=== PATIENT | male | born 1960 | race Caucasian/White ===

== ENCOUNTER 2023-06-20 09:41 | Outpatient (OUT) | payer MEDICARE, SELFPAY ==
--- NOTE | 2023-06-20 10:46 | PM.CN ---
Consult Note: HPI Data of Consult Patient: known to practice within the last 3 years Consult date: 06/20/23 Requesting Physician: ZO MCKINNEY NP Primary Care Provider: MITCHELL SANTANA Consult Narrative Narrative: Patient is here for f/u of neck pain. He had cervical RFA done 02/14 with continued relief of pain. Today he has muscle tightness in upper right cervical area. We did discuss trigger point injections to the area and he is agreeable Pain is in the right cervical area with obvious trigger point, worse at night. No new sensorimotor sx or bowel or bladder issues. No adverse medication SE. Medications assist patient with better ability to perform ADLs. cc:: CC: ZO MCKINNEY NP Review of Systems ROS Status of ROS 10 or more systems reviewed and unremarkable except as noted in history and below Musculoskeletal Reports: neck pain Exam Constitutional Documenting provider has reviewed patient's vital signs: yes Common normals: no apparent distress, average body habitus, oriented x3, no limitations, healthy appearing, alert and well nourished General appearance: cooperative, comfortable and well developed Orientation/consciousness: Yes awake, Yes oriented to person, Yes oriented to place and Yes oriented to time HENMT Common normals: normocephalic and moist oral mucous membranes Neck & C-Spine Common normals: supple General: normal visual inspection and trachea midline Cervical spine: pain with cervical ROM, paracervical muscle tenderness and paracervical muscle spasm Other: muscle strength5/5 bilat UE with intact sensation no radicular sx Neck images: 1. trigger point Respiratory Common normals: normal respiratory effort, no retractions and no use of accessory muscles Effort & inspection: able to speak in complete sentences and symmetric chest movement Assessment and Plan Assessment and Plan (1) Cervical spondylosis: (2) Muscle spasm: Plan trigger point injection right splenius capitus refill [id number]
== END 2023-06-20 09:42 | disposition home or self-care (01) ==
LOC: PM 09:42
PROVIDERS: PCP Family Medicine; Visit Provider Nurse Practitioner
DX: M47.812 Spondylosis without myelopathy or radiculopathy, cervical region (principal); M62.838 Other muscle spasm
CPT/HCPCS: G0463

== ENCOUNTER 2023-07-04 15:17 | Outpatient (OUT) | payer MEDICARE, SELFPAY ==
--- NOTE | 2023-07-04 | CONS_ITS ---
PROCEDURE DATE: ??07/04/2023 PROCEDURE:? Bilateral splenius capitis trigger point injection. PREOPERATIVE DIAGNOSIS:? Pain secondary to myofascial spasm bilateral splenius capitis. POSTOPERATIVE DIAGNOSIS:? Pain secondary to myofascial spasm bilateral splenius capitis. SOLUTION USED FOR INJECTION:? 2 mL of 2% lidocaine, 2 mL of 0.25% Marcaine, 10 mg of Kenalog total of 5 mL and 1.5 mL was used for injection at each site. IMMEDIATE COMPLICATIONS:? None. PROCEDURE:? After informed consent was obtained from the patient, placed in the sitting position. Skin overlying the area was prepped with alcohol.? A 25 gauge, 1 ?? needle was easily entered over the area and directed towards the splenius capitis at approximately C3 level.? After having a positive twitch response, no indication of intravascular or intraneural or intrathecal needle tip placement was noted.? 1.5 mL of solution was injection.? This was repeated in a similar fashion on the contralateral side.? Post procedure, needle was removed.? Transferred to recovery in stable condition.? Patient reports reduction of pain to 0/10.? MTDD
== END 2023-07-04 15:18 | disposition home or self-care (01) ==
LOC: PM 15:18
PROVIDERS: PCP Family Medicine; Visit Provider Anesthesiology Pain Medicine
DX: M62.838 Other muscle spasm (principal)
CPT/HCPCS: 20552

== ENCOUNTER 2023-08-15 12:32 | Outpatient (OUT) | payer MEDICARE, SELFPAY ==
[2023-08-15 14:14] LABS: Amylase 117 U/L (25-115)
== END 2023-08-15 12:33 | disposition home or self-care (01) ==
PROVIDERS: PCP Family Medicine
DX: E11.65 Type 2 diabetes mellitus with hyperglycemia (principal)
CPT/HCPCS: 36415; 82150; 83690

== ENCOUNTER 2023-11-14 07:48 | Outpatient (OUT) | payer MEDICARE, SELFPAY ==
[2023-11-14 08:44] LABS: Alanine Aminotransferase 39 U/L (16-63); Albumin Globulin Ratio 0.9; Albumin Level 3.5 g/dL (3.4-5.0); Alkaline Phosphatase 107 U/L (46-116); Amylase 91 U/L (25-115); Anion Gap 10.7; Aspartate Amino Transferase 26 U/L (15-37); BUN Creatinine Ratio 22.7; Bilirubin Total 0.7 mg/dL (0.2-1.0); Calcium 8.8 mg/dL (8.5-10.1); Carbon Dioxide 31.7 mmol/L (21.0-32.0); Chloride 104 mmol/L (98-107); Estimated GFR (African America >60 (>=60); Estimated GFR (Non-African Ame >60 (>=60); Globulin 3.7 g/dL; Glucose 101 mg/dL (74-106); Potassium 4.4 mmol/L (3.5-5.1); Sodium 142 mmol/L (136-145); Total Protein 7.2 g/dL (6.4-8.2)
== END 2023-11-14 07:49 | disposition home or self-care (01) ==
LOC: LAB 07:50
PROVIDERS: PCP Family Medicine
DX: R10.9 Unspecified abdominal pain (principal)
CPT/HCPCS: 36415; 80053; 82150; 83690

== ENCOUNTER 2023-11-20 08:02 | Outpatient (OUT) | payer MEDICARE, SELFPAY ==
--- NOTE | 2023-11-20 08:27 | P.CN_ITS ---
Consult Note: HPI Data of Consult Patient: known to practice within the last 3 years Requesting Physician: Shannan Lyle NP Primary Care Provider: MITCHELL SANTANA Consult Narrative Reason for consult: f/u Narrative: Garo wilkins pleasant 62 year old male presents for evaluation and management of chronic neck pain. Patient rating pain 8/10 today in cervical spine and paraspinal myofascial pain. Pain described as throbbing, worse with all activity and in the evenings. No numbness, tingling, weakness. Pain responds well to mobic and baclofen. Continues Topamax 100mg HS. Patient found benefit from previous cervical TPI and would like to repeat. cc:: CC: Shannan Lyle NP Review of Systems ROS Status of ROS 10 or more systems reviewed and unremark able except as noted in history and below Musculoskeletal Reports: neck pain Meds Home Medications and Allergies Home Medications Medication Instructions Recorded Confirmed Type amlodipine 5 mg tablet (Norvasc) 5 mg PO DAILY 06/20/23 06/20/23 History aspirin 81 mg capsule 81 mg PO DAILY 06/20/23 06/20/23 History atorvastatin 40 mg tablet 40 mg PO DAILY 06/20/23 06/20/23 History baclofen 10 mg tablet 10 mg PO TID 06/20/23 06/20/23 History insulin aspart U-100 100 unit/mL 24 unit subcut TID 06/20/23 06/20/23 History (3 mL) subcutaneous pen (Novolog FlexPen U-100 Insulin aspart) insulin degludec 100 unit/mL (3 50 unit subcut DAILY 06/20/23 06/20/23 History mL) subcutaneous pen (Tresiba FlexTouch U-100 insulin) meloxicam 15 mg tablet 15 mg PO DAILY 06/20/23 06/20/23 History metformin 500 mg tablet 500 mg PO BID 06/20/23 06/20/23 History semaglutide 1 mg/dose (4 mg/3 mL) 4 mg subcut QWEEK 06/20/23 06/20/23 History subcutaneous pen injector (Ozempic) topiramate 100 mg tablet (Topamax) 100 mg PO DAILY 06/20/23 06/20/23 History Allergies Allergy/AdvReac Type Severity Reaction Status Date / Time No Known Drug Allergies Allergy Verified 06/20/23 12:51 Exam Constitutional Documenting provider has reviewed patient's vital signs: yes Common normals: no apparent distress, average body habitus, oriented x3, no limitations, healthy appearing, alert and well nourished General appearance: cooperative, comfortable and well developed Orientation/consciousness: Yes awake, Yes oriented to person, Yes oriented to place and Yes oriented to time HENMT Common normals: normocephalic and moist oral mucous membranes Neck & C-Spine Common normals: supple General: normal visual inspection and trachea midline Cervical spine: pain with cervical ROM, paracervical muscle tenderness and paracervical muscle spasm Other: muscle strength5/5 bilat UE with intact sensation no radicular sx Respiratory Common normals: normal respiratory effort, no retractions and no use of accessory muscles Effort & inspection: able to speak in complete sentences and symmetric chest movement Assessment and Plan Assessment and Plan (1) Cervical spondylosis: (2) Muscle spasm: (3) Myofascial pain: Plan patient is not interested in trialing alternative medications at this time, he says he does not like taking pills continue mobic 15mg daily, takes this in the evening without side effect continue baclofen 10mg hs has found no benefit in the past to a tens unit mild benefit to icy hot creams previous cervical RFAs provided 50% relief greater than 6 months will return to office for cervical myofascial TPI with Dr Falcon transdermal therapeutics cream 8a BID to neck for chronic neck pain and myofascial pain
== END 2023-11-20 08:03 | disposition home or self-care (01) ==
LOC: PM 08:02
PROVIDERS: PCP Family Medicine; Visit Provider Nurse Practitioner
DX: M47.812 Spondylosis without myelopathy or radiculopathy, cervical region (principal); M62.838 Other muscle spasm; M79.18 Myalgia, other site
CPT/HCPCS: G0463

== ENCOUNTER 2024-03-16 07:49 | Outpatient (OUT) | payer MEDICARE, SELFPAY ==
--- OUTSIDE RECORDS SUMMARY | 2024-03-16 08:06 | XMS_ITS | CCD ---
Author Organization [facility] Care Team Providers Care 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 Name Role Phone Melissa Joyce Unavailable LAKSHMIPATHY ., NARENDRANATH Consulting Su vailable LAKSHMIPATHY ., DONG Attending Su vailable FURMARIA TERESANG, DR RINKU Peralta Primary Care Unavailable LAKSHMIPATHY ., DONG Admitting Su vailable COBURN ., DR HAYDE Staley Admitting Unavailable COBURN ., DR HAYDE Staley Consulting Unavailable FURLONG, DR RINKU Peralta Primary Care Unavailable COBURN ., DR HAYDE Staley Attending Unavailable FURLONG, DR RINKU Peralta Primary Care Unavailable EDUARDO, DR DAY Attending Unavailable EDUARDO, DR DAY Admitting Unavailable EDUARDO, DR DAY Consulting Unavailable MISC, DR MACIAS Attending Unavailable MISC, DR MACIAS Admitting Unavailable REQUEST, DR SANABRIA LISTED Primary Care Unavaila ble MISC, DR MACIAS Consulting Unavailable MARIELEDY POWERS Consulting Unavailable FURLONG, DR RINKU Peralta Primary Care Unavailable EDUARDO, DR DAY Consulting Unavailable EDUARDO, DR DAY Attending Unavailable EDUARDO, DR DAY Admitting Unavailable LENY, DIANE Attending Unavailable LENY, DIANE Admitting Unavailable FURLONG, DR RINKU Peralta Primary Care Unavailable LENY, DIANE Consulting Unavailable COBURN ., DR HAYDE Staley Consulting Unavailable FURLONG, DR RINKU Peralta Primary Care Unavailable COBURN ., DR HAYDE Staley Attending Unavailable COBURN ., DR HAYDE Staley Admitting Unavailable CABRALES .SADIA Consulting Unavailable FURLONG, DR RINKU Peralta Primary Care Unavailable COBURN ., DR HAYDE Staley Attending Unavailable COBURN ., DR HAYDE Staley Admitting Unavailable COBURN ., DR HAYDE Staley Consulting Unavailable FURLONG, DR RINKU Peralta Primary Care Unavailable COBURN ., DR HAYDE Staley Attending Unavailable COBURN ., DR HAYDE Staley Admitting Unavailable FURLONG, DR RINKU Peralta Primary Care Unavailable COBURN ., DR HAYDE Staley Admitting Unavailable COBURN ., DR HAYDE Staley Attending Unavailable CABRALES ., SADIA Consulting Unavailable LAKSHMIPATHY ., DONG Attending Su vailable LAKSHMIPATHY ., DONG Admitting Su vailable FURLONG, DR RINKU Peralta Primary Care Unavailable HALKER ., ZO Admitting Unavailable FURLONG, DR RINKU Peralta Primary Care Unavailable HALKER ., ZO Attending Unavailable LAKSHMIPATHY ., NARENDMAULIKATH Attending Su vailable LAKSHMIPATHY ., TIMURATH Admitting Su vailable FURLONG, DR RINKU Peralta Primary Care Unavailable ELSA MAR Consulting Unavailable LAKSHMIPATHY ., DONG Consulting Su vailable PAY ., DR TALAVERA Consulting Unavailable FURLONG, DR RINKU Peralta Primary Care Unavailable PAY ., DR TALAVERA Admitting Unavailable PAY ., DR TALAVERA Attending Unavailable DESIRAE SOSA Consulting Unavailable FURLONG, DR RINKU Peralta Primary Care Unavailable EDUARDO, DR DAY Consulting Unavailable EDUARDO, DR DAY Attending Unavailable EDUARDO, DR DAY Admitting Unavailable Uday Wright Consulting Unavailable COBURN ., DR HAYDE Staley Admitting Unavailable CABRALES ., SADIA Consulting Unavailable COBURN ., DR HAYDE Staley Attending Unavailable FURLONG, DR RINKU Peralta Primary Care Unavailable CUBA ., MIHAELA Attending Unavailable CUBA ., MIHAELA Admitting Unavailable FURLONG, DR RINKU Peralta Primary Care Unavailable CUBA ., MIHAELA Consulting Unavailable LAKSHMIPATHY ., DONG Attending Su vailable LAKSHMIPATHY ., DONG Admitting Su vailable FURLONG, DR RINKU Peralta Primary Care Unavailable QUYEN LI Consulting Unavailable LAKSHMIPATHY ., DONG Consulting Su vailable KAVITA BANG Consulting Unavailable Furlong Rinku FORD Primary Care Provider DO Rinku Trejo Primary Care Provider Maya, DO Dobbs Attending Provider Rinku Trejo Attending Unavailable Maya, Rinku Primary Care Unavailable Furmaria teresang, Rinku Admitting Unavailable Medications Current Medications Medication Drug Class(es) Dates Sig (Normalized) Sig (Original) 3 ML semaglutide 1.34 MG/ML Pen Injector [Ozempic] (12 sources) Start: 09-20-2022 inject 1 mg by subcutaneous injection every week Ozempic (1 MG/DOSE) 4 MG/3ML 1mg SQ once weekly for 90 day(s) Aug, Active inject 2 mg by subcu taneous injection every week Ozempic (1 MG/DOSE) 4 MG/3ML 2mg SQ once weekly for 90 days Not-Taking inject 1 mg by subcu taneous injection every week Ozempic (1 MG/DOSE) 4 MG/3ML 1mg SQ once weekly for 90 days Active inject 1 mg by subcu taneous injection every week Ozempic (1 MG/DOSE) 4 MG/3ML 1mg SQ once weekly for 90 day(s) Active 3 ML semaglutide 2.68 MG/ML Pen Injector [Ozempic] (7 sources) Start: 03-26-2023 inject 1 mg by subcutaneous injection every week Ozempic (2 MG/DOSE) 8 MG/3ML as directed Subcutaneous weekly for 90 days March, Active inject 1 mg by subcu taneous injection every week Ozempic (2 MG/DOSE) 8 MG/3ML as directed Subcutaneous weekly for 90 days Send refill after labs Active inject 1 mg by subcu taneous injection every week Ozempic (2 MG/DOSE) 8 MG/3ML as directed Subcutaneous weekly for 90 days Active amitriptyline hydrochloride 25 mg oral tablet (2 sources) Tricyclic Antidepressant take 1 tablet by mouth in the morning amitriptyline (ELAVIL) 25 mg tablet Take 1 tablet (25 mg total) by mouth in the morning. 0 Active amLODIPine 5 mg oral tablet (20 sources) Dihydropyridine Calcium Channel Shadi Start: take 5 mg by mouth once daily Amlodipine Active 5 MG PO Daily February 18, 2024 12:00am Start: 06-24-2023 End: 12-04-2023 take 1 tablet by mouth once daily amLODIPine (NORVASC) 5 mg tablet take 1 tablet by mouth once daily 90 tablet 1 12/04/2023 Active aspirin 81 mg delayed release oral tablet (20 sources) Platelet Aggregation Inhibitor, Nonsteroidal Anti-inflammatory Drug Start: 02-19-2024 take 81 mg by mouth once daily Aspirin Active 81 MG PO Daily February 19, 2024 12:00am Start: 04-29-2023 take 1 tablet by cirilo once daily aspirin 81 mg take 1 tablet by mouth once daily 90 tablet 3 04/29/2023 Active atorvastatin 40 mg oral tablet (20 sources) HMG-CoA Reductase Inhibitor Start: 01-14-2024 take 1 tablet by mouth once daily Atorvastatin Active 1 TAB PO Daily January 14, 2024 1:00am FreeTextSi tablet Orally Once a day; Note: Source Status: Taking; Provider: Isiah Torres ( ) Start: 09-20-2023 End: 12-11-2023 take 1 tablet by mouth once daily atorvastatin (LIPITOR) 40 mg tablet take 1 tablet by mouth once daily 90 tablet 0 12/11/2023 Active baclofen 10 mg oral tablet (11 sources) gamma-Aminobutyric Acid-ergic Agonist Start: 02-18-2024 take 10 mg by mouth once daily Baclofen Active 10 MG PO Daily February 18, 2024 12:00am Start: 03-21-2023 take 0.5-1 tablets b y mouth three times daily baclofen (LIORESAL) 10 mg tablet TAKE 1/2 TO 1 TABLET BY MOUTH THREE TIMES A DAY 0 03/21/2023 Active Bydureon Bcise 2 MG (9 sources) inject 2 mg by subcu taneous injection every week Bydureon Bcise 2 MG 2 mg SQ Once Weekly for 90 days dispense quantity sufficient for 90 days Active inject 2 mg by subcu taneous injection every week Bydureon Bcise 2 MG 2 mg SQ Once Weekly for 30 days dispense quantity sufficient for 30 days Active inject 2 mg by subcu taneous injection every week Bydureon Bcise 2 MG 2 mg SQ Once Weekly Active inject 2 mg by subcu taneous injection every week Bydureon Bcise 2 MG injector SQ Once Weekly Active cholecalciferol 0.1 mg oral tablet (15 sources) Vitamin D Start: 01-14-2024 take 100 ug by mouth once daily Cholecalciferol (Vitamin D3) Active 100 MCG PO Daily January 14, 2024 1:00am Start: 03-26-2023 take 2 tablets by mo [facility] in the morning cholecalciferol, vitamin D3, 2,000 units tablet Take 2 tablets (4,000 Units total) by mouth in the morning. 0 03/26/2023 Active Start: 03-26-2023 Cholecalcifero l 100 MCG (4000 UT) as directed Orally Once a day for 90 days March, Active Cholecalciferol 100 MCG (4000 UT) as directed Orally Once a day for 90 days Active take 1 capsule by [facility] every week Cholecalciferol 1.25 MG (36153 UT) 1 capsule Orally weekly for 56 days Active dapagliflozin 10 mg oral tablet (20 sources) Sodium-Glucose Cotransporter 2 Inhibitor Start: 01-14-2024 take 1 tablet by mouth once daily Dapagliflozin Propanediol (Farxiga) 10 mg tablet Active 1 TAB PO Daily January 14, 2024 1:00am FreeTextSi tablet Orally Once a day; Note: Source Status: Continue; Refills: 1; Qty: 90 Tablet; Provider: Isiah Bryan take 1 tablet by mouth in the [facility] dapagliflozin (FARXIGA) 10 mg tablet Take 1 tablet (10 mg total) by mouth in the morning. 0 Active Flash Glucose Sensor (Freest yle Mya 2 Sensor) kit (2 sources) Start: 01-14-2024 Flash Glucose Sensor (Freestyle Mya 2 Sensor) kit Active 0 .Route January 14, 2024 1:00am Change every 14 days Start: 01-14-2024 Flash Glucose Sensor (Freestyle Mya 2 Sensor) kit Active 0 .Route January 14, 2024 12:00am Change every 14 days fluticasone propionate 0.05 mg/actuat metered dose nasal spray (2 sources) Corticosteroid Start: 09-26-2021 take 1 spray(s) nasal route once daily Fluticasone Propionate 50 MCG/ACT 1 spray in each nostril Nasally Once a day for 30 day(s) Sep, Active FreeStyle Mya 2 Sensor - (20 sources) Start: 01-11-2022 FreeStyle Libr e 2 Sensor - as directed Change every 14 days in vitro DX: E11.65 Dec, Active Start: 01-11-2022 FreeStyle Libr e 2 Sensor - as directed Change every 14 days in vitro for 84 days DX: E11.65 Dec, Active FreeStyle Mya 2 Sensor - as directed Change every 14 days in vitro for 84 days DX: E11.65 Active FreeStyle Mya 2 Sensor - as directed Change every 14 days in vitro DX: E11.65 Active gabapentin 300 mg oral capsule (2 sources) Anti-epileptic Agent Start: 10-25-2023 take 1 capsule by mouth once daily gabapentin (NEURONTIN) 300 mg capsule Indications: Chronic right-sided low back pain with right-sided sciatica Take 1 capsule (300 mg total) by mouth nightly. 30 capsule 1 10/25/2023 Active Insulin Aspart U-100 (Novolog Flexpen U-100 Insulin) 100 unit/mL (3 mL) insulin pen (2 sources) Start: 01-14-2024 Insulin Aspart U-100 (Novolog Flexpen U-100 Insulin) 100 unit/mL (3 mL) insulin pen Active SUBCUT January 14, 2024 1:00am FreeTextSig: ISS 1:25, Stop ICR with Ozempic Subcutaneous 4 x daily; Note: Source Status: TITRATEExpect up to 50 u per day; Refills: 1; Provider: Isiah Bryan Start: 01-14-2024 Insulin Aspart U-100 (Novolog Flexpen U-100 Insulin) 100 unit/mL (3 mL) insulin pen Active SUBCUT January 14, 2024 12:00am FreeTextSig: ISS 1:25, Stop ICR with Ozempic Subcutaneous 4 x daily; Note: Source Status: TITRATEExpect up to 50 u per day; Refills: 1; Provider: Isiah Bryan 3 ml insulin aspart, human 100 unt/ml pen injector (20 sources) Insulin Analog inject 1 [IU] by subcutaneous injection three times daily after mealtime as needed insulin aspart U-100 (NovoLOG Flexpen U-100 Insulin) 100 unit/mL (3 mL) insulin pen Inject 1 Units under the skin Three (3) times daily after meals as needed. 0 Active NovoLOG FlexPen 100 UNIT/ML ISS 1:20, no ICR Subcutaneous 4 x daily for 90 days Expect up to 60 u per day Active NovoLOG FlexPen 100 UNIT/ML ISS 1:20, ICR 1:5 Subcutaneous 4 x daily for 90 days Expect up to 80 u per day Active inject 5 g by subcut aneous injection once daily before mealtime NovoLOG FlexPen 100 UNIT/ML per ISS 1 un it insulin to 30 mg/dl and 1 unit of insulin to 5 grams of carb ICR (max daily dose 80 units/day) Subcutaneous before meals for 90 days Expect up to 80 u per day Active inject 5 g by subcut aneous injection once daily before mealtime NovoLOG FlexPen 100 UNIT/ML per ISS 1 un it insulin to 30 mg/dl and 1 unit of insulin to 5 grams of carb ICR (max daily dose 80 units/day) Subcutaneous before meals for 30 days *ORDER CLARIFICATION Active NovoLOG FlexPen 100 UNIT/ML per SS 1:30 Subcutaneous before meals for 30 days expect up to 60 u per day Active NovoLOG FlexPen 100 UNIT/ML 24 units Subcutaneous before meals Active 3 ml insulin degludec 200 unt/ml pen injector (20 sources) Insulin Analog Start: 08-26-2023 inject 40 [IU] by subcutaneous injection once daily TRESIBA FLEXTOUCH U-200 200 unit/mL (3 mL) insulin pen INJECT 40 UNITS SUBCUTANEOUSLY DAILY 0 08/26/2023 Active inject 40 [IU] by yuan bcutaneous injection once daily Tresiba FlexTouch 200 UNIT/ML 40 U Subcutaneous daily for 90 days expect up to 60 u per day Active inject 42 [IU] by yuan bcutaneous injection once daily Tresiba FlexTouch 200 UNIT/ML 42 U Subcutaneous daily for 90 days expect up to 60 u per day Active inject 54 [IU] by yuan bcutaneous injection once daily, then inject 60 [IU] by subcutaneous injection once daily Tresiba FlexTouch 200 UNIT/ML 54 units (may titrate up to 60 u daily Subcutaneous daily for 90 days expect up to 60 u per day Active inject 50 [IU] by yuan bcutaneous injection once daily, then inject 80 [IU] by subcutaneous injection once daily Tresiba FlexTouch 200 UNIT/ML 50 units (may titrate up to 80 units daily) Subcutaneous daily for 90 days expect up to 80 u per day Active inject 50 [IU] by yuan bcutaneous injection once daily, then inject 60 [IU] by subcutaneous injection once daily Tresiba FlexTouch 200 UNIT/ML 50 units (may titrate up to 60 units daily) Subcutaneous daily for 90 days expect up to 60 u per day Active Tresiba FlexTouc h 200 UNIT/ML 50 units (may titrate up to 60 units daily) Subcutaneous daily for 30 days *ORDER CLARIFICATION Active inject 50 [IU] by yuan bcutaneous injection once daily Tresiba FlexTouch 200 UNIT/ML 50 units Subcutaneous daily Active Insulin Degludec (Tresiba Flextouch U-200) 200 unit/mL (3 mL) insulin pen (4 sources) Start: 02-19-2024 Insulin Deglud ec (Tresiba Flextouch U-200) 200 unit/mL (3 mL) insulin pen Active 34 UNIT SUBCUT Daily February 19, 2024 8:10am Start: 02-18-2024 End: 02-19-2024 Insulin Degludec (Tresiba Fl extouch U-200) 200 unit/mL (3 mL) insulin pen Discontinued 40 UNIT SUBCUT Daily February 18, 2024 5:25pm February 19, 2024 8:13am Start: 01-14-2024 End: 02-18-2024 Insulin Degludec (Tresiba Fl extouch U-200) 200 unit/mL (3 mL) insulin pen Discontinued UNIT SUBCUT January 14, 2024 1:00am February 18, 2024 5:42pm FreeTextSi U Subcutaneous daily; Note: Source Status: Continue yo expect up to 60 u per day; Refills: 1; Qty: 30 ml; Provider: Isiah Bryan Start: 01-14-2024 Insulin Deglud ec (Tresiba Flextouch U-200) 200 unit/mL (3 mL) insulin pen Active UNIT SUBCUT January 14, 2024 12:00am FreeTextSi U Subcutaneous daily; Note: Source Status: Continue yo expect up to 60 u per day; Refills: 1; Qty: 30 ml; Provider: Isiah Bryan insulin lispro 100 unt/ml injectable solution (2 sources) Insulin Analog insulin lispro (HumaLOG) 100 unit/mL injection Inject under the skin 3 (three) times a day before meals. 0 Active lisinopril 40 mg oral tablet (2 sources) Angiotensin Converting Enzyme Inhibitor take 1 tablet by mouth in the morning lisinopriL (PRINIVIL,ZESTRIL) 40 mg tablet Take 1 tablet (40 mg total) by mouth in the morning. 0 Active lovastatin 10 mg oral tablet (2 sources) HMG-CoA Reductase Inhibitor take 1 tablet by mouth once daily Lovastatin 10 MG 1 tablet with the evening meal Orally Once a day Active meloxicam 15 mg oral tablet (2 sources) Nonsteroidal Anti-inflammatory Drug Start: 3 take 1 tablet by mouth in the morning meloxicam (MOBIC) 15 mg tablet Take 1 tablet (15 mg total) by mouth in the morning. 0 02/28/2023 Active 24 hr metFORMIN hydrochloride 500 mg extended release oral tablet (20 sources) Biguanide Start: 4 take 500 mg by mouth twice daily Metformin Active 500 MG PO Twice daily February 18, 2024 5:26pm Start: 01-14-2024 End: 02-18-2024 take 1 mg by mouth twice daily Metformin Discontinued MG PO January 14, 2024 1:00am February 18, 2024 5:42pm FreeTextSig: cont Orally Twice daily; Note: Source Status: Continue; Refills: 1; Provider: Isiah Bryan take 4 tablets by mo [facility] every twenty-four hours in the evening metFORMIN XR (GLUCOPHAGE XR) 500 mg 24 hr tablet Take 4 tablets (2,000 mg total) by mouth in the evening. 0 Active metFORMIN HCl ER 500 MG cont Orally Twice daily for 90 days Active metFORMIN HCl ER 500 MG 2 tabs BID with meals Orally Twice daily for 90 day(s) [facility] met[facility]MIN HCl 850 MG 1 tablet with a meal Orally BID for 90 days Active naproxen 500 mg oral tablet (9 sources) Nonsteroidal Anti-inflammatory Drug take 1 tablet by mouth every twelve hours at mealtime as needed Naproxen 500 MG 1 tablet with food or milk as needed Orally every 12 hrs Active omeprazole 20 mg delayed release oral capsule (2 sources) Proton Pump Inhibitor Start: 023 take 1 capsule by mouth once daily as needed for pain omeprazole (PriLOSEC) 20 mg capsule Take 1 capsule (20 mg total) by mouth daily as needed (abdominal pain, heartburn). 30 capsule 1 10/25/2023 Active ozempic (2 mg/dose) 8 mg/3ml solution pen-injector (2 sources) inject 1 mg by subcutaneous injection every week Ozempic (2 MG/DOSE) 8 MG/3ML as directed Subcutaneous weekly for 90 days Send refill after labs Active OZEMPIC 2 mg/dose (8 mg/3 mL) pen injector (2 sources) Start: 023 inject 2 mg by subcutaneous injection every week OZEMPIC 2 mg/dose (8 mg/3 mL) pen injector Inject 2 mg under the skin once a week. 0 03/29/2023 Active psyllium 520 mg oral capsule (2 sources) Start: 020 take 1 capsule by mouth once daily psyllium (METAMUCIL) 0.52 gram capsule Take 1 capsule (0.52 g total) by mouth daily. 30 capsule 0 01/27/2020 Active 0.25 mg, 0.5 mg dose 1.5 ml semaglutide 1.34 mg/ml pen injector (1 source) Start: 022 Ozempic (0.25 or 0.5 MG/DOSE) 2 MG/1.5ML 0.5 mg Subcutaneous weekly for 90 days May, Active Semaglutide (Ozempic) 2 mg/dose (8 mg/3 mL) pen injector (2 sources) Start: 024 inject 2 mg by subcutaneous injection every week Semaglutide (Ozempic) 2 mg/dose (8 mg/3 mL) pen injector Active 2 MG SUBCUT every week January 14, 2024 1:00am FreeTextSi mg Subcutaneous weekly; Note: Source Status: Re-Start; Refills: 1; Qty: 9 ml; Provider: Isiah Bryan Start: 01-14-2024 inject 2 mg by subcu taneous injection every week Semaglutide (Ozempic) 2 mg/dose (8 mg/3 mL) pen injector Active 2 MG SUBCUT every week January 14, 2024 12:00am FreeTextSi mg Subcutaneous weekly; Note: Source Status: Re-Start; Refills: 1; Qty: 9 ml; Provider: Isiah Bryan tiZANidine 4 mg oral tablet (20 sources) Central alpha-2 Adrenergic Agonist Start: 02-19-2024 Tizanidine Active 4 MG PO . NEEDED February 19, 2024 12:00am tiZANidine HCl 4 MG 1 tablet Orally PRN Active topiramate 100 mg oral tablet (2 sources) take 1 tablet by mouth once daily topiramate (TOPAMAX) 100 mg tablet Take 1 tablet (100 mg total) by mouth nightly. 0 Active vitamin b12 1 mg sublingual tablet (20 sources) Vitamin B12 Start: 01-14-2024 take 1 tablet under the tongue every other day Cyanocobalamin (Vitamin B-12) Active MCG SUBLINGUAL January 14, 2024 1:00am FreeTextSi tablet under the tongue and allow to dissolve Sublingual EVERY OTHER DAY; Note: Source Status: Taking; Refills: 1; Provider: Isiah Bryan Start: 03-26-2023 take 1 tablet by cirilo th in the morning cyanocobalamin 1000 MCG tablet Take 1 tablet (1,000 mcg total) by mouth in the morning. 0 03/26/2023 Active Start: 03-06-2022 take 1 tablet under the tongue once daily Cyanocobalamin 1000 MCG 1 tablet under the tongue and allow to dissolve Sublingual Once a day for 30 day(s) Feb, Active take 1 tablet under the tongue every other day Cyanocobalamin 1000 MCG 1 tablet under the tongue and allow to dissolve Sublingual EVERY OTHER DAY for 90 days Active take 1 tablet under the tongue once daily Cyanocobalamin 1000 MCG 1 tablet under the tongue and allow to dissolve Sublingual Once a day for 90 day(s) Active take 1 tablet under the tongue once daily Cyanocobalamin 1000 MCG 1 tablet under the tongue and allow to dissolve Sublingual Once a day for 30 day(s) Active Completed/Discontinued Medications Medication Drug Class(es) Dates Sig (Normalized) Sig (Original) exenatide (2 sources) GLP-1 Receptor Agonist inject 2 mg by subcutaneous injection every week Bydureon 2 MG 2mg Subcutaneous weekly for 28 Not-Taking ozempic (1 mg/dose) 4 mg/3ml solution pen-injector (2 sources) inject 2 mg by subcutaneous injection every week as needed Ozempic (1 MG/DOSE) 4 MG/3ML 2mg SQ once weekly for 90 days Not-Taking/PRN Triamcinolone (20 sources) Corticosteroid Start: 04-06-2020 Start: 04-06-2020 KENALOG - 10 m g March, 40 mg Start: 2017 Start: 2017 Kenalog -40 mg Dec, 40 mg Problems Active Problems Problem Classification Problem Date Documented Date Episodic/Chronic Abdominal pain (3 sources) Left upper quadrant pain; 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: [Unspecified abdominal pain] Episodic Administrative/social admission (10 sources) Dietary counseling and surveillance; 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: [Patient encounter status] Onset: 12-25-2021 Resolved: 06-12-2022 Episodic Cancer of colon (2 sources) Carcinoma in situ of colon; 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: [Carcinoma in situ of colon] Onset: 10-29-2012 08-23-2022 Chronic Conditions associated with dizziness or vertigo (1 source) Dizziness and giddiness; 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: [DIZZINESS AND GIDDINESS] Onset: 04-02-2023 Episodic Diabetes mellitus with complications (20 sources) Hyperglycemia due to type 2 diabetes mellitus; 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: [Type 2 diabetes mellitus with hyperglycemia] Onset: 04-24-2017 Resolved: 06-12-2022 Chronic Diabetes mellitus without complication (3 sources) Type 2 diabetes mellitus without complications; 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: [Type 2 diabetes mellitus] Onset: 05-10-2016 08-23-2022 Chronic Disorders of lipid metabolism (20 sources) Hyperlipidemia; 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: [Hyperlipidemia, unspecified] Onset: 04-24-2017 Resolved: 06-12-2022 Chronic Essential hypertension (20 sources) Hypertensive disorder; 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: [Essential (primary) hypertension] Onset: 11-08-2017 Resolved: 06-12-2022 Chronic Fluid and electrolyte disorders (1 source) Dehydration; 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: [DEHYDRATION] Onset: 04-02-2023 Episodic Headache; including migraine (4 sources) Migraine without aura, intractable, without status migrainosus; 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: [MIGRAINE W/O AURA INTRACT W/O SE] Onset: 06-11-2022 Chronic Headache; including migraine (4 sources) Headache; including migraine; 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: [HEADACHE UNSPECIFIED] Onset: 04-06-2022 Hepatitis (2 sources) Nonalcoholic steatohepatitis; 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: [Nonalcoholic steatohepatitis (ANTUNEZ)] Onset: 08-25-2018 08-23-2022 Chronic Nausea and vomiting (4 sources) Nausea with vomiting, unspecified; 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: [NAUSEA WITH VOMITING UNSPECIFIED] Onset: 03-29-2023 Episodic Nonspecific chest pain (1 source) Chest pain, unspecified; 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: [CHEST PAIN UNSPECIFIED] Onset: 04-02-2023 Episodic Nutritional deficiencies (20 sources) Vitamin D deficiency; 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: [Vitamin D deficiency, unspecified] Onset: 12-25-2021 Resolved: 06-12-2022 Chronic Osteoarthritis (20 sources) Arthritis of finger of right hand; 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: [Primary osteoarthritis, right hand] Chronic Other aftercare (20 sources) Long-term current use of insulin; 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] 02-18-2024 Episodic Other aftercare (10 sources) FPC (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; 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: [SENIOR LIVING CURRENT USE OF INSULIN] Onset: 12-25-2021 Resolved: 06-12-2022 Episodic Other aftercare (1 source) superintendent container terminal (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) use 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; 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: [SENIOR LIVING 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] Onset: 04-02-2023 Episodic Other aftercare (1 source) Other watcher [employer]at [employer] (current) drug therapy; 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: [OTH TILER CURRENT DRUG THERAPY] Onset: 04-02-2023 Episodic Other connective tissue disease (1 source) Other muscle spasm; 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: [OTHER MUSCLE SPASM] Onset: 03-25-2023 Episodic Other lower respiratory disease (1 source) Dyspnea, unspecified; 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: [DYSPNEA UNSPECIFIED] Onset: 04-02-2023 Episodic Other nervous system disorders (1 source) Other chronic pain; 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: [OTHER CHRONIC PAIN] Onset: 03-25-2023 Chronic Other nutritional; endocrine; and metabolic disorders (20 sources) Obese class I; 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: [Body mass index (BMI) 33.0-33.9, adult] Chronic Other nutritional; endocrine; and metabolic disorders (1 source) Body mass index (BMI) 33.0-33.9, adult Onset: 12-25-2021 Resolved: 12-25-2021 Chronic Other nutritional; endocrine; and metabolic disorders (4 sources) Body mass index (BMI) 34.0-34.9, adult Onset: 01-10-2022 Resolved: 03-06-2022 Chronic Other nutritional; endocrine; and metabolic disorders (15 sources) Obese class II; 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: [Body mass index (BMI) 35.0-35.9, adult] Chronic Other nutritional; endocrine; and metabolic disorders (4 sources) Body mass index (BMI) 35.0-35.9, adult Onset: 06-12-2022 Resolved: 06-12-2022 Chronic Other nutritional; endocrine; and metabolic disorders (2 sources) High density lipoprotein deficiency ; 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: [Lipoprotein deficiency] Onset: 04-24-2017 08-23-2022 Chronic Other nutritional; endocrine; and metabolic disorders (2 sources) Obesity caused by energy imbalance; 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: [Other obesity due to excess calories] 04-19-2023 Chronic Other nutritional; endocrine; and metabolic disorders (1 source) Body mass index 30+ - obesity; 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: [Body mass index (BMI) 34.0-34.9, adult] 02-18-2024 Chronic Pneumonia (except that caused by tuberculosis or sexually transmitted disease) (1 source) Pneumonia, unspecified organism; 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: [PNEUMONIA UNSPECIFIED ORGANISM] Onset: 04-02-2023 Episodic Residual codes; unclassified (4 sources) Obstructive sleep apnea (adult) (pediatric); 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: [OBSTRUCTIVE SLEEP APNEA] Onset: 07-02-2022 Chronic Residual codes; unclassified (3 sources) Obstructive sleep apnea syndrome; 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: [Obstructive sleep apnea (adult) (pediatric)] Onset: 04-17-2011 04-05-2023 Chronic Residual codes; unclassified (1 source) Procedure and treatment not carried out for other reasons; 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: [PROC AND TX NOT CARRIED OUT OTH REASONS] Onset: 02-06-2023 Episodic Retinal detachments; defects; vascular occlusion; and retinopathy (1 source) Retinal disorder; 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: [Unspecified background retinopathy] 02-18-2024 Chronic Spondylosis; intervertebral disc disorders; other back problems (13 sources) Spondylosis without myelopathy or radiculopathy, cervical region; 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: [Other spondylosis with radiculopathy, cervical region] Onset: 05-10-2016 Chronic Unclassified (1 source) CONTACT W/AND (SUSP) EXPOS COVID-19; 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: [CONTACT W/AND (SUSP) EXPOS COVID-19] Onset: 04-02-2023 Unclassified (1 source) 0805 BG 95 given 1 packet fruit gummies. JOVON STALLWORTH 0821 BG recheck 94, patient had not eaten entire pack of fruit gummies, instructed patient to finish packet of gummies. JOVON STALLWORTH 02-19-2024 Past or Other Problems Problem Classification Problem Date Documented Da te Episodic/Chronic Cancer of colon (2 sources) History of malignant neoplasm of colon; 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: [Personal history of other malignant neoplasm of large intestine] Onset: 01-27-2020 01-27-2020 Episodic Cancer of testis (2 sources) Malignant tumor of testis; 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: [Malignant neoplasm of unspecified testis, unspecified whether descended or undescended] Onset: 03-25-1997 Resolved: 04-19-2023 04-19-2023 Chronic Gastrointestinal hemorrhage (4 sources) Rectal hemorrhage; 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: [Hemorrhage of anus and rectum] Onset: 01-26-2020 01-26-2020 Episodic Headache; including migraine (2 sources) Headache disorder; 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: [Other complicated headache syndrome] Onset: 08-23-2022 08-23-2022 Episodic Hemorrhoids (4 sources) Internal hemorrhoids; 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: [Other hemorrhoids] Onset: 01-27-2020 01-27-2020 Episodic Mood disorders (2 sources) Mood disorders Onset: 10-25-2023 10-25-2023 Other aftercare (1 source) [facility]PC (current) use of oral hypoglycemic drugs; 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: [SENIOR LIVING USE ORAL HYPOGLYCEMIC DX] Onset: 04-10-2022 Episodic Other gastrointestinal disorders (4 sources) Ulceration of colon; 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: [Ulcer of intestine] Onset: 01-27-2020 01-27-2020 Episodic Screening and history of mental health and substance abuse codes (3 sources) Personal history of nicotine dependence; 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: [Ex-smoker] Onset: 08-23-2022 08-23-2022 Episodic Spondylosis; intervertebral disc disorders; other back problems (9 sources) Cervicalgia; 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: [Cervical disc disorder with radiculopathy, unspecified cervical region] Onset: 08-23-2022 Episodic Sprains and strains (2 sources) Whiplash injury to neck; 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: [Sprain of ligaments of cervical spine, initial encounter] Onset: 08-23-2022 08-23-2022 Episodic Results Test Name Value Interpretation Reference Range Facility A1C HEMOGLOBINon 08-13-2023 HbA1c (Bld) [Mass fraction] 6.3 % [facility] Other Glucose - FINGER STICKon Glucose [Mass/Vol] 122 mg/dL [facility] Other HbA1c (Bld) [Mass fraction]o n 08-13-2023 A1C HEMOGLOBIN [facility] Other Glucose - FINGER STICKon Glucose [Mass/Vol] 142 mg/dL [facility] Other ACETONE SERUMon 03-29-2023 ACETONE Negative Normal NEGATIVE [facility] Comment on above: Performed By: #### U MICRO, ERUR #### [facility] [address] [place] [address] Dr. Dequan Márquez BNPon 03-29-2023 Natriuretic peptide B (Bld) [Mass/Vol] 352.0 pg/mL Normal <=900.0 [facility] Comment on above: Performed By: #### U MICRO, ERUR #### [facility] [address] [place] [address] Dr. Dequan Márquez CBC AUTO DIFFon 03-29-2023 BASO # 0.1 103/ul Normal 0.0-0.1 [facility] Comment on above: Performed By: #### C BC #### [facility] [address] [place] [address] Dr. Dequan Márquez Basophils/100 WBC (Bld) 0.4 % Normal 0.2-2.0 [facility] Comment on above: Performed By: #### C BC #### [facility] [address] [place] [address] Dr. Dequan Márquez EO # 0.0 103/ul Normal 0.0-0.7 [facility] Comment on above: Performed By: #### C BC #### [facility] [address] [place] [address] Dr. Dequan Márquez Eosinophils/100 WBC (Bld) 0.0 % Critically low 0.9-7.0 [facility] Comment on above: Performed By: #### C BC #### [facility] [address] [place] [address] Dr. Dequan Márquez Erythrocyte distribution width (RBC) [Ratio] 14.1 % Normal 11.0-15.0 [facility] Comment on above: Performed By: #### C BC #### [facility] [address] [address] [address] Dequan Márquez Hematocrit (Bld) [Volume fraction] 47.0 % Normal 42.0-54.0 [facility] Comment on above: Performed By: #### C BC #### [facility] [address] [address] [address] Dequan Márquez Hemoglobin (Bld) [Mass/Vol] 15.6 g/dL Normal 14.0-18.0 [facility] Comment on above: Performed By: #### C BC #### [facility] [address] [address] [address] Dequan Márquez IG # 0.29 10e3/ul Critically high 0.00-0.03 [facility] Comment on above: Performed By: #### C BC #### [facility] [address] [place] [address] Dr. Dequan Márquez IG % 1.4 % Critically high 0.0-0.5 [facility] Comment on above: Performed By: #### C BC #### [facility] [address] [place] [address] Dr. Dequan Márquez LYMPH # 1.2 103/ul Normal 1.2-3.8 [facility] Comment on above: Performed By: #### C BC #### [facility] [address] [place] [address] Dr. Dequan Márquez Lymphocytes/100 WBC (Bld) 5.4 % Critically low 20.5-60.0 [facility] Comment on above: Performed By: #### C BC #### [facility] [address] [place] [address] Dr. Dequan Márquez MANUAL DIFF REQ NO Normal [facility] Comment on above: Performed By: #### C BC #### [facility] [address] [place] [address] Dr. Dequan Márquez MCH (RBC) [Entitic mass] 28.6 pg Normal 25.9-34.0 [facility] Comment on above: Performed By: #### C BC #### [facility] [address] [place] [address] Dr. Dequan Márquez MCHC (RBC) [Mass/Vol] 33.2 g/dL Normal 29.9-35.2 [facility] Comment on above: Performed By: #### C BC #### [facility] [address] [address] [address] Dequan Márquez MCV (RBC) [Entitic vol] 86.2 fL Normal 80.0-94.0 [facility] Comment on above: Performed By: #### C BC #### [facility] [address] [address] [address] Dequan Márquez MONO # 1.3 103/ul Critically high 0.3-0.8 [facility] Comment on above: Performed By: #### C BC #### [facility] [address] [place] [address] Dr. Dequan Márquez Monocytes/100 WBC (Bld) 6.1 % Normal 1.7-12.0 [facility] Comment on above: Performed By: #### C BC #### [facility] [address] [address] [address] Dequan Márquez NEUT # 18.6 103/ul Critically high 1.4-6.5 [facility] Comment on above: Performed By: #### C BC #### [facility] [address] [place] [address] Dr. Dequan Márquez Neutrophils/100 WBC (Bld) 86.7 % Critically high 43.0-75.0 [facility] Comment on above: Performed By: #### C BC #### [facility] [address] [address] [address] Dequan Márquez Platelet mean volume (Bld) [Entitic vol] 11.2 fL Normal 9.5-13.5 [facility] Comment on above: Performed By: #### C BC #### [facility] [address] [place] [address] Dr. Dequan Márquez PLT 275 103/ul Normal 150-450 [facility] Comment on above: Performed By: #### C BC #### [facility] [address] [address] [address] Dequan Márquez RBC 5.45 106/ul Normal 4.70-6.10 [facility] Comment on above: Performed By: #### C BC #### [facility] [address] [place] [address] Dr. Dequan Márquez WBC 21.4 103/ul Critically high 4.0-11.0 [facility] Comment on above: Performed By: #### C BC #### [facility] [address] [place] [address] Dr. Dequan Márquez CULTURE BLOODon 03-29-2023 Microscopic examination of blood, culture Culture Observations: NO GROWTH AT 5 DAYS. Normal [facility] Comment on above: Performed By: #### U MICRO, ERUR #### [facility] [address] [place] [address] Dr. Dequan Márquez Covid-19 PCR (CVDTB)on SARS-CoV-2 (COVID-19) RNA YONIS+probe Ql (Unsp spec) Not detected Normal NOT DETECTED [facility] Comment on above: Result Comment: This test is not yet approved or cleared by the [place] FDA. When there are no FDA-approved or cleared tests available, and other criteria are met, FDA can make tests available under an emergency access mechanism called an Emergency Use Authorization (EUA). The EUA for this test is supported by the Dial Polisher of Health and Human Service's (HHS's) declaration that circumstances exist to justify the emergency use of in vitro diagnostics for the detection and/or diagnosis of the virus that causes COVID-19. This EUA will remain in effect (meaning this test can be used) for the duration of the COVID-19 declaration justifying emergency of IVDs, unless it is terminated or revoked by FDA (after which the test may no longer be used). When diagnostic testing is negative, the possibility of a false negative should be considered in the context of a patient's recent exposures and the presence of clinical signs and symptoms consistent with SARS-CoV-2. Performed By: #### C BC #### [facility] [address] [place] [address] Dr. Dequan Márquez ER URINE PROFILEon 3 Bilirubin Ql (U) Negative Normal NEGATIVE [facility] Comment on above: Performed By: #### U MICRO, ERUR #### [facility] [address] [address] [address] Dequan Márquez Clarity (U) CLEAR Normal CLEAR [facility] Comment on above: Performed By: #### U MICRO, ERUR #### [facility] [address] [address] [address] Dequan Márquez Color (U) YELLOW Normal YELLOW [facility] Comment on above: Performed By: #### U MICRO, ERUR #### [facility] [address] [address] [address] Dequan Márquez ERUAHD A micrscopic examination will be performed if indicated. Normal [facility] Comment on above: Performed By: #### U MICRO, ERUR #### [facility] [address] [place] [address] Dr. Dequan Márquez Glucose Ql (U) >1000 Abnormal NEGATIVE [facility] Comment on above: Performed By: #### U MICRO, ERUR #### [facility] [address] [address] [address] Dequan Márquez Hemoglobin Ql (U) SMALL Abnormal NEGATIVE [facility] Comment on above: Performed By: #### U MICRO, ERUR #### [facility] [address] [address] [address] Dequan Márquez Ketones Ql (U) Negative Normal NEGATIVE [facility] Comment on above: Performed By: #### U MICRO, ERUR #### [facility] [address] [address] [address] Dequan Márquez LEUKOCYTES Negative Normal NEGATIVE [facility] Comment on above: Performed By: #### U MICRO, ERUR #### [facility] [address] [address] [address] Dequan Márquez Nitrite Ql (U) Negative Normal NEGATIVE [facility] Comment on above: Performed By: #### U MICRO, ERUR #### [facility] [address] [address] [address] Dequan Márquez pH (U) 5.5 [pH] Normal 5-9 [facility] Comment on above: Performed By: #### U MICRO, ERUR #### [facility] [address] [address] [address] Dequan Márquez Protein (U) [Mass/Vol] 100 mg/dL Abnormal NEGATIVE/ TRACE [facility] Comment on above: Performed By: #### U MICRO, ERUR #### [facility] [address] [place] [address] Dr. Dequan Márquez SPEC GRAVITY 1.020 Normal 1.005-<=1.025 [facility] Comment on above: Performed By: #### U MICRO, ERUR #### [facility] [address] [place] [address] Dr. Dequan Márquez UR MICRO IND INDICATED Normal [facility] Comment on above: Performed By: #### U MICRO, ERUR #### [facility] [address] [place] [address] Dr. Dequan Márquez Urobilinogen Qn (U) 0.2 {Stuart'U}/dL Normal 0.2 - 1.0 [facility] Comment on above: Performed By: #### U MICRO, ERUR #### [facility] [address] [place] [address] Dr. Dequan Márquez LACTATE/LACTIC ACIDon 2022 Lactate [Moles/Vol] 2.0 mmol/L Normal 0.4-2.0 [facility] Comment on above: Performed By: #### L ACT #### [facility] [address] [place] [address] Dr. Dequan Márquez LIPASEon 03-29-2023 Lipase [Catalytic activity/Vol] 120.0 U/L Normal 73.0-393.0 [facility] Comment on above: Performed By: #### B SOFTWARE QUALITY TESTER, HSTROPN, CMP, LIPA #### [facility] [address] [place] [address] Dr. Dequan Márquez PH VENOUS BLOODon 03-29-2023 PCO2 VENOUS 36.3 mmHg Critically low 40.0-52.0 [facility] Comment on above: Performed By: #### U MICRO, ERUR #### [facility] [address] [place] [address] Dr. Dequan Márquez pH VENOUS 7.470 Critically high 7.330-7.430 [facility] Comment on above: Performed By: #### U MICRO, ERUR #### [facility] [address] [place] [address] Dr. Dequan Márquez PROF 14(COMP METB)on 023 Albumin [Mass/Vol] 3.6 g/dL Normal 3.4-5.0 [facility] Comment on above: Performed By: #### B SOFTWARE QUALITY TESTER, HSTROPN, CMP, LIPA #### [facility] [address] [place] [address] Dr. Dequan Márquez Albumin/Globulin [Mass ratio] 0.8 {ratio} Normal [facility] Comment on above: Performed By: #### B SOFTWARE QUALITY TESTER, HSTROPN, CMP, LIPA #### [facility] [address] [place] [address] Dr. Dequan Márquez ALP [Catalytic activity/Vol] 126 U/L Critically high 46-116 [facility] Comment on above: Performed By: #### B SOFTWARE QUALITY TESTER, HSTROPN, CMP, LIPA #### [facility] [address] [place] [address] Dr. Dequan Márquez ALT [Catalytic activity/Vol] 43 U/L Normal 16-63 [facility] Comment on above: Performed By: #### B SOFTWARE QUALITY TESTER, HSTROPN, CMP, LIPA #### [facility] [address] [place] [address] Dr. Dequan Márquez Anion gap [Moles/Vol] 11.4 mmol/L Normal [facility] Comment on above: Performed By: #### B SOFTWARE QUALITY TESTER, HSTROPN, CMP, LIPA #### [facility] [address] [place] [address] Dr. Dequan Márquez AST [Catalytic activity/Vol] 21 U/L Normal 15-37 [facility] Comment on above: Performed By: #### B SOFTWARE QUALITY TESTER, HSTROPN, CMP, LIPA #### [facility] [address] [address] [address] Dequan Márquez Bilirubin [Mass/Vol] 1.5 mg/dL Critically high 0.2-1.0 [facility] Comment on above: Performed By: #### B SOFTWARE QUALITY TESTER, HSTROPN, CMP, LIPA #### [facility] [address] [place] [address] Dr. Dequan Márquez Calcium [Mass/Vol] 8.9 mg/dL Normal 8.5-10.1 [facility] Comment on above: Performed By: #### B SOFTWARE QUALITY TESTER, HSTROPN, CMP, LIPA #### [facility] [address] [place] [address] Dr. Dequan Márquez Chloride [Moles/Vol] 95 mmol/L Critically low 98-107 [facility] Comment on above: Performed By: #### B SOFTWARE QUALITY TESTER, HSTROPN, CMP, LIPA #### [facility] [address] [place] [address] Dr. Dequan Márquez CO2 [Moles/Vol] 28.2 mmol/L Normal 21.0-32.0 [facility] Comment on above: Performed By: #### B SOFTWARE QUALITY TESTER, HSTROPN, CMP, LIPA #### [facility] [address] [place] [address] Dr. Dequan Márquez Creatinine [Mass/Vol] 1.14 mg/dL Normal 0.70-1.30 [facility] Comment on above: Performed By: #### B SOFTWARE QUALITY TESTER, HSTROPN, CMP, LIPA #### [facility] [address] [place] [address] Dr. Dequan Márquez EGFR-AF TURKISH >60 Normal >=60 [facility] Comment on above: Performed By: #### B SOFTWARE QUALITY TESTER, HSTROPN, CMP, LIPA #### [facility] [address] [place] [address] Dr. Dequan Márquez EGFR-NON AF TURKISH >60 Normal >=60 [facility] Comment on above: Performed By: #### B SOFTWARE QUALITY TESTER, HSTROPN, CMP, LIPA #### [facility] [address] [place] [address] Dr. Dequan Márquez Globulin (S) [Mass/Vol] 4.8 g/dL Normal [facility] Comment on above: Performed By: #### B SOFTWARE QUALITY TESTER, HSTROPN, CMP, LIPA #### [facility] [address] [place] [address] Dr. Dequan Márquez Glucose [Mass/Vol] 209 mg/dL Critically high 74-106 [facility] Comment on above: Performed By: #### B SOFTWARE QUALITY TESTER, HSTROPN, CMP, LIPA #### [facility] [address] [place] [address] Dr. Dequan Márquez Potassium [Moles/Vol] 3.6 mmol/L Normal 3.5-5.1 [facility] Comment on above: Performed By: #### B SOFTWARE QUALITY TESTER, HSTROPN, CMP, LIPA #### [facility] [address] [place] [address] Dr. Dequan Márquez Protein [Mass/Vol] 8.4 g/dL Critically high 6.4-8.2 [facility] Comment on above: Performed By: #### B SOFTWARE QUALITY TESTER, HSTROPN, CMP, LIPA #### [facility] [address] [place] [address] Dr. Dequan Márquez Sodium [Moles/Vol] 131 mmol/L Critically low 136-145 [facility] Comment on above: Performed By: #### B SOFTWARE QUALITY TESTER, HSTROPN, CMP, LIPA #### [facility] [address] [place] [address] Dr. Dequan Márquez Urea nitrogen [Mass/Vol] 22.0 mg/dL Critically high 7.0-18.0 [facility] Comment on above: Performed By: #### B SOFTWARE QUALITY TESTER, HSTROPN, CMP, LIPA #### [facility] [address] [place] [address] Dr. Dequan Márquez Urea nitrogen/Creatinin e [Mass ratio] 19.3 mg/mg Normal [facility] Comment on above: Performed By: #### B SOFTWARE QUALITY TESTER, HSTROPN, CMP, LIPA #### [facility] [address] [place] [address] Dr. Dequan Márquez PROTIMEon 03-29-2023 INR Coag (PPP) [Relative time] 1.10 {INR} Normal [facility] Comment on above: Performed By: #### C BC #### [facility] [address] [place] [address] Dr. Dequan Márquez INR GUIDELINES SEE BELOW Normal [facility] Comment on above: Result Comment: JESSICA RED INR: 2.0 - 3.0 CONDITIONS NOT LISTED BELOW 2.5 - 3.5 FOR PROSTHETIC HEART VALVE REPLACEMENT 2.5 - 3.5 RECURRENT THROMBOSIS Performed By: #### C BC #### [facility] [address] [place] [address] Dr. Dequan Márquez PT Coag (PPP) [Time] 11.6 s Normal 9.0-11.6 [facility] Comment on above: Performed By: #### C BC #### [facility] [address] [place] [address] Dr. Dequan Márquez SYMPTOMATIC COVID-19 ANTIGEN on 03-29-2023 EUA Statement SEE BELOW Normal [facility] Comment on above: Result Comment: This test has not been FDA cleared or approved, but has been authorized by the FDA under an Emergency Use Authorization (EUA) for use by authorized laboratories certified under CLIA that meet the requirements to perform moderate or high complexity testing. This test has been authorized only for the detection of proteins from SARS-CoV-2, not for any other viruses or pathogens. The emergency use of this test is authorized for the duration of the declaration that circumstances exist justifying the authorization of emergency use of in vitro diagnostic tests for detection and/or diagnosis of Covid-19 under section 564(b)(1) of the Act, 21 U.S.C. 360bbb-3(b)(1), unless the declaration is terminated or authorization is revoked sooner. Performed By: #### C VDAGS #### [facility] [address] [place] [address] Dr. Dequan Márquez SARS-CoV-2 (COVID-19) RNA YONIS+probe Ql (Unsp spec) Negative Normal NEGATIVE [facility] Comment on above: Performed By: #### C VDAGS #### [facility] [address] [place] [address] Dr. Dequan Márquez TROPONIN, HIGH SENSITIVITYon 03-29-2023 HSTROP 5.2 pg/mL Normal 4.0-76.1 [facility] Comment on above: Result Comment: CUT- OFF POINTS HAVE BEEN ESTABLISHED BASED ON THE FOURTH UNIVERSAL DEFINITIONS OF MYOCARDIAL INFARCTION. THE UPPER REFERENCE LIMIT (URL) OF TROPONIN, DEFINED THE 99TH PERCENTILE OF cTnI DISTRIBUTION IN A REFERENCE POPULATION, HAS BEEN CONFIRMED THE DECISION THRESHOLD FOR NC DIAGNOSIS. Performed By: #### U MICRO, ERUR #### [facility] [address] [place] [address] Dr. Dequan Márquez URINE MICROSCOPIC ONLYon BACTERIA TRACE Abnormal NONE SEEN [facility] Comment on above: Performed By: #### U MICRO, ERUR #### [facility] [address] [place] [address] Dr. Dequan Márquez Bacteria identified Cx Nom (U) NOT INDICATED Normal [facility] Comment on above: Performed By: #### U MICRO, ERUR #### [facility] [address] [place] [address] Dr. Dequan Márquez CAST NONE SEEN Normal NONE SEEN [facility] Comment on above: Performed By: #### U MICRO, ERUR #### [facility] [address] [place] [address] Dr. Dequan Márquez Crystals LM Nom (Urine sed) NONE SEEN Normal NONE SEEN [facility] Comment on above: Performed By: #### U MICRO, ERUR #### [facility] [address] [place] [address] Dr. Dequan Márquez Epithelial cells LM Ql (Urine sed) FEW Abnormal NONE SEEN /RARE [facility] Comment on above: Performed By: #### U MICRO, ERUR #### [facility] [address] [place] [address] Dr. Dequan Márquez MUCOUS NONE SEEN Normal NONE SEEN [facility] Comment on above: Performed By: #### U MICRO, ERUR #### [facility] [address] [place] [address] Dr. Dequan Márquez RBC 2-5 Abnormal 0-2 [facility] Comment on above: Performed By: #### U MICRO, ERUR #### [facility] [address], [place] [address] Dr. Dequan Márquez WBC 0-2 Abnormal NONE SEEN [facility] Comment on above: Performed By: #### U MICRO, ERUR #### [facility] [address], [place] [address] Dr. Dequan Márquez XR CHEST 1 Von 03-29-2023 XR CHEST 1 V XR CHEST 1 V 3 1:21 PM EDT INDICATION: Dyspnea. COMPARISON: Radiograph the chest 12/16/2019 FINDINGS: Cardiomediastinal silhouette within normal limits. Right upper lobe opacity with air bronchograms. No pleural effusion.No pneumothorax. No acute fracture or dislocation. IMPRESSION: Findings likely represent right upper lobe pneumonia. Electronically authenticated by: DESIRAE SOSA Date: 2023-03-29 14:10 Normal [facility] A1C HEMOGLOBINon 03-26-2023 HbA1c (Bld) [Mass fraction] 6.5 % [employer] Other Glucose - FINGER STICKon Glucose [Mass/Vol] 156 mg/dL [facility] Other HbA1c (Bld) [Mass fraction]o n 03-26-2023 A1C HEMOGLOBIN [employer] Other A1C HEMOGLOBINon 12-25-2022 HbA1c (Bld) [Mass fraction] 7.0 % [facility] Other Glucose - FINGER STICKon Glucose [Mass/Vol] 107 mg/dL [facility] Other HbA1c (Bld) [Mass fraction]o n 12-25-2022 A1C HEMOGLOBIN [employer] Other MRI CSPINE WO CONon 10-22-20 MRI CSPINE WO CON EXAM: MRI CSPINE WO CON HISTORY: Neck pain. Chronic cervical spine pain which radiates into both shoulders. COMPARISON: Cervical spine x-rays from 01/29/2022. TECHNIQUE: Multiplanar and multisequence imaging of the cervical spine was performed without contrast. FINDINGS: There is mild to moderate motion artifact degrading evaluation on this study. No acute fracture or spondylolisthesis is evident. The cervical vertebral body heights are maintained. There is disc desiccation throughout the cervical spine. No acute abnormality is identified in the posterior fossa or at the craniocervical junction. No cord signal abnormality is identified given motion artifact degrading evaluation on this study. C2-C3: There is mild facet arthropathy on the left. No focal disc herniation is evident. There is no central or foraminal stenosis. C3-C4: There is a minimal disc bulge and mild facet arthropathy. The thecal sac measures 10 mm in AP dimension. No foraminal stenosis is evident. C4-C5: There is a diffuse disc bulge and mild uncovertebral spurring along with mild facet arthropathy. The thecal sac measures 10 mm in AP dimension. There is mild left foraminal narrowing. C5-C6: There is a small broad-based disc protrusion and uncovertebral spurring with mild to moderate left and mild right-sided facet arthropathy. There is mild central narrowing with the thecal sac measuring 9 mm in AP dimension. Mild bilateral foraminal narrowing is evident. C6-C7: A broad-based disc-osteophyte complex effaces the thecal sac and results in mild central narrowing and mild associated foraminal narrowing. IMPRESSION: 1. Multilevel discogenic change and facet arthropathy as described above resulting in mild central narrowing at C5-C6 and C6-C7. There is mild foraminal narrowing as described above. 2. No fracture or spondylolisthesis. Mild to moderate motion artifact degrades evaluation throughout the study. Electronically authenticated by: LEDY MARIE Date: 2022-10-22 21:47 Normal [facility] A1C HEMOGLOBINon 09-20-2022 HbA1c (Bld) [Mass fraction] 7.0 % [facility] Other Glucose - FINGER STICKon Glucose [Mass/Vol] 121 mg/dL [facility] Other HbA1c (Bld) [Mass fraction]o n 09-20-2022 A1C HEMOGLOBIN [employer] Other MICROALBUMIN/ CREATININE RAT IOon 08-14-2022 Albumin, Urine 4.3 ug/mL Normal Not Estab. The [facility] Comment on above: Performed By: #### C BC #### [facility] [address] [place] [address] [address] Dequan Márquez Albumin/ Creatinine Ratio 11 mg/g creat Normal 0-29 [facility] Comment on above: Result Comment: Norm al: 0 - 29 Moderately increased: 30 - 300 Severely increased: >300 Performed By: #### C BC #### [facility] [address] [place] [address] [address] Dequan Márquez Creatinine, Urine 38.5 mg/dL Normal Not Estab. The [facility] Comment on above: Performed By: #### C BC #### [facility] [address] [place] [address] [address] Dequan Márquez LIPID PROFILEon 08-13-2022 CHOL-HDL RATIO NORM SEE BELOW Normal [facility] Comment on above: Result Comment: 3.3 - 4.4 LOW RISK 4.4 - 7.1 AVERAGE RISK 7.1 - 11.0 MODERATE RISK >11.0 HIGH RISK Performed By: #### C BC #### [facility] [address] [place] [address] [address] Dequan Márquez Cholesterol [Mass/Vol] 111 mg/dL Normal <=200 [facility] Comment on above: Performed By: #### C BC #### [facility] [address] [place] [address] [address] Dequan Márquez Cholesterol in HDL [Mass/Vol] 28 mg/dL Critically low 40-60 [facility] Comment on above: Performed By: #### C BC #### [facility] [address] [place] [address] [address] Dequan Márquez Cholesterol in LDL [Mass/Vol] 51.0 mg/dL Normal [facility] Comment on above: Performed By: #### C BC #### [facility] [address] [place] [address] [address] Dequan Márquez Cholesterol.total/ Cholesterol in HDL [Mass ratio] 4.0 {ratio} Normal [facility] Comment on above: Performed By: #### C BC #### [facility] [address] [place] [address] [address] Dequan Máqruez HDL NORMAL > or = 60 mg/dl - LO W CARDIOVASCULAR RISK <40 mg/dl - HIGH CARDIOVASCULAR RISK Normal [facility] Comment on above: Performed By: #### C BC #### [facility] [address] [place] [address] [address] Dequan Márquez LDL CALC NORMAL SEE BELOW Normal [facility] Comment on above: Result Comment: <100 mg/dl OPTIMAL 100 - 129 mg/dl NEAR OR ABOVE OPTIMAL 130 - 159 mg/dl BORDERLINE HIGH 160 - 189 mg/dl HIGH >190 mg/dl VERY HIGH Performed By: #### C BC #### [facility] [address] [place] [address] Dr. Dequan Márquez Triglyceride [Mass/Vol] 160 mg/dL Critically high <=150 [facility] Comment on above: Performed By: #### C BC #### [facility] [address] [place] [address] Dr. Dequan Márquez VLDL CALC 32.0 mg/dL Normal [facility] Comment on above: Performed By: #### C BC #### [facility] [address] [place] [address] [address] Dequan Márquez PROF 14(COMP METB)on 022 Albumin [Mass/Vol] 4.1 g/dL Normal 3.4-5.0 [facility] Comment on above: Performed By: #### C BC #### [facility] [address] [place] [address] Dr. Dequan Márquez Albumin/Globulin [Mass ratio] 1.0 {ratio} Normal [facility] Comment on above: Performed By: #### C BC #### [facility] [address] [place] [address] [address] Dequan Márquez ALP [Catalytic activity/Vol] 114 U/L Normal 46-116 [facility] Comment on above: Performed By: #### C BC #### [facility] [address] [place] [address] [address] Dequan Márquez ALT [Catalytic activity/Vol] 43 U/L Normal 16-63 [facility] Comment on above: Performed By: #### C BC #### [facility] [address] [place] [address] [address] Deuqan Márquez Anion gap [Moles/Vol] 11.0 mmol/L Normal [facility] Comment on above: Performed By: #### C BC #### [facility] [address] [place] [address] [address] Dequan Márquez AST [Catalytic activity/Vol] 20 U/L Normal 15-37 [facility] Comment on above: Performed By: #### C BC #### [facility] [address] [place] [address] [address] Dequan Márquez Bilirubin [Mass/Vol] 0.5 mg/dL Normal 0.2-1.0 [facility] Comment on above: Performed By: #### C BC #### [facility] [address] [place] [address] [address] Dequan Márquez Calcium [Mass/Vol] 9.2 mg/dL Normal 8.5-10.1 [facility] Comment on above: Performed By: #### C BC #### [facility] [address] [place] [address] [address] Dequan Márquez Chloride [Moles/Vol] 102 mmol/L Normal 98-107 [facility] Comment on above: Performed By: #### C BC #### [facility] [address] [place] [address] [address] Dequan Márquez CO2 [Moles/Vol] 26.3 mmol/L Normal 21.0-32.0 [facility] Comment on above: Performed By: #### C BC #### [facility] [address] [place] [address] [address] Dequan Márquez Creatinine [Mass/Vol] 0.90 mg/dL Normal 0.70-1.30 [facility] Comment on above: Performed By: #### C BC #### [facility] [address] [place] [address] [address] Dequan Márquez EGFR-AF TURKISH >60 Normal >=60 [facility] Comment on above: Performed By: #### C BC #### [facility] [address] [place] [address] [address] Dequan Márquez EGFR-NON AF TURKISH >60 Normal >=60 [facility] Comment on above: Performed By: #### C BC #### [facility] [address] [place] [address] Dr. Dequan Márquez Globulin (S) [Mass/Vol] 4.3 g/dL Normal [facility] Comment on above: Performed By: #### C BC #### [facility] [address] [place] [address] [address] Dequan Márquez Glucose [Mass/Vol] 149 mg/dL Critically high 74-106 [facility] Comment on above: Performed By: #### C BC #### [facility] [address] [place] [address] Dr. Dequan Márquez Potassium [Moles/Vol] 4.3 mmol/L Normal 3.5-5.1 [facility] Comment on above: Performed By: #### C BC #### [facility] [address] [place] [address] Dr. Dequan Márquez Protein [Mass/Vol] 8.4 g/dL Critically high 6.4-8.2 [facility] Comment on above: Performed By: #### C BC #### [facility] [address] [place] [address] Dr. Dequan Márquez Sodium [Moles/Vol] 135 mmol/L Critically low 136-145 [facility] Comment on above: Performed By: #### C BC #### [facility] [address] [place] [address] Dr. Dequan Márquez Urea nitrogen [Mass/Vol] 30.0 mg/dL Critically high 7.0-18.0 [facility] Comment on above: Performed By: #### C BC #### [facility] [address] [place] [address] Dr. Dequan Márquez Urea nitrogen/Creatinin e [Mass ratio] 33.3 mg/mg Normal [facility] Comment on above: Performed By: #### C BC #### [facility] [address] [place] [address] Dr. Dequan Márquez MRI BRAIN WO CONon 2 MRI BRAIN WO CON EXAMINATION: MRI BRA IN WO CON, MRA HEAD WO CON, 06/11/2022 9:36 AM EDT HISTORY: Refractory migraine without aura ; intractable migraine; chronic posterior headache increasing in severity COMPARISON: CT head 04/04/2022 TECHNIQUE: MRI of the brain was performed without IV contrast. MR angiography was performed in the usual manner. Multiplanar reconstructed 2D and 3D images of the cerebral arteries were created and interpreted. FINDINGS: CEREBRUM: No edema, hemorrhage, mass, acute infarction, or inappropriate atrophy. Adjacent the lateral undersurface of the left occipital lobe is a rounded 8 x 6 x 8 mm well-circumscribed area which demonstrates increased signal on T2, decreased signal on flair and T1 suggesting a focal CSF fluid collection. CEREBELLUM: Cerebellar tonsils extend to, but not below, the foramen magnum. No edema, hemorrhage, mass, acute infarction, or inappropriate atrophy. BRAINSTEM: No edema, hemorrhage, mass, acute infarction, or inappropriate atrophy. CSF SPACES: Ventricles, cisterns, and sulci are appropriate for age. No hydrocephalus, subarachnoid hemorrhage, or mass. SKULL: No mass or other significant visible lesion. SINUSES: Limited views demonstrate no significant mucosal thickening or fluid. ORBITS: Limited views are unremarkable. INTERNAL CAROTIDS: No visible stenosis or aneurysm. ANTERIOR CEREBRALS: No visible stenosis or aneurysm. MIDDLE CEREBRALS: No visible stenosis or aneurysm. POSTERIOR CEREBRALS: No visible stenosis or aneurysm. BASILAR: No visible stenosis or aneurysm. VERTEBRALS: No visible stenosis or aneurysm. OTHER: Negative with no evidence of a vascular malformation. IMPRESSION: 1. Normal CT angiography of the brain. 2. Small 8 mm focal structure, likely incidental CSF fluid collection along the lateral undersurface of the left occipital lobe of doubtful clinical significance. As a precautionary measure consider follow-up MRI of the brain in 3-6 months to document stability. Electronically authenticated by: DUAY WRIGHT Date: 2022-06-13 06:18 Normal [facility] A1C HEMOGLOBINon 06-12-2022 HbA1c (Bld) [Mass fraction] 7.1 % [employer] Other Glucose - FINGER [facility]on Glucose [Mass/Vol] 181 mg/dL [employer] Other HbA1c (Bld) [Mass fraction]o n 06-12-2022 A1C HEMOGLOBIN [employer] [facility] [employer] Other CRPon 05-30-2022 CRP 1.0 mg/dL Normal <=1.0 [facility] Comment on above: Performed By: #### C BC #### [facility] [address] [place] [address] Dr. Dequan Márquez SED RATE WESTERGRENon 2021 SED RATE 32 mm/hr Critically high <=20 [facility] Comment on above: Performed By: #### S EDR #### [facility] [address] [place] [address] Dr. Dequan Márquez CBC AUTO DIFFon 04-06-2022 BASO # 0.1 103/ul Normal 0.0-0.1 [facility] Comment on above: Performed By: #### C BC #### [facility] [address] [place] [address] Dr. Dequan Márquez Basophils/100 WBC (Bld) 0.9 % Normal 0.2-2.0 [facility] Comment on above: Performed By: #### C BC #### [facility] [address] [place] [address] Dr. Dequan Márquez EO # 0.3 103/ul Normal 0.0-0.7 [facility] Comment on above: Performed By: #### C BC #### [facility] [address] [place] [address] Dr. Dequan Márquez Eosinophils/100 WBC (Bld) 3.1 % Normal 0.9-7.0 [facility] Comment on above: Performed By: #### C BC #### [facility] [address] [place] [address] Dr. Dequan Márquez Erythrocyte distribution width (RBC) [Ratio] 13.6 % Normal 11.0-15.0 [facility] Comment on above: Performed By: #### C BC #### [facility] [address] [place] [address] Dr. Dequan Márquez Hematocrit (Bld) [Volume fraction] 44.8 % Normal 42.0-54.0 [facility] Comment on above: Performed By: #### C BC #### [facility] [address] [place] [address] Dr. Dequan Márquez Hemoglobin (Bld) [Mass/Vol] 14.9 g/dL Normal 14.0-18.0 [facility] Comment on above: Performed By: #### C BC #### [facility] [address] [place] [address] Dr. Dequan Márquez IG # 0.02 10e3/ul Normal 0.00-0.03 [facility] Comment on above: Performed By: #### C BC #### [facility] [address] [place] [address] Dr. Dequan Márquez IG % 0.2 % Normal 0.0-0.5 [facility] Comment on above: Performed By: #### C BC #### [facility] [address] [place] [address] Dr. Dequan Márquez LYMPH # 2.3 103/ul Normal 1.2-3.8 [facility] Comment on above: Performed By: #### C BC #### [facility] [address] [place] [address] Dr. Dequan Márquez Lymphocytes/100 WBC (Bld) 28.7 % Normal 20.5-60.0 [facility] Comment on above: Performed By: #### C BC #### [facility] [address] [place] [address] Dr. Dequan Márquez MANUAL DIFF REQ NO Normal [facility] Comment on above: Performed By: #### C BC #### [facility] [address] [place] [address] Dr. Dequan Márquez MCH (RBC) [Entitic mass] 29.3 pg Normal 25.9-34.0 [facility] Comment on above: Performed By: #### C BC #### [facility] [address] [place] [address] Dr. Dequan Márquez MCHC (RBC) [Mass/Vol] 33.3 g/dL Normal 29.9-35.2 [facility] Comment on above: Performed By: #### C BC #### [facility] [address] [place] [address] [address] Dequan Márquez MCV (RBC) [Entitic vol] 88.2 fL Normal 80.0-94.0 [facility] Comment on above: Performed By: #### C BC #### [facility] [address] [place] [address] [address] Dequan Márquez MONO # 0.7 103/ul Normal 0.3-0.8 [facility] Comment on above: Performed By: #### C BC #### [facility] [address] [place] [address] Dr. Dequan Márquez Monocytes/100 WBC (Bld) 8.8 % Normal 1.7-12.0 [facility] Comment on above: Performed By: #### C BC #### [facility] [address] [place] [address] Dr. Dequan Márquez NEUT # 4.7 103/ul Normal 1.4-6.5 [facility] Comment on above: Performed By: #### C BC #### [facility] [address] [place] [address] Dr. Dequan Márquez Neutrophils/100 WBC (Bld) 58.3 % Normal 43.0-75.0 [facility] Comment on above: Performed By: #### C BC #### [facility] [address] [place] [address] Dr. Dequan Márquez Platelet mean volume (Bld) [Entitic vol] 11.1 fL Normal 9.5-13.5 [facility] Comment on above: Performed By: #### C BC #### [facility] [address] [place] [address] Dr. Dequan Márquez PLT 311 103/ul Normal 150-450 [facility] Comment on above: Performed By: #### C BC #### [facility] [address] [place] [address] Dr. Dequan Márquez RBC 5.08 106/ul Normal 4.70-6.10 [facility] Comment on above: Performed By: #### C BC #### [facility] [address] [place] [address] Dr. Dequan Márquez WBC 8.1 103/ul Normal 4.0-11.0 [facility] Comment on above: Performed By: #### C BC #### [facility] [address] [place] [address] Dr. Dequan Márquez PROF 14(COMP METB)on 022 Albumin [Mass/Vol] 3.9 g/dL Normal 3.4-5.0 [facility] Comment on above: Performed By: #### C MP #### [facility] [address] [place] [address] Dr. Dequan Márquez Albumin/Globulin [Mass ratio] 1.0 {ratio} Normal [facility] Comment on above: Performed By: #### C MP #### [facility] [address] [place] [address] Dr. Dequan Márquez ALP [Catalytic activity/Vol] 128 U/L Critically high 46-116 [facility] Comment on above: Performed By: #### C MP #### [facility] [address] [place] [address] Dr. Dequan Márquez ALT [Catalytic activity/Vol] 54 U/L Normal 16-63 [facility] Comment on above: Performed By: #### C MP #### [facility] [address] [place] [address] Dr. Dequan Márquez Anion gap [Moles/Vol] 12.1 mmol/L Normal [facility] Comment on above: Performed By: #### C MP #### [facility] [address] [place] [address] Dr. Dequan Márquez AST [Catalytic activity/Vol] 26 U/L Normal 15-37 [facility] Comment on above: Performed By: #### C MP #### [facility] [address] [place] [address] Dr. Dequan Márquez Bilirubin [Mass/Vol] 0.4 mg/dL Normal 0.2-1.0 [facility] Comment on above: Performed By: #### C MP #### [facility] [address] [place] [address] [address] Dequan Márquez Calcium [Mass/Vol] 8.9 mg/dL Normal 8.5-10.1 [facility] Comment on above: Performed By: #### C MP #### [facility] [address] [place] [address] [address] Dequan Márquez Chloride [Moles/Vol] 105 mmol/L Normal 98-107 [facility] Comment on above: Performed By: #### C MP #### [facility] [address] [place] [address] Dr. Dequan Márquez CO2 [Moles/Vol] 27.1 mmol/L Normal 21.0-32.0 [facility] Comment on above: Performed By: #### C MP #### [facility] [address] [place] [address] Dr. Dequan Márquez Creatinine [Mass/Vol] 0.90 mg/dL Normal 0.70-1.30 [facility] Comment on above: Performed By: #### C MP #### [facility] [address] [place] [address] Dr. Dequan Márquez EGFR-AF TURKISH >60 Normal >=60 [facility] Comment on above: Performed By: #### C MP #### [facility] [address] [place] [address] Dr. Dequan Márquez EGFR-NON AF TURKISH >60 Normal >=60 [facility] Comment on above: Performed By: #### C MP #### [facility] [address] [place] [address] [address] Dequan Márquez Globulin (S) [Mass/Vol] 3.9 g/dL Normal [facility] Comment on above: Performed By: #### C MP #### [facility] [address] [place] [address] Dr. Dequan Márquez Glucose [Mass/Vol] 115 mg/dL Critically high 74-106 [facility] Comment on above: Performed By: #### C MP #### [facility] [address] [place] [address] Dr. Dequan Márquez Potassium [Moles/Vol] 4.2 mmol/L Normal 3.5-5.1 [facility] Comment on above: Performed By: #### C MP #### [facility] [address] [place] [address] [address] Dequan Márquez Protein [Mass/Vol] 7.8 g/dL Normal 6.4-8.2 [facility] Comment on above: Performed By: #### C MP #### [facility] [address] [place] [address] [address] Dequan Márquez Sodium [Moles/Vol] 140 mmol/L Normal 136-145 [facility] Comment on above: Performed By: #### C MP #### [facility] [address] [place] [address] [address] Dequan Márquez Urea nitrogen [Mass/Vol] 21.0 mg/dL Critically high 7.0-18.0 [facility] Comment on above: Performed By: #### C MP #### [facility] [address] [place] [address] [address] Dequan Márquez Urea nitrogen/Creatinin e [Mass ratio] 23.3 mg/mg Normal [facility] Comment on above: Performed By: #### C MP #### [facility] [address] [address] [address] Dequan Márquez A1C HEMOGLOBINon 03-06-2022 HbA1c (Bld) [Mass fraction] 7.1 % [facility] Other Glucose - FINGER [facility]on Glucose [Mass/Vol] 140 mg/dL [facility] Other HbA1c (Bld) [Mass fraction]o n 03-06-2022 A1C HEMOGLOBIN [employer] Other Glucose - FINGER STICKon Glucose [Mass/Vol] 120 mg/dL [facility] Other Glucose - FINGER [facility]on Glucose [Mass/Vol] 131 mg/dL [employer] Other BASIC METABOLIC PANELon 12-0 BUN/CREATININE RATIO NOT APPLICABLE Normal 6-22 [facility] Comment on above: Performed By: #### 7 600, [id number] #### [facility] [place] [address] Postal Worker: Mann Jama MD Calcium [Mass/Vol] 8.7 mg/dL Normal 8.6-10.3 [facility] Comment on above: Performed By: #### 7 600, [id number] #### [facility] [place] [address] Postal Worker: Mann Jama MD Chloride [Moles/Vol] 105 mmol/L Normal 98-110 [facility] Comment on above: Performed By: #### 7 600, [id number] #### [facility] [place] [address] Postal Worker: Mann Jama MD CO2 [Moles/Vol] 25 mmol/L Normal 20-32 [facility] Comment on above: Performed By: #### 7 600, [id number] #### [facility] [place] [address] Postal Worker: Mann Jama MD Creatinine [Mass/Vol] 0.84 mg/dL Normal 0.70-1.33 [facility] Comment on above: Result Comment: For patients >49 years of age, the reference limit for Creatinine is approximately 13% higher for people identified as -Eritrean. Performed By: #### 7 600, [id number] #### [facility] [place] [address] Postal Worker: Mann Jama MD eGFR NON-AFR. TURKISH 96 mL/min/1.73m2 Normal > OR = 60 [facility] Comment on above: Performed By: #### 7 600, [id number] #### [facility] [place] [address] Postal Worker: Mann Jama MD GFR/1.73 sq M.predicted among blacks MDRD (S/P/Bld) [Vol rate/Area] 111 mL/min/{1.73_m2} Normal > OR = 60 [facility] Comment on above: Performed By: #### 7 600, [id number] #### [facility] [address], [address] [place] [address] Postal Worker: Mann Jama MD Glucose [Mass/Vol] 139 mg/dL High 65-99 [facility] Comment on above: Result Comment: Fasting reference interval For someone without known diabetes, a glucose value >125 mg/dL indicates that they may have diabetes and this should be confirmed with a follow-up test. Performed By: #### 7 600, [id number] #### [facility] [address], [address] [place] [address] Postal Worker: Mann Jama MD Potassium [Moles/Vol] 4.3 mmol/L Normal 3.5-5.3 [facility] Comment on above: Performed By: #### 7 600, [id number] #### [facility] [address], [address] [place] [address] Postal Worker: Mann Jama MD Sodium [Moles/Vol] 138 mmol/L Normal 135-146 [facility] Comment on above: Performed By: #### 7 600, [id number] #### [facility] [place] [address] Postal Worker: Mann Jama MD Urea nitrogen [Mass/Vol] 22 mg/dL Normal 7-25 [facility] Comment on above: Performed By: #### 7 600, [id number] #### [facility] [place] [address] Postal Worker: Mann Jama MD LIPID PANEL, [facility] 12-0 Cholesterol [Mass/Vol] 107 mg/dL Normal <200 [facility] Comment on above: Order Comment: FASTI NG:YES FASTING: YES Performed By: #### 7 600, [id number] #### [facility] [address], [address] [place] [address] Postal Worker: Mann Jama MD Cholesterol in HDL [Mass/Vol] 22 mg/dL Low > OR = 40 [facility] Comment on above: Order Comment: FASTI NG:YES FASTING: YES Performed By: #### 7 600, [id number] #### [facility] [address], [address] [place] [address] Postal Worker: Mann Jama MD Cholesterol in LDL [Mass/Vol] 67 mg/dL Normal [facility] Comment on above: Order Comment: FASTI NG:YES FASTING: YES Result Comment: Refe rence range: <100 Desirable range <100 mg/dL for primary prevention; <70 mg/dL for patients with CHD or diabetic patients with > or = 2 CHD risk factors. LDL-C is now calculated using the Gadiel calculation, which is a validated novel method providing better accuracy than the Friedewald equation in the estimation of LDL-C. Donnie CROWELL et al. MARCIE. 2013;310(19): 1235-2168 (http://education.Danal d/b/a BilltoMobile.DataSift/faq/EHT094) Performed By: #### 7 600, [id number] #### [facility] [address], [address] [place] [address] Postal Worker: Mann Jama MD Cholesterol.total/ Cholesterol in HDL [Mass ratio] 4.9 {ratio} Normal <5.0 [facility] Comment on above: Order Comment: FASTI NG:YES FASTING: YES Performed By: #### 7 600, [id number] #### [facility] [address], [address] [place] [address] Postal Worker: Mann Jama MD NON HDL CHOLESTEROL 85 mg/dL (calc) Normal <130 [facility] Comment on above: Order Comment: FASTI NG:YES FASTING: YES Result Comment: For patients with diabetes plus 1 major ASCVD risk factor, treating to a non-HDL-C goal of <100 mg/dL (LDL-C of <70 mg/dL) is considered a therapeutic option. Performed By: #### 7 600, [id number] #### [facility] [address], [address] [place] [address] Postal Worker: Mann Jama MD Triglyceride [Mass/Vol] 93 mg/dL Normal <150 [facility] Comment on above: Order Comment: FASTI NG:YES FASTING: YES Performed By: #### 7 600, [id number] #### [facility] [address] [facility], [address] [place] [address] Postal Worker: Mann Jama MD Vital Signs Date Time Vital Sign Value Performing Clinician Facility 02-19-2024 08:17-0400 Body height 154.94 cm [facility] 02-19-2024 08:17-0400 Body mass index (BMI) [Ratio] 43.9 kg/m2 [facility] 02-19-2024 08:17-0400 Body weight 105.46 kg [facility] 02-19-2024 08:17-0400 Diastolic blood pressure 73 mm[Hg] [facility] 02-19-2024 08:17-0400 Heart rate 75 /min [facility] 02-19-2024 08:17-0400 Respiratory rate 18 /min [facility] 02-19-2024 08:17-0400 SaO2% (BldA) [Mass fraction] 97 % [facility] 02-19-2024 08:17-0400 Systolic blood pressure 121 mm[Hg] [facility] 11-19-2023 08:15-0500 Body height 177.8 cm DO Rinku Furlong Work Phone: [facility] 11-19-2023 08:15-0500 Body weight 107.63 kg DO Rinku Furlong Work Phone: [facility] 11-19-2023 08:15-0500 Diastolic blood pressure 76 mm[Hg] DO Rinku Furlong Work Phone: [facility] 11-19-2023 08:15-0500 Systolic blood pressure 122 mm[Hg] DO Rinku Furlong Work Phone: [facility] 08-13-2023 08:15-0400 Body height 177.8 cm Melissa Joyce Other [facility] 08-13-2023 08:15-0400 Body mass index (BMI) [Ratio] 34.1 kg/m2 Melissa Scally Other [facility] 08-13-2023 08:15-0400 Body weight 107.82 kg Melissa Scally Other [facility] 08-13-2023 08:15-0400 Diastolic blood pressure 83 mm[Hg] Melissa Scally Other [facility] Other 08-13-2023 08:15-0400 Respiratory rate 18 /min Melissa Scally Other [facility] 08-13-2023 08:15-0400 SaO2% (BldA) [Mass fraction] 99 % Melissa Scally Other [facility] Other 08-13-2023 08:15-0400 Systolic blood pressure 122 mm[Hg] Melissa Scally Other [facility] Other 05-07-2023 08:15-0400 Body height 177.8 cm Melissa Scally Other [facility] Other 05-07-2023 08:15-0400 Body mass index (BMI) [Ratio] 34.36 kg/m2 Melissa Scally Other [facility] 05-07-2023 08:15-0400 Body weight 108.64 kg Melissa Scally Other [facility] Other 05-07-2023 08:15-0400 Diastolic blood pressure 78 mm[Hg] Melissa Scally Other [facility] Other 05-07-2023 08:15-0400 Respiratory rate 20 /min Melissa Scally Other [facility] Other 05-07-2023 08:15-0400 SaO2% (BldA) [Mass fraction] 98 % Melissa Scally Other [facility] Other 05-07-2023 08:15-0400 Systolic blood pressure 115 mm[Hg] Melissa Scally Other [facility] 03-26-2023 11:15-0400 Body height 177.8 cm Melissa Scally Other [facility] Other 03-26-2023 11:15-0400 Body mass index (BMI) [Ratio] 35.25 kg/m2 Melissa Scally Other [facility] Other 03-26-2023 11:15-0400 Body weight 111.45 kg Melissa Scally Other [facility] Other 03-26-2023 11:15-0400 Diastolic blood pressure 86 mm[Hg] Melissa Scally Other [facility] Other 03-26-2023 11:15-0400 Respiratory rate 18 /min Melissa Scally Other [facility] Other 03-26-2023 11:15-0400 SaO2% (BldA) [Mass fraction] 97 % Melissa Scally Other [facility] Other 03-26-2023 11:15-0400 Systolic blood pressure 125 mm[Hg] Melissa Scally Other [facility] Other 12-25-2022 11:00-0500 Body height 177.8 cm Melissa Scally Other [facility] Other 12-25-2022 11:00-0500 Body mass index (BMI) [Ratio] 35.15 kg/m2 Melissa Scally Other [facility] Other 12-25-2022 11:00-0500 Body weight 111.13 kg Melissa Scally Other [facility] Other 12-25-2022 11:00-0500 Diastolic blood pressure 86 mm[Hg] Melissa Scally Other [facility] Other 12-25-2022 11:00-0500 Respiratory rate 18 /min Melissa Scally Other [facility] Other 12-25-2022 11:00-0500 SaO2% (BldA) [Mass fraction] 97 % Melissa Scally Other [facility] Other 12-25-2022 11:00-0500 Systolic blood pressure 135 mm[Hg] Melissa Scally Other [facility] Other 09-20-2022 11:00-0400 Body height 177.8 cm Melissa Scally Other [facility] Other 09-20-2022 11:00-0400 Body mass index (BMI) [Ratio] 34.92 kg/m2 Melissa Scally Other [facility] Other 09-20-2022 11:00-0400 Body weight 110.41 kg Melissa Scally Other [facility] Other 09-20-2022 11:00-0400 Diastolic blood pressure 80 mm[Hg] Melissa Scally Other [facility] Other 09-20-2022 11:00-0400 Respiratory rate 18 /min Melissa Scally Other [facility] Other 09-20-2022 11:00-0400 SaO2% (BldA) [Mass fraction] 97 % Emlissa Scally Other [facility] Other 09-20-2022 11:00-0400 Systolic blood pressure 115 mm[Hg] Melissa Scally Other [facility] Other 06-12-2022 10:00-0400 Body height 177.8 cm Melissa Scally Other [facility] Other 06-12-2022 10:00-0400 Body mass index (BMI) [Ratio] 35.48 kg/m2 Melissa Scally Other [facility] Other 06-12-2022 10:00-0400 Body weight 112.18 kg Melissa Scally Other [facility] Other 06-12-2022 10:00-0400 Diastolic blood pressure 67 mm[Hg] Melissa Scally Other [facility] Other 06-12-2022 10:00-0400 Respiratory rate 18 /min Melissa Scally Other [facility] Other 06-12-2022 10:00-0400 SaO2% (BldA) [Mass fraction] 96 % Melissa Scally Other [facility] Other 06-12-2022 10:00-0400 Systolic blood pressure 99 mm[Hg] Melissa Scally Other [facility] Other 03-06-2022 11:15-0400 Body height 177.8 cm Melissa Scally Other [facility] Other 03-06-2022 11:15-0400 Body mass index (BMI) [Ratio] 34.95 kg/m2 Melissa Scally Other [facility] Other 03-06-2022 11:15-0400 Body weight 110.5 kg Melissa Scally Other [facility] Other 03-06-2022 11:15-0400 Diastolic blood pressure 77 mm[Hg] Melissa Scally Other [facility] Other 03-06-2022 11:15-0400 Respiratory rate 20 /min Melissa Scally Other [facility] Other 03-06-2022 11:15-0400 SaO2% (BldA) [Mass fraction] 99 % Melissa Scally Other [facility] Other 03-06-2022 11:15-0400 Systolic blood pressure 120 mm[Hg] Melissa Scally Other [facility] Other 01-10-2022 11:45-0500 Body height 177.8 cm Melissa Scally Other [facility] Other 01-10-2022 11:45-0500 Body mass index (BMI) [Ratio] 34.33 kg/m2 Melissa Scally Other [facility] Other 01-10-2022 11:45-0500 Body weight 108.55 kg Melissa Scally Other [facility] Other 01-10-2022 11:45-0500 Diastolic blood pressure 78 mm[Hg] Melissa Scally Other [facility] Other 01-10-2022 11:45-0500 Respiratory rate 18 /min Melissa Scally Other [facility] Other 01-10-2022 11:45-0500 SaO2% (BldA) [Mass fraction] 97 % Melissa Scally Other [facility] Other 01-10-2022 11:45-0500 Systolic blood pressure 128 mm[Hg] Melissa Scally Other [facility] Other 12-25-2021 11:30-0500 Body height 177.8 cm Melissa Scally Other [facility] Other 12-25-2021 11:30-0500 Body mass index (BMI) [Ratio] 33.73 kg/m2 Melissa Scally Other [facility] Other 12-25-2021 11:30-0500 Body weight 106.64 kg Melissa Scally Other [facility] Other 12-25-2021 11:30-0500 Diastolic blood pressure 70 mm[Hg] Melissa Joyce Other [facility] Other 12-25-2021 11:30-0500 Respiratory rate 18 /min Melissa Joyce Other [facility] Other 12-25-2021 11:30-0500 SaO2% (BldA) [Mass fraction] 98 % Melissa Joyce Other [facility] Other 12-25-2021 11:30-0500 Systolic blood pressure 108 mm[Hg] Melissa Joyce Other [facility] Other Encounters Encounter Date Encounter Type Care Provider Facility Start: 02-19-2024 End: 02-19-2024 ambulatory [facility] Work Phone: Start: 02-19-2024 End: 02-19-[address] [facility] Work Phone: Start: 01-14-2024 End: 01-14-2024 ambulatory DO Rinku Furlong Work Phone: [facility] Work Phone: Start: 01-14-2024 End: 01-14-2024 Patient encounter procedure DO Rinku Furlong Work Phone: [facility] Work Phone: Start: 12-11-2023 Refill Rinku G Furlo ng DO Work Phone: [facility] Start: 12-04-2023 Refill Rinku G Furlo ng DO Work Phone: [facility] Start: 11-19-2023 End: 11-20-2023 ambulatory Rinku Furlong Facility:[facility] Start: 11-19-2023 End: 11-19-2023 ambulatory DO Rinku Furlong Work Phone: [facility] Work Phone: Start: 11-19-2023 End: 11-19-2023 Discharged Recurring DO Rinku Furlong Work Phone: [facility] Work Phone: Start: 11-19-2023 End: 11-19-2023 Patient encounter procedure DO Rinku Furlong Work Phone: [facility] Work Phone: Start: 11-08-2023 End: 11-08-2023 ambulatory Melissa Scally Other [facility] Other Start: 11-08-2023 Telephone encounter Melissajackelin Joyce [facility] Start: 10-03-2023 End: 10-03-2023 ambulatory Melissa Scally Other [facility] Other Start: 10-03-2023 Telephone encounter Melissacrescencio Joyce F [employer] Start: 08-23-2023 End: 08-23-2023 ambulatory Melissa Scally Other [facility] Other Start: 08-23-2023 Telephone encounter Melissa Thomasly F [facility] Start: 08-13-2023 (DM) Diabetes Melissa [facility]ly [facility] Start: 08-13-2023 End: 08-13-2023 ambulatory Melissa Scally Other [facility] Other Start: 07-08-2023 End: 07-08-2023 ambulatory Melissa Scally Other [facility] Other Start: 07-08-2023 Telephone encounter Melissa Isiah Resendez [facility] Start: 07-05-2023 End: 07-05-2023 ambulatory Melissa Scally Other [facility] Other Start: 07-05-2023 Telephone encounter Melissa Isiah [facility] Start: 05-07-2023 (DM) Diabetes Melissacrescencio [facility] Start: 05-07-2023 End: 05-07-2023 ambulatory Melissa Scally Other [facility] Other Start: 05-07-2023 Telephone encounter Melissa [facility] Start: 03-29-2023 End: 03-29-[address] SADAF ARIZA . Facility: Start: 03-26-2023 (DM) Diabetes Melissa Re[facility] Start: 03-26-2023 End: 03-26-2023 ambulatory Melissa Scally Other [facility] Other Start: 03-21-2023 End: 03-22-2023 ambulatory NARENDRANATH LAKSHMIPATHY . Facility:[facility] Start: 03-14-2023 End: 03-14-2023 ambulatory Melissa Scally Other [facility] Other Start: 03-14-2023 Telephone encounter [facility]ackelin [facility] Start: 03-07-2023 ambulatory NARENDRANATH LAKSHMIPATHY . Facility:[facility] Start: 02-26-2023 End: 02-26-2023 ambulatory Melissa Scally Other [facility] Other Start: 02-26-2023 Telephone encounter Melissa Thomasly [facility] Start: 02-19-2023 End: 02-19-2023 ambulatory NARENDRANATH LAKSHMIPATHY . Facility:[facility] Start: 02-12-2023 End: 02-12-2023 ambulatory DONG LAUREN . Facility:[facility] Start: 02-05-2023 End: 02-05-[address] HAYDE COBURN . Facility:[facility] Start: 01-31-2023 End: 02-01-[address] HAYDE COBURN . Facility:[facility] Start: 01-15-2023 End: 01-15-[address] HAYDE COBURN . Facility:[facility] Start: 01-03-2023 End: 01-04-2023 ambulatory SADIA CABRALES . Facility:[facility] Start: 12-25-2022 (DM) Diabetes Melissa [facility] Start: 12-25-2022 End: 12-25-2022 ambulatory Melissa Jocye Other [facility] Other Start: 12-18-2022 End: 12-18-[address] HAYDE COBURN . Facility:[facility] Start: 12-05-2022 End: 12-06-[address] RINKU TREJO Facility:[facility] Start: 10-22-2022 End: 10-23-[address] DOCTOR HOLT Facility:[facility] Start: 10-05-2022 End: 10-05-2022 ambulatory Melissa Joyce Other [facility] Other Start: 10-05-2022 Telephone encounter Melissa [facility] Start: 09-20-2022 (DM) Diabetes Melissa [facility] Start: 09-20-2022 End: 09-20-2022 ambulatory Melissa Joyce Other [facility] Other Start: 08-13-2022 End: 08-14-2022 ambulatory DIANE MICHELE Facility:[facility] Start: 07-02-2022 End: 07-03-[address] RINKU TREJO Facility:[facility] Start: 06-12-2022 (DM) Diabetes Melissa [facility] Start: 06-12-2022 End: 06-12-2022 ambulatory Melissa Thomasly Other [facility] Other Start: 06-11-2022 End: 06-12-[address] RINKU TREJO Facility:[facility] Start: 05-30-2022 End: 05-31-[address] RINKU TREJO Facility:[facility] Start: 04-06-2022 End: 04-06-2022 ambulatory MIHAELA BRINK . Facility:[facility] Start: 03-09-2022 End: 03-09-2022 ambulatory Melissa Thomasly Other [facility] Other Start: 03-09-2022 Telephone encounter Melissa [facility] Start: 03-06-2022 (DM) Diabetes Melissa Scally [facility] Start: 03-06-2022 End: 03-06-2022 ambulatory Melissa Scally Other [facility] Other Start: 03-02-2022 End: 03-02-2022 ambulatory Melissa Scally Other [facility] Other Start: 03-02-2022 Telephone encounter Melissa Scally [facility] Start: 02-26-2022 End: 02-26-2022 ambulatory Melissa Scally Other [facility] Other Start: 02-26-2022 Telephone encounter Melissa Scally [facility] Start: 01-15-2022 End: 01-15-2022 ambulatory Melissa Scally Other [facility] Other Start: 01-15-2022 Telephone encounter Melissa Scally [facility] Start: 01-10-2022 (DM) Diabetes Melissa Scally [facility] Start: 01-10-2022 End: 01-10-2022 ambulatory Melissa Scally Other [facility] Other Start: 01-10-2022 Telephone encounter Melissa [facility] Start: 01-02-2022 End: 01-02-2022 ambulatory Melissa Joyce Other [facility] Other Start: 01-02-2022 Telephone encounter Melissa [facility] Start: 12-25-2021 End: 12-25-2021 ambulatory Melissa Joyce Other [facility] Other Start: 12-25-2021 FQHC visit new patient Melissa [facility] Procedures Date Procedure Procedure Detail Performing Clinician Start: 10-25-2023 Adult depression scr eening assessment [facility] Phone: Start: 04-15-2023 Microalbumin [Mass/v olume] in Urine by Test strip [facility] Phone: Start: 01-27-2020 Colonoscopy [employer] Phone: Plan of Treatment Date Care Activity Detail Author Start: 09-19-2030 DTaP,Tdap and Td Vaccines (3 - Td or Tdap) DTaP,Tdap and Td Vaccines (3 - Td or Tdap) [facility] Start: 01-26-2030 Screening for malignant neoplasm of colon Colonoscopy [facility] Start: 10-25-2024 [facility] Start: 10-25-2024 Depression Screening [facility] Start: 10-25-2024 Tobacco Screening [facility] Start: 05-15-2024 Diabetic foot examination [facility]abetic Foot [facility] Start: 04-15-2024 Urine screening for protein Urine Microalbumin [facility] Start: 06-20-2023 ambulatory Ambulatory Facility: Start: 2011 Administration of varicella zoster vaccine Zoster (Shingles) [facility]1 of 2[facility] Start: 1979 Adult BMI Follow Up Plan Adult BMI Follow Up Plan [facility] Start: 1961 Glaucoma screening Diabetic Ophthalmology Exam [facility] Comprehensive metabo lic 2000 panel - Serum or Plasma [facility] Immunizations Immunization Date Immunization Notes Care Provider Kevin marley 08-30-2023 influenza, injectabl e, quadrivalent, preservative free Rinku Furlong DO Work Phone: [facility] 08-30-2023 Pneumococcal Conjuga te 20-valent Rinku Furlong DO Work Phone: [facility] 08-27-2022 influenza virus vaccine, unspecified formulation Rinku Furlong DO Work Phone: [facility] 08-27-2022 influenza, injectabl e, quadrivalent, preservative free Rinku Furlong DO Work Phone: [facility] 08-22-2021 influenza, injectabl e, quadrivalent, preservative free Rinku Furlong DO Work Phone: [facility] 09-19-2020 influenza, injectabl e, quadrivalent, preservative free Rinku Furlong DO Work Phone: [facility] 09-19-2020 tetanus toxoid, redu ramandeep diphtheria toxoid, and acellular pertussis vaccine, adsorbed Rinku Furlong DO Work Phone: [facility] 09-25-2019 influenza, injectabl e, quadrivalent, preservative free Rinku Furlong DO Work Phone: [facility] 09-13-2018 influenza, injectabl e, quadrivalent, preservative free Rinku Furlong DO Work Phone: [facility] 11-08-2017 Influenza, injectabl e, Madin Chilton Canine Kidney, preservative free, quadrivalent Rinku Furlong DO Work Phone: [facility] 04-13-2017 tetanus toxoid, redu ramandeep diphtheria toxoid, and acellular pertussis vaccine, adsorbed Rinku Trejo DO Work Phone: [facility] 12-03-2012 influenza, seasonal, injectable Rinku Trejo DO Work Phone: [facility] Payers Date Payer Category Payer Self-pay [id number] 2019 Medicare AETNA MEDICARE A ETNA MEDICARE PLAN (PPO) [id number] 2019-Present [phone] [address] [place] [address] [id number] 1961 Unknown [id number] [id number] 1961 Unknown [id number] [id number]3 1961 Unknown [id number] 2.16.840.1.310398.3.579.2.593 1961 Unknown [id number] 2.16.840.1.164077.3.579.2.593 1961 Unknown [id number] 2.16.840.1.150199.3.579.2.593 1961 Unknown [id number] 2.16.840.1.960168.3.579.2.593 1961 Unknown [id number] 2.16.840.1.208157.3.579.2.593 1961 Unknown [id number] 2.16.840.1.965177.3.579.2.593 1961 Unknown [id number] 2.16.840.1.396053.3.579.2.593 1961 Unknown [id number] 2.16.840.1.974506.3.579.2.593 1961 Unknown [id number] 2.16.840.1.024711.3.579.2.593 1961 Unknown [id number] 2.16.840.1.151500.3.579.2.593 1961 Unknown [id number] 2.16.840.1.075424.3.579.2.593 1961 Unknown [id number] 2.16.840.1.790317.3.579.2.593 1961 Unknown [id number] 2.16.840.1.972240.3.579.2.593 1961 Unknown [id number] 2.16.840.1.617597.3.579.2.593 1961 Unknown [id number] 2.16.840.1.454447.3.579.2.593 1961 Unknown [id number] 2.16.840.1.942513.3.579.2.593 1958 Medicare [id number] [id number] Medicare Medicare [id number] Unknown HCAP/HFA/FAP Active [id number] Unknown [id number] [id number] Social History Date Type Detail Facility Unknown if ever smoked [facility] Other Start: 04-19-2023 End: 10-25-2023 Sex Assigned At [facility] Other Start: 04-05-2023 End: 02-19-2024 Tobacco smoking status CTIS Ex-smoker [facility] End: 07-03-2007 History of tobacco use Current smoker [facility] End: 07-03-2007 History of tobacco use Cigarette Smoker [facility] Start: 04-05-2023 End: 04-19-2023 Cigarettes smoked current (pack per day) - [facility] Start: 04-05-2023 Tobacco use and exposure Smokeless tobacco non-user [facility] Start: 10-25-2023 Alcohol intake Ex-drinker (finding) [facility] Do you belong to any clubs or organizations such as rastafarian groups, [employer], [employer] or athletic groups, or school groups? No [facility] Are you now , , , , never or living with a partner? [facility] How often to you hav e a drink containing alcohol? Never [facility] How many standard dr inks containing alcohol do you have on a typical day? Patient does not drink [facility] Do you feel stress - tense, restless, nervous, or anxious, or unable to sleep at night because your mind is troubled all the time - these days [OSQ] Not at all [facility] Start: 08-22-2022 Alcohol Comment [facility]ional [facility] Start: 1960 Sex Assigned At Not on file [facility] Start: 1960 Sex Assigned At Male [facility] Medical Equipment Procedure Code Equipment Code Equipment Origin al Text Equipment Identifier Dates [id number] Start: 02-24-2023 Pen Needle, Diab etic (Bd Ultra-Fine Tracie Pen Needle) 32 gauge x 5/32 needle Start: 01-14-2024 Blood Sugar Diagnostic (Onetouch Ultra Test) strip Start: 02-04-2024 Pen Needle, Diab etic (Bd Ultra-Fine Tracie Pen Needle) 32 gauge x 5/32 needle Start: 01-14-2024 Clinical Notes 12-25-2021 to 10-03-2023 Note Date & Type Note Facility 10-03-2023 Evaluation note Encounter Date Diagnosis Assessment Notes Sep, Abdominal pain (ICD-10 - R10.9) [facility] 09-19-2023 Evaluation note* Encounter Date Diagnosis Assessment Notes Treatment Notes Treatment Clinical Notes Jul, Type 2 diabetes mellitus with hyperglycemia (ICD-10 - E11.65) ASSESSMENT: 1. Uncontrolled, a Type 2 diabetes with A1c of 6.3% GMI now 6.3% consistent. Significant improvement from 9.3% in October 2021 2. Weight loss noted. We will FURTHER reduce Tresiba U200 40 units once daily, if fasting glucose below 100 for 3 of 7 days/week ( or routinely needing to feed to avoid BG drop) decrease by 4 units. He will continue NovoLog ISS 1: 20 with no ICR (INFREQUENT NEEDS). Ozempic increase to 2.0 mg weekly. ( only mild post prandial elevations, ozempic will mitigate.) Amylase and lipase out of abundance of caution, d/t left upper quad pain, not fully characteristic of pancreatitis, but will rule out. If even mildly positive will hold Ozempic, reviewed applications of glycemia Continue RX grade B12 change to QoD, and continue Vitamin D rx. Research shows that stamina with the current regime may fatigue, as would outcomes and CGM is equitable compaired to disease instability. Patient also maintains active lifestyle which increases cumbersome nature of current regime.Thankful for coverage 3. Patient is alert, oriented and receptive to making changes or counseling. Notes: Seen for an assessment of current glucose pattern, changes in treatment plan, counseling and coordination of care related to diabetes, risks, and benefits of treatment, medications, side effects. Given handouts to reinforce concepts reviewed during counseling, see scanned notes. TOPICS REVIEWED: 1. Time was spent reviewing: a. Basic concepts of diabetes, progressive beta cell , concepts of basal/bolus/correct bony insulin requirements. Basal: The goal is fasting blood glucose of 90-130mg. IF fasting blood glucose starts to run under 100mg 3x's/ week, decrease dose by 10%. Bolus: The goal is to hold the blood glucose level steady meal to meal. If pt. is going to have increased physical activity after a meal, decrease the schedule meal dose prior to the activity by 30-50%. If pt. skips a meal do not take this dose. Correction: The goal is to correct an elevated glucose back into the 100-150mg range b. Nutrition: Concepts of healthy diet, encouraged to decrease saturated fat in diet and increase non-starchy vegetables and fruits in diet. BMI: Pt. needs to select one small change to decrease caloric intake or increase physical activity to help decrease weight. c. Correct treatment of hypoglycemia, carry a glucose source at all times on your person, in vehicles, and at bedside. Can use glucose tablets/4, four ounces of pop or juice equal to 15 G of carbohydrate. Blood glucose should be 100 mg/dl or higher when driving. d. ADA glucose goals for age and medical complexity reviewed e. Patient questions addressed 2. Activity/exercise: Encouraged to start any form of physical activity. Start low level and increase slowly to a minimal goal of 150 minutes/week. Limit activity to what is allowed by other issues such as cardiac, pulmonary or orthopedic restrictions. 3. Standards of care: Reminded to have an annual dilated eye exam, A1C every 3 months, urine testing for microalbumin once/year, check feet daily and report any cuts or sores that do not appear to be healing. 4. Meter: Plan to check blood glucose: Please check blood glucose levels 4 times/day. Back to back meals reveal effectiveness of bolus dosing. The blood glucose data is used to determine insulin doses and confirm symptoms for hypoglycemia and hyperglcyemia. 5. [facility] Contact office if any issues or concerns with patterns of hypoglycemia, hyperglycemia, or diabetes medication issues. 6. Prescription; Request refills for Farxiga, Novolog, Tresiba, metformin and Ozempic uses [facility] 08-13-2023. Jul, Vitamin D deficiency (ICD-10 - E55.9) Learning About Vitamin D material was published to portal Vitamin D level severely deficient at 8.8. 4000 iU daily rx for reimbursement as cost concern Vitamin D deficiency suspected. Vitamin D has been noted to have positive impact on mood and energy. We can recheck periodically and make recommendations for long-term supplementation with nrec-[id number]-ldvnnks formulations or prescription grade repletion. Jul, Dietary counseling and surveillance (ICD-10 - Z71.3) Learning About Healthy Weight material was published to portal RD in [place] previously Jul, Hyperlipidemia (ICD-10 - E78.5) Learning About High Cholesterol material was published to portalLDL 67 on October 26, 2021. LDL 17-- atorvastatin [address] Trejo Jul, HTN (hypertension) (ICD-10 - I10) High Blood Pressure: Care Instructions material was published to portal [facility] today. 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 Uncontrolled, a Type 2 diabetes with A1c of 6.5% GMI now 6.5% consistent. Significant improvement from 9.3% in October 2021 2. We will FURTHER reduce Tresiba U200 42 units once daily, if fasting glucose below 100 for 3 of 7 days/week ( or routinely needing to feed to avoid BG drop) decrease by 4 units. He will continue NovoLog ISS 1: 20 with no ICR (INFREQUENT NEEDS) Ozempic increase to 2.0 mg weekly. ( only mild post prandial elevations, ozempic will mitigate.) He has had 2 doses, and is noting increased satiety, eating less easily. Continue RX grade B12 change to Q)D, and continue Vitamin D rx. Research shows that stamina with the current regime may fatigue, as would outcomes and CGM is equitable compaired to disease instability. Patient also maintains active lifestyle which increases cumbersome nature of current regime.Thankful for coverage 3. Patient is alert, oriented and receptive to making changes or counseling. Notes: Seen for an assessment of current glucose pattern, changes in treatment plan, counseling and coordination of care related to diabetes, risks, and benefits of treatment, medications, side effects. Given handouts to reinforce concepts reviewed during counseling, see scanned notes. TOPICS REVIEWED: 1. Time was spent reviewing: a. Basic concepts of diabetes, progressive beta cell , concepts of basal/bolus/correct bony insulin requirements. Basal: The goal is fasting blood glucose of 90-130mg. IF fasting blood glucose starts to run under 100mg 3x's/ week, decrease dose by 10%. Bolus: The goal is to hold the blood glucose level steady meal to meal. If pt. is going to have increased physical activity after a meal, decrease the schedule meal dose prior to the activity by 30-50%. If pt. skips a meal do not take this dose. Correction: The goal is to correct an elevated glucose back into the 100-150mg range b. Nutrition: Concepts of healthy diet, encouraged to decrease saturated fat in diet and increase non-starchy vegetables and fruits in diet. BMI: Pt. needs to select one small change to decrease caloric intake or increase physical activity to help decrease weight. c. Correct treatment of hypoglycemia, carry a glucose source at all times on your person, in vehicles, and at bedside. Can use glucose tablets/4, four ounces of pop or juice equal to 15 G of carbohydrate. Blood glucose should be 100 mg/dl or higher when driving. d. ADA glucose goals for age and medical complexity reviewed e. Patient questions addressed 2. Activity/exercise: Encouraged to start any form of physical activity. Start low level and increase slowly to a minimal goal of 150 minutes/week. Limit activity to what is allowed by other issues such as cardiac, pulmonary or orthopedic restrictions. 3. Standards of care: Reminded to have an annual dilated eye exam, A1C every 3 months, urine testing for microalbumin once/year, check feet daily and report any cuts or sores that do not appear to be healing. 4. Meter: Plan to check blood glucose: Please check blood glucose levels 4 times/day. Back to back meals reveal effectiveness of bolus dosing. The blood glucose data is used to determine insulin doses and confirm symptoms for hypoglycemia and hyperglcyemia. 5. [facility]. Contact office if any issues or concerns with patterns of hypoglycemia, hyperglycemia, or diabetes medication issues. 6. Prescription; Send to [facility] Apr, Vitamin D deficiency (ICD-10 - E55.9) Learning About Vitamin D material was published to portal Vitamin D level severely deficient at 8.8. 4000 iU daily rx for reimbursement as cost concern Vitamin D deficiency suspected. Vitamin D has been noted to have positive impact on mood and energy. We can recheck periodically and make recommendations for long-term supplementation with [id number]-[id number] formulations or prescription grade repletion. Apr, Dietary counseling and surveillance (ICD-10 - Z71.3) Learning About Healthy Weight material was published to portal RD in [place] previously Apr, Hyperlipidemia (ICD-10 - E78.5) Learning About High Cholesterol material was published to portalLDL 67 on October 26, 2021. LDL 17-- atorvastatin [address] rTejo Apr, HTN (hypertension) (ICD-10 - I10) High Blood Pressure: Care Instructions material was published to portal [facility] today. Apr, [facility] current use of insulin (ICD-10 - Z79.4) Apr, BMI 35.0-35.9,adult (ICD-10 - Z68.35) Weight down 6.2 lbs-- improves insulin sensitivity [facility] Other 05-02-2023 Evaluation note* Encounter Date Diagnosis Assessment Notes Treatment Notes Treatment Clinical Notes March, Type 2 diabetes mellitus with hyperglycemia (ICD-10 - E11.65) ASSESSMENT: 1. Uncontrolled, a Type 2 diabetes with A1c of 6.5% improved but GMI 7.5% over last 2 weeks. Significant improvement from 9.3% in October 2021 2. We will reduce Tresiba U200 45 units once daily, if fasting glucose below 1003 of 7 days/week ( or routinely needing to feed to avoid BG drop) decrease by 4 units. (anticipate continued overbasalization.) He will continue NovoLog ISS 1: 20 with no ICR, Ozempic increase to 2.0 mg weekly. ( only mild post prandial elevations, ozempic will mitigate.) He is able to provide appropriate examples. Send for RX B12 and Vitamin D d/t cost. Fasting labs before next appt with me. Research shows that stamina with the current regime may fatigue, as would outcomes and CGM is equitable compaired to disease instability. Patient also maintains active lifestyle which increases cumbersome nature of current regime.Thankful for coverage 3. Patient is alert, oriented and receptive to making changes or counseling. Notes: Seen for an assessment of current glucose pattern, changes in treatment plan, counseling and coordination of care related to diabetes, risks, and benefits of treatment, medications, side effects. Given handouts to reinforce concepts reviewed during counseling, see scanned notes. TOPICS REVIEWED: 1. Time was spent reviewing: a. Basic concepts of diabetes, progressive beta cell , concepts of basal/bolus/correct bony insulin requirements. Basal: The goal is fasting blood glucose of 90-130mg. IF fasting blood glucose starts to run under 100mg 3x's/ week, decrease dose by 10%. Bolus: The goal is to hold the blood glucose level steady meal to meal. If pt. is going to have increased physical activity after a meal, decrease the schedule meal dose prior to the activity by 30-50%. If pt. skips a meal do not take this dose. Correction: The goal is to correct an elevated glucose back into the 100-150mg range b. Nutrition: Concepts of healthy diet, encouraged to decrease saturated fat in diet and increase non-starchy vegetables and fruits in diet. BMI: Pt. needs to select one small change to decrease caloric intake or increase physical activity to help decrease weight. c. Correct treatment of hypoglycemia, carry a glucose source at all times on your person, in vehicles, and at bedside. Can use glucose tablets/4, four ounces of pop or juice equal to 15 G of carbohydrate. Blood glucose should be 100 mg/dl or higher when driving. d. ADA glucose goals for age and medical complexity reviewed e. Patient questions addressed 2. Activity/exercise: Encouraged to start any form of physical activity. Start low level and increase slowly to a minimal goal of 150 minutes/week. Limit activity to what is allowed by other issues such as cardiac, pulmonary or orthopedic restrictions. 3. Standards of care: Reminded to have an annual dilated eye exam, A1C every 3 months, urine testing for microalbumin once/year, check feet daily and report any cuts or sores that do not appear to be healing. 4. Meter: Plan to check blood glucose: Please check blood glucose levels 4 times/day. Back to back meals reveal effectiveness of bolus dosing. The blood glucose data is used to determine insulin doses and confirm symptoms for hypoglycemia and hyperglcyemia. 5. [facility]. Contact office if any issues or concerns with patterns of hypoglycemia, hyperglycemia, or diabetes medication issues. 6. Prescription; None needed 03-26-2023. March, Vitamin D deficiency (ICD-10 - E55.9) Learning About Vitamin D material was published to portal Vitamin D level severely deficient at 8.8. 4000 iU daily rx for reimbursement as cost concern Vitamin D deficiency suspected. Vitamin D has been noted to have positive impact on mood and energy. We can recheck periodically and make recommendations for long-term supplementation with huwn-vzp-myxbzih formulations or prescription grade repletion. March, Dietary counseling and surveillance (ICD-10 - Z71.3) Learning About Healthy Weight material was published to portal RD in [place] previously March, Hyperlipidemia (ICD-10 - E78.5) Learning About High Cholesterol material was published to portalLDL 67 on October 26, 2021. March, HTN (hypertension) (ICD-10 - I10) High Blood Pressure: Care Instructions material was published to portal [facility] today. 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 HISTORY: Patient returns today complaining of pain in his right neck, described as 0-5/10 pain, described as a stiff type of pain, increased with activities such as cervical flexion. Denies any change in bowel and bladder habits or new sensorimotor changes in the upper extremities. Patient feels most comfortable in the semi-recumbent position. EXAM: Notable for patient having no clinical radiculopathy or myelopathy involving his upper extremities. Patient had no pain with cervical facet loading maneuvers. He did have mild to moderate pain with palpation and spasm, with more on the right side, involving his cervical paravertebral muscles, namely the splenius capitis on the right side. IMPRESSION: Patient appears to have chronic pain secondary to residual myofascial spasm of the cervical paravertebral muscles on the right side, status post successful rhizotomy using radiofrequency ablation of the C4-5, 5-6 levels bilaterally, last performed on the right side. He reports his pain overall is improved by 75%. RECOMMENDATIONS: I have asked him to increase his baclofen, 10 mg pills, half a pill to one pill t.i.d. as tolerated for his pain from the residual myofascial spasm. I have asked him to trial discontinue his gabapentin, since the patient reports it is not helping his pain symptoms, and we will see the patient back in the office in three months' time or sooner if needed. As part of providing excellent, safe, comprehensive care, the following was completed at our patient's visit: 1. A medication reconciliation and review to ensure accurate knowledge of current/active medications, including asking our patients to inform us about any [id number]-[id number] medications or herbal remedies/nutritional supplements/alternative remedies. 2. A review to specifically ensure our patients have had annual screening for: elevated body mass index (BMI, see intake chart for exact total), tobacco use, screening for depression, and screening for unhealthy alcohol use. When screening is concerning, patients are provided with education and the specific recommendation to discuss the concerning health issue and treatment options with their primary care provider.[facility] [id number] Evaluation note * Encounter Date Diagnosis Assessment Notes Treatment Notes Treatment Clinical Notes Feb, Type 2 diabetes mellitus with hyperglycemia (ICD-10 - E11.65) [facility] Other 03-09-2023 NoteCONSULTATION CONSULTATION DATE: 01/31/2023 HISTORY OF PRESENT ILLNESS: This is a 62-year-old gentleman, who returns to the clinic, status post #2 bilateral MBB of C4, C5 and C6, C7 completed on 01/15/2023. The patient was afforded 100% relief for one day. Today, he states he feels still feels some improvement at the 50% level. At rest, his pain is 1/10. With activity, it can raise to 4-5/10; particularly extension of his neck, lifting and twisting. His medications include Mobic 15 mg daily, baclofen 10 mg q.h.s., gabapentin 300 mg daily and Topamax 100 mg q.h.s. He has had improvement to bilateral hand tingling. He does experience some hypoesthesia to the left shoulder and biceps area. Patient's REVIEW OF SYSTEMS / PAST MEDICAL HISTORY / ALLERGIES and IMAGES have been reviewed and noted on the chart. PHYSICAL EXAM: VITAL SIGNS: Blood pressure 150/89, heart rate is 82. Temperature is 97.5. He is 71 , weighs 111 kg. GENERAL IMPRESSION: Pleasant, appropriate, in no acute distress. FOCUSED EXAM - NECK: Range of motion is guarded in lateral rotation, especially extension. Reproduction of spinal axial pain noted to direct compression along the posterior cervical facets of C4, C5 and C6, C7. Fullness is palpated along the facets indicative of facet arthropathy, cervical spondylosis. Cervical splenius capitis and trapezius muscles are taut but non-spasmodic. MUSCULOSKELETAL: Bilateral upper extremities motor 5/5. No overt motor weakness noted. NEUROLOGICAL: Patchy hypoesthesia noted along the C5-6 dermatome to the level of the left elbow. +1 bilateral brachioradialis reflexes. DIAGNOSIS: Cervical neuritis, cervical spondylosis, cervical degenerative disc disease, cervicalgia. PLAN: We will progress forward with bilateral radiofrequency ablation of C4, C5 and C6, C7. There will be no medication changes today. We will maintain him on the Mobic, baclofen and gabapentin at the set dose and frequency. I did recommend putting a topical heat rub on and heat pad application to his neck once to twice daily. Patient agrees with this plan of care and will be followed up in the clinic post procedure.[facility] [id number] Note CONSULTATION CONSULTATION DATE: 01/03/2023 HISTORY OF PRESENT ILLNESS: This is a 62-year-old gentleman who returns to the clinic status post #1 bilateral MBB of C4, C5 and C6, C7 completed on 12/18/2022. The patient received 80% relief for four days. The patient does see [facility] for chronic headaches, and patient states following the injection, his right sided headache nearly mitigated. Since that time, the shot has wore off and he is complaining of 6/10 pain today. He has gained range of motion in lateral rotation. [facility] has him on Topamax 100 mg q.h.s. and Zanaflex 4 mg t.i.d. The patient states he is overly groggy and has stopped taking the Zanaflex. At his last appointment with us on 12/05/2022, he was started on Mobic 15 mg daily and gabapentin 300 mg q.h.s. The patient states he is getting relief from both of those medications with less radiating pain. Patient's REVIEW OF SYSTEMS / PAST MEDICAL HISTORY / ALLERGIES and IMAGES have been reviewed and noted on the chart. PHYSICAL EXAM: VITAL SIGNS: Blood pressure is 137/86. Heart rate is 77. Temperature is 96.9. He is 5'10 , weighs 111.6 kg. GENERAL IMPRESSION: Pleasant, appropriate, in no acute distress. FOCUSED EXAM - NECK: Range of motion is guarded in lateral rotation, left over right, and flexion/extension. Right cervical splenius capitis and trapezius muscles are spasmodic with trigger identified. Reproduction of spinal axial pain to direct compression along the cervical facets with fullness palpated, indicative of cervical spondylosis to C4, C5 and C6, C7. Pain does radiate to the shoulders bilaterally. MUSCULOSKELETAL: Motor is intact bilateral upper extremities, 4/5, with no overt weakness noted. NEUROLOGICALLY: Patient is cognitively intact with +1 bilateral brachioradialis reflexes. Radiating pain along the C6 and C5 distribution to the shoulder level. DIAGNOSIS: Cervicalgia, cervical degenerative disc disease, cervical spondylosis and cervical neuritis. PLAN: We will authorize for a #2 bilateral MBB of C4, C5 and C6, C7. We will start him on baclofen 10 mg q.h.s. only, and patient was directed to discontinue any further Zanaflex. Stretches were discussed and shown, and patient agrees to move forward with the procedure. He will be followed up in the office thereafter.[facility] [id number] Evaluation note* Encounter Date Diagnosis Assessment Notes Treatment Notes Treatment Clinical Notes Nov, Type 2 diabetes mellitus with hyperglycemia (ICD-10 - E11.65) ------- VitD Level: 8.8 on 02/27/2022, Tx: Completed cholecalciferol Rx as below followed by 4000 iu daily-- Stopped OTC d/t cost VitB12 Level 382 on 02/27/2022, Tx: contunue OTC Cyanocobalamin 1000 mcg sublingual daily, goal 550 pg,/mL ASSESSMENT: 1. Uncontrolled, a Type 2 diabetes with A1c of 7.0% stable from last visit , GMI 7.2% GOAL < 7%. Significant improvement from 9.3% in October 2021 2. We will continue Tresiba U200 50 units once daily, if fasting glucose below 103 of 7 days/week will decrease by 5 units. He will continue NovoLog 15 minutes before meal 1 unit for every 5 carbohydrates and 1 unit for every 20 mg/dL above goal. He is able to provide appropriate examples. He will continue metformin 500 mg 2 tabs once daily, continue Ozempic 2.0 mg subcu weekly, continue Farxiga 10 mg p.o. daily. He did complete vitamin D3 prescription grade in instructed to not take 4000 international units once daily. He should continue vitamin B12 1000 mcg p.o. once daily. Research shows that stamina with the current regime may fatigue, as would outcomes and CGM is equitable compaired to disease instability. Patient also maintains active lifestyle which increases cumbersome nature of current regime.Thankful for coverage 3. Patient is alert, oriented and receptive to making changes or counseling. Notes: Seen for an assessment of current glucose pattern, changes in treatment plan, counseling and coordination of care related to diabetes, risks, and benefits of treatment, medications, side effects. Given handouts to reinforce concepts reviewed during counseling, see scanned notes. TOPICS REVIEWED: 1. Time was spent reviewing: a. Basic concepts of diabetes, progressive beta cell , concepts of basal/bolus/correct bony insulin requirements. Basal: The goal is fasting blood glucose of 90-130mg. IF fasting blood glucose starts to run under 100mg 3x's/ week, decrease dose by 10%. Bolus: The goal is to hold the blood glucose level steady meal to meal. If pt. is going to have increased physical activity after a meal, decrease the schedule meal dose prior to the activity by 30-50%. If pt. skips a meal do not take this dose. Correction: The goal is to correct an elevated glucose back into the 100-150mg range b. Nutrition: Concepts of healthy diet, encouraged to decrease saturated fat in diet and increase non-starchy vegetables and fruits in diet. BMI: Pt. needs to select one small change to decrease caloric intake or increase physical activity to help decrease weight. c. Correct treatment of hypoglycemia, carry a glucose source at all times on your person, in vehicles, and at bedside. Can use glucose tablets/4, four ounces of pop or juice equal to 15 G of carbohydrate. Blood glucose should be 100 mg/dl or higher when driving. d. ADA glucose goals for age and medical complexity reviewed e. Patient questions addressed 2. Activity/exercise: Encouraged to start any form of physical activity. Start low level and increase slowly to a minimal goal of 150 minutes/week. Limit activity to what is allowed by other issues such as cardiac, pulmonary or orthopedic restrictions. 3. Standards of care: Reminded to have an annual dilated eye exam, A1C every 3 months, urine testing for microalbumin once/year, check feet daily and report any cuts or sores that do not appear to be healing. 4. Meter: Plan to check blood glucose: Please check blood glucose levels 4 times/day. Back to back meals reveal effectiveness of bolus dosing. The blood glucose data is used to determine insulin doses and confirm symptoms for hypoglycemia and hyperglcyemia. 5. [facility] Contact office if any issues or concerns with patterns of hypoglycemia, hyperglycemia, or diabetes medication issues. 6. Prescription; Requests refills on Tresiba, Ozempic, Metformin, Farxiga, Novolog and pen needles be sent to [facility] Nov, Vitamin D deficiency (ICD-10 - E55.9) Learning About Vitamin D material was published to portal Vitamin D level severely deficient at 8.8. patient to take rx x 8 weeks then OTC 4000iu daily thereafter Vitamin D deficiency suspected. Vitamin D has been noted to have positive impact on mood and energy. We can recheck periodically and make recommendations for long-term supplementation with fans-qek-bshsmzr formulations or prescription grade repletion. Nov, Dietary counseling and surveillance (ICD-10 - Z71.3) Learning About Healthy Weight material was published to portal [facility] in [place] previously Nov, Hyperlipidemia (ICD-10 - E78.5) Learning About High Cholesterol material was published to portalLDL 67 on October 26, 2021. Nov, HTN (hypertension) (ICD-10 - I10) High Blood Pressure: Care Instructions material was published to portal [facility] today. 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 This has been ongoing for approximately one year. He is under the care of a neurologist for his headaches and takes Topamax 100 mg at h.s. and Zanaflex 4 mg t.i.d. for that. The patient is a fragile diabetic and is on numerous medications. His blood sugar this morning is 138. The patient does have occipital lobe headaches, as well as mid neck and lower neck pain. He states he wakes up in the morning with bilateral thumb and first two finger numbness. 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 Range of motion in lateral rotation and flexion/extension is very painful to the patient. He describes his pain as being 10/10, sharp, throbbing and stiff. He has tried heat in the past, which he feels increases his pain. Ice afforded no improvement as well. Massages do increase his pain as does any physical activity. He does not list any mitigating factors. Occasionally, the patient will take an Aleve or an ibuprofen, but he feels those are non-beneficial. Patient's REVIEW OF SYSTEMS / PAST MEDICAL HISTORY / ALLERGIES and IMAGES have been reviewed and noted in the chart. PHYSICAL EXAM: VITAL SIGN: Blood pressure is 137/91. Heart rate is 83. Temperature is 97.5. He is 5'10 , weighs 108 kg. GENERAL IMPRESSION: Pleasant, appropriate, no acute distress. FOCUSED EXAM - NECK: Range of motion is guarded in lateral rotation and flexion/extension. Reproduction of spinal axial pain upon deep compression along the posterior aspect of the cervical facets of C4, C5 and C6, C7. Splenius capitis and cervical trapezius muscles are non-spasmodic. Compression does reproduce radiating pain to bilateral shoulders. MUSCULOSKELETAL: Bilateral upper extremities 5/5 to the left, 4/5 to the right. Gross and fine motor are intact. NEUROLOGICALLY: Patient is cognitively intact. Patient has radiating pain along the C6 and C7 distribution bilaterally. Triceps and brachioradialis reflexes are +1 bilaterally. DIAGNOSIS: Cervicalgia, cervical degenerative disc disease, cervical spondylosis, cervical neuritis. PLAN: The patient is to stop his escq-jdv-opaztau NSAIDs, and we will replace that with Mobic 15 mg daily. To address his nerve pain, he will start gabapentin 300 mg q.h.s. at approximately 6:00 p.m. to be alternated with his nightly Topamax which he takes at 9:00 p.m. I did encourage him to start an MVI. He was oriented to our procedures at the clinic, and patient agrees to move forward with a #1 bilateral MBB of C4, C5 and C6, C7. I did review the MRI with the patient that was done in September of 2022, which does reveal multilevel degenerative disc and facet arthropathy. The patient will be followed up in the clinic post procedure and agrees to move forward with the plan.[id number]* Encounter Date Diagnosis Assessment Notes Treatment Notes Treatment Clinical Notes Aug, Type 2 diabetes mellitus with hyperglycemia (ICD-10 - E11.65) GLP1RA: - Fridays SGLT2i: Farxiga INSULIN Basal: Tresiba INSULIN Bolus: NOVOLOG ISS Metformin: BID CGM: Libre2 as above-- from [facility] ------- VitD Level: 8.8 on 02/27/2022, Tx: Completed cholecalciferol Rx as below followed by 4000 iu daily-- Stopped OTC d/t cost VitB12 Level 382 on 02/27/2022, Tx: contunue OTC Cyanocobalamin 1000 mcg sublingual daily, goal 550 pg,/mL ASSESSMENT: 1. Uncontrolled, a Type 2 diabetes with A1c of 7.0% GOAL < 7%. Significant improvement from 9.3% in October 2021 2. Tolerating Ozempic, desires weight control, will increase to 1 mg weekly. Discussed need to maintain current dose if issues with backorder or coverage. This will also promote weight loss. He will continue with Tresiba 50u . Discussed need to decrease for fasting or consistent TOD BG under 100 decrease by 10% currently this would be 5 u. Continue with Novolog ISS 1:30-- consider ICR if not fully controlled with greatest meal. Will hold this for now. We will check with Dr. Trejo for recent labs, consider Vitamin D as only did rx and short course of OTC, he was severely deficient. He will continue Farxiga 10 mg p.o. daily. Continue to monitor 7-day blood glue Kos averages noting goal to be less than 154. If this is the case his A1c will be at target if sustained for 3 months. RTC 3 mos_ _ sooner for excursions. Research shows that stamina with the current regime may fatigue, as would outcomes and CGM is equitable compaired to disease instability. Patient also maintains active lifestyle which increases cumbersome nature of current regime.Thankful for coverage 3. Patient is alert, oriented and receptive to making changes or counseling. Notes: Seen for an assessment of current glucose pattern, changes in treatment plan, counseling and coordination of care related to diabetes, risks, and benefits of treatment, medications, side effects. Given handouts to reinforce concepts reviewed during counseling, see scanned notes. TOPICS REVIEWED: 1. Time was spent reviewing: a. Basic concepts of diabetes, progressive beta cell , concepts of basal/bolus/correct bony insulin requirements. Basal: The goal is fasting blood glucose of 90-130mg. IF fasting blood glucose starts to run under 100mg 3x's/ week, decrease dose by 10%. Bolus: The goal is to hold the blood glucose level steady meal to meal. If pt. is going to have increased physical activity after a meal, decrease the schedule meal dose prior to the activity by 30-50%. If pt. skips a meal do not take this dose. Correction: The goal is to correct an elevated glucose back into the 100-150mg range b. Nutrition: Concepts of healthy diet, encouraged to decrease saturated fat in diet and increase non-starchy vegetables and fruits in diet. BMI: Pt. needs to select one small change to decrease caloric intake or increase physical activity to help decrease weight. c. Correct treatment of hypoglycemia, carry a glucose source at all times on your person, in vehicles, and at bedside. Can use glucose tablets/4, four ounces of pop or juice equal to 15 G of carbohydrate. Blood glucose should be 100 mg/dl or higher when driving. d. ADA glucose goals for age and medical complexity reviewed e. Patient questions addressed 2. Activity/exercise: Encouraged to start any form of physical activity. Start low level and increase slowly to a minimal goal of 150 minutes/week. Limit activity to what is allowed by other issues such as cardiac, pulmonary or orthopedic restrictions. 3. Standards of care: Reminded to have an annual dilated eye exam, A1C every 3 months, urine testing for microalbumin once/year, check feet daily and report any cuts or sores that do not appear to be healing. 4. Meter: Plan to check blood glucose: Please check blood glucose levels 4 times/day. Back to back meals reveal effectiveness of bolus dosing. The blood glucose data is used to determine insulin doses and confirm symptoms for hypoglycemia and hyperglcyemia. 5. [facility]. Contact office if any issues or concerns with patterns of hypoglycemia, hyperglycemia, or diabetes medication issues. 6. Prescription; Requests refills on Tresiba, Ozempic, Metformin, Farxiga, Novolog and pen needles be sent to [facility]/ [place] Aug, Vitamin D deficiency (ICD-10 - E55.9) Learning About Vitamin D material was published to [place] Vitamin D level severely deficient at 8.8. patient to take rx x 8 weeks then OTC 4000iu daily thereafter Vitamin D deficiency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 Non alcoholic steatohepatitis Surgical History Appendectomy 2015 Surgical History Cataract Surgery 2019 Surgical History Colonoscopy with biopsy 2019 Surgical History Cardiac Cath 2008 Surgical History Removal of Colon 2012 Surgical History Cancer surgery Right Orchiectom y 1996 Surgical History EMG for diabetic neuropathy 200 3 Surgical History Laser surgery both e yes for retinopathy -06/2022-08/2022 Hospitalization History Colon CA 2008 Hospitalization History [facility] ER for stomach flu February or March 2023 [facility] Other History general Narrative - ReportedNoImcompany Other InstructionsNot on filedocumented in this encounter [facility] NarrativeDS GI Referral-deferrred PCP recom retrial [facility] Other Summary Purpose Family History Relationship Condition Age at Onset Recorded Date/T jeffrey brother Malignant neoplasm of lung Unknown father Heart disease Unknown Unknown Hypertension Unknown family member Unknown Advance Directives Advance Directive Response Recorded Date/ Time Advance Directives No December 8:52am Advance Directive Response Recorded Date/ Time Advance Directives No December 9:52am Chief Complaint and Reason for Visit Chief Complaint Dm DM Chief Complaint Dm DM Download Reason for Visit Type 2 diabetes rohan itus with hyperglycemia Chief Complaint Download DMN f/u-NO METER Reason for Visit Type 2 diabetes rohan itus with hyperglycemia Hyperlipidemia Type 2 diabetes mellitus with hyperglycemia Vitamin D deficiency Additional Source Comments (unrecognized sect ion and content) No Status Records FoundNo Status Records FoundNo Status Records Found INFORMATION SOURCE (unrecogn ized section and content) DATE CREATED AUTHOR 10/27/2021 [facility] DATE CREATED AUTHOR AUTHOR'S ORGANIZ ATION 04/04/2023 [facility] DATE CREATED AUTHOR AUTHOR'S ORGANIZ ATION 01/13/2024 [facility] REASON FOR VISIT (unrecogniz ed section and content) Reason Comments Med Refill Care Teams (unrecognized sec tion and content) 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 Relationship Specialty Start Date End Date Rinku Trejo DO [address] [place] [address] PCP - General Family Medicine 07/03/17 Team Status: Active Member Role Status Dates Rinku Trejo DO Primary Care Provider Active Team Status: Inactive Member Role Status Dates Melissa Joyce APRN Attending Provider Active Start: November 19, 2023 End: November 19, 2023 Team Status: Inactive Member Role Status Dates Rinku Trejo DO Primary Care Provide r, Attending Provider Active Start: November 19, 2023 End: November 19, 2023 Team Status: Inactive Member Role Status Dates Rinku Trejo DO Primary Care Provider Active Start: January 14, 2024 End: January 14, 2024 Delio Cheema RN Attending Provider Active St art: January 14, 2024 End: January 14, 2024 Melissa Joyce APRN Active Star t: January 14, 2024 End: January 14, 2024 Team Status: Inactive Member Role Status Dates Rinku Trejo DO Primary Care Provider Active Start: February 19, 2024 End: February 19, 2024 Melissa Joyce APRN Attending Provider Active Start: February 19, 2024 End: February 19, 2024 Goals (unrecognized section and content) Goals may be documented in a n alternate section FOR RECORDS PERTAINING TO PATIENTS WHO ARE OR HAVE BEEN ENROLLED IN A CHEMICAL DEPENDENCY/SUBSTANCEABUSE PROGRAM, SOME INFORMATION MAY BE OMITTED. This clinical summary was aggregated from multiple sources. Caution should be exercised in using it in the provision of clinical care. This summary normalizes information from multiple sources, and as a consequence, information in this document may materially change the coding, format and clinical context of patient data. In addition, data may be omitted in some cases. CLINICAL DECISIONS SHOULD BE BASED ON THE PRIMARY CLINICAL RECORDS. [facility], [facility]. provides no warranty or guarantee of the accuracy or completeness of information in this document.
[2024-03-16 08:17] LABS: Creatinine Urine Random 72.78 mg/dL (20.00-300.00); Microalbum Creatinine Ratio Ur 17.8 mg/g (0.0-29.9); Microalbumin Urine Random <1.3 mg/dL (<=30.0)
[2024-03-16 08:31] LABS: Alanine Aminotransferase 35 U/L (16-63); Albumin Globulin Ratio 0.9; Albumin Level 3.8 g/dL (3.4-5.0); Alkaline Phosphatase 134 U/L (46-116); Anion Gap 12.8; Aspartate Amino Transferase 26 U/L (15-37); BUN Creatinine Ratio 23.3; Bilirubin Total 0.6 mg/dL (0.2-1.0); Calcium 9.2 mg/dL (8.5-10.1); Carbon Dioxide 28.3 mmol/L (21.0-32.0); Chloride 105 mmol/L (98-107); Chol HDL Ratio 2.4; Cholesterol 85 mg/dL (<=200); Estimated GFR (African America >60 (>=60); Estimated GFR (Non-African Ame >60 (>=60); Globulin 4.2 g/dL; Glucose 117 mg/dL (74-106); HDL Cholesterol 36 mg/dL (40-60); Potassium 4.1 mmol/L (3.5-5.1); Sodium 142 mmol/L (136-145); Triglycerides 55 mg/dL (<=150)
== END 2024-03-16 07:50 | disposition home or self-care (01) ==
LOC: LAB 07:50
PROVIDERS: PCP Family Medicine; Visit Provider Nurse Practitioner Family
DX: E78.5 Hyperlipidemia, unspecified (principal); E11.65 Type 2 diabetes mellitus with hyperglycemia; E55.9 Vitamin D deficiency, unspecified; Z68.34 Body mass index [BMI] 34.0-34.9, adult; Z79.4 Long term (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
CPT/HCPCS: 36415; 80053; 80061; 82043; 82306; 82570; 82607

== ENCOUNTER 2024-06-15 07:48 | Outpatient (OUT) | payer MEDICARE, SELFPAY ==
[2024-06-15 08:50] LABS: Creatinine Urine Random 55.97 mg/dL (20.00-300.00); Microalbum Creatinine Ratio Ur 23.2 mg/g (0.0-29.9); Microalbumin Urine Random <1.3 mg/dL (<=30.0)
[2024-06-15 09:02] LABS: Alanine Aminotransferase 33 U/L (16-63); Albumin Globulin Ratio 0.9; Albumin Level 3.6 g/dL (3.4-5.0); Alkaline Phosphatase 122 U/L (46-116); Anion Gap 13.3; Aspartate Amino Transferase 22 U/L (15-37); BUN Creatinine Ratio 26.8; Bilirubin Total 0.5 mg/dL (0.2-1.0); Calcium 8.6 mg/dL (8.5-10.1); Carbon Dioxide 26.1 mmol/L (21.0-32.0); Chloride 104 mmol/L (98-107); Chol HDL Ratio 2.8; Cholesterol 84 mg/dL (<=200); Estimated GFR (African America >60 (>=60); Estimated GFR (Non-African Ame >60 (>=60); Globulin 3.8 g/dL; Glucose 135 mg/dL (74-106); HDL Cholesterol 30 mg/dL (40-60); Potassium 4.4 mmol/L (3.5-5.1); Sodium 139 mmol/L (136-145); Total Protein 7.4 g/dL (6.4-8.2); Triglycerides 112 mg/dL (<=150); VLDL CHOLESTEROL 22.4 mg/dL
== END 2024-06-15 07:49 | disposition home or self-care (01) ==
LOC: LAB 07:49
PROVIDERS: PCP Family Medicine; Visit Provider Nurse Practitioner Family
DX: E78.5 Hyperlipidemia, unspecified (principal); E11.65 Type 2 diabetes mellitus with hyperglycemia; E55.9 Vitamin D deficiency, unspecified; Z79.4 Long term (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; Z68.34 Body mass index [BMI] 34.0-34.9, adult
CPT/HCPCS: 36415; 80053; 80061; 82043; 82306; 82570; 82607

== ENCOUNTER 2024-09-04 09:10 | Outpatient (OUT) | payer MEDICARE, SELFPAY ==
--- OUTSIDE RECORDS SUMMARY | 2024-09-04 09:17 | XMS_ITS | CCD ---
Author Organization [facility] Care Team Providers Care Marketing Database Consultant Name Role Phone Melissa Joyce Unavailable LAKSHMIPATHY ., NARENDRANATH Consulting Su vailable LAKSHMIPATHY ., DONG Attending Su vailable FURHEMA, DR RINKU Peralta Primary Care Unavailable LAKSHMIPATHY [...] COBURN ., DR HAYDE Staley Admitting Unavailable SADIA MEJIA Consulting Unavailable FURLONG, DR RINKU Peralta Primary [...] ., NARENDMAULIKATH Attending Su vailable LAKSHMIPATHY ., DONG Admitting [...] Unavailable Furlong Rinku FORD Primary Care Provider Furhema, DO Dobbs Primary Care Provider Furlong, DO Rinku Attending Provider [phone] Furhema, Rinku Attending Unavailable Furlong, Rinku Primary Care Unavailable Furlong, Rinku Admitting Unavailable FURLONG, RINKU G Attending Unavailable RINKU TREJO Referring Unavailable RINKU TREJO Primary Care Unavailable Medications Current Medications Medication Drug Class(es) [...] (20 sources) Dihydropyridine Calcium Channel Shadi Start: 024 take 5 mg by mouth once daily [...] Start: 04-29-2023 take 1 tablet by cirilo th once daily aspirin 81 mg take 1 [...] 12/11/2023 Active baclofen 10 mg oral tablet (12 sources) gamma-Aminobutyric Acid-ergic Agonist Start: 02-18-2024 take [...] Weekly Active cholecalciferol 0.1 mg oral tablet (17 sources) Vitamin D Start: 01-14-2024 End: 02-19-2024 take 100 ug by mouth once daily Cholecalciferol (Vitamin D3) Active 100 MCG PO Daily February 19, 2024 9:10am Start: 03-26-2023 take 2 tablets by [facility] in the morning cholecalciferol, vitamin D3, 2,000 units tablet Take 2 tablets (4,000 Units total) by mouth in the morning. 0 03/26/2023 Active Start: 03-26-2023 Cholecalcifero l 100 MCG (4000 UT) as directed Orally Once a day for 90 days March, Active Cholecalciferol 100 MCG (4000 UT) as directed Orally Once a day for 90 days Active take 1 capsule by [facility] every week Cholecalciferol 1.25 MG (75327 UT) 1 capsule Orally weekly for 56 days Active dapagliflozin 10 mg oral tablet (20 sources) Sodium-Glucose Cotransporter 2 Inhibitor Start: 01-14-2024 End: 02-19-2024 take 1 tablet by mouth once daily Dapagliflozin Propanediol (Farxiga) 10 mg tablet Active 10 MG PO Daily February 19, 2024 9:11am take 1 tablet by mouth in the mo [facility] dapagliflozin (FARXIGA) 10 mg tablet Take 1 tablet (10 mg total) by mouth in the morning. 0 Active Flash Glucose Sensor (Freest yle Mya 2 Sensor) kit (3 sources) Start: 01-14-2024 Flash Glucose Sensor (Freestyle [...] Insulin) 100 unit/mL (3 mL) insulin pen (3 sources) Start: 01-14-2024 Insulin Aspart U-100 (Novolog [...] U-200) 200 unit/mL (3 mL) insulin pen (9 sources) Start: 05-25-2024 Insulin Deglud ec (Tresiba Flextouch U-200) 200 unit/mL (3 mL) insulin pen Active 32 UNIT SUBCUT Daily May 25, 2024 8:16am Start: 02-19-2024 End: 05-25-2024 Insulin Degludec (Tresiba Fl extouch U-200) 200 unit/mL (3 mL) insulin pen Discontinued 34 UNIT SUBCUT Daily 15.3 90 February 19, 2024 9:11am May 25, 2024 8:18am Start: 02-19-2024 End: 02-19-2024 Insulin Degludec (Tresiba Fl extouch U-200) 200 unit/mL (3 mL) insulin pen Discontinued 34 UNIT SUBCUT Daily February 19, 2024 8:10am February 19, 2024 9:13am Start: 02-19-2024 Insulin Deglud ec (Tresiba Flextouch [...] oral tablet (20 sources) Biguanide Start: 4 End: 4 take 500 mg by mouth twice daily Metformin Active 500 MG PO Twice daily 180 90 February 19, 2024 9:12am Start: 01-14-2024 End: 02-18-2024 take 1 mg by mouth twice daily Metformin Discontinued MG PO January 14, 2024 1:00am February 18, 2024 5:42pm FreeTextSig: cont Orally Twice daily; Note: Source Status: Continue; Refills: 1; Provider: Isiah Bryan take 4 tablets by mo uth every twenty-four hours in the evening metFORMIN XR (GLUCOPHAGE XR) 500 mg 24 hr tablet Take 4 tablets (2,000 mg total) by mouth in the evening. 0 Active metFORMIN HCl ER 500 MG cont Orally Twice daily for 90 days Active metFORMIN HCl ER 500 MG 2 tabs BID with meals Orally Twice daily for 90 day(s) Active take 1 tablet by cirilo th every twelve hours metFORMIN HCl 850 MG [...] 2 mg/dose (8 mg/3 mL) pen injector (4 sources) Start: 024 inject 2 mg by subcutaneous injection every week Semaglutide (Ozempic) 2 mg/dose (8 mg/3 mL) pen injector Active 2 MG SUBCUT every week .75 90 February 19, 2024 9:12am FreeTextSi mg Subcutaneous weekly; Note: Source Status: Re-Start; Refills: 1; Qty: 9 ml; Provider: Isiah Bryan Start: 01-14-2024 End: 02-19-2024 inject 2 mg by subcutaneous injection every week Semaglutide (Ozempic) 2 mg/dose (8 mg/3 mL) pen injector Discontinued 2 MG SUBCUT every week January 14, 2024 1:00am February 19, 2024 9:13am FreeTextSi mg Subcutaneous weekly; Note: Source Status: [...] sublingual tablet (20 sources) Vitamin B12 Start: 02-19-2024 take 1000 ug under the tongue once daily Cyanocobalamin (Vitamin B-12) Active 1000 MCG SUBLINGUAL Daily 90 90 February 19, 2024 9:11am Start: 01-14-2024 End: 02-19-2024 take 1 tablet under the tongue every other day Cyanocobalamin (Vitamin B-12) Discontinued MCG SUBLINGUAL January 14, 2024 1:00am February 19, 2024 9:13am FreeTextSi tablet under the tongue and allow [...] Problem Date Documented Date Episodic/Chronic Abdominal pain (4 sources) Left upper quadrant pain; 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: [Unspecified abdominal pain] Episodic Administrative/social admission (12 sources) Dietary counseling and surveillance; 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: [Patient [...] [Nonalcoholic steatohepatitis (ANTUNEZ)] Onset: 08-25-2018 08-23-2022 Chronic Immunizations and screening for infectious disease (1 source) Encounter for immunization; 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: [Encounter for immunization] Onset: 08-31-2024 Episodic Nausea and vomiting (4 sources) Nausea with [...] sources) Long-term current use of insulin; 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: [MCFP (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] 02-18-2024 Episodic Other aftercare (12 sources) 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 (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; 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: [Long-term (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] Onset: 12-25-2021 Resolved: 06-12-2022 Episodic Other aftercare (1 source) MCFP (current) use of aspirin; 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: [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] Onset: 04-02-2023 Episodic Other aftercare (1 source) Other senior care (current) drug therapy; 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: [OTH 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 CURRENT DRUG THERAPY] Onset: 04-02-2023 Episodic Other [...] nutritional; endocrine; and metabolic disorders (2 sources) Body mass index 30+ - obesity; 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: [Body mass index (BMI) 34.0-34.9, adult] 02-18-2024 Chronic Other nutritional; endocrine; and metabolic disorders (1 source) Morbid (severe) obesity due to excess calories; 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: [Morbid (severe) obesity due to excess calories] Onset: 08-31-2024 Chronic Other screening for suspected conditions (not mental disorders or infectious disease) (1 source) Encounter for screening for malignant neoplasm of prostate; 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: [Encounter for screening for malignant neoplasm of prostate] Onset: 08-31-2024 Episodic Pneumonia (except that caused by tuberculosis or sexually transmitted disease) (1 source) Pneumonia, unspecified organism; 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: [PNEUMONIA UNSPECIFIED ORGANISM] Onset: 04-02-2023 Episodic Residual codes; unclassified (5 sources) Obstructive sleep apnea (adult) (pediatric); 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: [Obstructive sleep apnea (adult)(pediatric)] Onset: 07-02-2022 Chronic Residual codes; unclassified (4 sources) Obstructive sleep apnea syndrome; 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: [Obstructive sleep apnea (adult) (pediatric)] Onset: 04-17-2011 04-05-2023 Chronic Residual codes; unclassified (1 source) Procedure and treatment not carried out for other reasons; 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: [PROC AND TX NOT CARRIED OUT OTH REASONS] Onset: 02-06-2023 Episodic Retinal detachments; defects; vascular occlusion; and retinopathy (3 sources) Retinal disorder; 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: [Unspecified background retinopathy] 02-18-2024 Chronic Spondylosis; intervertebral disc disorders; other back problems (13 sources) Spondylosis without myelopathy or radiculopathy, cervical region; 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: [Other spondylosis with radiculopathy, cervical region] Onset: 05-10-2016 Chronic Thyroid disorders (1 source) Hypothyroidism Onset: 08-31-2024 Chronic Unclassified (1 source) CONTACT W/AND (SUSP) [...] Onset: 10-25-2023 10-25-2023 Other aftercare (1 source) MCFP (current) use of oral hypoglycemic drugs; 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: [SHELTER USE ORAL HYPOGLYCEMIC DX] Onset: 04-10-2022 Episodic [...] 08-13-2023 HbA1c (Bld) [Mass fraction] 6.3 % [employer] Other Glucose - FINGER STICKon Glucose [Mass/Vol] 122 mg/dL [employer] Other HbA1c (Bld) [Mass fraction]o n 08-13-2023 A1C HEMOGLOBIN [facility] [employer] Other Glucose - FINGER STICKon Glucose [Mass/Vol] 142 mg/dL [place] [employer] Other ACETONE SERUMon 03-29-2023 ACETONE Negative Normal NEGATIVE [facility] Comment on above: Performed By: #### U MICRO, ERUR #### [facility] [address] [place] [address] Dr. Dequan Márquez BNPon 03-29-2023 Natriuretic peptide B (Bld) [Mass/Vol] 352.0 pg/mL Normal <=900.0 [facility] Comment on above: Performed By: #### U MICRO, ERUR #### [facility] [address] [place] [address] Dr. Dequan Márquez CBC AUTO DIFFon 03-29-2023 BASO # 0.1 103/ul Normal 0.0-0.1 [facility] Comment on above: Performed By: #### C BC #### [facility] [address] [address] [address] Dequan Márquez Basophils/100 WBC (Bld) 0.4 % Normal 0.2-2.0 [facility] Comment on above: Performed By: #### C BC #### [facility] [address] [place] [address] Dr. Dequan Márquez EO # 0.0 103/ul Normal 0.0-0.7 [facility] Comment on above: Performed By: #### C BC #### [facility] [address] [address] [address] Dequan Márquez Eosinophils/100 WBC (Bld) 0.0 % Critically low 0.9-7.0 [facility] Comment on above: Performed By: #### C BC #### [facility] [address] [address] [address] Dequan Márquez Erythrocyte distribution width (RBC) [Ratio] 14.1 % Normal 11.0-15.0 [facility] Comment on above: Performed By: #### C BC #### [facility] [address] [place] [address] Dr. Dequan Márquez Hematocrit (Bld) [Volume fraction] 47.0 % Normal 42.0-54.0 [facility] Comment on above: Performed By: #### C BC #### [facility] [address] [place] [address] Dr. Dequan Márquez Hemoglobin (Bld) [Mass/Vol] 15.6 g/dL Normal 14.0-18.0 [facility] Comment on above: Performed By: #### C BC #### [facility] [address] [place] [address] Dr. Dequan Márquze IG # 0.29 10e3/ul Critically high 0.00-0.03 [facility] Comment on above: Performed By: #### C BC #### [facility] [address] [place] [address] Dr. Dequan Márquez IG % 1.4 % Critically high 0.0-0.5 [facility] Comment on above: Performed By: #### C BC #### [facility] [address] [address] [address] Dequan Márquez LYMPH # 1.2 103/ul Normal 1.2-3.8 [facility] Comment on above: Performed By: #### C BC #### [facility] [address] [place] [address] Dr. Dequan Márquez Lymphocytes/100 WBC (Bld) 5.4 % Critically low 20.5-60.0 [facility] Comment on above: Performed By: #### C BC #### [facility] [address] [place] [address] Dr. Dequan Márquez MANUAL DIFF REQ NO Normal [facility] Comment on above: Performed By: #### C BC #### [facility] [address] [place] [address] Dr. Dequan Márquez MCH (RBC) [Entitic mass] 28.6 pg Normal 25.9-34.0 [facility] Comment on above: Performed By: #### C BC #### [facility] [address] [place] [address] Dr. Dequan Márquez MCHC (RBC) [Mass/Vol] 33.2 g/dL Normal 29.9-35.2 [facility] Comment on above: Performed By: #### C BC #### [facility] [address] [place] [address] Dr. Dequan Márquez MCV (RBC) [Entitic vol] 86.2 fL Normal 80.0-94.0 [facility] Comment on above: Performed By: #### C BC #### [facility] [address] [place] [address] Dr. Dequan Márquez MONO # 1.3 103/ul Critically high 0.3-0.8 [facility] Comment on above: Performed By: #### C BC #### [facility] [address] [place] [address] Dr. Dequan Márquez Monocytes/100 WBC (Bld) 6.1 % Normal 1.7-12.0 [facility] Comment on above: Performed By: #### C BC #### [facility] [address] [place] [address] Dr. Dequan Márquez NEUT # 18.6 103/ul Critically high 1.4-6.5 [facility] Comment on above: Performed By: #### C BC #### [facility] [address] [place] [address] Dr. Dequan Márquez Neutrophils/100 WBC (Bld) 86.7 % Critically high 43.0-75.0 [facility] Comment on above: Performed By: #### C BC #### [facility] [address] [address] [address] Dequan Márquez Platelet mean volume (Bld) [Entitic vol] 11.2 fL Normal 9.5-13.5 [facility] Comment on above: Performed By: #### C BC #### [facility] [address] [place] [address] Dr. Dequan Márquez PLT 275 103/ul Normal 150-450 [facility] Comment on above: Performed By: #### C BC #### [facility] [address] [address] [address] Dequan Márquez RBC 5.45 106/ul Normal 4.70-6.10 [facility] Comment on above: Performed By: #### C BC #### [facility] [address] [place] [address] Dr. Dequan Márquez WBC 21.4 103/ul Critically high 4.0-11.0 [facility] Comment on above: Performed By: #### C BC #### [facility] [address] [address] [address] Dequan Márquez CULTURE BLOODon 03-29-2023 Microscopic examination of blood, culture Culture Observations: NO GROWTH AT 5 DAYS. Normal [facility] Comment on above: Performed By: #### U MICRO, ERUR #### [facility] [address] [place] [address] Dr. Dequan Márquez [facility]on SARS-CoV-2 (COVID-19) RNA YONIS+probe Ql (Unsp spec) Not detected Normal NOT DETECTED [facility] Comment on above: Result Comment: This test is not yet approved or cleared by the [place] FDA. When there are no FDA-approved or cleared tests available, and other criteria are met, FDA can make tests available under an emergency access mechanism called an Emergency Use Authorization (EUA). The EUA for this test is supported by the Senior Control Systems Engineer of Health and Human Service's (HHS's) declaration [...] SARS-CoV-2. Performed By: #### C BC #### [facility] [address] [place] [address] Dr. Dequan Márquez ER URINE PROFILEon 3 Bilirubin Ql (U) Negative Normal NEGATIVE [facility] Comment on above: Performed By: #### U MICRO, ERUR #### [facility] [address] [place] [address] Dr. Dequan Márquez Clarity (U) CLEAR Normal CLEAR [facility] Comment on above: Performed By: #### U MICRO, ERUR #### [facility] [address] [place] [address] Dr. Dequan Márquez Color (U) YELLOW Normal YELLOW [facility] Comment on above: Performed By: #### U MICRO, ERUR #### [facility] [address] [place] [address] Dr. Dequan MAHAJAND A micrscopic examination will be performed if indicated. Normal [facility] Comment on above: Performed By: #### U MICRO, ERUR #### [facility] [address] [place] [address] Dr. Dequan Márquez Glucose Ql (U) >1000 Abnormal NEGATIVE [facility] Comment on above: Performed By: #### U MICRO, ERUR #### [facility] [address] [place] [address] Dr. Dequan Márquez Hemoglobin Ql (U) SMALL Abnormal NEGATIVE [facility] Comment on above: Performed By: #### U MICRO, ERUR #### [facility] [address] [place] [address] Dr. Dequan Márquez Ketones Ql (U) Negative Normal NEGATIVE [facility] Comment on above: Performed By: #### U MICRO, ERUR #### [facility] [address] [address] [address] Dequan Márquez LEUKOCYTES Negative Normal NEGATIVE [facility] Comment on above: Performed By: #### U MICRO, ERUR #### [facility] [address] [place] [address] Dr. Dequan Márquez Nitrite Ql (U) Negative Normal NEGATIVE [facility] Comment on above: Performed By: #### U MICRO, ERUR #### [facility] [address] [address] [address] Dequan Márquez pH (U) 5.5 [pH] Normal 5-9 [facility] Comment on above: Performed By: #### U MICRO, ERUR #### [facility] [address] [place] [address] Dr. Dequan Márquez Protein (U) [Mass/Vol] 100 mg/dL Abnormal NEGATIVE/ TRACE [facility] Comment on above: Performed By: #### U MICRO, ERUR #### [facility] [address] [place] [address] Dr. Dequan Márquez SPEC GRAVITY 1.020 Normal 1.005-<=1.025 [facility] Comment on above: Performed By: #### U MICRO, ERUR #### [facility] [address] [place] [address] Dr. Dequan Márquez UR MICRO IND INDICATED Normal [facility] Comment on above: Performed By: #### U MICRO, ERUR #### [facility] [address] [place] [address] Dr. Dequan Márquez Urobilinogen Qn (U) 0.2 {Stuart'U}/dL Normal 0.2 - 1.0 [facility] Comment on above: Performed By: #### U MICRO, ERUR #### [facility] [address] [place] [address] Dr. Dequan Márquez LACTATE/LACTIC ACIDon 2022 Lactate [Moles/Vol] 2.0 mmol/L Normal 0.4-2.0 [facility] Comment on above: Performed By: #### L ACT #### [facility] [address] [place] [address] Dr. Dequan Márquez LIPASEon 03-29-2023 Lipase [Catalytic activity/Vol] 120.0 U/L Normal 73.0-393.0 [facility] Comment on above: Performed By: #### B PHYSICIAN ANESTHESIOLOGIST, HSTROPN, CMP, LIPA #### [facility] [address] [place] [address] Dr. Dequan Márquez PH VENOUS BLOODon 03-29-2023 PCO2 VENOUS 36.3 mmHg Critically low 40.0-52.0 [facility] Comment on above: Performed By: #### U MICRO, ERUR #### [facility] [address] [place] [address] Dr. Dequan Márquez pH VENOUS 7.470 Critically high 7.330-7.430 [facility] Comment on above: Performed By: #### U MICRO, ERUR #### [facility] [address] [place] [address] Dr. Dequan Márquez PROF 14(COMP METB)on 023 Albumin [Mass/Vol] 3.6 g/dL Normal 3.4-5.0 [facility] Comment on above: Performed By: #### B PHYSICIAN ANESTHESIOLOGIST, HSTROPN, CMP, LIPA #### [facility] [address] [place] [address] Dr. Dequan Márquez Albumin/Globulin [Mass ratio] 0.8 {ratio} Normal [facility] Comment on above: Performed By: #### B PHYSICIAN ANESTHESIOLOGIST, HSTROPN, CMP, LIPA #### [facility] [address] [place] [address] Dr. Dequan Márquez ALP [Catalytic activity/Vol] 126 U/L Critically high 46-116 [facility] Comment on above: Performed By: #### B PHYSICIAN ANESTHESIOLOGIST, HSTROPN, CMP, LIPA #### [facility] [address] [place] [address] Dr. Dequan Márquez ALT [Catalytic activity/Vol] 43 U/L Normal 16-63 [facility] Comment on above: Performed By: #### B PHYSICIAN ANESTHESIOLOGIST, HSTROPN, CMP, LIPA #### [facility] [address] [address] [address] Dequan Márquez Anion gap [Moles/Vol] 11.4 mmol/L Normal [facility] Comment on above: Performed By: #### B PHYSICIAN ANESTHESIOLOGIST, HSTROPN, CMP, LIPA #### [facility] [address] [place] [address] Dr. Dequan Márquez AST [Catalytic activity/Vol] 21 U/L Normal 15-37 [facility] Comment on above: Performed By: #### B PHYSICIAN ANESTHESIOLOGIST, HSTROPN, CMP, LIPA #### [facility] [address] [place] [address] Dr. Dequan Márquez Bilirubin [Mass/Vol] 1.5 mg/dL Critically high 0.2-1.0 [facility] Comment on above: Performed By: #### B PHYSICIAN ANESTHESIOLOGIST, HSTROPN, CMP, LIPA #### [facility] [address] [place] [address] Dr. Dequan Márquez Calcium [Mass/Vol] 8.9 mg/dL Normal 8.5-10.1 [facility] Comment on above: Performed By: #### B PHYSICIAN ANESTHESIOLOGIST, HSTROPN, CMP, LIPA #### [facility] [address] [place] [address] Dr. Dequan Márquez Chloride [Moles/Vol] 95 mmol/L Critically low 98-107 [facility] Comment on above: Performed By: #### B PHYSICIAN ANESTHESIOLOGIST, HSTROPN, CMP, LIPA #### [facility] [address] [place] [address] Dr. Dequan Márquez CO2 [Moles/Vol] 28.2 mmol/L Normal 21.0-32.0 [facility] Comment on above: Performed By: #### B PHYSICIAN ANESTHESIOLOGIST, HSTROPN, CMP, LIPA #### [facility] [address] [place] [address] Dr. Dequan Márquez Creatinine [Mass/Vol] 1.14 mg/dL Normal 0.70-1.30 [facility] Comment on above: Performed By: #### B PHYSICIAN ANESTHESIOLOGIST, HSTROPN, CMP, LIPA #### [facility] [address] [address] [address] Dequan Márquez EGFR-AF SURINAMESE >60 Normal >=60 [facility] Comment on above: Performed By: #### B PHYSICIAN ANESTHESIOLOGIST, HSTROPN, CMP, LIPA #### [facility] [address] [address] [address] Dequan Márquez EGFR-NON AF SURINAMESE >60 Normal >=60 [facility] Comment on above: Performed By: #### B PHYSICIAN ANESTHESIOLOGIST, HSTROPN, CMP, LIPA #### [facility] [address] [address] [address] Dequan Márquez Globulin (S) [Mass/Vol] 4.8 g/dL Normal [facility] Comment on above: Performed By: #### B PHYSICIAN ANESTHESIOLOGIST, HSTROPN, CMP, LIPA #### [facility] [address] [address] [address] Dequan Márquez Glucose [Mass/Vol] 209 mg/dL Critically high 74-106 [facility] Comment on above: Performed By: #### B PHYSICIAN ANESTHESIOLOGIST, HSTROPN, CMP, LIPA #### [facility] [address] [address] [address] Dequan Márquez Potassium [Moles/Vol] 3.6 mmol/L Normal 3.5-5.1 [facility] Comment on above: Performed By: #### B PHYSICIAN ANESTHESIOLOGIST, HSTROPN, CMP, LIPA #### [facility] [address] [address] [address] Dequan Márquez Protein [Mass/Vol] 8.4 g/dL Critically high 6.4-8.2 [facility] Comment on above: Performed By: #### B PHYSICIAN ANESTHESIOLOGIST, HSTROPN, CMP, LIPA #### [facility] [address] [place] [address] Dr. Dequan Márquez Sodium [Moles/Vol] 131 mmol/L Critically low 136-145 [facility] Comment on above: Performed By: #### B PHYSICIAN ANESTHESIOLOGIST, HSTROPN, CMP, LIPA #### [facility] [address] [address] [address] Dequan Márquez Urea nitrogen [Mass/Vol] 22.0 mg/dL Critically high 7.0-18.0 [facility] Comment on above: Performed By: #### B PHYSICIAN ANESTHESIOLOGIST, HSTROPN, CMP, LIPA #### [facility] [address] [address] [address] Dequan Márquez Urea nitrogen/Creatinin e [Mass ratio] 19.3 mg/mg Normal [facility] [facility] Comment on above: Performed By: #### B PHYSICIAN ANESTHESIOLOGIST, HSTROPN, CMP, LIPA #### [facility] [address] [address] [address] Dequan Márquez PROTIMEon 03-29-2023 INR Coag (PPP) [Relative time] 1.10 {INR} Normal [facility] Comment on above: Performed By: #### C BC #### [facility] [address] [place] [address] Dr. Dequan áMrquez INR GUIDELINES SEE BELOW Normal [facility] Comment on above: Result Comment: JESSICA RED INR: 2.0 - 3.0 CONDITIONS NOT LISTED BELOW 2.5 - 3.5 FOR PROSTHETIC HEART VALVE REPLACEMENT 2.5 - 3.5 RECURRENT THROMBOSIS Performed By: #### C BC #### [facility] [address] [place] [address] Dr. Dequan Márquez PT Coag (PPP) [Time] 11.6 s Normal 9.0-11.6 [facility] Comment on above: Performed By: #### C BC #### [facility] [address] [place] [address] Dr. Dequan Márquez SYMPTOMATIC COVID-19 ANTIGEN on 03-29-2023 EUA Statement SEE BELOW Normal [facility] Comment on above: Result Comment: This test [...] sooner. Performed By: #### C VDAGS #### [facility] [address] [place] [address] Dr. Dequan Márquez SARS-CoV-2 (COVID-19) RNA YONIS+probe Ql (Unsp spec) Negative Normal NEGATIVE [facility] Comment on above: Performed By: #### C VDAGS #### [facility] [address] [place] [address] Dr. Dequan Márquez TROPONIN, HIGH SENSITIVITYon 03-29-2023 HSTROP 5.2 pg/mL Normal 4.0-76.1 [facility] Comment on above: Result Comment: CUT- OFF POINTS HAVE BEEN ESTABLISHED BASED ON THE FOURTH UNIVERSAL DEFINITIONS OF MYOCARDIAL INFARCTION. THE UPPER REFERENCE LIMIT (URL) OF TROPONIN, DEFINED THE 99TH PERCENTILE OF cTnI DISTRIBUTION IN A REFERENCE POPULATION, HAS BEEN CONFIRMED THE DECISION THRESHOLD FOR GA DIAGNOSIS. Performed By: #### U MICRO, ERUR #### [facility] [address] [place] [address] Dr. Dequan Márquez URINE MICROSCOPIC ONLYon BACTERIA TRACE Abnormal NONE SEEN [facility] Comment on above: Performed By: #### U MICRO, ERUR #### [facility] [address] [place] [address] Dr. Dequan Márquez Bacteria identified Cx Nom (U) NOT INDICATED Normal [facility] Comment on above: Performed By: #### U MICRO, ERUR #### [facility] [address] [place] [address] Dr. Dequan Márquez CAST NONE SEEN Normal NONE SEEN [facility] Comment on above: Performed By: #### U MICRO, ERUR #### [facility] [address] [place] [address] Dr. Dequan Márquez Crystals LM Nom (Urine sed) NONE SEEN Normal NONE SEEN [facility] Comment on above: Performed By: #### U MICRO, ERUR #### [facility] [address] [address] [address] Dequan Márquez Epithelial cells LM Ql (Urine sed) FEW Abnormal NONE SEEN /RARE [facility] Comment on above: Performed By: #### U MICRO, ERUR #### [facility] [address] [address] [address] Dequan Márquez MUCOUS NONE SEEN Normal NONE SEEN [facility] Comment on above: Performed By: #### U MICRO, ERUR #### [facility] [address] [address] [address] Dequan Márquez RBC 2-5 Abnormal 0-2 [facility] Comment on above: Performed By: #### U MICRO, ERUR #### [facility] [address] [address] [address] Dequan Márquez WBC 0-2 Abnormal NONE SEEN [facility] Comment on above: Performed By: #### U MICRO, ERUR #### [facility] [address] [address] [address] Dequan Márquez XR CHEST 1 Von [...] DESIRAE SOSA Date: 2023-03-29 14:10 Normal [facility] A1C HEMOGLOBINon 03-26-2023 HbA1c (Bld) [Mass fraction] 6.5 % [employer] Other Glucose - FINGER [employer] Glucose [Mass/Vol] 156 mg/dL [employer] Other HbA1c (Bld) [Mass fraction]o n 03-26-2023 A1C HEMOGLOBIN [employer] Other A1C HEMOGLOBINon 12-25-2022 HbA1c (Bld) [Mass fraction] 7.0 % [employer] Other Glucose - FINGER STICKon Glucose [Mass/Vol] 107 mg/dL [employer] Other HbA1c (Bld) [Mass fraction]o n 12-25-2022 A1C HEMOGLOBIN [employer] Other MRI MIHAELA WO CONon 10-22-20 MRI MIHAELA WO CON EXAM: MRI MIHAELA WO CON HISTORY: Neck pain. Chronic cervical [...] by: LEDY MARIE Date: 2022-10-22 21:47 Normal [facility] A1C HEMOGLOBINon 09-20-2022 HbA1c (Bld) [Mass fraction] 7.0 % [facility] [employer] Other Glucose - FINGER STICKon Glucose [Mass/Vol] 121 mg/dL [facility] [employer] Other HbA1c (Bld) [Mass fraction]o n 09-20-2022 A1C HEMOGLOBIN [facility] [employer] Other MICROALBUMIN/ CREATININE RAT IOon 08-14-2022 Albumin, Urine 4.3 ug/mL Normal Not Estab. [facility] Comment on above: Performed By: #### C BC #### [facility] [address] [place] [address] Dr. Dequan Márquez Albumin/ Creatinine Ratio 11 mg/g creat Normal 0-29 [facility] Comment on above: Result Comment: Norm al: 0 - 29 Moderately increased: 30 - 300 Severely increased: >300 Performed By: #### C BC #### [facility] [address] [address] [address] Dequan Márquez Creatinine, Urine 38.5 mg/dL Normal Not Estab. [facility] Comment on above: Performed By: #### C BC #### [facility] [address] [place] [address] Dr. Dequan Márquez LIPID PROFILEon 08-13-2022 CHOL-HDL RATIO NORM SEE BELOW Normal [facility] Comment on above: Result Comment: 3.3 - 4.4 LOW RISK 4.4 - 7.1 AVERAGE RISK 7.1 - 11.0 MODERATE RISK >11.0 HIGH RISK Performed By: #### C BC #### [facility] [address] [address] [address] Dequan Márquez Cholesterol [Mass/Vol] 111 mg/dL Normal <=200 [facility] Comment on above: Performed By: #### C BC #### [facility] [address] [address] [address] Dequan Márquez Cholesterol in HDL [Mass/Vol] 28 mg/dL Critically low 40-60 [facility] Comment on above: Performed By: #### C BC #### [facility] [address] [place] [address] Dr. Dequan Márquez Cholesterol in LDL [Mass/Vol] 51.0 mg/dL Normal [facility] Comment on above: Performed By: #### C BC #### [facility] [address] [place] [address] Dr. Dequan Márquez Cholesterol.total/ Cholesterol in HDL [Mass ratio] 4.0 {ratio} Normal [facility] Comment on above: Performed By: #### C BC #### [facility] [address] [place] [address] Dr. Dequan Márquez HDL NORMAL > or = 60 mg/dl - LO W CARDIOVASCULAR RISK <40 mg/dl - HIGH CARDIOVASCULAR RISK Normal [facility] Comment on above: Performed By: #### C BC #### [facility] [address] [place] [address] Dr. Dequan Márquez LDL CALC NORMAL SEE BELOW Normal [facility] Comment on above: Result Comment: <100 mg/dl OPTIMAL 100 - 129 mg/dl NEAR OR ABOVE OPTIMAL 130 - 159 mg/dl BORDERLINE HIGH 160 - 189 mg/dl HIGH >190 mg/dl VERY HIGH Performed By: #### C BC #### [facility] [address] [place] [address] Dr. Dequan Márquez Triglyceride [Mass/Vol] 160 mg/dL Critically high <=150 [facility] Comment on above: Performed By: #### C BC #### [facility] [address] [place] [address] Dr. Dequan Márquez VLDL CALC 32.0 mg/dL Normal [facility] Comment on above: Performed By: #### C BC #### [facility] [address] [place] [address] Dr. Dequan Márquez PROF 14(COMP METB)on 022 Albumin [Mass/Vol] 4.1 g/dL Normal 3.4-5.0 [facility] Comment on above: Performed By: #### C BC #### [facility] [address] [place] [address] Dr. Dequan Márquez Albumin/Globulin [Mass ratio] 1.0 {ratio} Normal [facility] Comment on above: Performed By: #### C BC #### [facility] [address] [place] [address] Dr. Dequan Márquez ALP [Catalytic activity/Vol] 114 U/L Normal 46-116 [facility] Comment on above: Performed By: #### C BC #### [facility] [address] [place] [address] Dr. Dequan Márquez ALT [Catalytic activity/Vol] 43 U/L Normal 16-63 [facility] Comment on above: Performed By: #### C BC #### [facility] [address] [place] [address] Dr. Dequan Márquez Anion gap [Moles/Vol] 11.0 mmol/L Normal [facility] Comment on above: Performed By: #### C BC #### [facility] [address] [place] [address] Dr. Dequan Márquez AST [Catalytic activity/Vol] 20 U/L Normal 15-37 [facility] Comment on above: Performed By: #### C BC #### [facility] [address] [place] [address] Dr. Dequan Márquez Bilirubin [Mass/Vol] 0.5 mg/dL Normal 0.2-1.0 [facility] Comment on above: Performed By: #### C BC #### [facility] [address] [place] [address] Dr. Dequan Márquez Calcium [Mass/Vol] 9.2 mg/dL Normal 8.5-10.1 [facility] Comment on above: Performed By: #### C BC #### [facility] [address] [place] [address] Dr. Dequan Márquez Chloride [Moles/Vol] 102 mmol/L Normal 98-107 [facility] Comment on above: Performed By: #### C BC #### [facility] [address] [place] [address] Dr. Dequan Márquez CO2 [Moles/Vol] 26.3 mmol/L Normal 21.0-32.0 [facility] Comment on above: Performed By: #### C BC #### [facility] [address] [place] [address] Dr. Dequan Márquez Creatinine [Mass/Vol] 0.90 mg/dL Normal 0.70-1.30 [facility] Comment on above: Performed By: #### C BC #### [facility] [address] [place] [address] Dr. Dequan Márquez EGFR-AF SURINAMESE >60 Normal >=60 [facility] Comment on above: Performed By: #### C BC #### [facility] [address] [place] [address] Dr. Dequan Márquez EGFR-NON AF SURINAMESE >60 Normal >=60 [facility] Comment on above: Performed By: #### C BC #### [facility] [address] [place] [address] Dr. Dequan Márquez Globulin (S) [Mass/Vol] 4.3 g/dL Normal [facility] Comment on above: Performed By: #### C BC #### [facility] [address] [place] [address] Dr. Dequan Márquez Glucose [Mass/Vol] 149 mg/dL Critically high 74-106 [facility] Comment on above: Performed By: #### C BC #### [facility] [address] [place] [address] Dr. Dequan Márquez Potassium [Moles/Vol] 4.3 mmol/L Normal 3.5-5.1 [facility] Comment on above: Performed By: #### C BC #### [facility] [address] [place] [address] Dr. Dequan Márquez Protein [Mass/Vol] 8.4 g/dL Critically high 6.4-8.2 [facility] Comment on above: Performed By: #### C BC #### [facility] [address] [place] [address] Dr. Dequan Márquez Sodium [Moles/Vol] 135 mmol/L Critically low 136-145 [facility] Comment on above: Performed By: #### C BC #### [facility] [address] [place], [place] [address] Dr. Dequan Márquez Urea nitrogen [Mass/Vol] 30.0 mg/dL Critically high 7.0-18.0 [facility] Comment on above: Performed By: #### C BC #### [facility] [address] [place], [place] [address] Dr. Dequan Márquez Urea nitrogen/Creatinin e [Mass ratio] 33.3 mg/mg Normal [facility] Comment on above: Performed By: #### C BC #### [facility] [address] [place], [place] [address] Dr. Dequan Márquez MRI BRAIN WO CONon MRI BRAIN WO CON EXAMINATION: MRI BRA [...] months to document stability. Electronically authenticated by: UDAY WRIGHT Date: 2022-06-13 06:18 Normal [facility] A1C HEMOGLOBINon 06-12-2022 HbA1c (Bld) [Mass fraction] 7.1 % [employer] Other Glucose - FINGER [employer] Glucose [Mass/Vol] 181 mg/dL [employer] Other HbA1c (Bld) [Mass fraction]o n 06-12-2022 A1C HEMOGLOBIN [employer] Other CRPon 05-30-2022 CRP 1.0 mg/dL Normal <=1.0 [facility] Comment on above: Performed By: #### C BC #### [facility] [address] [place] [address] Dr. Dequan Márquez SED RATE WESTERGRENon 2021 SED RATE 32 mm/hr Critically high <=20 [facility] Comment on above: Performed By: #### S EDR #### [facility] [address] [place] [address] Dr. Dequan Márquez CBC AUTO DIFFon 04-06-2022 BASO # 0.1 103/ul Normal 0.0-0.1 [facility] Comment on above: Performed By: #### C BC #### [facility] [address] [address] [address] Dequan Márquez Basophils/100 WBC (Bld) 0.9 % Normal 0.2-2.0 [facility] Comment on above: Performed By: #### C BC #### [facility] [address] [place] [address] Dr. Dequan Márquez EO # 0.3 103/ul Normal 0.0-0.7 [facility] Comment on above: Performed By: #### C BC #### [facility] [address] [place] [address] Dr. Dequan Márquez Eosinophils/100 WBC (Bld) 3.1 % Normal 0.9-7.0 [facility] Comment on above: Performed By: #### C BC #### [facility] [address] [place] [address] Dr. Dequan Márquez Erythrocyte distribution width (RBC) [Ratio] 13.6 % Normal 11.0-15.0 [facility] Comment on above: Performed By: #### C BC #### [facility] [address] [place] [address] Dr. Dequan Márquez Hematocrit (Bld) [Volume fraction] 44.8 % Normal 42.0-54.0 [facility] Comment on above: Performed By: #### C BC #### [facility] [address] [place] [address] Dr. Dequan Márquez Hemoglobin (Bld) [Mass/Vol] 14.9 g/dL Normal 14.0-18.0 [facility] Comment on above: Performed By: #### C BC #### [facility] [address] [place] [address] Dr. Dequan Márquez IG # 0.02 10e3/ul Normal 0.00-0.03 [facility] Comment on above: Performed By: #### C BC #### [facility] [address] [place] [address] Dr. Dequan Márquez IG % 0.2 % Normal 0.0-0.5 [facility] Comment on above: Performed By: #### C BC #### [facility] [address] [place] [address] Dr. Dequan Márquez LYMPH # 2.3 103/ul Normal 1.2-3.8 [facility] Comment on above: Performed By: #### C BC #### [facility] [address] [place] [address] Dr. Dequan Márquez Lymphocytes/100 WBC (Bld) 28.7 % Normal 20.5-60.0 [facility] Comment on above: Performed By: #### C BC #### [facility] [address] [place] [address] Dr. Dequan Márquez MANUAL DIFF REQ NO Normal [facility] Comment on above: Performed By: #### C BC #### [facility] [address] [place] [address] Dr. Dequan Márquez MCH (RBC) [Entitic mass] 29.3 pg Normal 25.9-34.0 [facility] Comment on above: Performed By: #### C BC #### [facility] [address] [place] [address] Dr. Dequan Márquez MCHC (RBC) [Mass/Vol] 33.3 g/dL Normal 29.9-35.2 [facility] Comment on above: Performed By: #### C BC #### [facility] [address] [place] [address] Dr. Dequan Márquez MCV (RBC) [Entitic vol] 88.2 fL Normal 80.0-94.0 [facility] Comment on above: Performed By: #### C BC #### [facility] [address] [place] [address] Dr. Dequan Márquez MONO # 0.7 103/ul Normal 0.3-0.8 [facility] Comment on above: Performed By: #### C BC #### [facility] [address] [place] [address] Dr. Dequan Márquez Monocytes/100 WBC (Bld) 8.8 % Normal 1.7-12.0 [facility] Comment on above: Performed By: #### C BC #### [facility] [address] [place] [address] Dr. Dequan Márquez NEUT # 4.7 103/ul Normal 1.4-6.5 [facility] Comment on above: Performed By: #### C BC #### [facility] [address] [place] [address] Dr. Dequan Márquez Neutrophils/100 WBC (Bld) 58.3 % Normal 43.0-75.0 [facility] Comment on above: Performed By: #### C BC #### [facility] [address] [place] [address] Dr. Dequan Márquez Platelet mean volume (Bld) [Entitic vol] 11.1 fL Normal 9.5-13.5 [facility] Comment on above: Performed By: #### C BC #### [facility] [address] [place] [address] Dr. Dequan Márquez PLT 311 103/ul Normal 150-450 [facility] Comment on above: Performed By: #### C BC #### [facility] [address] [place] [address] Dr. Dequan Márquez RBC 5.08 106/ul Normal 4.70-6.10 [facility] Comment on above: Performed By: #### C BC #### [facility] [address] [place] [address] Dr. Dequan Márquez WBC 8.1 103/ul Normal 4.0-11.0 [facility] Comment on above: Performed By: #### C BC #### [facility] [address] [place] [address] Dr. Dequan Márquez PROF 14(COMP METB)on 022 Albumin [Mass/Vol] 3.9 g/dL Normal 3.4-5.0 [facility] Comment on above: Performed By: #### C MP #### [facility] [address] [place] [address] Dr. Dequan Márquez Albumin/Globulin [Mass ratio] 1.0 {ratio} Normal [facility] Comment on above: Performed By: #### C MP #### [facility] [address] [place] [address] Dr. Dequan Márquez ALP [Catalytic activity/Vol] 128 U/L Critically high 46-116 [facility] Comment on above: Performed By: #### C MP #### [facility] [address] [place] [address] Dr. Dequan Márquez ALT [Catalytic activity/Vol] 54 U/L Normal 16-63 [facility] Comment on above: Performed By: #### C MP #### [facility] [address] [place] [address] Dr. Dequan Márquez Anion gap [Moles/Vol] 12.1 mmol/L Normal [facility] Comment on above: Performed By: #### C MP #### [facility] [address] [address] [address] Dequan Márquez AST [Catalytic activity/Vol] 26 U/L Normal 15-37 [facility] Comment on above: Performed By: #### C MP #### [facility] [address] [address] [address] Dequan Márquez Bilirubin [Mass/Vol] 0.4 mg/dL Normal 0.2-1.0 [facility] Comment on above: Performed By: #### C MP #### [facility] [address] [address] [address] Dequan Márquez Calcium [Mass/Vol] 8.9 mg/dL Normal 8.5-10.1 [facility] Comment on above: Performed By: #### C MP #### [facility] [address] [place] [address] Dr. Dequan Márquez Chloride [Moles/Vol] 105 mmol/L Normal 98-107 [facility] Comment on above: Performed By: #### C MP #### [facility] [address] [address] [address] Dequan Márquez CO2 [Moles/Vol] 27.1 mmol/L Normal 21.0-32.0 [facility] Comment on above: Performed By: #### C MP #### [facility] [address] [address] [address] Dequan Márquez Creatinine [Mass/Vol] 0.90 mg/dL Normal 0.70-1.30 [facility] Comment on above: Performed By: #### C MP #### [facility] [address] [address] [address] Dequan Márquez EGFR-AF SURINAMESE >60 Normal >=60 [facility] Comment on above: Performed By: #### C MP #### [facility] [address] [address] [address] Dequan Márquez EGFR-NON AF SURINAMESE >60 Normal >=60 [facility] Comment on above: Performed By: #### C MP #### [facility] [address] [address] [address] Dequan Márquez Globulin (S) [Mass/Vol] 3.9 g/dL Normal [facility] Comment on above: Performed By: #### C MP #### [facility] [address] [address] [address] Dequan Márquez Glucose [Mass/Vol] 115 mg/dL Critically high 74-106 [facility] Comment on above: Performed By: #### C MP #### [facility] [address] [address] [address] Dequan Márquez Potassium [Moles/Vol] 4.2 mmol/L Normal 3.5-5.1 [facility] Comment on above: Performed By: #### C MP #### [facility] [address] [address] [address] Dequan Márquez Protein [Mass/Vol] 7.8 g/dL Normal 6.4-8.2 [facility] Comment on above: Performed By: #### C MP #### [facility] [address] [address] [address] Dequan Márquez Sodium [Moles/Vol] 140 mmol/L Normal 136-145 [facility] Comment on above: Performed By: #### C MP #### [facility] [address] [address] [address] Dequan Márquez Urea nitrogen [Mass/Vol] 21.0 mg/dL Critically high 7.0-18.0 [facility] Comment on above: Performed By: #### C MP #### [facility] [address] [address] [address] Dequan Márquez Urea nitrogen/Creatinin e [Mass ratio] 23.3 mg/mg Normal [facility] Comment on above: Performed By: #### C MP #### [facility] [address] [address] [address] Dequan Márquez A1C HEMOGLOBINon 03-06-2022 HbA1c (Bld) [Mass fraction] 7.1 % [employer] Other Glucose - FINGER [employer]ICKon Glucose [Mass/Vol] 140 mg/dL [facility] [employer] Other HbA1c (Bld) [Mass fraction]o n 03-06-2022 A1C HEMOGLOBIN [facility] [employer] Other Glucose - FINGER STICKon Glucose [Mass/Vol] 120 mg/dL [facility] [employer] Other Glucose - [employer] Glucose [Mass/Vol] 131 mg/dL [facility] [employer] Other BASIC METABOLIC PANELon 12-0 BUN/CREATININE RATIO NOT APPLICABLE Normal 6-22 [facility] Comment on above: Performed By: #### 7 600, [id number] #### [facility] [address], [address] [place] [address] [employer] Setter: Mann Jama MD Calcium [Mass/Vol] 8.7 mg/dL Normal 8.6-10.3 [facility] Comment on above: Performed By: #### 7 600, [id number] #### [facility] [address], [address] [place] [address] [employer] Setter: Mann Jaam MD Chloride [Moles/Vol] 105 mmol/L Normal 98-110 [facility] Comment on above: Performed By: #### 7 600, [id number] #### [facility] [address], [address] [place] [address] [employer] Setter: Mann Jama MD CO2 [Moles/Vol] 25 mmol/L Normal 20-32 [facility] Comment on above: Performed By: #### 7 600, [id number] #### [facility] [address], [address] [place] [address] [employer] Setter: Mann Jama MD Creatinine [Mass/Vol] 0.84 mg/dL Normal 0.70-1.33 [facility] Comment on above: Result Comment: For patients >49 years of age, the reference limit for Creatinine is approximately 13% higher for people identified as -[place]. Performed By: #### 7 600, [id number] #### [facility] [place] [address] [employer] Setter: Mann Jama MD eGFR NON-AFR. SURINAMESE 96 mL/min/1.73m2 Normal > OR = 60 [facility] Comment on above: Performed By: #### 7 600, [id number] #### [facility] [place] [address] [employer] Setter: Mann Jama MD GFR/1.73 sq M.predicted among blacks MDRD (S/P/Bld) [Vol rate/Area] 111 mL/min/{1.73_m2} Normal > OR = 60 [facility] Comment on above: Performed By: #### 7 600, [id number] #### [facility] [place] [address] [employer] Setter: Mann Jama MD Glucose [Mass/Vol] 139 mg/dL High 65-99 [facility] Comment on above: Result Comment: Fasting reference interval For someone without known diabetes, a glucose value >125 mg/dL indicates that they may have diabetes and this should be confirmed with a follow-up test. Performed By: #### 7 600, [id number] #### [facility] [place] [address] [employer] Machine Setter: Mann Jama MD Potassium [Moles/Vol] 4.3 mmol/L Normal 3.5-5.3 [facility] Comment on above: Performed By: #### 7 600, [id number] #### [facility] [place] [address] [employer] Machine Setter: Mann Jama MD Sodium [Moles/Vol] 138 mmol/L Normal 135-146 [facility] Comment on above: Performed By: #### 7 600, [id number] #### [facility] [place] [address] [employer] Machine Setter: Mann Jama MD Urea nitrogen [Mass/Vol] 22 mg/dL Normal 7-25 [facility] Comment on above: Performed By: #### 7 600, [id number] #### [facility] [address], [address] [place] [address] [employer] Sl[employer] Machine Setter: Mann Jama MD LIPID PANEL, [facility] Cholesterol [Mass/Vol] 107 mg/dL Normal <200 [facility] Comment on above: Order Comment: FASTI NG:YES FASTING: YES Performed By: #### 7 600, [id number] #### [facility] [address], [address] [place] [address] [employer] Machine Setter: Mann Jama MD Cholesterol in HDL [Mass/Vol] 22 mg/dL Low > OR = 40 [facility] Comment on above: Order Comment: FASTI NG:YES FASTING: YES Performed By: #### 7 600, [id number] #### [facility] [address], [address] [place] [address] [employer] Machine Setter: Mann Jama MD Cholesterol in LDL [Mass/Vol] 67 mg/dL Normal [facility] Comment on above: Order Comment: FASTI NG:YES FASTING: YES Result Comment: Refe rence range: <100 Desirable range <100 mg/dL for primary prevention; <70 mg/dL for patients with CHD or diabetic patients with > or = 2 CHD risk factors. LDL-C is now calculated using the Donnie-Clover calculation, which is a validated novel method providing better accuracy than the Friedewald equation in the estimation of LDL-C. Donnie CROWELL et al. MARCIE. 2013;310(19): 4717-9798 (http://education.GeoPalz.Epos/faq/CTC929) Performed By: #### 7 600, 53462 #### [facility] [address], [address] [place] [address] [employer] Sl[employer] Machine Setter: Mann Jama MD Cholesterol.total/ Cholesterol in HDL [Mass ratio] 4.9 {ratio} Normal <5.0 [facility] Comment on above: Order Comment: FASTI NG:YES FASTING: YES Performed By: #### 7 600, [id number] #### [facility] [address], [address] [place] [address] [employer] Sl[employer] Machine Setter: Mann Jama MD NON HDL CHOLESTEROL 85 mg/dL (calc) Normal <130 [facility] Comment on above: Order Comment: FASTI NG:YES FASTING: YES Result Comment: For patients with diabetes plus 1 major ASCVD risk factor, treating to a non-HDL-C goal of <100 mg/dL (LDL-C of <70 mg/dL) is considered a therapeutic option. Performed By: #### 7 600, 11553 #### [facility] [address], [address] [place] [address] [employer] Sl[employer] Machine Setter: Mann Jama MD Triglyceride [Mass/Vol] 93 mg/dL Normal <150 [facility] Comment on above: Order Comment: FASTI NG:YES FASTING: YES Performed By: #### 7 600, [id number] #### [facility] [address], [address] [place] [address] [employer] Sl[employer] Machine Setter: Mann Jama MD Vital Signs Date Time Vital Sign Value Performing Clinician Facility 05-25-2024 08:19040 Body height 177.8 cm [facility] 05-25-2024 08:190400 Body mass index (BMI) [Ratio] 32.8 kg/m2 [facility] 05-25-2024 08:19040 Body weight 103.58 kg [facility] 05-25-2024 08:19-0400 Diastolic blood pressure 84 mm[Hg] [facility] 05-25-2024 08:19-0400 Heart rate 76 /min [facility] 05-25-2024 08:19-0400 Respiratory rate 18 /min [facility] 05-25-2024 08:19-0400 SaO2% (BldA) [Mass fraction] 97 % [facility] 05-25-2024 08:190400 Systolic blood pressure 133 mm[Hg] [facility] 02-19-2024 08:17040 Body height 154.94 cm [facility] 02-19-2024 08:17-0400 Body mass index (BMI) [Ratio] 43.9 kg/m2 [facility] 02-19-2024 08:17-0400 Body weight 105.46 kg [facility] 02-19-2024 08:17-0400 Diastolic blood pressure 73 mm[Hg] [facility] 02-19-2024 08:17-0400 Heart rate 75 /min [facility] 02-19-2024 08:17-0400 Respiratory rate 18 /min [facility] 02-19-2024 08:17-0400 SaO2% (BldA) [Mass fraction] 97 % [facility] 02-19-2024 08:17-0400 Systolic blood pressure 121 mm[Hg] [facility] 11-19-2023 08:15-0500 Body height 177.8 cm DO [employer] Work Phone: [facility] 11-19-2023 08:15-0500 Body weight 107.63 kg DO Rinku Furlong Work Phone: [facility] 11-19-2023 08:15-0500 Diastolic blood pressure 76 mm[Hg] DO Rinku Furlong Work Phone: [facility] 11-19-2023 08:15-0500 Systolic blood pressure 122 mm[Hg] DO Rinku Furlong Work Phone: [facility] 08-13-2023 08:15-0400 Body height 177.8 cm Melissa Scally Other [facility] [employer] Other 08-13-2023 08:15-0400 Body mass index (BMI) [Ratio] 34.1 kg/m2 Melissa Scally Other [facility] [employer] Other 08-13-2023 08:15-0400 Body weight 107.82 kg Melissa Scally Other [employer] Other 08-13-2023 08:15-0400 Diastolic blood pressure 83 mm[Hg] Melissa Scally Other [employer] Other 08-13-2023 08:15-0400 Respiratory rate 18 /min Melissa Scally Other [employer] Other 08-13-2023 08:15-0400 SaO2% (BldA) [Mass fraction] 99 % Melissa Scally Other [employer] Other 08-13-2023 08:15-0400 Systolic blood pressure 122 mm[Hg] Melissa Scally Other [employer] Other 05-07-2023 08:15-0400 Body height 177.8 cm Melissa Scally Other [employer] Other 05-07-2023 08:15-0400 Body mass index (BMI) [Ratio] 34.36 kg/m2 Melissa Scally Other [employer] Other 05-07-2023 08:15-0400 Body weight 108.64 kg Melissa Scally Other [employer] Other 05-07-2023 08:15-0400 Diastolic blood pressure 78 mm[Hg] Melissa Scally Other [employer] Other 05-07-2023 08:15-0400 Respiratory rate 20 /min Melissa Scally Other [employer] Other 05-07-2023 08:15-0400 SaO2% (BldA) [Mass fraction] 98 % Melissa Scally Other [employer] Other 05-07-2023 08:15-0400 Systolic blood pressure 115 mm[Hg] Melissa Scally Other [employer] Other 03-26-2023 11:15-0400 Body height 177.8 cm Melissa Scally Other [employer] Other 03-26-2023 11:15-0400 Body mass index (BMI) [Ratio] 35.25 kg/m2 Melissa Scally Other [employer] Other 03-26-2023 11:15-0400 Body weight 111.45 kg Melissa Scally Other [employer] Other 03-26-2023 11:15-0400 Diastolic blood pressure 86 mm[Hg] Melissa Scally Other [employer] Other 03-26-2023 11:15-0400 Respiratory rate 18 /min Melissa Scally Other [employer] Other 03-26-2023 11:15-0400 SaO2% (BldA) [Mass fraction] 97 % Melissa Scally Other [employer] Other 03-26-2023 11:15-0400 Systolic blood pressure 125 mm[Hg] Melissa Scally Other [employer] Other 12-25-2022 11:00-0500 Body height 177.8 cm Melissa Scally Other [employer] Other 12-25-2022 11:00-0500 Body mass index (BMI) [Ratio] 35.15 kg/m2 Melissa Scally Other [employer] Other 12-25-2022 11:00-0500 Body weight 111.13 kg Melissa Scally Other [employer] Other 12-25-2022 11:00-0500 Diastolic blood pressure 86 mm[Hg] Melissa Scally Other [employer] Other 12-25-2022 11:00-0500 Respiratory rate 18 /min Melissa Scally Other [employer] Other 12-25-2022 11:00-0500 SaO2% (BldA) [Mass fraction] 97 % Melissa Scally Other [employer] Other 12-25-2022 11:00-0500 Systolic blood pressure 135 mm[Hg] Melissa Scally Other [employer] Other 09-20-2022 11:00-0400 Body height 177.8 cm Melissa Scally Other [employer] Other 09-20-2022 11:00-0400 Body mass index (BMI) [Ratio] 34.92 kg/m2 Melissa Scally Other [employer] Other 09-20-2022 11:00-0400 Body weight 110.41 kg Melissa Scally Other [employer] Other 09-20-2022 11:00-0400 Diastolic blood pressure 80 mm[Hg] Melissa Scally Other [employer] Other 09-20-2022 11:00-0400 Respiratory rate 18 /min Melissa Scally Other [employer] Other 09-20-2022 11:00-0400 SaO2% (BldA) [Mass fraction] 97 % Melissa Scally Other [employer] Other 09-20-2022 11:00-0400 Systolic blood pressure 115 mm[Hg] Melissa Scally Other [employer] Other 06-12-2022 10:00-0400 Body height 177.8 cm Melissa Scally Other [employer] Other 06-12-2022 10:00-0400 Body mass index (BMI) [Ratio] 35.48 kg/m2 Melissa Scally Other [employer] Other 06-12-2022 10:00-0400 Body weight 112.18 kg Melissa Scally Other [employer] Other 06-12-2022 10:00-0400 Diastolic blood pressure 67 mm[Hg] Melissa Scally Other [employer] Other 06-12-2022 10:00-0400 Respiratory rate 18 /min Melissa Scally Other [employer] Other 06-12-2022 10:00-0400 SaO2% (BldA) [Mass fraction] 96 % Melissa Scally Other [employer] Other 06-12-2022 10:00-0400 Systolic blood pressure 99 mm[Hg] Melissa Scally Other [employer] Other 03-06-2022 11:15-0400 Body height 177.8 cm Melissa Scally Other [employer] Other 03-06-2022 11:15-0400 Body mass index (BMI) [Ratio] 34.95 kg/m2 Melissa Scally Other [employer] Other 03-06-2022 11:15-0400 Body weight 110.5 kg Melissa Scally Other [employer] Other 03-06-2022 11:15-0400 Diastolic blood pressure 77 mm[Hg] Melissa Scally Other [employer] Other 03-06-2022 11:15-0400 Respiratory rate 20 /min Melissa Scally Other [employer] Other 03-06-2022 11:15-0400 SaO2% (BldA) [Mass fraction] 99 % Melissa Scally Other [employer] Other 03-06-2022 11:15-0400 Systolic blood pressure 120 mm[Hg] Melissa Scally Other [employer] Other 01-10-2022 11:45-0500 Body height 177.8 cm Melissa Scally Other [employer] Other 01-10-2022 11:45-0500 Body mass index (BMI) [Ratio] 34.33 kg/m2 Melissa Scally Other [employer] Other 01-10-2022 11:45-0500 Body weight 108.55 kg Melissa Scally Other [employer] Other 01-10-2022 11:45-0500 Diastolic blood pressure 78 mm[Hg] Melissa Scally Other [employer] Other 01-10-2022 11:45-0500 Respiratory rate 18 /min Melissa Scally Other [employer] Other 01-10-2022 11:45-0500 SaO2% (BldA) [Mass fraction] 97 % Melissa Scally Other [employer] Other 01-10-2022 11:45-0500 Systolic blood pressure 128 mm[Hg] Melissa Scally Other [employer] Other 12-25-2021 11:30-0500 Body height 177.8 cm Melissa Scally Other [employer] Other 12-25-2021 11:30-0500 Body mass index (BMI) [Ratio] 33.73 kg/m2 Melissa Scally Other [employer] Other 12-25-2021 11:30-0500 Body weight 106.64 kg Melissa Scally Other [employer] Other 12-25-2021 11:30-0500 Diastolic blood pressure 70 mm[Hg] Melissa Scally Other [employer] Other 12-25-2021 11:30-0500 Respiratory rate 18 /min Melissa Scally Other [employer] Other 12-25-2021 11:30-0500 SaO2% (BldA) [Mass fraction] 98 % Melissa Scally Other [employer] Other 12-25-2021 11:30-0500 Systolic blood pressure 108 mm[Hg] Melissa Joyce Other [employer] Other Encounters Encounter Date Encounter Type Care Provider Facility Start: 08-31-2024 End: 08-31-2024 ambulatory RINKU G FURLONG [facility] Start: 05-25-2024 End: 05-25-2024 ambulatory [facility] Work Phone: Start: 05-25-2024 End: 05-25-2024 Patient encounter procedure [facility] Work Phone: Start: 02-19-2024 End: 02-19-2024 ambulatory [facility] Work Phone: Start: 02-19-2024 End: 02-19-2024 Patient encounter procedure [facility] Work Phone: Start: 01-14-2024 End: 01-14-2024 ambulatory DO Rinku Furlong Work Phone: [facility] Work Phone: Start: 01-14-2024 End: 01-14-2024 Patient encounter procedure DO Rniku Furlong Work Phone: [facility] Work Phone: Start: 12-11-2023 Refill Rinku G Furlo ng DO Work Phone: [facility] Start: 12-04-2023 Refill Rinku G Furlo ng DO Work Phone: [facility] Start: 11-19-2023 End: 11-20-2023 ambulatory Rinku Furlong Facility:[facility] Start: 11-19-2023 End: 11-19-2023 ambulatory DO Rinku Furlong Work Phone: [facility] Work Phone: Start: 11-19-2023 End: 11-19-2023 Discharged Recurring DO Rinku Furlong Work Phone: [facility] Work Phone: Start: 11-19-2023 End: 11-19-2023 Patient encounter procedure DO Rinku Furlong Work Phone: [facility] Work Phone: Start: 11-08-2023 End: 11-08-2023 ambulatory Melissa Scally Other [employer] Other Start: 11-08-2023 Telephone encounter Melissacrescencio Joyce [facility] Start: 10-03-2023 End: 10-03-2023 ambulatory Melissa Scally Other [employer] Other Start: 10-03-2023 Telephone encounter Melissa Isiah [facility] [employer] Start: 08-23-2023 End: 08-23-2023 ambulatory Melissa Scally Other [employer] Other Start: 08-23-2023 Telephone encounter Melissa Thomasly [facility] Start: 08-13-2023 (DM) Diabetes Melissa Thomasly [facility] Start: 08-13-2023 End: 08-13-2023 ambulatory Melissa Scally Other [employer] Other Start: 07-08-2023 End: 07-08-2023 ambulatory Melissa Scally Other [employer] Other Start: 07-08-2023 Telephone encounter Melissa Thomasly [facility] Start: 07-05-2023 End: 07-05-2023 ambulatory Melissa Scally Other [employer] Other Start: 07-05-2023 Telephone encounter Melissa Thomasly [facility] [facility] Start: 05-07-2023 (DM) Diabetes Melissacrescencio Joyce [facility] Start: 05-07-2023 End: 05-07-2023 ambulatory Melissa Scally Other [employer] Other Start: 05-07-2023 Telephone encounter Melissa Thomasly [facility] Start: 03-29-2023 End: 03-29-[address] SADAF ARIZA . Facility:[facility] Start: 03-26-2023 (DM) Diabetes Melissa Isiah [facility] Start: 03-26-2023 End: 03-26-2023 ambulatory Melissa Scally Other [employer] Other Start: 03-21-2023 End: 03-22-2023 ambulatory NARENDRANATH LAKSHMIPATHY . Facility:[facility] Start: 03-14-2023 End: 03-14-2023 ambulatory Melissa Scally Other [employer] Other Start: 03-14-2023 Telephone encounter Melissa Isiah [facility] Start: 03-07-2023 ambulatory NARENDRANATH LAKSHMIPATHY . Facility:[facility] Start: 02-26-2023 End: 02-26-2023 ambulatory Melissa Scally Other [employer] Other Start: 02-26-2023 Telephone encounter Melissa Thomasly [facility] Start: 02-19-2023 End: 02-19-2023 ambulatory NARENDRANATH LAKSHMIPATHY . Facility:[facility] Start: 02-12-2023 End: 02-12-2023 ambulatory NARENDRANATH LAKSHMIPATHY . Facility:[facility] Start: 02-05-2023 End: 02-05-[address] HAYDE COBURN . Facility:[facility] Start: 01-31-2023 End: 02-01-[address] HAYDE COBURN . Facility:[facility] Start: 01-15-2023 End: 01-15-[address] HAYDE COBURN . Facility:[facility] Start: 01-03-2023 End: 01-04-2023 ambulatory SADIA CABRALES . Facility:[facility] Start: 12-25-2022 (DM) Diabetes Melissa Joyce [facility] Start: 12-25-2022 End: 12-25-2022 ambulatory Melissa Joyce Other [employer] Other Start: 12-18-2022 End: 12-18-[address] HAYDE COBURN . Facility:[facility] Start: 12-05-2022 End: 12-06-[address] RINKU TREJO Facility:[facility] Start: 10-22-2022 End: 10-23-[address] DOCTOR HOLT Facility:[facility] Start: 10-05-2022 End: 10-05-2022 ambulatory Melissa Isiah Other [employer] Other Start: 10-05-2022 Telephone encounter Melissa chandra [facility] Start: 09-20-2022 (DM) Diabetes Melissa Thomasly [facility] Start: 09-20-2022 End: 09-20-2022 ambulatory Melissa Joyce Other [employer] Other Start: 08-13-2022 End: 08-14-2022 ambulatory DIANE MICHELE Facility:[facility] Start: 07-02-2022 End: 07-03-[address] RINKU TREJO Facility:[facility] Start: 06-12-2022 (DM) Diabetes Melissa Scally [facility] Start: 06-12-2022 End: 06-12-2022 ambulatory Melissa Joyce Other [employer] Other Start: 06-11-2022 End: 06-12-[address] RINKU TREJO Facility:[facility] Start: 05-30-2022 End: 05-31-[address] RINKU TREJO Facility:[facility] Start: 04-06-2022 End: 04-06-2022 ambulatory MIHAELA CUBA . Facility:[facility] Start: 03-09-2022 End: 03-09-2022 ambulatory Melissa Scally Other [employer] Other Start: 03-09-2022 Telephone encounter Melissa Thomasly [facility] Start: 03-06-2022 (DM) Diabetes Melissa Scally [facility] Start: 03-06-2022 End: 03-06-2022 ambulatory Melissa Scally Other [employer] Other Start: 03-02-2022 End: 03-02-2022 ambulatory Melissa Scally Other [employer] Other Start: 03-02-2022 Telephone encounter Melissa Scally [facility] Start: 02-26-2022 End: 02-26-2022 ambulatory Melissa Scally Other [employer] Other Start: 02-26-2022 Telephone encounter Melissa Scally [facility] Start: 01-15-2022 End: 01-15-2022 ambulatory Melissa Scally Other [employer] Other Start: 01-15-2022 Telephone encounter Melissa Scally [facility] Start: 01-10-2022 (DM) Diabetes Melissa Scally [facility] Start: 01-10-2022 End: 01-10-2022 ambulatory Melissa Scally Other [employer] Other Start: 01-10-2022 Telephone encounter Melissa Scally [facility] Start: 01-02-2022 End: 01-02-2022 ambulatory Melissa Joyce Other [employer] Other Start: 01-02-2022 Telephone encounter Melissa chandra [facility] Start: 12-25-2021 End: 12-25-2021 ambulatory Melissa Joyce Other [employer] Other Start: 12-25-2021 [facility] visit new patient Melissa Hernandez [facility] Procedures Date Procedure Procedure Detail Performing Clinician Start: 10-25-2023 Adult depression scr eening assessment [facility] Phone: Start: 04-15-2023 Microalbumin [Mass/v olume] in Urine by Test strip [facility] Phone: Start: 01-27-2020 Colonoscopy [facility]u [employer] Phone: Plan of Treatment Date Care Activity Detail Author Start: 09-19-2030 DTaP,Tdap and Td Vaccines (3 - Td or Tdap) DTaP,Tdap and Td Vaccines (3 - Td or Tdap) [facility] Start: 01-26-2030 Screening for malignant neoplasm of colon [facility] Start: 10-25-2024 Adult BMI Screening Adult [facility] Screening [email or web address] Start: 10-25-2024 Depression Screening Depression Screening [email or web address] Start: 10-25-2024 Tobacco Screening Tobacco Screening [email or web address] Start: 05-15-2024 Diabetic foot examination [facility] Start: 04-15-2024 Urine screening for protein Urine Microalbumin [email or web address] Start: 06-20-2023 ambulatory Ambulatory Facility: Start: 2011 Administration of varicella zoster vaccine Zoster (Shingles) Vaccine (1 of 2) [email or web address] Start: 1979 Adult BMI Follow Up Plan Adult BMI Follow Up Plan [email or web address] Start: 1961 Glaucoma screening Diabetic [facility]hthal[facility] Comprehensive metabo lic 2000 panel - Serum or Plasma [facility] Immunizations Immunization Date Immunization Notes Care Provider Fa natashaty 08-30-2023 influenza, injectabl e, quadrivalent, preservative free Rinku Furlong DO Work Phone: [facility] 08-30-2023 Pneumococcal Conjuga te 20-valent Rinku Furlong DO Work Phone: [facility] 08-27-2022 influenza virus vaccine, unspecified formulation Rinku Furlong DO Work Phone: [facility] 08-27-2022 influenza, injectabl e, quadrivalent, preservative free Rinku Furlong DO Work Phone: [facility] 08-22-2021 influenza, injectabl e, quadrivalent, preservative free Rinku Furlong DO Work Phone: [facility] 09-19-2020 influenza, injectabl e, quadrivalent, preservative free Rinku Furlong DO Work Phone: [facility] 09-19-2020 tetanus toxoid, redu ramandeep diphtheria toxoid, and acellular pertussis vaccine, adsorbed Rinku Furlong DO Work Phone: [facility] 09-25-2019 influenza, injectabl e, quadrivalent, preservative free Rinku Furlong DO Work Phone: [facility] 09-13-2018 influenza, injectabl e, quadrivalent, preservative free Rinku Furlong DO Work Phone: [facility] 11-08-2017 Influenza, injectabl e, Madin [place] Canine Kidney, preservative free, quadrivalent Rinku Furlong DO Work Phone: [facility] 04-13-2017 tetanus toxoid, redu ramandeep diphtheria toxoid, and acellular pertussis vaccine, adsorbed Rinku Furlong DO Work Phone: [facility] 12-03-2012 influenza, seasonal, injectable Rinku Trejo DO Work Phone: [employer] Payers Date Payer Category Payer Self-pay [id number] 2019 Medicare A[employer] MEDICARE A ETNA MEDICARE PLAN (PPO) [id number] 2019-Present [phone] [address] [place] [address] [id number] 1961 Unknown [id number] [id number]3 1961 Unknown [id number] 2.16.840.1.276516.3.579.2.593 1961 Unknown [id number] 2.16.840.1.210491.3.579.2.593 1961 Unknown [id number] 2.16.840.1.901456.3.579.2.593 1961 Unknown [id number] 2.16.840.1.685809.3.579.2.593 1961 Unknown [id number] 2.16.840.1.126667.3.579.2.593 1961 Unknown [id number] 2.16.840.1.115350.3.579.2.593 1961 Unknown [id number] 2.16.840.1.023596.3.579.2.593 1961 Unknown [id number] 2.16.840.1.109711.3.579.2.593 1961 Unknown [id number] 2.16.840.1.214794.3.579.2.593 1961 Unknown [id number] 2.16.840.1.765768.3.579.2.593 1961 Unknown [id number] 2.16.840.1.143546.3.579.2.593 1961 Unknown [id number] 2.16.840.1.831031.3.579.2.593 1961 Unknown [id number] 2.16.840.1.764820.3.579.2.593 1961 Unknown [id number] 2.16.840.1.849425.3.579.2.593 1961 Unknown [id number] 2.16.840.1.838233.3.579.2.593 1961 Unknown [id number] 2.16.840.1.563342.3.579.2.593 1961 Unknown [id number] 2.16.840.1.673795.3.579.2.593 1961 Unknown [id number] 2.16.840.1.423411.3.579.2.1286 1959 Medicare [id number] 2.16.840.1.051950.19 Medicare Medicare [id number] Unknown HCAP/HFA/FAP Active [id number] Unknown [id number] 2.16.840.1.997343.3.579.2.531 Social History Date Type Detail Facility Unknown if ever smoked [employer] Other Start: 04-19-2023 End: 10-25-2023 Sex Assigned At [employer] Other Start: 04-05-2023 End: 02-19-2024 Tobacco smoking status TXIS Ex-smoker [facility] End: 07-03-2007 History of tobacco use Current smoker [facility] End: 07-03-2007 History of tobacco use [facility]igarette [facility] Start: 04-05-2023 End: 04-19-2023 Cigarettes smoked current (pack per day[facility] Start: 04-05-2023 Tobacco use and exposure Smokeless tobacco non-user [facility] Start: 10-25-2023 Alcohol intake Ex-drinker (finding) [email or web address] Do you belong to any clubs or organizations such as congregational groups, [employer], [employer] or athletic groups, or school groups? No [email or web address] Are you now , , , , never or living with a partner? [facility] How often to you hav e a drink containing alcohol? Never [facility] How many standard dr inks containing alcohol do you have on a typical day? Patient does not drink [facility] [employer] [facility] Do you feel stress - tense, restless, nervous, or anxious, or unable to sleep at night because your mind is troubled all the time - these days [OSQ] Not at all [email or web address] Start: 08-22-2022 Alcohol Comment Occasional [email or web address] Start: 1960 [facility] Start: 1960 Sex Assigned At Male [facility] Medical Equipment Procedure Code Equipment Code Equipment Origin al Text Equipment Identifier Dates [id number] Start: 02-24-2023 Pen Needle, Diab etic (Bd [...] Notes Sep, Abdominal pain (ICD-10 - R10.9) [employer] Other 09-19-2023 Evaluation note* Encounter Date Diagnosis [...] Farxiga, Novolog, Tresiba, metformin and Ozempic uses Desiraee Aniya/[place] 08-13-2023. Jul, Vitamin D deficiency (ICD-10 - E55.9) [facility] About Vitamin D material was published to portal Vitamin D level severely deficient at 8.8. 4000 iU daily rx for reimbursement as cost concern Vitamin D deficiency suspected. Vitamin D has been noted to have positive impact on mood and energy. We can recheck periodically and make recommendations for long-term supplementation with fbog-nqt-qyvddxq formulations or prescription grade repletion. Jul, Dietary [...] was published to portal [employer] today. Jul, MCFP current use of insulin (ICD-10 - Z79.4) Jul, BMI 34.0-34.9,adult (ICD-10 - Z68.34) Jul, Abdominal pain, left upper quadrant (ICD-10 - R10.12) Jul, Other Weight down 6.2 lbs-- improves insulin sensitivity [employer] Other 06-13-2023 Evaluation note* Encounter Date Diagnosis [...] and make recommendations for long-term supplementation with hdhl-yas-jutadtt formulations or prescription grade repletion. Apr, Dietary counseling and surveillance (ICD-10 - Z71.3) [facility] About Healthy Weight material was published to portal RD in [place] previously Apr, Hyperlipidemia (ICD-10 - E78.5) Learning About High Cholesterol material was published to portalLDL 67 on October 26, 2021. LDL 17-- atorvastatin [address] Trejo Apr, HTN (hypertension) (ICD-10 - I10) High Blood Pressure: Care Instructions material was published to portal [employer] today. Apr, MCFP current use of insulin (ICD-10 - Z79.4) Apr, BMI 35.0-35.9,adult (ICD-10 - Z68.35) Weight down 6.2 lbs-- improves insulin sensitivity [employer] Other 05-02-2023 Evaluation note* Encounter Date Diagnosis [...] and make recommendations for long-term supplementation with vvni-nky-sciipnw formulations or prescription grade repletion. March, Dietary [...] was published to portal [employer] today. 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 2. [...] treatment options with their primary care provider.[id number] Evaluation note * Encounter Date Diagnosis Assessment Notes Treatment Notes Treatment Clinical Notes Feb, Type 2 diabetes mellitus with hyperglycemia (ICD-10 - E11.65) [employer] Other 03-09-2023 NoteCONSULTATION CONSULTATION DATE: 01/31/2023 HISTORY [...] followed up in the clinic post procedure.[facility] [id number] Note CONSULTATION CONSULTATION DATE: 01/03/2023 HISTORY OF [...] be followed up in the office thereafter.[facility] [id number] Evaluation note* Encounter Date Diagnosis Assessment Notes [...] needles be sent to Hailey Kwan/ [place] Nov, Vitamin D deficiency (ICD-10 - [...] and make recommendations for long-term supplementation with zysw-wqs-btninpm formulations or prescription grade repletion. Nov, Dietary [...] was published to portal [employer] today. 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 Range of [...] PLAN: The patient is to stop his zxka-lnh-whtjaur NSAIDs, and we will replace that with [...] agrees to move forward with the plan.[facility] [id number] Evaluation note* Encounter Date Diagnosis Assessment Notes [...] and make recommendations for long-term supplementation with mocp-rfh-rknnngo formulations or prescription grade repletion. Aug, Dietary counseling and surveillance (ICD-10 - Z71.3) Learning About Healthy Weight material was published to portal RD in [place] previously Aug, Hyperlipidemia (ICD-10 - E78.5) Learning About High Cholesterol material was published to portalJAN 67 on October 26, 2021. Aug, HTN (hypertension) (ICD-10 - I10) High Blood Pressure: Care Instructions material was published to portal [employer] today. Aug, 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 current use of insulin (ICD-10 - Z79.4) Aug, BMI 34.0-34.9,adult (ICD-10 - Z68.34) [employer] Other 07-19-2022 Evaluation note* Encounter Date Diagnosis [...] and make recommendations for long-term supplementation with ltfv-khi-sgzxckz formulations or prescription grade repletion. May, Dietary counseling and surveillance (ICD-10 - Z71.3) Learning About Healthy Weight material was published to portal DARIA in [place] previously May, Hyperlipidemia (ICD-10 - E78.5) Learning About High Cholesterol material was published to portalLDL 67 on October 26, 2021. May, HTN (hypertension) (ICD-10 - I10) High Blood Pressure: Care Instructions material was published to portal [employer] today. May, 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 current use of insulin (ICD-10 - Z79.4) May, BMI 35.0-35.9,adult (ICD-10 - Z68.35) May, Other weight stable [employer] Other 04-12-2022 Evaluation note* Encounter Date Diagnosis [...] this time 03-06-22 uses [facility]/ [place] Feb, Vitamin D deficiency (ICD-10 - E55.9) Learning About Vitamin D material was published to portal Vitamin D level severely deficient at 8.8. patient to take rx x 8 weeks then OTC 4000iu daily thereafter Vitamin D deficiency suspected. Vitamin D has been noted to have positive impact on mood and energy. We can recheck periodically and make recommendations for long-term supplementation with zmcb-vlg-okkwyfi formulations or prescription grade repletion. Feb, Dietary [...] was published to portal [employer] today. Feb, MCFP current use of insulin (ICD-10 - Z79.4) Feb, BMI 34.0-34.9,adult (ICD-10 - Z68.34) weight stable [employer] Other 04-08-2022 Evaluation note* Encounter Date Diagnosis Assessment Notes Treatment Notes Treatment Clinical Notes Feb, Type 2 diabetes mellitus with hyperglycemia (ICD-10 - E11.65) [employer] Other 04-04-2022 Evaluation note* Encounter Date Diagnosis Assessment Notes Treatment Notes Treatment Clinical Notes Feb, Type 2 diabetes mellitus with hyperglycemia (ICD-10 - E11.65) [employer] Other 02-16-2022 Evaluation note* Encounter Date Diagnosis [...] Prescriptions: None needed at this time.-2020 uses [facility]/ [place] Dec, Vitamin D deficiency (ICD-10 - [...] was published to portal [employer] today. Dec, 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 current use of insulin (ICD-10 - Z79.4) Dec, BMI 34.0-34.9,adult (ICD-10 - Z68.34) [employer] Other 01-31-2022 Evaluation note* Encounter Date Diagnosis [...] None needed at this time. 12-25-2020 uses [facility]/ [place] Nov, Vitamin D deficiency (ICD-10 - [...] Instructions material was published to portal Nov, MCFP current use of insulin (ICD-10 - Z79.4) Nov, BMI 33.0-33.9,adult (ICD-10 - Z68.33) [facility] [employer] Other Chief complaint+Reason for visit Narrative* Chief Complaint DMN f/u-METER Reason for Visit Dietary counseling a nd surveillance HTN (hypertension) Hyperlipidemia 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 current use of insulin STANISLAV (obstructive sleep apnea) Retinopathy Type 2 diabetes mellitus with hyperglycemia Vitamin D deficiency [facility] Work Phone: Evaluation noteNo InformationNortShriners Hospitals for [facility] - [facility] [employer] Other Evaluation noteNo assessment information available [facility] Work Phone: Evaluation note* Diagnosis Onset Date Resolution Status Type 2 diabetes mellitus with hyperglycemia acute [facility] Work Phone: Evaluation note* Diagnosis Onset Date Resolution Status Type 2 diabetes mellitus with hyperglycemia acute Hyperlipidemia acute Type 2 diabetes mellitus with hyperglycemia acute Vitamin D deficiency acute [facility] Work Phone: Evaluation note* Diagnosis Onset Date Resolution Status Dietary counseling and surveillance acute HTN (hypertension) acute Hyperlipidemia acute 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 current use of insulin acute STANISLAV (obstructive sleep apnea) acute Retinopathy acute Type 2 diabetes mellitus with hyperglycemia acute Vitamin D deficiency acute [facility] Work Phone: History general Narrative - Reported* Type Description [...] History Appendectomy 2016 Surgical History Cataract Surgery 2019 Surgical History Colonoscopy with biopsy 2019 Surgical History Cardiac Cath 2008 Surgical History Removal of Colon 2012 Surgical History Cancer surgery Right [place] y 1996 Surgical History EMG for diabetic neuropathy 200 3 Hospitalization History Colon CA 2009 Hospitalization History See Above [employer] Other History general Narrative - Reported* Type Description Date Medical History Diabetes Type 2 Dx 1999 Medical History Hyperlipidemia Medical History Microalbuminuric diabetic [...] Surgery 2020 Surgical History Colonoscopy with biopsy 2020 Surgical History Cardiac Cath 2009 Surgical History Removal of Colon 2013 Surgical History Cancer surgery Right [place]chiectom y 1996 Surgical History EMG for diabetic neuropathy 200 3 Surgical History Laser surgery both eyes for ret inopathy -06/2022-08/2022 Hospitalization History Colon CA 2009 Hospitalization History See Above [employer] Other Histfrj general Narrative - Reported* Type Description Date [...] Surgery 2020 Surgical History Colonoscopy with biopsy 2020 Surgical History Cardiac Cath 2009 Surgical History Removal of Colon 2013 Surgical History Cancer surgery Right [place]ctom y 1996 Surgical History EMG for diabetic neuropathy 200 3 Surgical History Laser surgery both e yes for retinopathy -06/2022-08/2022 Hospitalization History Colon CA 2008 Hospitalization History [facility] for stomach flu February or March 2023 [employer] Other History general Narrative - ReportedGetPromotd Other InstructionsNot on filedocumented in this encounter [facility] SystemReason for visit NarrativeDS GI Referral-deferrred PCP recom retrial OzempicGetPromotd Other Summary Purpose Family History No Family History Records Found Relationship Condition Age at Onset Recorded Date/T jeffrey brother Malignant neoplasm of lung Unknown father Heart disease Unknown Unknown Hypertension Unknown family member Unknown Advance Directives No Advanced Directives Records Found Advance Directive Response Recorded Date/ Time Advance [...] Records FoundNo Status Records FoundNo Status Records FoundNo Status Records Found INFORMATION SOURCE (unrecogn ized section and content) DATE CREATED AUTHOR 10/27/2021 [facility] DATE CREATED AUTHOR AUTHOR'S ORGANIZ ATION 04/04/2023 [facility] DATE CREATED AUTHOR AUTHOR'S ORGANIZ ATION 01/13/2024 [facility] DATE CREATED AUTHOR AUTHOR'S ORGANIZ ATION 09/01/2024 [facility] REASON FOR VISIT (unrecogniz ed section and content) Reason Comments Med Refill Care Teams (unrecognized sec tion and content) Marketing Database Consultant Relationship Specialty Start Date End Date Rinku Trejo DO [address], [place] [address] PCP - General Family Medicine 07/03/17 Team [...] Status: Inactive Member Role Status Dates Rinku NegroDO hema Primary Care Provider Active Start: February 19, 2024 End: February 19, 2024 Melissa Joyce APRN Attending Provider Active Start: February 19, 2024 End: February 19, 2024 Team Status: Inactive Member Role Status Dates Rinku NegroDO hema Primary Care Provider Active Start: May 25, 2024 End: May 25, 2024 Melissa Joyce APRN Attending Provider Active Start: May 25, 2024 End: May 25, 2024 Goals (unrecognized section and content) Goals [...] BE BASED ON THE PRIMARY CLINICAL RECORDS. [employer] provides no warranty or guarantee of the accuracy or completeness of information in this document.
[2024-09-04 09:46] LABS: Creatinine Urine Random 128.18 mg/dL (20.00-300.00); Microalbum Creatinine Ratio Ur 11.7 mg/g (0.0-29.9); Microalbumin Urine Random 1.5 mg/dL (<=30.0)
[2024-09-04 10:52] LABS: Alanine Aminotransferase 47 U/L (16-63); Albumin Level 3.9 g/dL (3.4-5.0); Alkaline Phosphatase 126 U/L (46-116); Anion Gap 12.8; Aspartate Amino Transferase 29 U/L (15-37); BUN Creatinine Ratio 31.4; Bilirubin Total 0.7 mg/dL (0.2-1.0); Calcium 9.3 mg/dL (8.5-10.1); Carbon Dioxide 25.3 mmol/L (21.0-32.0); Chloride 103 mmol/L (98-107); Chol HDL Ratio 2.2; Cholesterol 69 mg/dL (<=200); Estimated GFR (African America >60 (>=60 mL/min/1.73m^2); Estimated GFR (Non-African Ame >60 (>=60 mL/min/1.73m^2); Globulin 3.9 g/dL; Glucose 131 mg/dL (74-106); HDL Cholesterol 32 mg/dL (40-60); Potassium 4.1 mmol/L (3.5-5.1); Sodium 137 mmol/L (136-145); Total Protein 7.8 g/dL (6.4-8.2); Triglycerides 83 mg/dL (<=150); VLDL CHOLESTEROL 16.6 mg/dL
[2024-09-05 04:10] LABS: Vitamin B12 >2000 pg/mL (232-1245)
== END 2024-09-04 09:11 | disposition home or self-care (01) ==
LOC: LAB 09:14
PROVIDERS: PCP Family Medicine; Visit Provider Nurse Practitioner Family
DX: E78.2 Mixed hyperlipidemia (principal); I10 Essential (primary) hypertension; E55.9 Vitamin D deficiency, unspecified; Z12.5 Encounter for screening for malignant neoplasm of prostate; E11.65 Type 2 diabetes mellitus with hyperglycemia; Z79.4 Long term (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
CPT/HCPCS: 36415; 80053; 80061; 82043; 82306; 82570; 82607; G0103

== ENCOUNTER 2024-09-04 09:17 | Outpatient (OUT) | payer MEDICARE, SELFPAY ==
--- OUTSIDE RECORDS SUMMARY | 2024-09-04 09:22 | XMS_ITS | CCD ---
Author Organization [facility] Care Team Providers Care Delivery Associate Name Role Phone Melissa Joyce Unavailable LAKSHMIPATHY [...] Provider Furhema, DO Dobbs Primary Care Provider [phone] Furlong, DO Rinku Attending Provider Furhema, Rinku Attending Unavailable Furlong, Rinku Primary [...] Start: 03-26-2023 take 2 tablets by [facility] in the morning cholecalciferol, vitamin D3, 2,000 units tablet Take 2 tablets (4,000 Units total) by mouth in the morning. 0 03/26/2023 Active Start: 03-26-2023 Cholecalcifero l 100 MCG (4000 UT) as directed Orally Once a day for 90 days March, Active Cholecalciferol 100 MCG (4000 UT) as directed Orally Once a day for 90 days Active take 1 capsule by [facility] every week Cholecalciferol 1.25 MG (05261 UT) 1 capsule Orally weekly for 56 days Active dapagliflozin 10 mg oral tablet (20 sources) Sodium-Glucose Cotransporter 2 Inhibitor Start: 01-14-2024 End: 02-19-2024 take 1 tablet by mouth once daily Dapagliflozin Propanediol (Farxiga) 10 mg tablet Active 10 MG PO Daily February 19, 2024 9:11am take 1 tablet by mouth in the mo [facility] dapagliflozin (FARXIGA) 10 mg tablet Take 1 [...] Refills: 1; Qty: 9 ml; Provider: Isiah rByan Start: 01-14-2024 inject 2 mg by subcu [...] sources) Long-term current use of insulin; 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: [FPC (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] 02-18-2024 Episodic Other aftercare (12 sources) 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; 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: [Long-term (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] Onset: 12-25-2021 Resolved: 06-12-2022 Episodic Other aftercare (1 source) FPC (current) use of aspirin; 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: [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] Onset: 04-02-2023 Episodic Other aftercare (1 source) Other longterm (current) drug therapy; 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: [OTH TREE DEADENER CURRENT DRUG THERAPY] Onset: 04-02-2023 Episodic Other [...] (current) use of oral hypoglycemic drugs; 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: [LONGTERM USE ORAL HYPOGLYCEMIC DX] Onset: 04-10-2022 Episodic [...] 08-13-2023 HbA1c (Bld) [Mass fraction] 6.3 % [employer] Other Glucose - FINGER STICKon Glucose [Mass/Vol] 122 mg/dL [employer] Other HbA1c (Bld) [Mass fraction]o n 08-13-2023 A1C HEMOGLOBIN [facility] [employer] Other Glucose - FINGER STICKon Glucose [Mass/Vol] 142 mg/dL [place] [facility] Other ACETONE SERUMon 03-29-2023 ACETONE Negative Normal NEGATIVE [facility] Comment on above: Performed By: #### U MICRO, ERUR #### [facility] [address] [place] [address] Dr. Dequan Márquez BNPon 03-29-2023 Natriuretic peptide B (Bld) [Mass/Vol] 352.0 pg/mL Normal <=900.0 [facility] Comment on above: Performed By: #### U MICRO, ERUR #### [facility] [address] [place] [address] Dr. Dequan Márquez CBC AUTO DIFFon 03-29-2023 BASO # 0.1 103/ul Normal 0.0-0.1 [facility] Comment on above: Performed By: #### C BC #### [facility] [address] [address] [address] Dequan Márquez Basophils/100 WBC (Bld) 0.4 % Normal 0.2-2.0 [facility] Comment on above: Performed By: #### C BC #### [facility] [address] [place] [address] Dr. Dequan Márquez EO # 0.0 103/ul Normal 0.0-0.7 [facility] Comment on above: Performed By: #### C BC #### [facility] [address] [address] [address] Dequan Márquez Eosinophils/100 WBC (Bld) 0.0 % Critically low 0.9-7.0 [facility] Comment on above: Performed By: #### C BC #### [facility] [address] [address] [address] Dequan Márquez Erythrocyte distribution width (RBC) [Ratio] 14.1 % Normal 11.0-15.0 [facility] Comment on above: Performed By: #### C BC #### [facility] [address] [place] [address] Dr. Dequan Márquez Hematocrit (Bld) [Volume fraction] 47.0 % Normal 42.0-54.0 [facility] Comment on above: Performed By: #### C BC #### [facility] [address] [place] [address] Dr. Dequan Márquez Hemoglobin (Bld) [Mass/Vol] 15.6 g/dL Normal 14.0-18.0 [facility] Comment on above: Performed By: #### C BC #### [facility] [address] [place] [address] Dr. Dequan Márquez IG # 0.29 10e3/ul Critically high 0.00-0.03 [facility] Comment on above: Performed By: #### C BC #### [facility] [address] [place] [address] Dr. Dequan Márquez IG % 1.4 % Critically high 0.0-0.5 [facility] Comment on above: Performed By: #### C BC #### [facility] [address] [address] [address] Dequan Márquez LYMPH # 1.2 103/ul Normal 1.2-3.8 [facility] Comment on above: Performed By: #### C BC #### [facility] [address] [place] [address] Dr. Dequan Márquez Lymphocytes/100 WBC (Bld) 5.4 % Critically low 20.5-60.0 [facility] Comment on above: Performed By: #### C BC #### [facility] [address] [place] [address] Dr. Dequan Márquez MANUAL DIFF REQ NO Normal [facility] Comment on above: Performed By: #### C BC #### [facility] [address] [place] [address] Dr. Dequan Márquez MCH (RBC) [Entitic mass] 28.6 pg Normal 25.9-34.0 [facility] Comment on above: Performed By: #### C BC #### [facility] [address] [place] [address] Dr. Dequan Márquez MCHC (RBC) [Mass/Vol] 33.2 g/dL Normal 29.9-35.2 [facility] Comment on above: Performed By: #### C BC #### [facility] [address] [place] [address] Dr. Dequan Márquez MCV (RBC) [Entitic vol] 86.2 fL Normal 80.0-94.0 [facility] Comment on above: Performed By: #### C BC #### [facility] [address] [place] [address] Dr. Dequan Márquez MONO # 1.3 103/ul Critically high 0.3-0.8 [facility] Comment on above: Performed By: #### C BC #### [facility] [address] [place] [address] Dr. Dequan Márquez Monocytes/100 WBC (Bld) 6.1 % Normal 1.7-12.0 [facility] Comment on above: Performed By: #### C BC #### [facility] [address] [place] [address] Dr. Dequan Márquez NEUT # 18.6 103/ul Critically high 1.4-6.5 [facility] Comment on above: Performed By: #### C BC #### [facility] [address] [place] [address] Dr. Dequan Márquez Neutrophils/100 WBC (Bld) 86.7 % Critically high 43.0-75.0 [facility] Comment on above: Performed By: #### C BC #### [facility] [address] [address] [address] Dequan Márquez Platelet mean volume (Bld) [Entitic vol] 11.2 fL Normal 9.5-13.5 [facility] Comment on above: Performed By: #### C BC #### [facility] [address] [place] [address] Dr. Dequan Márquez PLT 275 103/ul Normal 150-450 [facility] Comment on above: Performed By: #### C BC #### [facility] [address] [address] [address] Dequan Márquez RBC 5.45 106/ul Normal 4.70-6.10 [facility] Comment on above: Performed By: #### C BC #### [facility] [address] [place] [address] Dr. Dequan Márquez WBC 21.4 103/ul Critically high 4.0-11.[address] [facility] Comment on above: Performed By: #### C BC #### [facility] [address] [address] [address] Dequan Márquez CULTURE BLOODon 03-29-2023 Microscopic examination of blood, culture Culture Observations: NO GROWTH AT 5 DAYS. Normal [facility] Comment on above: Performed By: #### U MICRO, ERUR #### [facility] [address] [place] [address] Dr. Dequan Márquez [facility] SARS-CoV-2 (COVID-19) RNA YONIS+probe Ql (Unsp spec) Not detected Normal NOT DETECTED [facility] Comment on above: Result Comment: This test is not yet approved or cleared by the [place] FDA. When there are no FDA-approved or cleared tests available, and other criteria are met, FDA can make tests available under an emergency access mechanism called an Emergency Use Authorization (EUA). The EUA for this test is supported by the Biological Inspector of Health and Human Service's (HHS's) declaration [...] SARS-CoV-2. Performed By: #### C BC #### [facility] [address] [place] [address] Dr. Dequan Márquez ER URINE PROFILEon 3 Bilirubin Ql (U) Negative Normal NEGATIVE [facility] Comment on above: Performed By: #### U MICRO, ERUR #### [facility] [address] [place] [address] Dr. Dequan Márquez Clarity (U) CLEAR Normal CLEAR [facility] Comment on above: Performed By: #### U MICRO, ERUR #### [facility] [address] [place] [address] Dr. Dequan Márquez Color (U) YELLOW Normal YELLOW [facility] Comment on above: Performed By: #### U MICRO, ERUR #### [facility] [address] [place] [address] Dr. Dequan MAHAJAND A micrscopic examination will be performed if indicated. Normal [facility] Comment on above: Performed By: #### U MICRO, ERUR #### [facility] [address] [place] [address] Dr. Dequan Márquez Glucose Ql (U) >[address] [facility] Comment on above: Performed By: #### U MICRO, ERUR #### [facility] [address] [place] [address] Dr. Dequan Márquez Hemoglobin Ql (U) SMALL Abnormal NEGATIVE [facility] Comment on above: Performed By: #### U MICRO, ERUR #### [facility] [address] [place] [address] Dr. Dequan Márquez Ketones Ql (U) Negative Normal NEGATIVE [facility] Comment on above: Performed By: #### U MICRO, ERUR #### [facility] [address] [address] [address] Dequan Márquez LEUKOCYTES Negative Normal NEGATIVE [facility] Comment on above: Performed By: #### U MICRO, ERUR #### [facility] [address] [place] [address] Dr. Dequan Márquez Nitrite Ql (U) Negative Normal NEGATIVE [facility] Comment on above: Performed By: #### U MICRO, ERUR #### [facility] [address] [address] [address] Dequan Márquez pH (U) 5.5 [pH] Normal 5-9 [facility] Comment on above: Performed By: #### U MICRO, ERUR #### [facility] [address] [place] [address] Dr. Dequan Márquez Protein (U) [Mass/Vol] 100 mg/dL Abnormal NEGATIVE/ TRACE [facility] Comment on above: Performed By: #### U MICRO, ERUR #### [facility] [address] [place] [address] Dr. Dequan Márquez SPEC GRAVITY 1.020 Normal 1.005-<=1.025 [facility] Comment on above: Performed By: #### U MICRO, ERUR #### [facility] [address] [place] [address] Dr. Dequan Márquez UR MICRO IND INDICATED Normal [facility] Comment on above: Performed By: #### U MICRO, ERUR #### [facility] [address] [place] [address] Dr. Dequan Márquez Urobilinogen Qn (U) 0.2 {Stuart'U}/dL Normal 0.2 - 1.0 [facility] Comment on above: Performed By: #### U MICRO, ERUR #### [facility] [address] [place] [address] Dr. Dequan Márquez LACTATE/LACTIC ACIDon 2022 Lactate [Moles/Vol] 2.0 mmol/L Normal 0.4-2.0 [facility] Comment on above: Performed By: #### L ACT #### [facility] [address] [place] [address] Dr. Dequan Márquez LIPASEon 03-29-2023 Lipase [Catalytic activity/Vol] 120.0 U/L Normal 73.0-393.0 [facility] Comment on above: Performed By: #### B FLATWORK FINISHER, HSTROPN, CMP, LIPA #### [facility] [address] [place] [address] Dr. Dequan Márquez PH VENOUS BLOODon 03-29-2023 PCO2 VENOUS 36.3 mmHg Critically low 40.0-52.0 [facility] Comment on above: Performed By: #### U MICRO, ERUR #### [facility] [address] [place] [address] Dr. Dequan Márquez pH VENOUS 7.470 Critically high 7.330-7.[address] [facility] Comment on above: Performed By: #### U MICRO, ERUR #### [facility] [address] [place] [address] Dr. Dequan Márquez PROF 14(COMP METB)on 023 Albumin [Mass/Vol] 3.6 g/dL Normal 3.4-5.0 [facility] Comment on above: Performed By: #### B FLATWORK FINISHER, HSTROPN, CMP, LIPA #### [facility] [address] [place] [address] Dr. Dequan Márquez Albumin/Globulin [Mass ratio] 0.8 {ratio} Normal [facility] Comment on above: Performed By: #### B FLATWORK FINISHER, HSTROPN, CMP, LIPA #### [facility] [address] [place] [address] Dr. Dequan Márquez ALP [Catalytic activity/Vol] 126 U/L Critically high 46-116 [facility] Comment on above: Performed By: #### B FLATWORK FINISHER, HSTROPN, CMP, LIPA #### [facility] [address] [place] [address] Dr. Dequan Márquez ALT [Catalytic activity/Vol] 43 U/L Normal 16-63 [facility] Comment on above: Performed By: #### B FLATWORK FINISHER, HSTROPN, CMP, LIPA #### [facility] [address] [address] [address] Dequan Márquez Anion gap [Moles/Vol] 11.4 mmol/L Normal [facility] Comment on above: Performed By: #### B FLATWORK FINISHER, HSTROPN, CMP, LIPA #### [facility] [address] [place] [address] Dr. Dequan Márquez AST [Catalytic activity/Vol] 21 U/L Normal 15-37 [facility] Comment on above: Performed By: #### B FLATWORK FINISHER, HSTROPN, CMP, LIPA #### [facility] [address] [place] [address] Dr. Dequan Márquez Bilirubin [Mass/Vol] 1.5 mg/dL Critically high 0.2-1.0 [facility] Comment on above: Performed By: #### B FLATWORK FINISHER, HSTROPN, CMP, LIPA #### [facility] [address] [place] [address] Dr. Dequan Márquez Calcium [Mass/Vol] 8.9 mg/dL Normal 8.5-10.1 [facility] Comment on above: Performed By: #### B FLATWORK FINISHER, HSTROPN, CMP, LIPA #### [facility] [address] [place] [address] Dr. Dequan Márquez Chloride [Moles/Vol] 95 mmol/L Critically low 98-107 [facility] Comment on above: Performed By: #### B FLATWORK FINISHER, HSTROPN, CMP, LIPA #### [facility] [address] [place] [address] Dr. Dequan Márquez CO2 [Moles/Vol] 28.2 mmol/L Normal 21.0-32.0 [facility] Comment on above: Performed By: #### B FLATWORK FINISHER, HSTROPN, CMP, LIPA #### [facility] [address] [place] [address] Dr. Dequan Márquez Creatinine [Mass/Vol] 1.14 mg/dL Normal 0.70-1.30 [facility] Comment on above: Performed By: #### B FLATWORK FINISHER, HSTROPN, CMP, LIPA #### [facility] [address] [address] [address] Dequan Márquez EGFR-AF DANISH >60 Normal >=[address] [facility] Comment on above: Performed By: #### B FLATWORK FINISHER, HSTROPN, CMP, LIPA #### [facility] [address] [address] [address] Dequan Márquez EGFR-NON AF DANISH >60 Normal >=60 [facility] Comment on above: Performed By: #### B FLATWORK FINISHER, HSTROPN, CMP, LIPA #### [facility] [address] [address] [address] Dequan Márquez Globulin (S) [Mass/Vol] 4.8 g/dL Normal [facility] Comment on above: Performed By: #### B FLATWORK FINISHER, HSTROPN, CMP, LIPA #### [facility] [address] [address] [address] Dequan Márquez Glucose [Mass/Vol] 209 mg/dL Critically high 74-106 [facility] Comment on above: Performed By: #### B FLATWORK FINISHER, HSTROPN, CMP, LIPA #### [facility] [address] [address] [address] Dequan Márquez Potassium [Moles/Vol] 3.6 mmol/L Normal 3.5-5.1 [facility] Comment on above: Performed By: #### B FLATWORK FINISHER, HSTROPN, CMP, LIPA #### [facility] [address] [address] [address] Dequan Márquez Protein [Mass/Vol] 8.4 g/dL Critically high 6.4-8.2 [facility] Comment on above: Performed By: #### B FLATWORK FINISHER, HSTROPN, CMP, LIPA #### [facility] [address] [place] [address] Dr. Dequan Márquez Sodium [Moles/Vol] 131 mmol/L Critically low 136-145 [facility] Comment on above: Performed By: #### B FLATWORK FINISHER, HSTROPN, CMP, LIPA #### [facility] [address] [address] [address] Dequan Márquez Urea nitrogen [Mass/Vol] 22.0 mg/dL Critically high 7.0-18.0 [facility] Comment on above: Performed By: #### B FLATWORK FINISHER, HSTROPN, CMP, LIPA #### [facility] [address] [address] [address] Dequan Márquez Urea nitrogen/Creatinin e [Mass ratio] 19.3 mg/mg Normal [facility] Comment on above: Performed By: #### B FLATWORK FINISHER, HSTROPN, CMP, LIPA #### [facility] [address] [address] [address] Dequan Márquez PROTIMEon 03-29-2023 INR Coag (PPP) [Relative time] 1.10 {INR} Normal [facility] Comment on above: Performed By: #### C BC #### [facility] [address] [place] [address] Dr. Dequan Márquez INR GUIDELINES SEE BELOW Normal [facility] Comment on above: Result Comment: JESSICA RED INR: 2.0 - 3.0 CONDITIONS NOT LISTED BELOW 2.5 - 3.5 FOR PROSTHETIC HEART VALVE REPLACEMENT 2.5 - 3.5 RECURRENT THROMBOSIS Performed By: #### C BC #### [facility] [address] [place] [address] Dr. Dequan Márquez PT Coag (PPP) [Time] 11.6 s Normal 9.0-11.6 [facility] Comment on above: Performed By: #### C BC #### [facility] [address] [place] [address] Dr. Dequan Márquez SYMPTOMATIC COVID-19 ANTIGEN on 03-29-2023 EUA Statement SEE BELOW Normal [facility] Comment on above: Result Comment: [...] sooner. Performed By: #### C VDAGS #### [facility] [address] [place] [address] Dr. Dequan Márquez SARS-CoV-2 (COVID-19) RNA YONIS+probe Ql (Unsp spec) Negative Normal NEGATIVE [facility] Comment on above: Performed By: #### C VDAGS #### [facility] [address] [place] [address] Dr. Dequan Márquez TROPONIN, HIGH SENSITIVITYon 03-29-2023 HSTROP 5.2 pg/mL Normal 4.0-76.1 [facility] Comment on above: Result Comment: CUT- OFF POINTS HAVE BEEN ESTABLISHED BASED ON THE FOURTH UNIVERSAL DEFINITIONS OF MYOCARDIAL INFARCTION. THE UPPER REFERENCE LIMIT (URL) OF TROPONIN, DEFINED THE 99TH PERCENTILE OF cTnI DISTRIBUTION IN A REFERENCE POPULATION, HAS BEEN CONFIRMED THE DECISION THRESHOLD FOR CO DIAGNOSIS. Performed By: #### U MICRO, ERUR #### [facility] [address] [place] [address] Dr. Dequan Márquez URINE MICROSCOPIC ONLYon BACTERIA TRACE Abnormal NONE SEEN [facility] Comment on above: Performed By: #### U MICRO, ERUR #### [facility] [address] [place] [address] Dr. Dequan Márquez Bacteria identified Cx Nom (U) NOT INDICATED Normal [facility] Comment on above: Performed By: #### U MICRO, ERUR #### [facility] [address] [place] [address] Dr. Dequan Márquez CAST NONE SEEN Normal NONE SEEN [facility] Comment on above: Performed By: #### U MICRO, ERUR #### [facility] [address] [place] [address] Dr. Dequan Márquez Crystals LM Nom (Urine sed) NONE SEEN Normal NONE SEEN [facility] Comment on above: Performed By: #### U MICRO, ERUR #### [facility] [address] [address] [address] Dequan Márquez Epithelial cells LM Ql (Urine sed) FEW Abnormal NONE SEEN /RARE [facility] Comment on above: Performed By: #### U MICRO, ERUR #### [facility] [address] [address] [address] Dequan Márquez MUCOUS NONE SEEN Normal NONE SEEN [facility] Comment on above: Performed By: #### U MICRO, ERUR #### [facility] [address] [address] [address] Dequan Márquez RBC 2-5 Abnormal 0-2 [facility] Comment on above: Performed By: #### U MICRO, ERUR #### [facility] [address] [address] [address] Dequan Márquez WBC 0-2 Abnormal NONE SEEN [facility] Comment on above: Performed By: #### U MICRO, ERUR #### [facility] [address] [address] [address] Dequan Márquez XR CHEST 1 Von [...] DESIRAE SOSA Date: 2023-03-29 14:10 Normal [facility] A1C HEMOGLOBINon 03-26-2023 HbA1c (Bld) [Mass fraction] 6.5 % [employer] Other Glucose - FINGER STICKon Glucose [Mass/Vol] 156 mg/dL [employer] Other HbA1c (Bld) [Mass fraction]o n 03-26-2023 A1C HEMOGLOBIN [facility] Other A1C HEMOGLOBINon 12-25-2022 HbA1c (Bld) [Mass fraction] 7.0 % [employer] Other Glucose - FINGER STICKon Glucose [Mass/Vol] 107 mg/dL [employer] Other HbA1c (Bld) [Mass fraction]o n 12-25-2022 A1C HEMOGLOBIN [facility] Other MRI MIHAELA WO CONon 10-22-20 MRI [...] LEDY MARIE Date: 2022-10-22 21:47 Normal [facility] A1C HEMOGLOBINon 09-20-2022 HbA1c (Bld) [Mass fraction] 7.0 % [facility] [employer] Other Glucose - FINGER STICKon Glucose [Mass/Vol] 121 mg/dL [facility] [employer] Other HbA1c (Bld) [Mass fraction]o n 09-20-2022 A1C HEMOGLOBIN [facility] [employer] Other MICROALBUMIN/ CREATININE RAT IOon 08-14-2022 Albumin, Urine 4.3 ug/mL Normal Not Estab. [facility] Comment on above: Performed By: #### C BC #### [facility] [address] [place] [address] Dr. Dequan Márquez Albumin/ Creatinine Ratio 11 mg/g creat Normal 0-29 [facility] Comment on above: Result Comment: Norm al: 0 - 29 Moderately increased: 30 - 300 Severely increased: >300 Performed By: #### C BC #### [facility] [address] [address] [address] Dequan Márquez Creatinine, Urine 38.5 mg/dL Normal Not Estab. [facility] Comment on above: Performed By: #### C BC #### [facility] [facility] [address] [place] [address] Dr. Dequan Márquez LIPID PROFILEon 08-13-2022 CHOL-HDL RATIO NORM SEE BELOW Normal [facility] Comment on above: Result Comment: 3.3 - 4.4 LOW RISK 4.4 - 7.1 AVERAGE RISK 7.1 - 11.0 MODERATE RISK >11.0 HIGH RISK Performed By: #### C BC #### [facility] [address] [address] [address] Dequan Márquez Cholesterol [Mass/Vol] 111 mg/dL Normal <=200 [facility] Comment on above: Performed By: #### C BC #### [facility] [address] [address] [address] Dequan Márquez Cholesterol in HDL [Mass/Vol] 28 mg/dL Critically low 40-60 [facility] Comment on above: Performed By: #### C BC #### [facility] [address] [place] [address] Dr. Dequan Márquez Cholesterol in LDL [Mass/Vol] 51.0 mg/dL Normal [facility] Comment on above: Performed By: #### C BC #### [facility] [address] [place] [address] Dr. Dequan Márquez Cholesterol.total/ Cholesterol in HDL [Mass ratio] 4.0 {ratio} Normal [facility] Comment on above: Performed By: #### C BC #### [facility] [address] [place] [address] Dr. Dequan Márquez HDL NORMAL > or = 60 mg/dl - LO W CARDIOVASCULAR RISK <40 mg/dl - HIGH CARDIOVASCULAR RISK Normal [facility] Comment on above: Performed By: #### C BC #### [facility] [address] [place] [address] Dr. Dequan Márquez LDL CALC NORMAL SEE BELOW Normal [facility] Comment on above: Result Comment: <100 mg/dl OPTIMAL 100 - 129 mg/dl NEAR OR ABOVE OPTIMAL 130 - 159 mg/dl BORDERLINE HIGH 160 - 189 mg/dl HIGH >190 mg/dl VERY HIGH Performed By: #### C BC #### [facility] [address] [place] [address] Dr. Dequan Márquez Triglyceride [Mass/Vol] 160 mg/dL Critically high <=150 [facility] Comment on above: Performed By: #### C BC #### [facility] [address] [place] [address] Dr. Dequan Márquez VLDL CALC 32.0 mg/dL Normal [facility] Comment on above: Performed By: #### C BC #### [facility] [address] [place] [address] Dr. Dequan Márquez PROF 14(COMP METB)on 022 Albumin [Mass/Vol] 4.1 g/dL Normal 3.4-5.0 [facility] Comment on above: Performed By: #### C BC #### [facility] [address] [place] [address] Dr. Dequan Márquez Albumin/Globulin [Mass ratio] 1.0 {ratio} Normal [facility] Comment on above: Performed By: #### C BC #### [facility] [address] [place] [address] Dr. Dequan Márquez ALP [Catalytic activity/Vol] 114 U/L Normal 46-116 [facility] Comment on above: Performed By: #### C BC #### [facility] [address] [place] [address] Dr. Dequan Márquez ALT [Catalytic activity/Vol] 43 U/L Normal 16-63 [facility] Comment on above: Performed By: #### C BC #### [facility] [address] [place] [address] Dr. Dequan Márquez Anion gap [Moles/Vol] 11.0 mmol/L Normal [facility] Comment on above: Performed By: #### C BC #### [facility] [address] [place] [address] Dr. Dequan Márquez AST [Catalytic activity/Vol] 20 U/L Normal 15-37 [facility] Comment on above: Performed By: #### C BC #### [facility] [address] [place] [address] Dr. Dequan Márquez Bilirubin [Mass/Vol] 0.5 mg/dL Normal 0.2-1.0 [facility] Comment on above: Performed By: #### C BC #### [facility] [address] [place] [address] Dr. Dequan Márquez Calcium [Mass/Vol] 9.2 mg/dL Normal 8.5-10.1 [facility] Comment on above: Performed By: #### C BC #### [facility] [address] [place] [address] Dr. Dequan Márquez Chloride [Moles/Vol] 102 mmol/L Normal 98-107 [facility] Comment on above: Performed By: #### C BC #### [facility] [address] [place] [address] Dr. Dequan Márquez CO2 [Moles/Vol] 26.3 mmol/L Normal 21.0-32.[address] [facility] Comment on above: Performed By: #### C BC #### [facility] [address] [place] [address] Dr. Dequan Márquez Creatinine [Mass/Vol] 0.90 mg/dL Normal 0.70-1.30 [facility] Comment on above: Performed By: #### C BC #### [facility] [address] [place] [address] Dr. Dequan Márquez EGFR-AF DANISH >60 Normal >=[address] [facility] Comment on above: Performed By: #### C BC #### [facility] [address] [place] [address] Dr. Dequan Márquez EGFR-NON AF DANISH >60 Normal >=60 [facility] Comment on above: Performed By: #### C BC #### [facility] [address] [place] [address] Dr. Dequan Márquez Globulin (S) [Mass/Vol] 4.3 g/dL Normal [facility] Comment on above: Performed By: #### C BC #### [facility] [address] [place] [address] Dr. Dequan Márquez Glucose [Mass/Vol] 149 mg/dL Critically high 74-106 [facility] Comment on above: Performed By: #### C BC #### [facility] [address] [place] [address] Dr. Dequan Márquez Potassium [Moles/Vol] 4.3 mmol/L Normal 3.5-5.1 [facility] Comment on above: Performed By: #### C BC #### [facility] [address] [place] [address] Dr. Dequan Márquez Protein [Mass/Vol] 8.4 g/dL Critically high 6.4-8.2 [facility] Comment on above: Performed By: #### C BC #### [facility] [address] [place] [address] Dr. Dequan Márquez Sodium [Moles/Vol] 135 mmol/L Critically low 136-145 [facility] Comment on above: Performed By: #### C BC #### [facility] [address] [place], [place] [address] Dr. Dequan Márquez Urea nitrogen [Mass/Vol] 30.0 mg/dL Critically high 7.0-18.0 [facility] Comment on above: Performed By: #### C BC #### [facility] [address] [place], [place] [address] Dr. Dequan Márquez Urea nitrogen/Creatinin e [Mass ratio] 33.3 mg/mg Normal [facility] Comment on above: Performed By: #### C BC #### [facility] [address] [place], [place] [address] Dr. Dequan Márquez MRI BRAIN WO CONon [...] UDAY WRIGHT Date: 2022-06-13 06:18 Normal [facility] A1C HEMOGLOBINon 06-12-2022 HbA1c (Bld) [Mass fraction] 7.1 % [employer] Other Glucose - FINGER STICKon Glucose [Mass/Vol] 181 mg/dL [employer] Other HbA1c (Bld) [Mass fraction]o n 06-12-2022 A1C HEMOGLOBIN [facility] Other CRPon 05-30-2022 CRP 1.0 mg/dL Normal <=1.0 [facility] Comment on above: Performed By: #### C BC #### [facility] [address] [place] [address] Dr. Dequan Márquez SED RATE WESTERGRENon 2021 SED RATE 32 mm/hr Critically high <=20 [facility] Comment on above: Performed By: #### S EDR #### [facility] [address] [place] [address] Dr. Dequan Márquez CBC AUTO DIFFon 04-06-2022 BASO # 0.1 103/ul Normal 0.0-0.1 [facility] Comment on above: Performed By: #### C BC #### [facility] [address] [address] [address] Dequan Márquez Basophils/100 WBC (Bld) 0.9 % Normal 0.2-2.0 [facility] Comment on above: Performed By: #### C BC #### [facility] [address] [place] [address] Dr. Dequan Márquez EO # 0.3 103/ul Normal 0.0-0.7 [facility] Comment on above: Performed By: #### C BC #### [facility] [address] [place] [address] Dr. Dequan Márquez Eosinophils/100 WBC (Bld) 3.1 % Normal 0.9-7.0 [facility] Comment on above: Performed By: #### C BC #### [facility] [address] [place] [address] Dr. Dequan Márquez Erythrocyte distribution width (RBC) [Ratio] 13.6 % Normal 11.0-15.0 [facility] Comment on above: Performed By: #### C BC #### [facility] [address] [place] [address] Dr. Dequan Márquez Hematocrit (Bld) [Volume fraction] 44.8 % Normal 42.0-54.0 [facility] Comment on above: Performed By: #### C BC #### [facility] [address] [place] [address] Dr. Dequan Márquez Hemoglobin (Bld) [Mass/Vol] 14.9 g/dL Normal 14.0-18.0 [facility] Comment on above: Performed By: #### C BC #### [facility] [address] [place] [address] Dr. Dequan Márquez IG # 0.02 10e3/ul Normal 0.00-0.03 [facility] Comment on above: Performed By: #### C BC #### [facility] [address] [place] [address] Dr. Dequan Márquez IG % 0.2 % Normal 0.0-0.5 [facility] Comment on above: Performed By: #### C BC #### [facility] [address] [place] [address] Dr. Dequan Márquez LYMPH # 2.3 103/ul Normal 1.2-3.8 [facility] Comment on above: Performed By: #### C BC #### [facility] [address] [place] [address] Dr. Dequan Márquez Lymphocytes/100 WBC (Bld) 28.7 % Normal 20.5-60.0 [facility] Comment on above: Performed By: #### C BC #### [facility] [address] [place] [address] Dr. Dequan Márquez MANUAL DIFF REQ NO Normal [facility] Comment on above: Performed By: #### C BC #### [facility] [address] [place] [address] Dr. Dequan Márquez MCH (RBC) [Entitic mass] 29.3 pg Normal 25.9-34.0 [facility] Comment on above: Performed By: #### C BC #### [facility] [address] [place] [address] Dr. Dequan Márquez MCHC (RBC) [Mass/Vol] 33.3 g/dL Normal 29.9-35.2 [facility] Comment on above: Performed By: #### C BC #### [facility] [address] [place] [address] Dr. Dequan Márquez MCV (RBC) [Entitic vol] 88.2 fL Normal 80.0-94.0 [facility] Comment on above: Performed By: #### C BC #### [facility] [address] [place] [address] Dr. Dequan Márquez MONO # 0.7 103/ul Normal 0.3-0.8 [facility] Comment on above: Performed By: #### C BC #### [facility] [address] [place] [address] Dr. Dequan Márquez Monocytes/100 WBC (Bld) 8.8 % Normal 1.7-12.0 [facility] Comment on above: Performed By: #### C BC #### [facility] [address] [place] [address] Dr. Dequan Márquez NEUT # 4.7 103/ul Normal 1.4-6.5 [facility] Comment on above: Performed By: #### C BC #### [facility] [address] [place] [address] Dr. Dequan Márquez Neutrophils/100 WBC (Bld) 58.3 % Normal 43.0-75.0 [facility] Comment on above: Performed By: #### C BC #### [facility] [address] [place] [address] Dr. Dequan Márquez Platelet mean volume (Bld) [Entitic vol] 11.1 fL Normal 9.5-13.5 [facility] Comment on above: Performed By: #### C BC #### [facility] [address] [place] [address] Dr. Dequan Márquez PLT 311 103/ul Normal 150-450 [facility] Comment on above: Performed By: #### C BC #### [facility] [address] [place] [address] Dr. Dequan Márquez RBC 5.08 106/ul Normal 4.70-6.10 [facility] Comment on above: Performed By: #### C BC #### [facility] [address] [place] [address] Dr. Dequan Márquez WBC 8.1 103/ul Normal 4.0-11.0 [facility] Comment on above: Performed By: #### C BC #### [facility] [address] [place] [address] Dr. Dequan Márquez PROF 14(COMP METB)on 022 Albumin [Mass/Vol] 3.9 g/dL Normal 3.4-5.0 [facility] Comment on above: Performed By: #### C MP #### [facility] [address] [place] [address] Dr. Dequan Márquez Albumin/Globulin [Mass ratio] 1.0 {ratio} Normal [facility] Comment on above: Performed By: #### C MP #### [facility] [address] [place] [address] Dr. Dequan Márquez ALP [Catalytic activity/Vol] 128 U/L Critically high 46-116 [facility] Comment on above: Performed By: #### C MP #### [facility] [address] [place] [address] Dr. Dequan Márquez ALT [Catalytic activity/Vol] 54 U/L Normal 16-63 [facility] Comment on above: Performed By: #### C MP #### [facility] [address] [place] [address] Dr. Dequan Márquez Anion gap [Moles/Vol] 12.1 mmol/L Normal [facility] Comment on above: Performed By: #### C MP #### [facility] [address] [address] [address] Dequan Márquez AST [Catalytic activity/Vol] 26 U/L Normal 15-37 [facility] Comment on above: Performed By: #### C MP #### [facility] [address] [address] [address] Dequan Márquez Bilirubin [Mass/Vol] 0.4 mg/dL Normal 0.2-1.0 [facility] Comment on above: Performed By: #### C MP #### [facility] [address] [address] [address] Dequan Márquez Calcium [Mass/Vol] 8.9 mg/dL Normal 8.5-10.1 [facility] Comment on above: Performed By: #### C MP #### [facility] [address] [place] [address] Dr. Dequan Márquez Chloride [Moles/Vol] 105 mmol/L Normal 98-107 [facility] Comment on above: Performed By: #### C MP #### [facility] [address] [address] [address] Dequan Márquez CO2 [Moles/Vol] 27.1 mmol/L Normal 21.0-32.[address] [facility] Comment on above: Performed By: #### C MP #### [facility] [address] [address] [address] Dequan Márquez Creatinine [Mass/Vol] 0.90 mg/dL Normal 0.70-1.30 [facility] Comment on above: Performed By: #### C MP #### [facility] [address] [address] [address] Dequan Márquez EGFR-AF DANISH >60 Normal >=[address] [facility] Comment on above: Performed By: #### C MP #### [facility] [address] [address] [address] Dequan Márquez EGFR-NON AF DANISH >60 Normal >=60 [facility] Comment on above: Performed By: #### C MP #### [facility] [address] [address] [address] Dequan Márquez Globulin (S) [Mass/Vol] 3.9 g/dL Normal [facility] Comment on above: Performed By: #### C MP #### [facility] [address] [address] [address] Dequan Márquez Glucose [Mass/Vol] 115 mg/dL Critically high 74-106 [facility] Comment on above: Performed By: #### C MP #### [facility] [address] [address] [address] Dequan Márquez Potassium [Moles/Vol] 4.2 mmol/L Normal 3.5-5.1 [facility] Comment on above: Performed By: #### C MP #### [facility] [address] [address] [address] Dequan Márquez Protein [Mass/Vol] 7.8 g/dL Normal 6.4-8.2 [facility] Comment on above: Performed By: #### C MP #### [facility] [address] [address] [address] Dequan Márquez Sodium [Moles/Vol] 140 mmol/L Normal 136-145 [facility] Comment on above: Performed By: #### C MP #### [facility] [address] [address] [address] Dequan Márquez Urea nitrogen [Mass/Vol] 21.0 mg/dL Critically high 7.0-18.0 [facility] Comment on above: Performed By: #### C MP #### [facility] [address] [address] [address] Dequan Márquez Urea nitrogen/Creatinin e [Mass ratio] 23.3 mg/mg Normal [facility] Comment on above: Performed By: #### C MP #### [facility] [address] [address] [address] Dequan Márquez A1C HEMOGLOBINon 03-06-2022 HbA1c (Bld) [Mass fraction] 7.1 % [employer] Other Glucose - FINGER STICKon Glucose [Mass/Vol] 140 mg/dL [facility] [employer] Other HbA1c (Bld) [Mass fraction]o n 03-06-2022 A1C HEMOGLOBIN [facility] [employer] Other Glucose - FINGER STICKon Glucose [Mass/Vol] 120 mg/dL [facility] [employer] Other Glucose - FINGER STICKon Glucose [Mass/Vol] 131 mg/dL [facility] [employer] Other BASIC METABOLIC PANELon 12-0 BUN/CREATININE RATIO NOT APPLICABLE Normal 6-22 [facility] Comment on above: Performed By: #### 7 600, [id number] #### [facility] [address], [address] [place] [address] [employer] Treater: Mann Jama MD Calcium [Mass/Vol] 8.7 mg/dL Normal 8.6-10.3 [facility] Comment on above: Performed By: #### 7 600, [id number] #### [facility] [address], [address] [place] [address] [employer] Treater: Mann Jama MD Chloride [Moles/Vol] 105 mmol/L Normal 98-110 [facility] Comment on above: Performed By: #### 7 600, [id number] #### [facility] [address], [address] [place] [address] [employer] Treater: Mann Jama MD CO2 [Moles/Vol] 25 mmol/L Normal 20-32 [facility] Comment on above: Performed By: #### 7 600, [id number] #### [facility] [address], [address] [place] [address] [employer] Treater: Mann Jama MD Creatinine [Mass/Vol] 0.84 mg/dL Normal 0.70-1.33 [facility] Comment on above: Result Comment: For patients >49 years of age, the reference limit for Creatinine is approximately 13% higher for people identified as -Emirati. Performed By: #### 7 600, [id number] #### [facility] [address] [address] [employer] Collect[employer] Treater: Mann Jama MD eGFR NON-AFR. DANISH 96 mL/min/1.73m2 Normal > OR = 60 [facility] Comment on above: Performed By: #### 7 600, [id number] #### [facility] [address] [address] [employer] Collect[employer] Treater: Mann Jama MD GFR/1.73 sq M.predicted among blacks MDRD (S/P/Bld) [Vol rate/Area] 111 mL/min/{1.73_m2} Normal > OR = 60 [facility] Comment on above: Performed By: #### 7 600, [id number] #### [facility] [address] [address] [employer] Treater: Mann Jama MD Glucose [Mass/Vol] 139 mg/dL High 65-99 [facility] Comment on above: Result Comment: Fasting reference interval For someone without known diabetes, a glucose value >125 mg/dL indicates that they may have diabetes and this should be confirmed with a follow-up test. Performed By: #### 7 600, [id number] #### [facility] [address] [place] [address] [employer] Treater: Mann Jama MD Potassium [Moles/Vol] 4.3 mmol/L Normal 3.5-5.3 [facility] Comment on above: Performed By: #### 7 600, [id number] #### [facility] [address] [place] [address] [employer] Collect[employer] Treater: Mann Jama MD Sodium [Moles/Vol] 138 mmol/L Normal 135-146 [facility] Comment on above: Performed By: #### 7 600, [id number] #### [facility] [address] [place] [address] [employer] Collect[employer] Treater: Mann Jama MD Urea nitrogen [Mass/Vol] 22 mg/dL Normal 7-25 [facility] Comment on above: Performed By: #### 7 600, [id number] #### [facility] [address], [address] [place] [address] [employer] Collect[employer] Treater: Mann Jama MD LIPID PANEL, [facility] Cholesterol [Mass/Vol] 107 mg/dL Normal <200 [facility] Comment on above: Order Comment: FASTI NG:YES FASTING: YES Performed By: #### 7 600, [id number] #### [facility] [address], [address] [place] [address] [employer] Treater: Mann Jama MD Cholesterol in HDL [Mass/Vol] 22 mg/dL Low > OR = 40 [facility] Comment on above: Order Comment: FASTI NG:YES FASTING: YES Performed By: #### 7 600, [id number] #### [facility] [address], [address] [place] [address] [employer] Collect[employer] Treater: Mann Jama MD Cholesterol in LDL [Mass/Vol] [...] LDL-C. Donnie CROWELL et al. MARCIE. 2013;310(19): 4010-5816 (http://education.[employer]/faq/QUH662) Performed By: #### 7 600, [id number] #### [facility] [address], [address] [place] [address] [employer] Collect[employer] Treater: Mann Jama MD Cholesterol.total/ Cholesterol in HDL [Mass ratio] 4.9 {ratio} Normal <5.0 [facility] Comment on above: Order Comment: FASTI NG:YES FASTING: YES Performed By: #### 7 600, [id number] #### [facility] [address], [address] [place] [address] [employer] Treater: Mann Jama MD NON HDL CHOLESTEROL 85 mg/dL (calc) Normal <130 [facility] Comment on above: Order Comment: FASTI NG:YES FASTING: YES Result Comment: For patients with diabetes plus 1 major ASCVD risk factor, treating to a non-HDL-C goal of <100 mg/dL (LDL-C of <70 mg/dL) is considered a therapeutic option. Performed By: #### 7 600, [id number] #### [facility] [address], [address] [place] [address] [employer] Treater: Mann Jama MD Triglyceride [Mass/Vol] 93 mg/dL Normal <150 [facility] Comment on above: Order Comment: FASTI NG:YES FASTING: YES Performed By: #### 7 600, [id number] #### [facility] [address], [address] [place] [address] [employer] Treater: Mann Jama MD Vital Signs Date Time Vital Sign Value Performing Clinician Facility 05-25-2024 08:19040 Body height 177.8 cm [facility] 05-25-2024 08:190400 Body mass index (BMI) [Ratio] 32.8 kg/m2 [facility] 05-25-2024 08:19040 Body weight 103.58 kg [facility] 05-25-2024 08:19-0400 Diastolic blood pressure 84 mm[Hg] [facility] 05-25-2024 08:19-0400 Heart rate 76 /min [facility] 05-25-2024 08:19-0400 Respiratory rate 18 /min [facility] 05-25-2024 08:19-0400 SaO2% (BldA) [Mass fraction] 97 % [facility] 05-25-2024 08:190400 Systolic blood pressure 133 mm[Hg] [facility] 02-19-2024 08:17040 Body height 154.94 cm [facility] 02-19-2024 08:17-0400 Body mass index (BMI) [Ratio] 43.9 kg/m2 [facility] 02-19-2024 08:17-0400 Body weight 105.46 kg [facility] 02-19-2024 08:17-0400 Diastolic blood pressure 73 mm[Hg] [facility] 02-19-2024 08:17-0400 Heart rate 75 /min [facility] 02-19-2024 08:17-0400 Respiratory rate 18 /min [facility] 02-19-2024 08:17-0400 SaO2% (BldA) [Mass fraction] 97 % [facility] 02-19-2024 08:17-0400 Systolic blood pressure 121 mm[Hg] [facility] 11-19-2023 08:15-0500 Body height 177.8 cm DO [email or web address] Work Phone: [facility] 11-19-2023 08:15-0500 Body weight 107.63 kg DO Rinku [employer]long Work Phone: [facility] 11-19-2023 08:15-0500 Diastolic blood pressure 76 mm[Hg] DO Rinku [employer]long Work Phone: [facility] 11-19-2023 08:15-0500 Systolic blood pressure 122 mm[Hg] DO Rinku Furlong Work Phone: [facility] 08-13-2023 08:15-0400 Body height 177.8 cm Melissa Scally Other [employer] [facility] [employer] Other 08-13-2023 08:15-0400 Body mass index (BMI) [Ratio] 34.1 kg/m2 Melissa Scally Other [employer] [facility] [employer] Other 08-13-2023 08:15-0400 Body weight 107.82 kg Melissa Scally Other [employer] Other 08-13-2023 08:15-0400 Diastolic blood pressure 83 mm[Hg] Melissa Scally Other [employer] Other 08-13-2023 08:15-0400 Respiratory rate 18 /min Melissa Scally Other [employer] Other 08-13-2023 08:15-0400 SaO2% (BldA) [Mass fraction] 99 % Melissa Scally Other [employer] Other 08-13-2023 08:15-0400 Systolic blood pressure 122 mm[Hg] Melissa Scally Other [employer] Other 05-07-2023 08:15-0400 Body height 177.8 cm Melissa Scally Other [employer] Other 05-07-2023 08:15-0400 Body mass index (BMI) [Ratio] 34.36 kg/m2 Melissa Scally Other [employer] Other 05-07-2023 08:15-0400 Body weight 108.64 kg Melissa Scally Other [employer] Other 05-07-2023 08:15-0400 Diastolic blood pressure 78 mm[Hg] Melissa Scally Other [employer] Other 05-07-2023 08:15-0400 Respiratory rate 20 /min Melissa Scally Other [employer] Other 05-07-2023 08:15-0400 SaO2% (BldA) [Mass fraction] 98 % Melissa Scally Other [employer] Other 05-07-2023 08:15-0400 Systolic blood pressure 115 mm[Hg] Melissa Scally Other [employer] Other 03-26-2023 11:15-0400 Body height 177.8 cm Melissa Scally Other [employer] Other 03-26-2023 11:15-0400 Body mass index (BMI) [Ratio] 35.25 kg/m2 Melissa Scally Other [employer] Other 03-26-2023 11:15-0400 Body weight 111.45 kg Melissa Scally Other [employer] Other 03-26-2023 11:15-0400 Diastolic blood pressure 86 mm[Hg] Melissa Scally Other [employer] Other 03-26-2023 11:15-0400 Respiratory rate 18 /min Melissa Scally Other [employer] Other 03-26-2023 11:15-0400 SaO2% (BldA) [Mass fraction] 97 % Melissa Scally Other [employer] Other 03-26-2023 11:15-0400 Systolic blood pressure 125 mm[Hg] Melissa Scally Other [employer] Other 12-25-2022 11:00-0500 Body height 177.8 cm Melissa Scally Other [employer] Other 12-25-2022 11:00-0500 Body mass index (BMI) [Ratio] 35.15 kg/m2 Melissa Scally Other [employer] Other 12-25-2022 11:00-0500 Body weight 111.13 kg Melissa Scally Other [employer] Other 12-25-2022 11:00-0500 Diastolic blood pressure 86 mm[Hg] Melissa Scally Other [employer] Other 12-25-2022 11:00-0500 Respiratory rate 18 /min Melissa Scally Other [employer] Other 12-25-2022 11:00-0500 SaO2% (BldA) [Mass fraction] 97 % Melissa Scally Other [employer] Other 12-25-2022 11:00-0500 Systolic blood pressure 135 mm[Hg] Melissa Scally Other [employer] Other 09-20-2022 11:00-0400 Body height 177.8 cm Melissa Scally Other [employer] Other 09-20-2022 11:00-0400 Body mass index (BMI) [Ratio] 34.92 kg/m2 Melissa Scally Other [employer] Other 09-20-2022 11:00-0400 Body weight 110.41 kg Melissa Scally Other [employer] Other 09-20-2022 11:00-0400 Diastolic blood pressure 80 mm[Hg] Melissa Scally Other [employer] Other 09-20-2022 11:00-0400 Respiratory rate 18 /min Melissa Scally Other [employer] Other 09-20-2022 11:00-0400 SaO2% (BldA) [Mass fraction] 97 % Melissa Scally Other [employer] Other 09-20-2022 11:00-0400 Systolic blood pressure 115 mm[Hg] Melissa Scally Other [employer] Other 06-12-2022 10:00-0400 Body height 177.8 cm Melissa Scally Other [employer] Other 06-12-2022 10:00-0400 Body mass index (BMI) [Ratio] 35.48 kg/m2 Melissa Scally Other [employer] Other 06-12-2022 10:00-0400 Body weight 112.18 kg Melissa Scally Other [employer] Other 06-12-2022 10:00-0400 Diastolic blood pressure 67 mm[Hg] Melissa Scally Other [employer] Other 06-12-2022 10:00-0400 Respiratory rate 18 /min Melissa Scally Other [employer] Other 06-12-2022 10:00-0400 SaO2% (BldA) [Mass fraction] 96 % Melissa Scally Other [employer] Other 06-12-2022 10:00-0400 Systolic blood pressure 99 mm[Hg] Melissa Scally Other [employer] Other 03-06-2022 11:15-0400 Body height 177.8 cm Melissa Scally Other [employer] Other 03-06-2022 11:15-0400 Body mass index (BMI) [Ratio] 34.95 kg/m2 Melissa Scally Other [employer] Other 03-06-2022 11:15-0400 Body weight 110.5 kg Melissa Scally Other [employer] Other 03-06-2022 11:15-0400 Diastolic blood pressure 77 mm[Hg] Melissa Scally Other [employer] Other 03-06-2022 11:15-0400 Respiratory rate 20 /min Melissa Scally Other [employer] Other 03-06-2022 11:15-0400 SaO2% (BldA) [Mass fraction] 99 % Melissa Scally Other [employer] Other 03-06-2022 11:15-0400 Systolic blood pressure 120 mm[Hg] Melissa Scally Other [employer] Other 01-10-2022 11:45-0500 Body height 177.8 cm Melissa Scally Other [employer] Other 01-10-2022 11:45-0500 Body mass index (BMI) [Ratio] 34.33 kg/m2 Melissa Scally Other [employer] Other 01-10-2022 11:45-0500 Body weight 108.55 kg Melissa Scally Other [employer] Other 01-10-2022 11:45-0500 Diastolic blood pressure 78 mm[Hg] Melissa Scally Other [employer] Other 01-10-2022 11:45-0500 Respiratory rate 18 /min Melissa Scally Other [employer] Other 01-10-2022 11:45-0500 SaO2% (BldA) [Mass fraction] 97 % Melissa Scally Other [employer] Other 01-10-2022 11:45-0500 Systolic blood pressure 128 mm[Hg] Melissa Scally Other [employer] Other 12-25-2021 11:30-0500 Body height 177.8 cm Melissa Scally Other [employer] Other 12-25-2021 11:30-0500 Body mass index (BMI) [Ratio] 33.73 kg/m2 Melissa Scally Other [employer] Other 12-25-2021 11:30-0500 Body weight 106.64 kg Melissa Scally Other [employer] Other 12-25-2021 11:30-0500 Diastolic blood pressure 70 mm[Hg] Melissa Scally Other [employer] Other 12-25-2021 11:30-0500 Respiratory rate 18 /min Melissa Scally Other [employer] Other 12-25-2021 11:30-0500 SaO2% (BldA) [Mass fraction] 98 % Melissa Scally Other [employer] Other 12-25-2021 11:30-0500 Systolic blood pressure 108 mm[Hg] Melissa Joyce Other [facility] [employer] Other Encounters Encounter Date Encounter Type Care Provider Facility Start: 08-31-2024 End: 08-31-2024 ambulatory RINKU G FURLONG [facility] Start: 05-25-2024 End: 05-25-2024 ambulatory [facility] Work Phone: Start: 05-25-2024 End: 05-25-2024 Patient encounter procedure [facility] Work Phone: Start: 02-19-2024 End: 02-19-2024 ambulatory [facility] Work Phone: Start: 02-19-2024 End: 02-19-2024 Patient encounter procedure [facility] Work Phone: Start: 01-14-2024 End: 01-14-2024 ambulatory DO Rinku Furlong Work Phone: [facility] Work Phone: Start: 01-14-2024 End: 01-14-2024 Patient encounter procedure DO Rinku Furlong Work Phone: [facility] Work Phone: Start: 12-11-2023 Refill Rinku G Furlo ng DO Work Phone: [facility] Start: 12-04-2023 Refill Rinku G Furlo ng DO Work Phone: [facility] Start: 11-19-2023 End: 11-20-2023 ambulatory Rinku Furlong Facility:[facility] Start: 11-19-2023 End: 11-19-2023 ambulatory DO Rinku Furlong Work Phone: [facility] Work Phone: Start: 11-19-2023 End: 11-19-2023 Discharged Recurring DO Rinku Furlong Work Phone: [facility] Work Phone: Start: 11-19-2023 End: 11-19-2023 Patient encounter procedure DO Rinku Furlong Work Phone: [facility] Work Phone: Start: 11-08-2023 End: 11-08-2023 ambulatory Melissa Scally Other [employer] Other Start: 11-08-2023 Telephone encounter Melissacrescencio Joyce [facility] Start: 10-03-2023 End: 10-03-2023 ambulatory Melissa Scally Other [employer] Other Start: 10-03-2023 Telephone encounter Melissa Isiah [facility] Start: 08-23-2023 End: 08-23-2023 ambulatory Melissa Scally Other [employer] Other Start: 08-23-2023 Telephone encounter Melissa Thomasly F [facility] Start: 08-13-2023 (DM) Diabetes Melissa Thomasly Nat [facility] Start: 08-13-2023 End: 08-13-2023 ambulatory Melissa Scally Other [employer] Other Start: 07-08-2023 End: 07-08-2023 ambulatory Melissa Scally Other [employer] Other Start: 07-08-2023 Telephone encounter Melissa Thomasly [facility] Start: 07-05-2023 End: 07-05-2023 ambulatory Melissa Scally Other [employer] Other Start: 07-05-2023 Telephone encounter Melissa Thomasly [facility] Start: 05-07-2023 (DM) Diabetes Melissacrescencio Joyce [facility] Start: 05-07-2023 End: 05-07-2023 ambulatory Melissa Scally Other [employer] Other Start: 05-07-2023 Telephone encounter Melissa Thomasly [facility] Start: 03-29-2023 End: 03-29-[address] SADAF ARIZA . Facility:[facility] Start: 03-26-2023 (DM) Diabetes Melissa Isiah [facility] Start: 03-26-2023 End: 03-26-2023 ambulatory Melissa Scally Other [employer] Other Start: 03-21-2023 End: 03-22-2023 ambulatory NARENDRANATH LAKSHMIPATHY . Facility:[facility] Start: 03-14-2023 End: 03-14-2023 ambulatory Melissa Scally Other [employer] Other Start: 03-14-2023 Telephone encounter Melissa Isiah [facility] Start: 03-07-2023 ambulatory NARENDRANATH LAKSHMIPATHY . Facility:[facility] Start: 02-26-2023 End: 02-26-2023 ambulatory Melissa Scally Other [employer] Other Start: 02-26-2023 Telephone encounter Melissa Thomasly [...] 12-25-2022 End: 12-25-2022 ambulatory Melissa Joyce Other [employer] Other Start: 12-18-2022 End: 12-18-[address] HAYDE COBURN . Facility:[facility] Start: 12-05-2022 End: 12-06-[address] RINKU TREJO Facility:[facility] Start: 10-22-2022 End: 10-23-[address] DOCTOR HOLT Facility:[facility] Start: 10-05-2022 End: 10-05-2022 ambulatory Melissa Isiah Other [employer] Other Start: 10-05-2022 Telephone encounter Melissa chandra [facility] Start: 09-20-2022 (DM) Diabetes Melissa Thomasly [facility] Start: 09-20-2022 End: 09-20-2022 ambulatory Melissa Joyce Other [employer] Other Start: 08-13-2022 End: 08-14-2022 ambulatory DIANE MICHELE Facility:[facility] Start: 07-02-2022 End: 07-03-[address] RINKU TREJO Facility:[facility] Start: 06-12-2022 (DM) Diabetes Melissa Scally [facility] Start: 06-12-2022 End: 06-12-2022 ambulatory Melissa Joyce Other [employer] Other Start: 06-11-2022 End: 06-12-[address] RINKU TREJO Facility:[facility] Start: 05-30-2022 End: 05-31-[address] RINKU TREJO Facility:[facility] Start: 04-06-2022 End: 04-06-2022 ambulatory MIHAELA CUBA . Facility:[facility] Start: 03-09-2022 End: 03-09-2022 ambulatory Melissa Scally Other [employer] Other Start: 03-09-2022 Telephone encounter Melissa Thmoasly [facility] Start: 03-06-2022 (DM) Diabetes Melissa Scally [facility] Start: 03-06-2022 End: 03-06-2022 ambulatory Melissa Scally Other [employer] Other Start: 03-02-2022 End: 03-02-2022 ambulatory Melissa Scally Other [employer] Other Start: 03-02-2022 Telephone encounter Melissa Scally [facility] Start: 02-26-2022 End: 02-26-2022 ambulatory Melissa Scally Other [employer] Other Start: 02-26-2022 Telephone encounter Melissa Scally [facility] Start: 01-15-2022 End: 01-15-2022 ambulatory Melissa Scally Other [employer] Other Start: 01-15-2022 Telephone encounter Melissa Scally [facility] Start: 01-10-2022 (DM) Diabetes Melissa Scally [facility] Start: 01-10-2022 End: 01-10-2022 ambulatory Melissa Scally Other [employer] Other Start: 01-10-2022 Telephone encounter Melissa Scally [facility] Start: 01-02-2022 End: 01-02-2022 ambulatory Melissa Joyce Other [employer] Other Start: 01-02-2022 Telephone encounter Melissa chandra [facility] Start: 12-25-2021 End: 12-25-2021 ambulatory Melissa Joyce Other [employer] Other Start: 12-25-2021 [facility] visit new patient Melissa Hernandez [facility] Procedures Date Procedure Procedure Detail Performing Clinician Start: 10-25-2023 Adult depression scr eening assessment [employer] Phone: Start: 04-15-2023 Microalbumin [Mass/v olume] in Urine by Test strip [employer] Phone: Start: 01-27-2020 Colonoscopy Rinku [facility] Phone: Plan of Treatment Date Care Activity Detail Author Start: 09-19-2030 DTaP,Tdap and Td Vaccines (3 - Td or Tdap) DTaP,Tdap and Td Vaccines (3 - Td or Tdap) [facility] Start: 01-26-2030 Screening for malignant neoplasm of colon [facility] Start: 10-25-2024 Adult BMI Screening [facility] Start: 10-25-2024 Depression Screening Depression [facility] Start: 10-25-2024 Tobacco Screening Tobacco [facility]ening [facility] Start: 05-15-2024 Diabetic foot examination [facility] Start: 04-15-2024 Urine screening for protein Urine [facility]albumin [facility] Start: 06-20-2023 ambulatory Ambulatory Facility: Start: 2011 Administration of varicella zoster vaccine Zoster (Shingles) Vaccine (1 of 2) [facility] Start: 1979 Adult BMI Follow Up Plan Adult BMI [facility] Up Plan [facility] Start: 1961 Glaucoma screening [facility] Comprehensive metabo lic 2000 panel - Serum or Plasma [facility] Immunizations Immunization Date Immunization Notes Care Provider Fa natashaty 08-30-2023 influenza, injectabl e, quadrivalent, preservative free Rinku Furlong DO Work Phone: [facility] 08-30-2023 Pneumococcal Conjuga te 20-valent Rinku Furlong DO Work Phone: [facility] 08-27-2022 influenza virus vaccine, unspecified formulation Rinku Furlong DO Work Phone: [facility] 08-27-2022 influenza, injectabl e, quadrivalent, preservative free Rinku Furlong DO Work Phone: [facility] 08-22-2021 influenza, injectabl e, quadrivalent, preservative free Rinku Furlong DO Work Phone: [facility] 09-19-2020 influenza, injectabl e, quadrivalent, preservative free Rinku Furlong DO Work Phone: [facility] 09-19-2020 tetanus toxoid, redu ramandeep diphtheria toxoid, and acellular pertussis vaccine, adsorbed Rinku Furlong DO Work Phone: [facility] 09-25-2019 influenza, injectabl e, quadrivalent, preservative free Rinku Furlong DO Work Phone: [facility] 09-13-2018 influenza, injectabl e, quadrivalent, preservative free Rinku Furlong DO Work Phone: [facility] 11-08-2017 Influenza, injectabl e, [facility] [place] [facility], preservative free, quadrivalent Rinku Furlong DO Work Phone: [facility] 04-13-2017 tetanus toxoid, redu ramandeep diphtheria toxoid, and acellular pertussis vaccine, adsorbed Rinku Furlong DO Work Phone: [facility] 12-03-2012 influenza, seasonal, injectable Rinku Trejo DO Work Phone: [employer] Payers Date Payer Category Payer Self-pay [id number] 2019 Medicare AETNA MEDICARE A ETNA MEDICARE PLAN (PPO) [id number] 2019-Present [phone] [address] [place] [address] [id number] 1961 Unknown [id number] [id number]3 1961 Unknown [id number] 2.16.840.1.181707.3.579.2.593 1961 Unknown [id number] 2.16.840.1.011854.3.579.2.593 1961 Unknown [id number] 2.16.840.1.786199.3.579.2.593 1961 Unknown [id number] 2.16.840.1.745038.3.579.2.593 1961 Unknown [id number] 2.16.840.1.886483.3.579.2.593 1961 Unknown [id number] 2.16.840.1.311074.3.579.2.593 1961 Unknown [id number] 2.16.840.1.881496.3.579.2.593 1961 Unknown [id number] 2.16.840.1.829942.3.579.2.593 1961 Unknown [id number] 2.16.840.1.315935.3.579.2.593 1961 Unknown [id number] 2.16.840.1.462986.3.579.2.593 1961 Unknown [id number] 2.16.840.1.886619.3.579.2.593 1961 Unknown [id number] 2.16.840.1.556058.3.579.2.593 1961 Unknown [id number] 2.16.840.1.135696.3.579.2.593 1961 Unknown [id number] 2.16.840.1.871953.3.579.2.593 1961 Unknown [id number] 2.16.840.1.932790.3.579.2.593 1961 Unknown [id number] 2.16.840.1.693149.3.579.2.593 1961 Unknown [id number] 2.16.840.1.890529.3.579.2.593 1961 Unknown [id number] 2.16.840.1.944524.3.579.2.1286 1958 Medicare [id number] [id number] Medicare Medicare [id number] Unknown HCAP/HFA/FAP Active [id number] Unknown [id number] 2.16.840.1.782003.3.579.2.531 Social History Date Type Detail Facility Unknown if ever smoked [employer] Other Start: 04-19-2023 End: 10-25-2023 Sex Assigned At [employer] Other Start: 04-05-2023 End: 02-19-2024 Tobacco smoking status MIIS Ex-smoker [facility] End: 07-03-2007 History of tobacco use Current smoker [facility] End: 07-03-2007 History of tobacco use [facility] Start: 04-05-2023 End: 04-19-2023 Cigarettes smoked current (pack per day) - [facility] Start: 04-05-2023 Tobacco use and exposure Smokeless tobacco [facility]-user [facility] Start: 10-25-2023 Alcohol intake Ex-drinker (finding) [facility] Do you belong to any clubs or organizations such as congregation groups, [employer], fra[employer]indi or athletic groups, or school groups? No [facility] Are you now , , , , never or living with a partner? [facility] How often to you hav e a drink containing alcohol? Never [facility] How many standard dr inks containing alcohol do you have on a typical day? Patient does not drink [facility] [employer] [facility] Do you feel stress - tense, restless, nervous, or anxious, or unable to sleep at night because your mind is troubled all the time - these days [OSQ] Not at all [facility] Start: 08-22-[address] [facility] Start: 1960 Sex Assigned At Not on file [facility] Start: 1960 Sex Assigned At Male [facility] Medical Equipment Procedure Code Equipment Code Equipment Origin al Text Equipment Identifier Dates [id number] Start: 02-24-2023 Pen Needle, Diab etic (Bd [...] Notes Sep, Abdominal pain (ICD-10 - R10.9) [employer] Other 09-19-2023 Evaluation note* Encounter Date Diagnosis [...] and make recommendations for long-term supplementation with elvx-jwn-trpvdmx formulations or prescription grade repletion. Jul, Dietary [...] was published to portal [employer] today. Jul, FPC current use of insulin (ICD-10 - Z79.4) Jul, BMI 34.0-34.9,adult (ICD-10 - Z68.34) Jul, Abdominal pain, left upper quadrant (ICD-10 - R10.12) Jul, Other Weight down 6.2 lbs-- improves insulin sensitivity [employer] Other 06-13-2023 Evaluation note* Encounter Date Diagnosis [...] and make recommendations for long-term supplementation with ngle-nfl-yzeoggj formulations or prescription grade repletion. Apr, Dietary [...] Weight down 6.2 lbs-- improves insulin sensitivity [employer] Other 05-02-2023 Evaluation note* Encounter Date Diagnosis [...] and make recommendations for long-term supplementation with mbqb-gzb-qwasjdn formulations or prescription grade repletion. March, Dietary [...] was published to portal [employer] today. 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 2. [...] treatment options with their primary care provider.[id number] Evaluation note * Encounter Date Diagnosis Assessment Notes Treatment Notes Treatment Clinical Notes Feb, Type 2 diabetes mellitus with hyperglycemia (ICD-10 - E11.65) [employer] Other 03-09-2023 NoteCONSULTATION CONSULTATION DATE: 01/31/2023 HISTORY [...] followed up in the clinic post procedure.[id number] Note CONSULTATION CONSULTATION DATE: 01/03/2023 HISTORY OF [...] be followed up in the office thereafter.[id number] Evaluation note* Encounter Date Diagnosis Assessment Notes [...] and make recommendations for long-term supplementation with zfcw-ktk-nyehlri formulations or prescription grade repletion. Nov, Dietary [...] was published to portal [employer] today. 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 Range of [...] PLAN: The patient is to stop his rjlm-spw-itqhbms NSAIDs, and we will replace that with [...] agrees to move forward with the plan.[facility] [id number] Evaluation note* Encounter Date Diagnosis Assessment Notes [...] Novolog and pen needles be sent to Hailye Kwan/ Chris Aug, Vitamin D deficiency (ICD-10 [...] and make recommendations for long-term supplementation with vqhu-owa-svgodfy formulations or prescription grade repletion. Aug, Dietary [...] was published to portal [employer] today. 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 May, Dietary [...] was published to portal [employer] today. 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 Feb, Dietary [...] was published to portal [employer] today. Feb, FPC current use of insulin (ICD-10 - Z79.4) Feb, BMI 34.0-34.9,adult (ICD-10 - Z68.34) weight stable [employer] [employer] Other 04-08-2022 Evaluation note* Encounter Date Diagnosis Assessment Notes Treatment Notes Treatment Clinical Notes Feb, Type 2 diabetes mellitus with hyperglycemia (ICD-10 - E11.65) [employer] Other 04-04-2022 Evaluation note* Encounter Date Diagnosis Assessment Notes Treatment Notes Treatment Clinical Notes Feb, Type 2 diabetes mellitus with hyperglycemia (ICD-10 - E11.65) [employer] Other 02-16-2022 Evaluation note* Encounter Date Diagnosis [...] was published to portal [employer] today. 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 STANISLAV (obstructive sleep apnea) Retinopathy Type 2 diabetes mellitus with hyperglycemia Vitamin D deficiency [facility] Work Phone: Evaluation noteNo InformationNortWellSpan [facility] [employer] Other Evaluation noteNo assessment information available [facility] Work Phone: Evaluation note* Diagnosis Onset Date Resolution Status Type 2 diabetes mellitus with hyperglycemia acute [facility] Work Phone: Evaluation note* Diagnosis Onset Date Resolution Status Type 2 diabetes mellitus with hyperglycemia acute Hyperlipidemia acute Type 2 diabetes mellitus with hyperglycemia acute Vitamin D deficiency acute [facility] Work Phone: Evaluation note* Diagnosis Onset Date Resolution Status Dietary counseling and surveillance acute HTN (hypertension) acute Hyperlipidemia acute 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 acute STANISLAV (obstructive sleep apnea) acute Retinopathy acute Type 2 diabetes mellitus with hyperglycemia acute Vitamin D deficiency acute [facility] Work Phone: History general Narrative - Reported* [...] Colon CA 2009 Hospitalization History See Above [employer] Other History general Narrative - Reported* Type [...] Colon CA 2009 Hospitalization History See Above [employer] Other Hiszpbo general Narrative - Reported* Type Description Date [...] Hospitalization History Colon CA 2008 Hospitalization History [facility] ER for stomach flu February or March 2023 [employer] Other History general Narrative - ReportedVertex [employer] Other InstructionsNot on filedocumented in this encounter [facility] SystemReason for visit NarrativeDS GI Referral-deferrred PCP recom retrial [employer] Other Summary Purpose Family History No Family [...] CREATED AUTHOR AUTHOR'S ORGANIZ ATION 04/04/2023 [facility] DATE CREATED AUTHOR AUTHOR'S ORGANIZ ATION 01/13/2024 [facility] DATE CREATED AUTHOR AUTHOR'S ORGANIZ ATION 09/01/2024 [facility] REASON FOR VISIT (unrecogniz ed section and content) Reason Comments Med Refill Care Teams (unrecognized sec tion and content) Delivery Associate Relationship Specialty Start Date End Date Rinku Trejo DO [address] [facility], [place] [address] PCP - General Family Medicine 07/03/17 Team [...] BE BASED ON THE PRIMARY CLINICAL RECORDS. [employer] provides no warranty or guarantee of the accuracy or completeness of information in this document.
[2024-09-04 10:45] LABS: Prostate Specific Antigen Scrn 0.63 ng/mL (<=4.00)
== END 2024-09-04 09:18 | disposition home or self-care (01) ==
LOC: LAB 09:18
PROVIDERS: PCP Family Medicine; Visit Provider Family Medicine
DX: E78.2 Mixed hyperlipidemia (principal); I10 Essential (primary) hypertension; E55.9 Vitamin D deficiency, unspecified; Z12.5 Encounter for screening for malignant neoplasm of prostate
CPT/HCPCS: 36415; G0103

== ENCOUNTER 2024-12-07 10:17 | Outpatient (OUT) | payer MEDICARE, SELFPAY ==
--- OUTSIDE RECORDS SUMMARY | 2024-12-07 10:22 | XMS_ITS | CCD ---
Author Organization [facility] CliniSyfl Care Team Providers Care [employer] Manager Name Role Phone Melissa Joyce Unavailable LAKSHMIPATHY ., NARENDRANATH Consulting Su vailable LAKSHMIPATHY ., DONG Attending Su vailable FURROBERTONG, DR RINKU Peralta [facility] Unavailable LAKSHMIPATHY [...] DAY Admitting Unavailable LENY, DIANE Attending Unavailable LENYDIANE Admitting Unavailable FURLONG, DR RINKU Peralta Primary [...] CABRALES ., SADIA Consulting Unavailable LAKSHMIPATHY ., NARNAHOMI Attending Su vailable LAKSHMIPATHY ., DONG Admitting Su vailable FURLONG, DR RINKU [facility] Unavailable HALKER ., ZO Admitting Unavailable FURLONG, DR RINKU [facility]ta [facility] Unavailable HALKER ., ZO Attending Unavailable LAKSHMIPATHY ., DONG Attending Su vailable LAKSHMIPATHY ., DONG Admitting Su vailable FURLONG, DR RINKU [facility]ta [facility] Unavailable ELSA MAR Consulting Unavailable LAKSHMIPATHY ., DONG Consulting Su vailable PAY ., DR TALAVERA Consulting Unavailable FURLONG, DR RINKU [facility]ta [facility] Unavailable PAY ., DR TALAVERA Admitting Unavailable PAY ., DR TALAVERA Attending Unavailable DESIRAE SOSA Consulting Unavailable FURROBERTONG, DR RINKU [facility]ta [facility] Unavailable EDUARDO, DR DAY Consulting Unavailable EDUARDO, DR DAY Attending Unavailable EDUARDO, DR DAY Admitting Unavailable YazanerUday Consulting Unavailable COBURN ., DR HAYDE Staley [...] Unavailable Furlong Rinku FORD Primary Care Provider [phone] DO Rinku Trejo Primary Care Provider [phone] Furmalathi, DO Dobbs Attending Provider Rinku Trejo Unavailable Rinku Trejo Primary Care Unavailable Rinku Trejo Admitting Unavailable ESTHER, RINKU Peralta Attending Unavailable ESTHER, RINKU Peralta Referring Unavailable RINKU TREJO Primary Care Unavailable [...] Active amitriptyline hydrochloride 25 mg oral tablet (8 sources) Tricyclic Antidepressant take 1 tablet by mouth in the morning amitriptyline (ELAVIL) 25 mg tablet Take 1 tablet (25 mg total) by mouth in the morning. Active amLODIPine 5 mg oral tablet (20 sources) Dihydropyridine Calcium Channel Shadi Start: End: take 1 tablet by mouth once daily Amlodipine 5 mg tablet Active 5 MG PO Daily February 17, 2024 11:00pm Start: 06-24-2023 End: 12-04-2023 take 1 tablet by mouth once daily amLODIPine (NORVASC) 5 mg tablet take 1 tablet by mouth once daily 90 tablet 1 12/04/2023 Active aspirin 81 mg delayed release oral tablet (20 sources) Platelet Aggregation Inhibitor, Nonsteroidal Anti-inflammatory Drug Start: 02-19-2024 End: 09-22-2024 take 1 tablet by mouth once daily Aspirin 81 mg tablet,delayed release (DR/EC) Active 81 MG PO Daily February 18, 2024 11:00pm Start: 04-29-2023 take 1 tablet by cirilo th once daily aspirin 81 mg take 1 tablet by mouth once daily 90 tablet 3 04/29/2023 Active atorvastatin 40 mg oral tablet (20 sources) HMG-CoA Reductase Inhibitor Start: 01-14-2024 End: 09-02-2024 take 1 tablet by mouth once daily Atorvastatin 40 mg tablet Active 40 MG PO Daily September 02, 2024 7:12am FreeTextSi tablet Orally Once a day; Note: Source Status: Taking; Provider: Isiah Torres ( ) Start: 09-20-2023 End: 12-11-2023 take 1 tablet by mouth once daily atorvastatin (LIPITOR) 40 mg tablet take 1 tablet by mouth once daily 90 tablet 0 12/11/2023 Active baclofen 10 mg oral tablet (20 sources) gamma-Aminobutyric Acid-ergic Agonist Start: 11-09-2024 take 1 tablet by mouth three times daily as needed for muscle spasms baclofen (LIORESAL) 10 mg tablet TAKE 1 TABLET BY MOUTH THREE TIMES DAILY NEEDED FOR MUSCLE SPASMS 60 tablet 1 11/09/2024 Active Start: 08-13-2024 End: 11-09-2024 take 1 tablet by mouth three times daily as needed for muscle spasms baclofen (LIORESAL) 10 mg tablet TAKE 1 TABLET BY MOUTH THREE TIMES DAILY NEEDED FOR MUSCLE SPASMS 60 tablet 09/23/2024 11/09/2024 Discontinued Start: 02-18-2024 take 1 tablet by cirilo th once daily Baclofen 10 mg tablet Active 10 MG PO Daily February 17, 2024 11:00pm Start: 03-21-2023 take 0.5-1 tablets b y [...] Weekly Active cholecalciferol 0.1 mg oral tablet (20 sources) Vitamin D Start: 09-22-2024 take 1 tablet by mouth in the morning cholecalciferol, vitamin D3, 2,000 units tablet Take 1 tablet (2,000 Units total) by mouth in the morning. 90 tablet 3 09/22/2024 Active Start: 01-14-2024 End: 10-07-2024 take 1 tablet by mouth once daily Cholecalciferol (Vitamin D3) 100 mcg (4,000 unit) tablet Active 100 MCG PO Daily October 07, 2024 9:15am Start: 03-26-2023 End: 09-22-2024 take 2 tablets by mouth in the morning cholecalciferol, vitamin D3, 2,000 units tablet Take 2 tablets (4,000 Units total) by mouth in the morning. 03/26/2023 09/22/2024 Discontinued (Reorder) Start: 03-26-2023 Cholecalcifero l 100 MCG (4000 UT) as directed Orally Once a day for 90 days March, Active Cholecalciferol 100 MCG (4000 UT) as directed Orally Once a day for 90 days Active take 1 capsule by [facility] every week Cholecalciferol 1.25 MG (59806 UT) 1 capsule Orally weekly for 56 days Active dapagliflozin 10 mg oral tablet (20 sources) Sodium-Glucose Cotransporter 2 Inhibitor Start: 01-14-2024 End: 09-02-2024 take 1 tablet by mouth once daily Dapagliflozin Propanediol (Farxiga) 10 mg tablet Active 10 MG PO Daily September 02, 2024 7:53am Flash Glucose Sensor (Freestyle Mya 2 Sensor) kit (7 sources) Start: 09-02-2024 Flash Glucose Sensor (Freestyle Mya 2 Sensor) kit Active 0 .Route September 02, 2024 7:25am Change every 14 days Start: 09-02-2024 Flash Glucose Sensor (Freestyle Mya 2 Sensor) kit Active 0 .Route September 02, 2024 8:25am Change every 14 days Start: 01-14-2024 End: 09-02-2024 Flash Glucose Sensor (Freest yle Mya 2 Sensor) kit Discontinued 0 .Route January 14, 2024 12:00am September 02, 2024 7:26am Change every 14 days Start: 01-14-2024 End: 09-02-2024 Flash Glucose Sensor (Freest yle Mya 2 Sensor) kit Discontinued 0 .Route January 14, 2024 1:00am September 02, 2024 8:26am Change every 14 days Start: 01-14-2024 Flash Glucose Sensor (Freestyle Mya 2 Sensor) kit Active 0 .Route January 14, 2024 1:00am Change every 14 days Start: 01-14-2024 Flash Glucose Sensor (Freestyle Mya 2 Sensor) kit Active 0 .Route January 14, 2024 12:00am Change every 14 days flash glucose sensor kit (6 sources) Start: 01-14-2024 flash glucose sensor kit 01/14/2024 Active fluticasone propionate 0.05 mg/actuat metered dose nasal [...] E11.65 Active gabapentin 300 mg oral capsule (11 sources) Anti-epileptic Agent Start: 08-13-2024 End: 10-12-2024 take 1 capsule by mouth in the morning gabapentin (NEURONTIN) 300 mg capsule Indications: Chronic right-sided low back pain with right-sided sciatica TAKE 1 CAPSULE BY MOUTH IN THE MORNING 30 capsule 1 10/12/2024 Active Start: 10-25-2023 take 1 capsule by mo uth once daily gabapentin (NEURONTIN) 300 mg capsule Indications: Chronic right-sided low back pain with right-sided sciatica Take 1 capsule (300 mg total) by mouth nightly. 30 capsule 1 10/25/2023 Active Insulin Aspart U-100 (Novolo g Flexpen U-100 Insulin) 100 unit/mL (3 mL) insulin pen (5 sources) Start: 01-14-2024 Insulin Aspart U-100 (Novolog [...] (3) times daily after meals as needed. Active NovoLOG FlexPen 100 UNIT/ML ISS 1:20, [...] insulin pen INJECT 40 UNITS SUBCUTANEOUSLY DAILY 08/26/2023 Active inject 40 [IU] by yuan [...] U-200) 200 unit/mL (3 mL) insulin pen (20 sources) Start: 09-02-2024 Insulin Deglud ec (Tresiba Flextouch U-200) 200 unit/mL (3 mL) insulin pen Active 30 UNIT SUBCUT Daily September 02, 2024 7:49am Titrate to 50 u per day, has written instructions Start: 06-22-2024 End: 09-02-2024 Insulin Degludec (Tresiba Fl extouch U-200) 200 unit/mL (3 mL) insulin pen Discontinued 32 UNIT SUBCUT Daily June 22, 2024 3:26pm September 02, 2024 7:54am Titrate to 50 u per day, has written instructions Start: 06-22-2024 Insulin Deglud ec (Tresiba Flextouch U-200) 200 unit/mL (3 mL) insulin pen Active 32 UNIT SUBCUT Daily June 22, 2024 4:26pm Titrate to 50 u per day, has written instructions Start: 05-25-2024 End: 06-22-2024 Insulin Degludec (Tresiba Fl extouch U-200) 200 unit/mL (3 mL) insulin pen Discontinued 32 UNIT SUBCUT Daily May 25, 2024 7:16am June 22, 2024 3:28pm Start: 05-25-2024 End: 06-22-2024 Insulin Degludec (Tresiba Fl extouch U-200) 200 unit/mL (3 mL) insulin pen Discontinued 32 UNIT SUBCUT Daily May 25, 2024 8:16am June 22, 2024 4:28pm Start: 05-25-2024 Insulin Deglud ec (Tresiba Flextouch U-200) 200 unit/mL (3 mL) insulin pen Active 32 UNIT SUBCUT Daily May 25, 2024 8:16am Start: 02-19-2024 End: 05-25-2024 Insulin Degludec (Tresiba Fl extouch U-200) 200 unit/mL (3 mL) insulin pen Discontinued 34 UNIT SUBCUT Daily 15.3 90 February 19, 2024 8:11am May 25, 2024 7:18am Start: 02-19-2024 End: 05-25-2024 Insulin Degludec (Tresiba Fl extouch U-200) 200 unit/mL (3 mL) insulin pen Discontinued 34 UNIT SUBCUT Daily 15.3 90 February 19, 2024 9:11am May 25, 2024 8:18am Start: 02-19-2024 End: 02-19-2024 Insulin Degludec (Tresiba Fl extouch U-200) 200 unit/mL (3 mL) insulin pen Discontinued 34 UNIT SUBCUT Daily February 19, 2024 7:10am February 19, 2024 8:13am Start: 02-19-2024 End: 02-19-2024 Insulin Degludec (Tresiba [...] 40 UNIT SUBCUT Daily February 18, 2024 4:25pm February 19, 2024 7:13am Start: 02-18-2024 End: 02-19-2024 Insulin Degludec (Tresiba Fl extouch U-200) 200 unit/mL (3 mL) insulin pen Discontinued 40 UNIT SUBCUT Daily February 18, 2024 5:25pm February 19, 2024 8:13am Start: 01-14-2024 End: 02-18-2024 Insulin Degludec (Tresiba Fl extouch U-200) 200 unit/mL (3 mL) insulin pen Discontinued UNIT SUBCUT January 14, 2024 12:00am February 18, 2024 4:42pm FreeTextSi U Subcutaneous daily; Note: Source Status: Continue yo expect up to 60 u per day; Refills: 1; Qty: 30 ml; Provider: Isiah Bryan Start: 01-14-2024 End: 02-18-2024 Insulin Degludec (Tresiba [...] Bryan insulin lispro 100 unt/ml injectable solution (8 sources) Insulin Analog insulin lispro (HumaLOG) 100 unit/mL injection Inject under the skin 3 (three) times a day before meals. Active lisinopril 40 mg oral tablet (8 sources) Angiotensin Converting Enzyme Inhibitor take 1 tablet by mouth in the morning lisinopriL (PRINIVIL,ZESTRIL) 40 mg tablet Take 1 tablet (40 mg total) by mouth in the morning. Active lovastatin 10 mg oral tablet (2 sources) HMG-CoA Reductase Inhibitor take 1 tablet by mouth once daily Lovastatin 10 MG 1 tablet with the evening meal Orally Once a day Active meloxicam 15 mg oral tablet (10 sources) Nonsteroidal Anti-inflammatory Drug Start: take 1 tablet by mouth in the morning meloxicam (MOBIC) 15 mg tablet TAKE 1 TABLET BY MOUTH IN THE MORNING 30 tablet 1 10/12/2024 Active Start: 08-13-2024 End: 10-12-2024 take 1 tablet by mouth once daily at bedtime meloxicam (MOBIC) 15 mg tablet Take 1 tablet (15 mg total) by mouth once daily at bedtime. 08/31/2024 10/12/2024 Discontinued Start: 02-28-2023 take 1 tablet by cirilo th in the morning meloxicam (MOBIC) 15 mg tablet Take 1 tablet (15 mg total) by mouth in the morning. 0 02/28/2023 Active naproxen 500 mg oral tablet (9 sources) Nonsteroidal Anti-inflammatory Drug take 1 tablet by mouth every twelve hours at mealtime as needed Naproxen 500 MG 1 tablet with food or milk as needed Orally every 12 hrs Active omeprazole 20 mg delayed release oral capsule (9 sources) Proton Pump Inhibitor Start: 10-12-20 take 1 capsule by mouth before breakfast omeprazole (PriLOSEC) 20 mg capsule TAKE 1 CAPSULE BY MOUTH IN THE MORNING BEFORE BREAKFAST 30 capsule 1 10/12/2024 Active Start: 08-13-2024 End: 10-12-2024 take 1 capsule by mouth before breakfast omeprazole (PriLOSEC) 20 mg capsule TAKE 1 CAPSULE BY MOUTH IN THE MORNING BEFORE BREAKFAST 30 capsule 1 08/13/2024 10/12/2024 Discontinued Start: 10-25-2023 take 1 capsule by mo [facility] once daily as needed for pain omeprazole [...] 2 mg/dose (8 mg/3 mL) pen injector (8 sources) Start: 03-29-2023 inject 2 mg by subcutaneous injection every week OZEMPIC 2 mg/dose (8 mg/3 mL) pen injector Inject 2 mg under the skin once a week. 03/29/2023 Active Start: 03-29-2023 inject 2 mg by subcu taneous injection every week OZEMPIC 2 mg/dose (8 mg/3 mL) pen injector Inject 2 mg under the skin once a week. 0 03/29/2023 Active 0.25 mg, 0.5 mg dose 1.5 ml semaglutide 1.34 mg/ml pen injector (1 source) Start: 06-12-2022 Ozempic (0.25 or 0.5 MG/DOSE) 2 MG/1.5ML 0.5 mg Subcutaneous weekly for 90 days May, Active Semaglutide (Ozempic) 2 mg/dose (8 mg/3 mL) pen injector (11 sources) Start: 09-02-2024 inject 2 mg by subcutaneous injection every week Semaglutide (Ozempic) 2 mg/dose (8 mg/3 mL) pen injector Active 2 MG SUBCUT every week 9 September 02, 2024 7:50am 2 mg Subcutaneous weekly Start: 06-22-2024 End: 09-02-2024 inject 2 mg by subcutaneous injection every week Semaglutide (Ozempic) 2 mg/dose (8 mg/3 mL) pen injector Discontinued 2 MG SUBCUT every week 9 June 22, 2024 3:27pm September 02, 2024 7:54am 2 mg Subcutaneous weekly Start: 06-22-2024 inject 2 mg by subcu taneous injection every week Semaglutide (Ozempic) 2 mg/dose (8 mg/3 mL) pen injector Active 2 MG SUBCUT every week 9 June 22, 2024 4:27pm 2 mg Subcutaneous weekly Start: 02-19-2024 End: 06-22-2024 inject 2 mg by subcutaneous injection every week Semaglutide (Ozempic) 2 mg/dose (8 mg/3 mL) pen injector Discontinued 2 MG SUBCUT every week 9.75 February 19, 2024 8:12am June 22, 2024 3:28pm FreeTextSi mg Subcutaneous weekly; Note: Source Status: Re-Start; Refills: 1; Qty: 9 ml; Provider: Isiah Bryan Start: 02-19-2024 End: 06-22-2024 inject 2 mg by subcutaneous injection every week Semaglutide (Ozempic) 2 mg/dose (8 mg/3 mL) pen injector Discontinued 2 MG SUBCUT every week 9.75 February 19, 2024 9:12am June 22, 2024 4:28pm FreeTextSi mg Subcutaneous weekly; Note: Source Status: Re-Start; Refills: 1; Qty: 9 ml; Provider: Isiah Bryan Start: 02-19-2024 inject 2 mg by subcu taneous injection every week Semaglutide (Ozempic) 2 mg/dose (8 mg/3 mL) pen injector Active 2 MG SUBCUT every week 9.75 90 February 19, 2024 9:12am FreeTextSi mg Subcutaneous weekly; Note: Source Status: Re-Start; Refills: 1; Qty: 9 ml; Provider: Isiah Bryan Start: 01-14-2024 End: 02-19-2024 inject 2 mg by subcutaneous injection every week Semaglutide (Ozempic) 2 mg/dose (8 mg/3 mL) pen injector Discontinued 2 MG SUBCUT every week January 14, 2024 12:00am February 19, 2024 8:13am FreeTextSi mg Subcutaneous weekly; Note: Source Status: [...] 1; Qty: 9 ml; Provider: Isiah Bryan topiramate 100 mg oral tablet (8 sources) take 1 tablet by mouth once daily topiramate (TOPAMAX) 100 mg tablet Take 1 tablet (100 mg total) by mouth nightly. Active vitamin b12 1 mg sublingual tablet (20 sources) Vitamin B12 Start: 02-19-2024 take 1 tablet under the tongue once daily Cyanocobalamin (Vitamin B-12) 1,000 mcg tablet, sublingual Active 1000 MCG SUBLINGUAL Daily 90 90 February 19, 2024 8:11am Start: 01-14-2024 End: 02-19-2024 take 1 tablet under the tongue every other day Cyanocobalamin (Vitamin B-12) 1,000 mcg tablet, sublingual Discontinued MCG SUBLINGUAL January 14, 2024 12:00am February 19, 2024 8:13am FreeTextSi tablet under the tongue and allow to dissolve Sublingual EVERY OTHER DAY; Note: Source Status: Taking; Refills: 1; Provider: Isiah Bryan Start: 03-26-2023 take 1 tablet by cirilo th in the morning cyanocobalamin 1000 MCG tablet Take 1 tablet (1,000 mcg total) by mouth in the morning. 03/26/2023 Active Start: 03-06-2022 take 1 tablet [...] MG 2mg Subcutaneous weekly for 28 Not-Taking 24 hr metFORMIN hydrochloride 500 mg extended release oral tablet (20 sources) Biguanide Start: 01-14-2024 End: 09-02-2024 take 1 tablet by mouth twice daily Metformin 500 mg tablet extended release 24 hr Discontinued 500 MG PO Twice daily February 18, 2024 4:26pm February 19, 2024 8:13am Start: 01-14-2024 End: 02-18-2024 take 1 mg by mouth twice daily Metformin Discontinued MG PO January 14, 2024 1:00am February 18, 2024 5:42pm FreeTextSig: cont Orally Twice daily; Note: Source Status: Continue; Refills: 1; Provider: Isiah Bryan take 4 tablets by mo [facility] every twenty-four hours in the evening metFORMIN XR (GLUCOPHAGE XR) 500 mg 24 hr tablet Take 4 tablets (2,000 mg total) by mouth in the evening. Active metFORMIN HCl ER 500 MG cont Orally Twice daily for 90 days Active metFORMIN HCl ER 500 MG 2 tabs BID with meals Orally Twice daily for 90 day(s) Active take 1 tablet by cirilo every twelve hours metFORMIN HCl 850 MG 1 tablet with a meal Orally BID for 90 days Active ozempic (1 mg/dose) 4 mg/3ml solution pen-injector (2 sources) inject 2 mg by subcutaneous injection every week as needed Ozempic (1 MG/DOSE) 4 MG/3ML 2mg SQ once weekly for 90 days Not-Taking/PRN psyllium 520 mg oral capsule (3 sources) Start: End: take 1 capsule by mouth once daily psyllium (METAMUCIL) 0.52 gram capsule Take 1 capsule (0.52 g total) by mouth daily. 30 capsule 01/27/2020 08/31/2024 Discontinued (Therapy completed) tiZANidine 4 mg oral tablet (20 sources) Central alpha-2 Adrenergic Agonist Start: End: Tizanidine 4 mg tablet Discontinued 4 MG PO . NEEDED as needed February 18, 2024 11:00pm September 02, 2024 7:16am tiZANidine HCl 4 MG 1 tablet Orally PRN Active Triamcinolone (20 sources) Corticosteroid Start: 04-06-2020 Start: 04-06-2020 KENALOG - 10 m g March, 40 mg Start: 2017 Start: 2017 Kenalog -40 mg Dec, 40 mg Problems Active Problems Problem Classification Problem Date Documented Date Episodic/Chronic Abdominal pain (6 sources) Left upper quadrant pain; 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: [Unspecified abdominal pain] Episodic Administrative/social admission (20 sources) Dietary counseling and surveillance; 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: [Patient encounter status] Onset: 12-25-2021 Resolved: 06-12-2022 Episodic Cancer of colon (8 sources) Carcinoma in situ of colon; 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: [Carcinoma in situ of colon] Onset: 10-29-2012 08-23-2022 Chronic Conditions associated with dizziness or vertigo (1 source) Dizziness and giddiness; 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: [DIZZINESS AND GIDDINESS] Onset: 04-02-2023 Episodic Diabetes mellitus with complications (20 sources) Hyperglycemia due to type 2 diabetes mellitus; 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: [Type 2 diabetes mellitus with hyperglycemia] Onset: 04-24-2017 Resolved: 06-12-2022 Chronic Diabetes mellitus without complication (9 sources) Type 2 diabetes mellitus without complications; [...] migraine; 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: [HEADACHE UNSPECIFIED] Onset: 04-06-2022 Hepatitis (8 sources) Nonalcoholic steatohepatitis; 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: [Nonalcoholic steatohepatitis (ANTUNEZ)] Onset: 08-25-2018 08-23-2022 Chronic Immunizations and screening for infectious disease (2 sources) Encounter for immunization; 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: [Needs influenza immunization] Onset: 08-31-2024 08-31-2024 Episodic Nausea and vomiting (4 sources) [...] sources) Long-term current use of insulin; 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] 02-18-2024 Episodic Other aftercare (14 sources) intermediate (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; 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: [Long-term (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] Onset: 12-25-2021 Resolved: 06-12-2022 Episodic Other aftercare (1 source) intermediate (current) use of aspirin; 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: [INTERMEDIATE 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] Onset: 04-02-2023 Episodic Other aftercare (1 source) Other manager long term care (current) drug therapy; 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: [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[employer] CURRENT DRUG THERAPY] Onset: 04-02-2023 Episodic Other [...] Chronic Other nutritional; endocrine; and metabolic disorders (8 sources) High density lipoprotein deficiency ; 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: [Lipoprotein deficiency] Onset: 04-24-2017 08-23-2022 Chronic Other nutritional; endocrine; and metabolic disorders (9 sources) Obesity caused by energy imbalance; 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: [Other obesity due to excess calories] 04-19-2023 Chronic Other nutritional; endocrine; and metabolic disorders (4 sources) Body mass index 30+ - obesity; 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: [Body mass index (BMI) 34.0-34.9, adult] 02-18-2024 Chronic Other nutritional; endocrine; and metabolic disorders (1 source) Morbid (severe) obesity due to excess calories; 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: [Morbid (severe) obesity due to excess calories] Onset: 08-31-2024 Chronic Other screening for suspected conditions (not mental disorders or infectious disease) (2 sources) Encounter for screening for malignant neoplasm of prostate; 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: [Patient encounter status] Onset: 08-31-2024 08-31-2024 Episodic Pneumonia (except that caused by tuberculosis or sexually transmitted disease) (1 source) Pneumonia, unspecified organism; 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: [PNEUMONIA UNSPECIFIED ORGANISM] Onset: 04-02-2023 Episodic Residual codes; unclassified (7 sources) Obstructive sleep apnea (adult) (pediatric); 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: [Obstructive sleep apnea (adult)(pediatric)] Onset: 07-02-2022 Chronic Residual codes; unclassified (12 sources) Obstructive sleep apnea syndrome; 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: [Obstructive sleep apnea (adult) (pediatric)] Onset: 04-17-2011 04-05-2023 Chronic Residual codes; unclassified (1 source) Procedure and treatment not carried out for other reasons; 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: [PROC AND TX NOT CARRIED OUT OTH REASONS] Onset: 02-06-2023 Episodic Retinal detachments; defects; vascular occlusion; and retinopathy (13 sources) Retinal disorder; 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: [Unspecified background retinopathy] Onset: 08-31-2024 02-18-2024 Chronic Spondylosis; intervertebral disc disorders; other back problems (19 sources) Spondylosis without myelopathy or radiculopathy, cervical [...] Documented Da te Episodic/Chronic Cancer of colon (8 sources) History of malignant neoplasm of colon; 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: [Personal history of other malignant neoplasm of large intestine] Onset: 01-27-2020 01-27-2020 Episodic Cancer of testis (8 sources) Malignant tumor of testis; 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: [Malignant neoplasm of unspecified testis, unspecified whether descended or undescended] Onset: 03-25-1997 Resolved: 04-19-2023 04-19-2023 Chronic Gastrointestinal hemorrhage (16 sources) Rectal hemorrhage; 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: [Hemorrhage of anus and rectum] Onset: 01-26-2020 01-26-2020 Episodic Headache; including migraine (8 sources) Headache disorder; 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: [Other complicated headache syndrome] Onset: 08-23-2022 08-23-2022 Episodic Hemorrhoids (16 sources) Internal hemorrhoids; 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: [Other hemorrhoids] Onset: 01-27-2020 01-27-2020 Episodic Mood disorders (8 sources) Mood disorders Onset: 10-25-2023 Resolved: 08-31-2024 10-25-2023 Other aftercare (1 source) intermediate (current) use of oral hypoglycemic drugs; 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: [SALES REPRESENTATIVE [employer] USE ORAL HYPOGLYCEMIC DX] Onset: 04-10-2022 Episodic Other gastrointestinal disorders (16 sources) Ulceration of colon; 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: [Ulcer of intestine] Onset: 01-27-2020 01-27-2020 Episodic Other nutritional; endocrine; and metabolic disorders (6 sources) Morbid obesity; 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: [Morbid (severe) obesity due to excess calories] Onset: 08-31-2024 Resolved: 08-31-2024 08-31-2024 Chronic Screening and history of mental health and substance abuse codes (9 sources) Personal history of nicotine dependence; 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: [Ex-smoker] Onset: 08-23-2022 08-23-2022 Episodic Spondylosis; intervertebral disc disorders; other back problems (16 sources) Cervicalgia; 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: [Cervical disc disorder with radiculopathy, unspecified cervical region] Onset: 08-23-2022 Episodic Sprains and strains (8 sources) Whiplash injury to neck; 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: [Sprain of ligaments of cervical spine, initial encounter] Onset: 08-23-2022 08-23-2022 Episodic Results Test Name Value Interpretation Reference Range Facility A1C HEMOGLOBINon 08-13-2023 HbA1c (Bld) [Mass fraction] 6.3 % [facility] Other Glucose - FINGER STICKon Glucose [Mass/Vol] 122 mg/dL [facility] Other HbA1c (Bld) [Mass fraction]o n 08-13-2023 A1C HEMOGLOBIN [facility] Other Glucose - FINGER STICKon Glucose [Mass/Vol] 142 mg/dL [facility] Other ACETONE SERUMon 03-29-2023 ACETONE Negative Normal NEGATIVE [facility] Comment on above: Performed By: #### U MICRO, ERUR #### [facility] [address] [place] [address] Dr. Dequan Márquez BNPon 03-29-2023 Natriuretic peptide B (Bld) [Mass/Vol] 352.0 pg/mL Normal <=900.0 [facility] Comment on above: Performed By: #### U MICRO, ERUR #### [facility] [address] [place] [address] Dr. Dequan Márquez CBC AUTO DIFFon 03-29-2023 BASO # 0.1 103/ul Normal 0.0-0.1 [facility] Comment on above: Performed By: #### C BC #### [facility] [address] [address] [address] Dequan Márquez Basophils/100 WBC (Bld) 0.4 % Normal 0.2-2.0 [facility] Comment on above: Performed By: #### C BC #### [facility] [address] [address] [address] Dequan Márquez EO # 0.0 103/ul Normal 0.0-0.7 [facility] Comment on above: Performed By: #### C BC #### [facility] [address] [place] [address] Dr. Dequan Márquez Eosinophils/100 WBC (Bld) 0.0 % Critically low 0.9-7.0 [facility] Comment on above: Performed By: #### C BC #### [facility] [address] [place] [address] Dr. Dequan Márquez Erythrocyte distribution width (RBC) [Ratio] 14.1 % Normal 11.0-15.0 [facility] Comment on above: Performed By: #### C BC #### [facility] [address] [place] [address] Dr. Dequan Márquez Hematocrit (Bld) [Volume fraction] 47.0 % Normal 42.0-54.0 [facility] Comment on above: Performed By: #### C BC #### [facility] [address] [place] [address] Dr. Dequan Márquez Hemoglobin (Bld) [Mass/Vol] 15.6 g/dL Normal 14.0-18.0 [facility] Comment on above: Performed By: #### C BC #### [facility] [address] [place] [address] Dr. Dequan Márquez IG # 0.29 10e3/ul Critically high 0.00-0.03 [facility] Comment on above: Performed By: #### C BC #### [facility] [address] [place] [address] Dr. Dequan Márquez IG % 1.4 % Critically high 0.0-0.5 [facility] Comment on above: Performed By: #### C BC #### [facility] [address] [address] [address] Dequan Márquez LYMPH # 1.2 103/ul Normal 1.2-3.8 [facility] Comment on above: Performed By: #### C BC #### [facility] [address] [place] [address] Dr. Dequan Márquez Lymphocytes/100 WBC (Bld) 5.4 % Critically low 20.5-60.0 [facility] Comment on above: Performed By: #### C BC #### [facility] [address] [place] [address] Dr. Dequan Márquez MANUAL DIFF REQ NO Normal [facility] Comment on above: Performed By: #### C BC #### [facility] [address] [place] [address] Dr. Dequan Márquez MCH (RBC) [Entitic mass] 28.6 pg Normal 25.9-34.0 [facility] Comment on above: Performed By: #### C BC #### [facility] [address] [place] [address] Dr. Dequan Márquez MCHC (RBC) [Mass/Vol] 33.2 g/dL Normal 29.9-35.2 [facility] Comment on above: Performed By: #### C BC #### [facility] [address] [place] [address] Dr. Dequan Márquez MCV (RBC) [Entitic vol] 86.2 fL Normal 80.0-94.0 [facility] Comment on above: Performed By: #### C BC #### [facility] [address] [place] [address] Dr. Dequan Márquez MONO # 1.3 103/ul Critically high 0.3-0.8 [facility] Comment on above: Performed By: #### C BC #### [facility] [address] [place] [address] Dr. Dequan Márquez Monocytes/100 WBC (Bld) 6.1 % Normal 1.7-12.0 [facility] Comment on above: Performed By: #### C BC #### [facility] [address] [place] [address] Dr. Dequan Márquez NEUT # 18.6 103/ul Critically high 1.4-6.5 [facility] Comment on above: Performed By: #### C BC #### [facility] [address] [place] [address] Dr. Dequan Márquez Neutrophils/100 WBC (Bld) 86.7 % Critically high 43.0-75.0 [facility] Comment on above: Performed By: #### C BC #### [facility] [address] [place] [address] Dr. Dequan Márquez Platelet mean volume (Bld) [Entitic vol] 11.2 fL Normal 9.5-13.5 [facility] Comment on above: Performed By: #### C BC #### [facility] [address] [place] [address] Dr. Dequan Márquez PLT 275 103/ul Normal 150-450 [facility] Comment on above: Performed By: #### C BC #### [facility] [address] [place] [address] Dr. Dequan Márquez RBC 5.45 106/ul Normal 4.70-6.10 [facility] Comment on above: Performed By: #### C BC #### [facility] [address] [place] [address] Dr. Dequan Márquez WBC 21.4 103/ul Critically high 4.0-11.0 [facility] Comment on above: Performed By: #### C BC #### [facility] [address] [place] [address] Dr. Dequan Márquez CULTURE BLOODon 03-29-2023 Microscopic examination of blood, culture Culture Observations: NO GROWTH AT 5 DAYS. Normal [facility] Comment on above: Performed By: #### U MICRO, ERUR #### [facility] [address] [place] [address] Dr. Dequan Márquez Covid-19 PCR (CVDTB)on SARS-CoV-2 (COVID-19) RNA YONIS+probe Ql (Unsp spec) Not detected Normal NOT DETECTED [facility] Comment on above: Result Comment: This test is not yet approved or cleared by the [place] FDA. When there are no FDA-approved or cleared tests available, and other criteria are met, FDA can make tests available under an emergency access mechanism called an Emergency Use Authorization (EUA). The EUA for this test is supported by the [employer] Professor of Health and Human Service's (HHS's) declaration [...] SARS-CoV-2. Performed By: #### C BC #### [facility] [address] [place] [address] Dr. Dequan Márquez ER URINE PROFILEon 3 Bilirubin Ql (U) Negative Normal NEGATIVE [facility] Comment on above: Performed By: #### U MICRO, ERUR #### [facility] [address] [place] [address] Dr. Dequan Márquez Clarity (U) CLEAR Normal CLEAR [facility] Comment on above: Performed By: #### U MICRO, ERUR #### [facility] [address] [place] [address] Dr. Dequan Márquez Color (U) YELLOW Normal YELLOW [facility] Comment on above: Performed By: #### U MICRO, ERUR #### [facility] [address] [place] [address] Dr. Dequan Márquez ERUAHD A micrscopic examination will be performed if indicated. Normal [facility] Comment on above: Performed By: #### U MICRO, ERUR #### [facility] [address] [place] [address] Dr. Dequan Márquez Glucose Ql (U) >1000 Abnormal NEGATIVE [facility] Comment on above: Performed By: #### U MICRO, ERUR #### [facility] [address] [address] [address] Dequan Márquez Hemoglobin Ql (U) SMALL Abnormal NEGATIVE [facility] Comment on above: Performed By: #### U MICRO, ERUR #### [facility] [address] [address] [address] Dequan Márquez Ketones Ql (U) Negative Normal NEGATIVE [facility] Comment on above: Performed By: #### U MICRO, ERUR #### [facility] [address] [address] [address] Dequan Márquez LEUKOCYTES Negative Normal NEGATIVE [facility] Comment on above: Performed By: #### U MICRO, ERUR #### [facility] [address] [address] [address] Dequan Márquez Nitrite Ql (U) Negative Normal NEGATIVE [facility] Comment on above: Performed By: #### U MICRO, ERUR #### [facility] [address] [place] [address] Dr. Dequan Márquez pH (U) 5.5 [pH] Normal 5-9 [facility] Comment on above: Performed By: #### U MICRO, ERUR #### [facility] [address] [address] [address] Dequan Márquez Protein (U) [Mass/Vol] 100 mg/dL Abnormal NEGATIVE/ TRACE [facility] Comment on above: Performed By: #### U MICRO, ERUR #### [facility] [address] [place] [address] Dr. Dequan Márquez SPEC GRAVITY 1.020 Normal 1.005-<=1.025 [facility] Comment on above: Performed By: #### U MICRO, ERUR #### [facility] [address] [address] [address] Dequan Márquez UR MICRO IND INDICATED Normal [facility] Comment on above: Performed By: #### U MICRO, ERUR #### [facility] [address] [place] [address] Dr. Dequan Márquez Urobilinogen Qn (U) 0.2 {Stuart'U}/dL Normal 0.2 - 1.0 [facility] Comment on above: Performed By: #### U MICRO, ERUR #### [facility] [address] [place] [address] Dr. Dequan Márquez LACTATE/LACTIC ACIDon 2022 Lactate [Moles/Vol] 2.0 mmol/L Normal 0.4-2.0 [facility] Comment on above: Performed By: #### L ACT #### [facility] [address] [place] [address] Dr. Dequan Márquez LIPASEon 03-29-2023 Lipase [Catalytic activity/Vol] 120.0 U/L Normal 73.0-393.0 [facility] Comment on above: Performed By: #### B BUSINESS SUPPORT ASSOCIATE, HSTROPN, CMP, LIPA #### [facility] [address] [place] [address] Dr. Dequan Márquez PH VENOUS BLOODon 03-29-2023 PCO2 VENOUS 36.3 mmHg Critically low 40.0-52.0 [facility] Comment on above: Performed By: #### U MICRO, ERUR #### [facility] [address] [place] [address] Dr. Dequan Márquez pH VENOUS 7.470 Critically high 7.330-7.430 [facility] Comment on above: Performed By: #### U MICRO, ERUR #### [facility] [address] [place] [address] Dr. Dequan Márquez PROF 14(COMP METB)on 023 Albumin [Mass/Vol] 3.6 g/dL Normal 3.4-5.0 [facility] Comment on above: Performed By: #### B BUSINESS SUPPORT ASSOCIATE, HSTROPN, CMP, LIPA #### [facility] [address] [place] [address] Dr. Dequan Márquez Albumin/Globulin [Mass ratio] 0.8 {ratio} Normal [facility] Comment on above: Performed By: #### B BUSINESS SUPPORT ASSOCIATE, HSTROPN, CMP, LIPA #### [facility] [address] [place] [address] Dr. Dequan Márquez ALP [Catalytic activity/Vol] 126 U/L Critically high 46-116 [facility] Comment on above: Performed By: #### B BUSINESS SUPPORT ASSOCIATE, HSTROPN, CMP, LIPA #### [facility] [address] [place] [address] Dr. Dequan Márquez ALT [Catalytic activity/Vol] 43 U/L Normal 16-63 [facility] Comment on above: Performed By: #### B BUSINESS SUPPORT ASSOCIATE, HSTROPN, CMP, LIPA #### [facility] [address] [place] [address] Dr. Dequan Márquez Anion gap [Moles/Vol] 11.4 mmol/L Normal [facility] Comment on above: Performed By: #### B BUSINESS SUPPORT ASSOCIATE, HSTROPN, CMP, LIPA #### [facility] [address] [place] [address] Dr. Dequan Márquez AST [Catalytic activity/Vol] 21 U/L Normal 15-37 [facility] Comment on above: Performed By: #### B BUSINESS SUPPORT ASSOCIATE, HSTROPN, CMP, LIPA #### [facility] [address] [place] [address] Dr. Dequan Márquez Bilirubin [Mass/Vol] 1.5 mg/dL Critically high 0.2-1.0 [facility] Comment on above: Performed By: #### B BUSINESS SUPPORT ASSOCIATE, HSTROPN, CMP, LIPA #### [facility] [address] [place] [address] Dr. Dequan Márquez Calcium [Mass/Vol] 8.9 mg/dL Normal 8.5-10.1 [facility] Comment on above: Performed By: #### B BUSINESS SUPPORT ASSOCIATE, HSTROPN, CMP, LIPA #### [facility] [address] [place] [address] Dr. Dequan Márquez Chloride [Moles/Vol] 95 mmol/L Critically low 98-107 [facility] Comment on above: Performed By: #### B BUSINESS SUPPORT ASSOCIATE, HSTROPN, CMP, LIPA #### [facility] [address] [place] [address] Dr. Dequan Márquez CO2 [Moles/Vol] 28.2 mmol/L Normal 21.0-32.0 [facility] Comment on above: Performed By: #### B BUSINESS SUPPORT ASSOCIATE, HSTROPN, CMP, LIPA #### [facility] [address] [place] [address] Dr. Dequan Márquez Creatinine [Mass/Vol] 1.14 mg/dL Normal 0.70-1.30 [facility] Comment on above: Performed By: #### B BUSINESS SUPPORT ASSOCIATE, HSTROPN, CMP, LIPA #### [facility] [address] [place] [address] Dr. Deqaun Márquez EGFR-AF PUERTO RICAN >60 Normal >=60 [facility] Comment on above: Performed By: #### B BUSINESS SUPPORT ASSOCIATE, HSTROPN, CMP, LIPA #### [facility] [address] [place] [address] Dr. Dequan Márquez EGFR-NON AF PUERTO RICAN >60 Normal >=60 [facility] Comment on above: Performed By: #### B BUSINESS SUPPORT ASSOCIATE, HSTROPN, CMP, LIPA #### [facility] [address] [place] [address] Dr. Dequan Márquez Globulin (S) [Mass/Vol] 4.8 g/dL Normal [facility] Comment on above: Performed By: #### B BUSINESS SUPPORT ASSOCIATE, HSTROPN, CMP, LIPA #### [facility] [address] [place] [address] Dr. Dequan Márquez Glucose [Mass/Vol] 209 mg/dL Critically high 74-106 [facility] Comment on above: Performed By: #### B BUSINESS SUPPORT ASSOCIATE, HSTROPN, CMP, LIPA #### [facility] [address] [place] [address] Dr. Dequan Márquez Potassium [Moles/Vol] 3.6 mmol/L Normal 3.5-5.1 [facility] Comment on above: Performed By: #### B BUSINESS SUPPORT ASSOCIATE, HSTROPN, CMP, LIPA #### [facility] [address] [place] [address] Dr. Dequan Márquez Protein [Mass/Vol] 8.4 g/dL Critically high 6.4-8.2 [facility] Comment on above: Performed By: #### B BUSINESS SUPPORT ASSOCIATE, HSTROPN, CMP, LIPA #### [facility] [address] [address] [address] Dequan Márquez Sodium [Moles/Vol] 131 mmol/L Critically low 136-145 [facility] Comment on above: Performed By: #### B BUSINESS SUPPORT ASSOCIATE, HSTROPN, CMP, LIPA #### [facility] [address] [place] [address] Dr. Dequan Márquez Urea nitrogen [Mass/Vol] 22.0 mg/dL Critically high 7.0-18.0 [facility] Comment on above: Performed By: #### B BUSINESS SUPPORT ASSOCIATE, HSTROPN, CMP, LIPA #### [facility] [address] [place] [address] Dr. Dequan Márquez Urea nitrogen/Creatinin e [Mass ratio] 19.3 mg/mg Normal [facility] Comment on above: Performed By: #### B BUSINESS SUPPORT ASSOCIATE, HSTROPN, CMP, LIPA #### [facility] [address] [place] [address] Dr. Dequan Márquez PROTIMEon 03-29-2023 INR Coag (PPP) [Relative time] 1.10 {INR} Normal [facility] Comment on above: Performed By: #### C BC #### [facility] [address] [place] [address] Dr. Dequan Márquez INR GUIDELINES SEE BELOW Normal [facility] Comment on above: Result Comment: JESSICA RED INR: 2.0 - 3.0 CONDITIONS NOT LISTED BELOW 2.5 - 3.5 FOR PROSTHETIC HEART VALVE REPLACEMENT 2.5 - 3.5 RECURRENT THROMBOSIS Performed By: #### C BC #### [facility] [address] [place] [address] Dr. Dequan Márquez PT Coag (PPP) [Time] 11.6 s Normal 9.0-11.6 [facility] Comment on above: Performed By: #### C BC #### [facility] [address] [place] [address] Dr. Dequan Márquez SYMPTOMATIC COVID-19 ANTIGEN on 03-29-2023 EUA Statement SEE BELOW Normal [facility] [place] Comment on above: Result Comment: This test [...] sooner. Performed By: #### C VDAGS #### [facility] [address] [place] [address] Dr. Dequan Márquez SARS-CoV-2 (COVID-19) RNA YONIS+probe Ql (Unsp spec) Negative Normal NEGATIVE [facility] Comment on above: Performed By: #### C VDAGS #### [facility] [address] [place] [address] Dr. Dequan Márquez TROPONIN, HIGH SENSITIVITYon 03-29-2023 HSTROP 5.2 pg/mL Normal 4.0-76.1 [facility] Comment on above: Result Comment: CUT- OFF POINTS HAVE BEEN ESTABLISHED BASED ON THE FOURTH UNIVERSAL DEFINITIONS OF MYOCARDIAL INFARCTION. THE UPPER REFERENCE LIMIT (URL) OF TROPONIN, DEFINED THE 99TH PERCENTILE OF cTnI DISTRIBUTION IN A REFERENCE POPULATION, HAS BEEN CONFIRMED THE DECISION THRESHOLD FOR [place] DIAGNOSIS. Performed By: #### U MICRO, ERUR #### [facility] [address] [place] [address] Dr. Dequan Márquez URINE MICROSCOPIC ONLYon BACTERIA TRACE Abnormal NONE SEEN [facility] Comment on above: Performed By: #### U MICRO, ERUR #### [facility] [address] [place] [address] Dr. Dequan Márquez Bacteria identified Cx Nom (U) NOT INDICATED Normal [facility] Comment on above: Performed By: #### U MICRO, ERUR #### [facility] [address] [address] [address] Dequan Márquez CAST NONE SEEN Normal NONE SEEN [facility] Comment on above: Performed By: #### U MICRO, ERUR #### [facility] [address] [place] [address] Dr. Dequan Márquez Crystals LM Nom (Urine sed) NONE SEEN Normal NONE SEEN [facility] Comment on above: Performed By: #### U MICRO, ERUR #### [facility] [address] [place] [address] Dr. Dequan Márquez Epithelial cells LM Ql (Urine sed) FEW Abnormal NONE SEEN /RARE [facility] Comment on above: Performed By: #### U MICRO, ERUR #### [facility] [address] [place] [address] Dr. Dequan Márquez MUCOUS NONE SEEN Normal NONE SEEN [facility] Comment on above: Performed By: #### U MICRO, ERUR #### [facility] [address] [place] [address] Dr. Dequan Márquez RBC 2-5 Abnormal 0-2 [facility] Comment on above: Performed By: #### U MICRO, ERUR #### [facility] [address] [place] [address] Dr. Dequan Márquez WBC 0-2 Abnormal NONE SEEN [facility] Comment on above: Performed By: #### U MICRO, ERUR #### [facility] [address] [place] [address] Dr. Dequan Márquez XR CHEST 1 Von [...] DESIRAE SOSA Date: 2023-03-29 14:10 Normal [facility] A1C HEMOGLOBINon 03-26-2023 HbA1c (Bld) [Mass fraction] 6.5 % [employer] Other Glucose - FINGER STICKon Glucose [Mass/Vol] 156 mg/dL [employer] Other HbA1c (Bld) [Mass fraction]o n 03-26-2023 A1C HEMOGLOBIN [employer] Other A1C HEMOGLOBINon 12-25-2022 HbA1c (Bld) [Mass fraction] 7.0 % [employer] Other Glucose - FINGER STICKon Glucose [Mass/Vol] 107 mg/dL [employer] Other HbA1c (Bld) [Mass fraction]o n 12-25-2022 A1C HEMOGLOBIN [employer] Other MRI CSPINE WO CONon 10-22-20 MRI [...] by: LEDY MARIE Date: 2022-10-22 21:47 Normal [facility] A1C HEMOGLOBINon 09-20-2022 HbA1c (Bld) [Mass fraction] 7.0 % [employer] Other Glucose - FINGER STICKon Glucose [Mass/Vol] 121 mg/dL [employer] Other HbA1c (Bld) [Mass fraction]o n 09-20-2022 A1C HEMOGLOBIN [employer] Other MICROALBUMIN/ CREATININE RAT IOon 08-14-2022 Albumin, Urine 4.3 ug/mL Normal Not Estab. [facility] Comment on above: Performed By: #### C BC #### [facility] [address] [address] [address] Dequan Márquez Albumin/ Creatinine Ratio 11 mg/g creat Normal 0-29 [facility] Comment on above: Result Comment: Norm al: 0 - 29 Moderately increased: 30 - 300 Severely increased: >300 Performed By: #### C BC #### [facility] [address] [address] [address] Dequan Márquez Creatinine, Urine 38.5 mg/dL Normal Not Estab. [facility] Comment on above: Performed By: #### C BC #### [facility] [address] [address] [address] Dequan Márquez LIPID PROFILEon 08-13-2022 CHOL-HDL RATIO NORM SEE BELOW Normal [facility] Comment on above: Result Comment: 3.3 - 4.4 LOW RISK 4.4 - 7.1 AVERAGE RISK 7.1 - 11.0 MODERATE RISK >11.0 HIGH RISK Performed By: #### C BC #### [facility] [address] [place], [place] [address] Dr. Dequan Márquez Cholesterol [Mass/Vol] 111 mg/dL Normal <=200 [facility] Comment on above: Performed By: #### C BC #### [facility] [address] [place], [place] [address] Dr. Dequan Márquez Cholesterol in HDL [Mass/Vol] 28 mg/dL Critically low 40-60 [facility] Comment on above: Performed By: #### C BC #### [facility] [address] [address] [address] Dequan Márquez Cholesterol in LDL [Mass/Vol] 51.0 mg/dL Normal [facility] Comment on above: Performed By: #### C BC #### [facility] [address] [address] [address] Dequan Márquez Cholesterol.total/ Cholesterol in HDL [Mass ratio] 4.0 {ratio} Normal [facility] Comment on above: Performed By: #### C BC #### [facility] [address] [address] [address] Dequan Márquez HDL NORMAL > or = 60 mg/dl - LO W CARDIOVASCULAR RISK <40 mg/dl - HIGH CARDIOVASCULAR RISK Normal [facility] Comment on above: Performed By: #### C BC #### [facility] [address] [address] [address] Dequan Márquez LDL CALC NORMAL SEE BELOW Normal [facility] Comment on above: Result Comment: <100 mg/dl OPTIMAL 100 - 129 mg/dl NEAR OR ABOVE OPTIMAL 130 - 159 mg/dl BORDERLINE HIGH 160 - 189 mg/dl HIGH >190 mg/dl VERY HIGH Performed By: #### C BC #### [facility] [address] [address] [address] Dequan Márquez Triglyceride [Mass/Vol] 160 mg/dL Critically high <=150 [facility] Comment on above: Performed By: #### C BC #### [facility] [address] [address] [address] Dequan Márquez VLDL CALC 32.0 mg/dL Normal [facility] Comment on above: Performed By: #### C BC #### [facility] [address] [address] [address] Dequan Márquez PROF 14(COMP METB)on 022 Albumin [Mass/Vol] 4.1 g/dL Normal 3.4-5.0 [facility] Comment on above: Performed By: #### C BC #### [facility] [address] [place] [address] Dr. Dequan Márquez Albumin/Globulin [Mass ratio] 1.0 {ratio} Normal [facility] Comment on above: Performed By: #### C BC #### [facility] [address] [place] [address] Dr. Dequan Márquez ALP [Catalytic activity/Vol] 114 U/L Normal 46-116 [facility] Comment on above: Performed By: #### C BC #### [facility] [address] [place] [address] Dr. Dequan Márquez ALT [Catalytic activity/Vol] 43 U/L Normal 16-63 [facility] Comment on above: Performed By: #### C BC #### [facility] [address] [place] [address] Dr. Dequan Márquez Anion gap [Moles/Vol] 11.0 mmol/L Normal [facility] Comment on above: Performed By: #### C BC #### [facility] [facility] [address] [place] [address] Dr. Dequan Márquez AST [Catalytic activity/Vol] 20 U/L Normal 15-37 [facility] Comment on above: Performed By: #### C BC #### [facility] [address] [place] [address] Dr. Dequan Márquez Bilirubin [Mass/Vol] 0.5 mg/dL Normal 0.2-1.0 [facility] Comment on above: Performed By: #### C BC #### [facility] [address] [place] [address] Dr. Dequan Márquez Calcium [Mass/Vol] 9.2 mg/dL Normal 8.5-10.1 [facility] Comment on above: Performed By: #### C BC #### [facility] [address] [place] [address] Dr. Dequan Márquez Chloride [Moles/Vol] 102 mmol/L Normal 98-107 [facility] Comment on above: Performed By: #### C BC #### [facility] [address] [address] [address] Dequan Márquez CO2 [Moles/Vol] 26.3 mmol/L Normal 21.0-32.0 [facility] Comment on above: Performed By: #### C BC #### [facility] [address] [place] [address] Dr. Dequan Márquez Creatinine [Mass/Vol] 0.90 mg/dL Normal 0.70-1.30 [facility] Comment on above: Performed By: #### C BC #### [facility] [address] [place] [address] Dr. Dequan Márquez EGFR-AF PUERTO RICAN >60 Normal >=60 [facility] Comment on above: Performed By: #### C BC #### [facility] [address] [place] [address] Dr. Dequan Márquez EGFR-NON AF PUERTO RICAN >60 Normal >=60 [facility] Comment on above: Performed By: #### C BC #### [facility] [address] [place] [address] Dr. Dequan Márquez Globulin (S) [Mass/Vol] 4.3 g/dL Normal [facility] Comment on above: Performed By: #### C BC #### [facility] [address] [place] [address] Dr. Dequan Márquez Glucose [Mass/Vol] 149 mg/dL Critically high 74-106 [facility] Comment on above: Performed By: #### C BC #### [facility] [address] [place] [address] Dr. Dequan Márquez Potassium [Moles/Vol] 4.3 mmol/L Normal 3.5-5.1 [facility] Comment on above: Performed By: #### C BC #### [facility] [address] [place] [address] Dr. Dequan Márquez Protein [Mass/Vol] 8.4 g/dL Critically high 6.4-8.2 [facility] Comment on above: Performed By: #### C BC #### [facility] [address] [address] [address] Dequan Márquez Sodium [Moles/Vol] 135 mmol/L Critically low 136-145 [facility] Comment on above: Performed By: #### C BC #### [facility] [address] [address] [address] Dequan Márquez Urea nitrogen [Mass/Vol] 30.0 mg/dL Critically high 7.0-18.0 [facility] Comment on above: Performed By: #### C BC #### [facility] [address] [address] [address] Dequan Márquez Urea nitrogen/Creatinin e [Mass ratio] 33.3 mg/mg Normal [facility] Comment on above: Performed By: #### C BC #### [facility] [address] [place] [address] Dr. Dequan Márquez MRI BRAIN WO CONon [...] to document stability. Electronically authenticated by: UDAY FRANCIS Date: 2022-06-13 06:18 Normal [facility] A1C HEMOGLOBINon 06-12-2022 HbA1c (Bld) [Mass fraction] 7.1 % [employer] Other Glucose - FINGER STICKon Glucose [Mass/Vol] 181 mg/dL [employer] Other HbA1c (Bld) [Mass fraction]o n 06-12-2022 A1C HEMOGLOBIN [facility] [employer] Other CRPon 05-30-2022 CRP 1.0 mg/dL Normal <=1.0 [facility] Comment on above: Performed By: #### C BC #### [facility] [address] [address] [address] Dequan Márquez SED RATE WESTERGRENon 2021 SED RATE 32 mm/hr Critically high <=20 [facility] Comment on above: Performed By: #### S EDR #### [facility] [address] [address] [address] Dequan Márquez CBC AUTO DIFFon 04-06-2022 BASO # 0.1 103/ul Normal 0.0-0.1 [facility] Comment on above: Performed By: #### C BC #### [facility] [address] [address] [address] Dequan Márquez Basophils/100 WBC (Bld) 0.9 % Normal 0.2-2.0 [facility] Comment on above: Performed By: #### C BC #### [facility] [address] [place] [address] Dr. Dequan Márquez EO # 0.3 103/ul Normal 0.0-0.7 [facility] Comment on above: Performed By: #### C BC #### [facility] [address] [place] [address] Dr. Dequan Márquez Eosinophils/100 WBC (Bld) 3.1 % Normal 0.9-7.0 [facility] Comment on above: Performed By: #### C BC #### [facility] [address] [place] [address] Dr. Dequan Márquez Erythrocyte distribution width (RBC) [Ratio] 13.6 % Normal 11.0-15.0 [facility] Comment on above: Performed By: #### C BC #### [facility] [address] [place] [address] Dr. Dequan Márquez Hematocrit (Bld) [Volume fraction] 44.8 % Normal 42.0-54.0 [facility] Comment on above: Performed By: #### C BC #### [facility] [address] [place] [address] Dr. Dequan Márquez Hemoglobin (Bld) [Mass/Vol] 14.9 g/dL Normal 14.0-18.0 [facility] Comment on above: Performed By: #### C BC #### [facility] [address] [place] [address] Dr. Dequan Márquez IG # 0.02 10e3/ul Normal 0.00-0.03 [facility] Comment on above: Performed By: #### C BC #### [facility] [address] [place] [address] Dr. Dequan Márquez IG % 0.2 % Normal 0.0-0.5 [facility] Comment on above: Performed By: #### C BC #### [facility] [address] [place] [address] Dr. Dequan Márquez LYMPH # 2.3 103/ul Normal 1.2-3.8 [facility] Comment on above: Performed By: #### C BC #### [facility] [address] [place] [address] Dr. Dequan Márquez Lymphocytes/100 WBC (Bld) 28.7 % Normal 20.5-60.0 [facility] Comment on above: Performed By: #### C BC #### [facility] [address] [place] [address] Dr. Dequan Márquez MANUAL DIFF REQ NO Normal [facility] Comment on above: Performed By: #### C BC #### [facility] [address] [place] [address] Dr. Dequan Márquez MCH (RBC) [Entitic mass] 29.3 pg Normal 25.9-34.0 [facility] Comment on above: Performed By: #### C BC #### [facility] [address] [place] [address] Dr. Dequan Márquez MCHC (RBC) [Mass/Vol] 33.3 g/dL Normal 29.9-35.2 [facility] Comment on above: Performed By: #### C BC #### [facility] [address] [place] [address] Dr. Dequan Márquez MCV (RBC) [Entitic vol] 88.2 fL Normal 80.0-94.0 [facility] Comment on above: Performed By: #### C BC #### [facility] [address] [place] [address] Dr. Dequan Márquez MONO # 0.7 103/ul Normal 0.3-0.8 [facility] Comment on above: Performed By: #### C BC #### [facility] [address] [place] [address] Dr. Dequan Márquez Monocytes/100 WBC (Bld) 8.8 % Normal 1.7-12.0 [facility] Comment on above: Performed By: #### C BC #### [facility] [address] [place] [address] Dr. Dequan Márquez NEUT # 4.7 103/ul Normal 1.4-6.5 [facility] Comment on above: Performed By: #### C BC #### [facility] [address] [address] [address] Dequan Márquez Neutrophils/100 WBC (Bld) 58.3 % Normal 43.0-75.0 [facility] Comment on above: Performed By: #### C BC #### [facility] [address] [address] [address] Dequan Márquez Platelet mean volume (Bld) [Entitic vol] 11.1 fL Normal 9.5-13.5 [facility] Comment on above: Performed By: #### C BC #### [facility] [address] [place] [address] Dr. Dequan Márquez PLT 311 103/ul Normal 150-450 [facility] Comment on above: Performed By: #### C BC #### [facility] [address] [place] [address] Dr. Dequan Márquez RBC 5.08 106/ul Normal 4.70-6.10 [facility] Comment on above: Performed By: #### C BC #### [facility] [address] [place] [address] Dr. Dequan Márquez WBC 8.1 103/ul Normal 4.0-11.0 [facility] Comment on above: Performed By: #### C BC #### [facility] [address] [place] [address] Dr. Dequan Márquez PROF 14(COMP METB)on 022 Albumin [Mass/Vol] 3.9 g/dL Normal 3.4-5.0 [facility] Comment on above: Performed By: #### C MP #### [facility] [address] [place] [address] Dr. Dequan Márquez Albumin/Globulin [Mass ratio] 1.0 {ratio} Normal [facility] Comment on above: Performed By: #### C MP #### [facility] [address] [place] [address] Dr. Dequan Márquez ALP [Catalytic activity/Vol] 128 U/L Critically high 46-116 [facility] Comment on above: Performed By: #### C MP #### [facility] [address] [address] [address] Dequan Márquez ALT [Catalytic activity/Vol] 54 U/L Normal 16-63 [facility] Comment on above: Performed By: #### C MP #### [facility] [address] [address] [address] Dequan Márquez Anion gap [Moles/Vol] 12.1 mmol/L Normal [facility] Comment on above: Performed By: #### C MP #### [facility] [address] [address] [address] Dequan Márquez AST [Catalytic activity/Vol] 26 U/L Normal 15-37 [facility] Comment on above: Performed By: #### C MP #### [facility] [address] [address] [address] Dequan Márquez Bilirubin [Mass/Vol] 0.4 mg/dL Normal 0.2-1.0 [facility] Comment on above: Performed By: #### C MP #### [facility] [address] [address] [address] Dequan Márquez Calcium [Mass/Vol] 8.9 mg/dL Normal 8.5-10.1 [facility] Comment on above: Performed By: #### C MP #### [facility] [address] [address] [address] Dequan Márquez Chloride [Moles/Vol] 105 mmol/L Normal 98-107 [facility] Comment on above: Performed By: #### C MP #### [facility] [address] [address] [address] Dequan Márquez CO2 [Moles/Vol] 27.1 mmol/L Normal 21.0-32.0 [facility] Comment on above: Performed By: #### C MP #### [facility] [address] [address] [address] Dequan Márquez Creatinine [Mass/Vol] 0.90 mg/dL Normal 0.70-1.30 [facility] Comment on above: Performed By: #### C MP #### [facility] [address] [address] [address] Dequan Márquez EGFR-AF PUERTO RICAN >60 Normal >=60 [facility] Comment on above: Performed By: #### C MP #### [facility] [address] [address] [address] Dequan Márquez EGFR-NON AF PUERTO RICAN >60 Normal >=60 [facility] Comment on above: Performed By: #### C MP #### [facility] [address] [address] [address] Dequan Márquez Globulin (S) [Mass/Vol] 3.9 g/dL Normal [facility] Comment on above: Performed By: #### C MP #### [facility] [address] [address] [address] Dequan Márquez Glucose [Mass/Vol] 115 mg/dL Critically high 74-106 [facility] Comment on above: Performed By: #### C MP #### [facility] [address] [address] [address] Dequan Márquez Potassium [Moles/Vol] 4.2 mmol/L Normal 3.5-5.1 [facility] Comment on above: Performed By: #### C MP #### [facility] [address] [place] [address] Dr. Dequan Márquez Protein [Mass/Vol] 7.8 g/dL Normal 6.4-8.2 [facility] Comment on above: Performed By: #### C MP #### [facility] [address] [address] [address] Dequan Márquez Sodium [Moles/Vol] 140 mmol/L Normal 136-145 [facility] Comment on above: Performed By: #### C MP #### [facility] [address] [address] [address] Dequan Márquez Urea nitrogen [Mass/Vol] 21.0 mg/dL Critically high 7.0-18.0 [facility] Comment on above: Performed By: #### C MP #### [facility] [address] [address] [address] Dequan Márquez Urea nitrogen/Creatinin e [Mass ratio] 23.3 mg/mg Normal [facility] Comment on above: Performed By: #### C MP #### [facility] [address] [address] [address] Dequan Márquez A1C HEMOGLOBINon 03-06-2022 HbA1c (Bld) [Mass fraction] 7.1 % [employer] Other Glucose - FINGER STICKon Glucose [Mass/Vol] 140 mg/dL [employer] Other HbA1c (Bld) [Mass fraction]o n 03-06-2022 A1C HEMOGLOBIN [facility] Other Glucose - FINGER STICKon Glucose [Mass/Vol] 120 mg/dL [employer] Other Glucose - FINGER STICKon Glucose [Mass/Vol] 131 mg/dL [employer] Other BASIC METABOLIC PANELon 12-0 BUN/CREATININE RATIO NOT APPLICABLE Normal 6-22 [facility] Comment on above: Performed By: #### 7 600, [id number] #### [facility] [address] [place] [address] Residence Supervisor: Mann Jama MD Calcium [Mass/Vol] 8.7 mg/dL Normal 8.6-10.3 [facility] Comment on above: Performed By: #### 7 600, [id number] #### [facility] [address] [place] [address] Residence Supervisor: Mann Jama MD Chloride [Moles/Vol] 105 mmol/L Normal 98-110 [facility] Comment on above: Performed By: #### 7 600, [id number] #### [facility] [address] [place] [address] Residence Supervisor: Mann Jama MD CO2 [Moles/Vol] 25 mmol/L Normal 20-32 [facility] Comment on above: Performed By: #### 7 600, [id number] #### [facility] [address], [address] [place] [address] Residence Supervisor: Mann Jama MD Creatinine [Mass/Vol] 0.84 mg/dL Normal 0.70-1.33 [facility] Comment on above: Result Comment: For patients >49 years of age, the reference limit for Creatinine is approximately 13% higher for people identified as -Austrian. Performed By: #### 7 600, [id number] #### [facility] [address], [address] [place] [address] Residence Supervisor: Mann Jama MD eGFR NON-AFR. PUERTO RICAN 96 mL/min/1.73m2 Normal > OR = 60 [facility] Comment on above: Performed By: #### 7 600, [id number] #### [facility] [address], [address] [place] [address] Residence Supervisor: Mann Jama MD GFR/1.73 sq M.predicted among blacks MDRD (S/P/Bld) [Vol rate/Area] 111 mL/min/{1.73_m2} Normal > OR = 60 [facility] Comment on above: Performed By: #### 7 600, [id number] #### [facility] [place] [address] Residence Supervisor: Mann Jama MD Glucose [Mass/Vol] 139 mg/dL High 65-99 [facility] Comment on above: Result Comment: Fasting reference interval For someone without known diabetes, a glucose value >125 mg/dL indicates that they may have diabetes and this should be confirmed with a follow-up test. Performed By: #### 7 600, [id number] #### [facility] [address], [address] [place] [address] Residence Supervisor: Mann Jama MD Potassium [Moles/Vol] 4.3 mmol/L Normal 3.5-5.3 [facility] Comment on above: Performed By: #### 7 600, [id number] #### [facility] [address], [address] [place] [address] Residence Supervisor: Mann Jama MD Sodium [Moles/Vol] 138 mmol/L Normal 135-146 [facility] Comment on above: Performed By: #### 7 600, [id number] #### [facility] [address], [address] [place] [address] Residence Supervisor: Mann Jama MD Urea nitrogen [Mass/Vol] 22 mg/dL Normal 7-25 [facility] Comment on above: Performed By: #### 7 600, [id number] #### [facility] [address], [address] [place] [address] Residence Supervisor: Mann Jama MD LIPID PANEL, [facility] 12-0 Cholesterol [Mass/Vol] 107 mg/dL Normal <200 [facility] Comment on above: Order Comment: FASTI NG:YES FASTING: YES Performed By: #### 7 600, [id number] #### [facility] [address], [address] [place] [address] Residence Supervisor: Mann Jama MD Cholesterol in HDL [Mass/Vol] 22 mg/dL Low > OR = 40 [facility] Comment on above: Order Comment: FASTI NG:YES FASTING: YES Performed By: #### 7 600, [id number] #### [facility] [address], [address] [place] [address] Residence Supervisor: Mann Jama MD Cholesterol in LDL [Mass/Vol] [...] LDL-C. Donnie CROWELL et al. MARCIE. 2013;310(19): 1051-4602 (http://education.Uppidy.DNA Response/faq/BXM856) Performed By: #### 7 600, [id number] #### [facility] [address], [address] [place] [address] Residence Supervisor: Mann Jama MD Cholesterol.total/ Cholesterol in HDL [Mass ratio] 4.9 {ratio} Normal <5.0 [facility] Comment on above: Order Comment: FASTI NG:YES FASTING: YES Performed By: #### 7 600, [id number] #### [facility] [address], [address] [place] [address] Residence Supervisor: Mann Jama MD NON HDL CHOLESTEROL 85 mg/dL (calc) Normal <130 [facility] Comment on above: Order Comment: FASTI NG:YES FASTING: YES Result Comment: For patients with diabetes plus 1 major ASCVD risk factor, treating to a non-HDL-C goal of <100 mg/dL (LDL-C of <70 mg/dL) is considered a therapeutic option. Performed By: #### 7 600, [id number] #### [facility] [address], [address] [place] [address] Residence Supervisor: Mann Jama MD Triglyceride [Mass/Vol] 93 mg/dL Normal <150 [facility] Comment on above: Order Comment: FASTI NG:YES FASTING: YES Performed By: #### 7 600, [id number] #### [facility] [address], [address] [place] [address] Residence Supervisor: Mann Jama MD Vital Signs Date Time Vital Sign Value Performing Clinician Facility 12-07-2024 08:08-0500 Body height 177.[address] [facility] 12-07-2024 08:08-0500 Body mass index (BMI) [Ratio] 32.6 kg/m2 [facility] 12-07-2024 08:08-0500 Body weight 103.[address] [facility] 12-07-2024 08:08-0500 Diastolic blood pressure 80 mm[Hg] [facility] 12-07-2024 08:08-0500 Heart rate 88 /min [facility] 12-07-2024 08:08-0500 Respiratory rate 18 /min [facility] 12-07-2024 08:08-0500 SaO2% (BldA) [Mass fraction] 98 % [facility] 12-07-2024 08:08-0500 Systolic blood pressure 119 mm[Hg] [facility] 09-02-2024 08:01-0400 Body height 177.[address] [facility] 09-02-2024 08:01-0400 Body mass index (BMI) [Ratio] 33.2 kg/m2 [facility] 09-02-2024 08:01-0400 Body weight 105.[address] [facility] 09-02-2024 08:01-0400 Diastolic blood pressure 70 mm[Hg] [facility] 09-02-2024 08:01-0400 Heart rate 76 /min [facility] 09-02-2024 08:01-0400 Respiratory rate 18 /min [facility] 09-02-2024 08:01-0400 SaO2% (BldA) [Mass fraction] 97 % [facility] 09-02-2024 08:01-0400 Systolic blood pressure 121 mm[Hg] [facility] 08-31-2024 09:05-0400 Body height 177.8 cm Rinku Furlong DO Work Phone: [facility] 08-31-2024 09:05-0400 Body mass index (BMI) [Ratio] 32.89 kg/m2 Rinku Furlong DO Work Phone: [facility] 08-31-2024 09:05-0400 Body temperature 97.3 [degF] Rinku Furlong DO Work Phone: [facility] 08-31-2024 09:05-0400 Body weight 103.96 kg Rinku Furlong DO Work Phone: [facility] 08-31-2024 09:05-0400 Diastolic blood pressure 80 mm[Hg] Rinku Furlong DO Work Phone: [facility] 08-31-2024 09:05-0400 Heart rate 79 /min Rinku Furlong DO Work Phone: [facility] 08-31-2024 09:05-0400 Respiratory rate 18 /min Rinku Trejo DO Work Phone: [facility] 08-31-2024 09:05-0400 SaO2% (BldA) [Mass fraction] 96 % Rinku Anneng DO Work Phone: [facility] 08-31-2024 09:05-0400 Systolic blood pressure 130 mm[Hg] Rinku Trejo DO Work Phone: [facility] 05-25-2024 08:19-0400 Body height 177.[address] [facility] 05-25-2024 08:19-0400 Body mass index (BMI) [Ratio] 32.8 kg/m2 [facility] 05-25-2024 08:19-0400 Body weight 103.[address] [facility] 05-25-2024 08:19-0400 Diastolic blood pressure 84 mm[Hg] [facility] 05-25-2024 08:19-0400 Heart rate 76 /min [facility] 05-25-2024 08:19-0400 Respiratory rate 18 /min [facility] 05-25-2024 08:19-0400 SaO2% (BldA) [Mass fraction] 97 % [facility] 05-25-2024 08:19-0400 Systolic blood pressure 133 mm[Hg] [facility] 02-19-2024 08:17-0400 Body height 154.[address] [facility] 02-19-2024 08:17-0400 Body mass index (BMI) [Ratio] 43.9 kg/m2 [facility] 02-19-2024 08:17-0400 Body weight 105.[address] [facility] 02-19-2024 08:17-0400 Diastolic blood pressure 73 mm[Hg] [facility] 02-19-2024 08:17-0400 Heart rate 75 /min [facility] 02-19-2024 08:17-0400 Respiratory rate 18 /min [facility] 02-19-2024 08:17-0400 SaO2% (BldA) [Mass fraction] 97 % [facility] 02-19-2024 08:17-0400 Systolic blood pressure 121 mm[Hg] [facility] 11-19-2023 08:15-0500 Body height 177.8 cm DO [employer] Work Phone: [facility] 11-19-2023 08:15-0500 Body weight 107.63 kg DO [employer] Work Phone: [facility] 11-19-2023 08:15-0500 Diastolic blood pressure 76 mm[Hg] DO Rinku [employer] Work Phone: [facility] 11-19-2023 08:15-0500 Systolic blood pressure 122 mm[Hg] DO [employer] Work Phone: [facility] 08-13-2023 08:15-0400 Body height 177.8 cm Melissa Scally Other [employer] Other 08-13-2023 08:15-0400 Body mass index (BMI) [Ratio] 34.1 kg/m2 Melissa Scally Other [employer] Other 08-13-2023 08:15-0400 Body weight 107.82 kg Melissa Scally Other [employer] Other 08-13-2023 08:15-0400 Diastolic blood pressure 83 mm[Hg] Melissa Scally Other [employer] Other 08-13-2023 08:15-0400 Respiratory rate 18 /min Melissa Scally Other [employer] Other 08-13-2023 08:15-0400 SaO2% (BldA) [Mass fraction] 99 % Melissa Scally Other [employer] Other 08-13-2023 08:15-0400 Systolic blood pressure 122 mm[Hg] Melissa Scally Other [employer] Other 05-07-2023 08:15-0400 Body height 177.8 cm Melissa Scally Other [employer] Other 05-07-2023 08:15-0400 Body mass index (BMI) [Ratio] 34.36 kg/m2 Melissa Scally Other [employer] Other 05-07-2023 08:15-0400 Body weight 108.64 kg Melissa Scally Other [employer] Other 05-07-2023 08:15-0400 Diastolic blood pressure 78 mm[Hg] Melissa Scally Other [employer] Other 05-07-2023 08:15-0400 Respiratory rate 20 /min Melissa Scally Other [employer] Other 05-07-2023 08:15-0400 SaO2% (BldA) [Mass fraction] 98 % Melissa Scally Other [employer] Other 05-07-2023 08:15-0400 Systolic blood pressure 115 mm[Hg] Melissa Scally Other [employer] Other 03-26-2023 11:15-0400 Body height 177.8 cm Melissa Scally Other [employer] Other 03-26-2023 11:15-0400 Body mass index (BMI) [Ratio] 35.25 kg/m2 Melissa Scally Other [employer] Other 03-26-2023 11:15-0400 Body weight 111.45 kg Melissa Scally Other [employer] Other 03-26-2023 11:15-0400 Diastolic blood pressure 86 mm[Hg] Melissa Scally Other [employer] Other 03-26-2023 11:15-0400 Respiratory rate 18 /min Melissa Scally Other [employer] Other 03-26-2023 11:15-0400 SaO2% (BldA) [Mass fraction] 97 % Melissa Scally Other [employer] Other 03-26-2023 11:15-0400 Systolic blood pressure 125 mm[Hg] Melissa Scally Other [employer] Other 12-25-2022 11:00-0500 Body height 177.8 cm Melissa Scally Other [employer] Other 12-25-2022 11:00-0500 Body mass index (BMI) [Ratio] 35.15 kg/m2 Melissa Scally Other [employer] Other 12-25-2022 11:00-0500 Body weight 111.13 kg Melissa Scally Other [employer] Other 12-25-2022 11:00-0500 Diastolic blood pressure 86 mm[Hg] Melissa Scally Other [employer] Other 12-25-2022 11:00-0500 Respiratory rate 18 /min Melissa Scally Other [employer] Other 12-25-2022 11:00-0500 SaO2% (BldA) [Mass fraction] 97 % Melissa Scally Other [employer] Other 12-25-2022 11:00-0500 Systolic blood pressure 135 mm[Hg] Melissa Scally Other [employer] Other 09-20-2022 11:00-0400 Body height 177.8 cm Melissa Scally Other [employer] Other 09-20-2022 11:00-0400 Body mass index (BMI) [Ratio] 34.92 kg/m2 Melissa Scally Other [employer] Other 09-20-2022 11:00-0400 Body weight 110.41 kg Melissa Scally Other [employer] Other 09-20-2022 11:00-0400 Diastolic blood pressure 80 mm[Hg] Melissa Scally Other [employer] Other 09-20-2022 11:00-0400 Respiratory rate 18 /min Melissa Scally Other [employer] Other 09-20-2022 11:00-0400 SaO2% (BldA) [Mass fraction] 97 % Melissa Scally Other [employer] Other 09-20-2022 11:00-0400 Systolic blood pressure 115 mm[Hg] Melissa Scally Other [employer] Other 06-12-2022 10:00-0400 Body height 177.8 cm Melissa Scally Other [employer] Other 06-12-2022 10:00-0400 Body mass index (BMI) [Ratio] 35.48 kg/m2 Melissa Scally Other [employer] Other 06-12-2022 10:00-0400 Body weight 112.18 kg Melissa Scally Other [employer] Other 06-12-2022 10:00-0400 Diastolic blood pressure 67 mm[Hg] Melissa Scally Other [employer] Other 06-12-2022 10:00-0400 Respiratory rate 18 /min Melissa Scally Other [employer] Other 06-12-2022 10:00-0400 SaO2% (BldA) [Mass fraction] 96 % Melissa Scally Other [employer] Other 06-12-2022 10:00-0400 Systolic blood pressure 99 mm[Hg] Melissa Scally Other [employer] Other 03-06-2022 11:15-0400 Body height 177.8 cm Melissa Scally Other [employer] Other 03-06-2022 11:15-0400 Body mass index (BMI) [Ratio] 34.95 kg/m2 Melissa Scally Other [employer] Other 03-06-2022 11:15-0400 Body weight 110.5 kg Melissa Scally Other [employer] Other 03-06-2022 11:15-0400 Diastolic blood pressure 77 mm[Hg] Melissa Scally Other [employer] Other 03-06-2022 11:15-0400 Respiratory rate 20 /min Melissa Scally Other [employer] Other 03-06-2022 11:15-0400 SaO2% (BldA) [Mass fraction] 99 % Melissa Scally Other [employer] Other 03-06-2022 11:15-0400 Systolic blood pressure 120 mm[Hg] Melissa Scally Other [employer] Other 01-10-2022 11:45-0500 Body height 177.8 cm Melissa Scally Other [employer] Other 01-10-2022 11:45-0500 Body mass index (BMI) [Ratio] 34.33 kg/m2 Melissa Scally Other [employer] Other 01-10-2022 11:45-0500 Body weight 108.55 kg Melissa Scally Other [employer] Other 01-10-2022 11:45-0500 Diastolic blood pressure 78 mm[Hg] Melissa Scally Other [employer] Other 01-10-2022 11:45-0500 Respiratory rate 18 /min Melissa Scally Other [employer] Other 01-10-2022 11:45-0500 SaO2% (BldA) [Mass fraction] 97 % Melissa Scally Other [employer] Other 01-10-2022 11:45-0500 Systolic blood pressure 128 mm[Hg] Melissa Scally Other [employer] Other 12-25-2021 11:30-0500 Body height 177.8 cm Melissa Scally Other [employer] Other 12-25-2021 11:30-0500 Body mass index (BMI) [Ratio] 33.73 kg/m2 Melissa Scally Other [employer] Other 12-25-2021 11:30-0500 Body weight 106.64 kg Melissa Scally Other [employer] Other 12-25-2021 11:30-0500 Diastolic blood pressure 70 mm[Hg] Melissa Scally Other [employer] Other 12-25-2021 11:30-0500 Respiratory rate 18 /min Melissa Scally Other [employer] Other 12-25-2021 11:30-0500 SaO2% (BldA) [Mass fraction] 98 % Melissa Scally Other [employer] Other 12-25-2021 11:30-0500 Systolic blood pressure 108 mm[Hg] Melissa Scally Other [employer] Other Encounters Encounter Date Encounter Type Care Provider Facility Start: 12-07-2024 End: 12-07-2024 [facility] Work Phone: Start: 12-07-2024 End: 12-07-2024 Patient encounter procedure [facility] Work Phone: Start: 11-07-2024 End: 11-09-2024 Refill Rinku Tomlong [facility] Start: 10-12-2024 End: 10-12-2024 Refill Rinkumarilou Tomlong DO [facility] Comment on above: Chronic right-sided low back pain with right-sided sciatica Start: 09-22-2024 End: 09-22-2024 Refill Kavita Treysavier SALES REPRESENTATIVE [employer] [facility] Start: 09-22-2024 End: 09-23-2024 Refill Rinku Tomlong DO Work Phone: [facility] Start: 09-10-2024 End: 09-10-2024 Refill Kavita Forsavier SALES REPRESENTATIVE [employer] [facility] Start: 09-02-2024 End: 09-02-2024 ambulatory [facility] Work Phone: Start: 09-02-2024 End: 09-02-2024 Patient encounter procedure [facility] Work Phone: Start: 08-31-2024 End: 08-31-2024 Office outpatient visit 25 minutes Rinkumarilou Tomlong DO [facility] Comment on above: Essential hypertensi on (Primary Dx); Nonproliferative diabetic retinopathy ([facility]); Mixed hyperlipidemia; Vitamin D deficiency; Class 1 obesity due to excess calories with serious comorbidity and body mass index (BMI) of 32.0 to 32.9 in adult; Type 2 diabetes mellitus with hyperglycemia, with long-term current use of insulin ([facility]); Encounter for screening for malignant neoplasm of prostate; Need for immunization against influenza Start: 08-31-2024 End: 08-31-2024 ambulatory RINKUMARILOU ANNENG [facility] Start: 05-25-2024 End: 05-25-2024 ambulatory [facility] Work Phone: Start: 05-25-2024 End: 05-25-2024 Patient encounter procedure [facility] Work Phone: Start: 02-19-2024 End: 02-19-2024 ambulatory [facility] Work Phone: Start: 02-19-2024 End: 02-19-2024 Patient encounter procedure [facility] Work Phone: Start: 01-14-2024 End: 01-14-2024 ambulatory DO Rinku Furlong Work Phone: [facility] Work Phone: Start: 01-14-2024 End: 01-14-2024 Patient encounter procedure DO Rinku Furlong Work Phone: [facility] Work Phone: Start: 12-11-2023 Refill Rinkumarilou Tomlo ng DO [facility] Start: 12-04-2023 Refill Rinku G Furlo ng DO Work Phone: [facility] Start: 11-19-2023 End: 11-20-2023 ambulatory Rinku Furlong Facility:[facility] Start: 11-19-2023 End: 11-19-2023 ambulatory DO Rinku Furlong Work Phone: [facility] Work Phone: Start: 11-19-2023 End: 11-19-2023 Discharged Recurring DO Rinku Furlong Work Phone: [facility] Work Phone: Start: 11-19-2023 End: 11-19-2023 Patient encounter procedure DO Rinku Furrobertoeddie Work Phone: [facility] Work Phone: Start: 11-08-2023 End: 11-08-2023 ambulatory Melissa Scally Other [employer] Other Start: 11-08-2023 Telephone encounter Melissa Thomasly [facility] Start: 10-03-2023 End: 10-03-2023 ambulatory Melissa Scally Other [employer] Other Start: 10-03-2023 Telephone encounter Melissa Isiah F Case Supervisor Start: 08-23-2023 End: 08-23-2023 ambulatory Melissa Scally Other [employer] Other Start: 08-23-2023 Telephone encounter Melissa Thomasly [facility] Start: 08-13-2023 (DM) Diabetes Melissa Scally [facility] Start: 08-13-2023 End: 08-13-2023 ambulatory Melissa Scally Other [employer] Other Start: 07-08-2023 End: 07-08-2023 ambulatory Melissa Scally Other [employer] Other Start: 07-08-2023 Telephone encounter Melissa Thomasly [facility] Start: 07-05-2023 End: 07-05-2023 ambulatory Melissa Scally Other [employer] Other Start: 07-05-2023 Telephone encounter Melissa Thomasly [facility] Start: 05-07-2023 (DM) Diabetes Melissa Scally [facility] Start: 05-07-2023 End: 05-07-2023 ambulatory Melissa Scally Other [employer] Other Start: 05-07-2023 Telephone encounter [facility] Start: 03-29-2023 End: 03-29-[address] SADAF ARIZA . Facility:[facility] Start: 03-26-2023 (DM) Diabetes Melissa [facility] Start: 03-26-2023 End: 03-26-2023 ambulatory Melissa Joyce Other [employer] Other Start: 03-21-2023 End: 03-22-2023 ambulatory NARENDRANATH LAKSHMIPATHY . Facility:[facility] Start: 03-14-2023 End: 03-14-2023 ambulatory Melissa Joyce Other [employer] Other Start: 03-14-2023 Telephone encounter [facility] Start: 03-07-2023 ambulatory NARENDRANATH LAKSHMIPATHY . Facility:[facility] Start: 02-26-2023 End: 02-26-2023 ambulatory Melissa Joyce Other [employer] Other Start: 02-26-2023 Telephone encounter [facility] Start: 02-19-2023 End: 02-19-2023 [...] . Facility:[facility] Start: 12-25-2022 (DM) Diabetes Melissa [facility] Start: 12-25-2022 End: 12-25-2022 ambulatory Melissa Thomasnidia Other [employer] Other Start: 12-18-2022 End: 12-18-[address] HAYDE aCldwell Facility:[facility] Start: 12-05-2022 End: 12-06-[address] RINKU TREJO Facility:[facility] Start: 10-22-2022 End: 10-23-[address] DOCTOR HOLT Facility:[facility] Start: 10-05-2022 End: 10-05-2022 ambulatory Melissa Joyce Other [employer] Other Start: 10-05-2022 Telephone encounter [facility] Start: 09-20-2022 (DM) Diabetes Melissa Isiah [facility] Start: 09-20-2022 End: 09-20-2022 ambulatory Melissa Thomasnidia Other [employer] Other Start: 08-13-2022 End: 08-14-2022 ambulatory DIANE MICHELE Facility:[facility] Start: 07-02-2022 End: 07-03-[address] RINKU TREJO Facility:[facility] Start: 06-12-2022 (DM) Diabetes Melissa Thomasnidia [facility] Start: 06-12-2022 End: 06-12-2022 ambulatory Melissa Joyce Other [employer] Other Start: 06-11-2022 End: 06-12-[address] RINKU TREJO Facility:[facility] Start: 05-30-2022 End: 05-31-[address] RINKU TREJO Facility:[facility] Start: 04-06-2022 End: 04-06-2022 ambulatory MIHAELA Caldwell Facility:[facility] Start: 03-09-2022 End: 03-09-2022 ambulatory Melissa Scally Other [employer] Other Start: 03-09-2022 Telephone encounter Melissa Scally [facility] Start: 03-06-2022 (DM) Diabetes Melissa Scally [facility] Start: 03-06-2022 End: 03-06-2022 ambulatory Melissa Scally Other [employer] Other Start: 03-02-2022 End: 03-02-2022 ambulatory Melissa Scally Other [employer] Other Start: 03-02-2022 Telephone encounter Melissa Scally [facility] Start: 02-26-2022 End: 02-26-2022 ambulatory Melissa Scally Other [employer] Other Start: 02-26-2022 Telephone encounter Melissa Scally [facility] Start: 01-15-2022 End: 01-15-2022 ambulatory Melissa Scally Other [employer] Other Start: 01-15-2022 Telephone encounter Melissa Scally [facility] Start: 01-10-2022 (DM) Diabetes Melissa Scally [facility] Start: 01-10-2022 End: 01-10-2022 ambulatory Melissa Scally Other [employer] Other Start: 01-10-2022 Telephone encounter Melissa Scally [facility] Start: 01-02-2022 End: 01-02-2022 ambulatory Melissa Scally Other [employer] Other Start: 01-02-2022 Telephone encounter Melissa Scally [facility] Start: 12-25-2021 End: 12-25-2021 ambulatory Melissa Joyce Other [employer] Other Start: 12-25-2021 [facility] visit new patient [facility] Procedures Date Procedure Procedure Detail Performing Clinician Start: 09-04-2024 Microalbumin [Mass/v olume] in Urine by Test strip Kavita Paul CMA Start: 08-31-2024 Adult depression scr eening assessment Rinku Furlong DO Work Phone: Start: 10-25-2023 Adult depression scr eening assessment Rinku Furlong DO Work Phone: Start: 04-15-2023 Microalbumin [Mass/v olume] in Urine by Test strip Rinku Tomlong DO Work Phone: Start: 01-27-2020 Colonoscopy Rinku servin DO Work Phone: Plan of Treatment Date Care Activity Detail Author Start: 09-19-2030 DTaP,Tdap and Td Vaccines (3 - Td or Tdap) DTaP,Tdap and Td Vaccines (3 - Td or Tdap) [facility] Start: 01-26-2030 Screening for malign ant neoplasm of colon Colonoscopy [facility] Start: 09-04-2025 Urine screening for protein Urine Microalbumin [facility] Start: 08-31-2025 Adult BMI Screening Adult BMI Screen ing [facility] Start: 08-31-2025 Depression Screening Depression Scre ening [facility] Start: 08-31-2025 Tobacco Screening Tobacco Screening [facility] Start: 10-25-2024 Adult BMI Screening Adult BMI Screen ing [facility] Start: 10-25-2024 Depression Screening Depression Scre ening [facility] Start: 10-25-2024 Tobacco Screening Tobacco Screening [facility] Start: 05-15-2024 Diabetic foot examination Diabetic Foot Exam [facility] Start: 04-15-2024 Urine screening for protein Urine Microalbumin [facility] Start: 06-20-2023 ambulatory Ambulatory Facility:[facility] Start: 2011 Administration of varicella zoster vaccine Zoster (Shingles) Vaccine (1 of 2) [facility] Start: 1979 Adult BMI Follow Up Plan Adult BMI F ollow Up Plan [facility] Start: 1961 Glaucoma screening Diabetic Op hthalmology Exam [facility] Comprehensive metabo lic 2000 panel - Serum or Plasma [facility] End: 08-31-2025 Comprehensive metabolic 2000 panel - Serum or Plasma Comprehensive metabolic panel Lab Routine Essential hypertension 1 Occurrences starting 08/31/2024 until 08/31/2025 [facility] Work Phone: Comment on above: 1 Occurrences starti ng 08/31/2024 until 08/31/2025 End: 08-31-2025 Lipid panel Lipid panel Lab Routine Mixed hyperlipidemia 1 Occurrences starting 08/31/2024 until 08/31/2025 [facility] Comment on above: 1 Occurrences starti ng 08/31/2024 until 08/31/2025 End: 08-31-2025 Prostatic specific antigen screen Prostatic specific antigen screen Lab Routine Encounter for screening for malignant neoplasm of prostate 1 Occurrences starting 08/31/2024 until 08/31/2025 [facility] Comment on above: 1 Occurrences starti ng 08/31/2024 until 08/31/2025 End: 08-31-2025 Vitamin D 25 hydroxy Vitamin D 25 hydroxy Lab Routine Vitamin D deficiency 1 Occurrences starting 08/31/2024 until 08/31[facility]: [facility] Occurrences starti ng 08/31/2024 until 08/31/2025 [facility] Immunizations Immunization Date Immunization Notes Care Provider Fa cility 08-31-2024 influenza, seasonal, injectable, preservative free Rinku Furlong DO Work Phone: [facility] [place] 08-31-2024 Immunization, In Clinic,; 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: [Drug or medicament (substance)] Rinku Furlong DO Work Phone: [facility] [place] [facility] 08-30-2023 influenza, injectabl e, quadrivalent, preservative free Rinku Furlong DO Work Phone: [facility] [place] 10-06-2023 Pneumococcal Conjuga te 20-valent Rinku Furlong DO Work Phone: [facility] 08-27-2022 influenza virus vaccine, unspecified formulation Rinku Furlong DO Work Phone: [facility] 08-27-2022 influenza, injectabl e, quadrivalent, preservative free Rinku Furlong DO Work Phone: [facility] 08-22-2021 influenza, injectabl e, quadrivalent, preservative free Rinku Furlong DO Work Phone: [facility] 09-19-2020 influenza, injectabl e, quadrivalent, preservative free Rinku Furlong DO Work Phone: [facility] 09-19-2020 tetanus toxoid, redu ramandeep diphtheria toxoid, and acellular pertussis vaccine, adsorbed Rinku Furlong DO Work Phone: [facility] 09-25-2019 influenza, injectabl e, quadrivalent, preservative free Rinku Furlong DO Work Phone: [facility] 09-13-2018 influenza, injectabl e, quadrivalent, preservative free Rinku Furlong DO Work Phone: [facility] 11-08-2017 Influenza, injectabl e, Madin Hale Canine Kidney, preservative free, quadrivalent Rinku Furlong DO Work Phone: [facility] 04-13-2017 tetanus toxoid, redu ramandeep diphtheria toxoid, and acellular pertussis vaccine, adsorbed Rinku Furlong DO Work Phone: [facility] 12-03-2012 influenza, seasonal, injectable Rinku Furlong DO Work Phone: [facility] Payers Date Payer Category Payer Self-pay [id number] 2019 Medicare [employer] MEDICARE A ETNA MEDICARE PLAN (PPO) [id number] 2019-Present [phone] [address] [place] [address] [id number] 2019 Medicare HMO [employer] MEDICARE [id number] 1961 Unknown [id number] 1961 Unknown [id number] [id number]3 1961 Unknown [id number] 2.16.840.1.533915.3.579.2.593 1961 Unknown [id number] 2.16.840.1.058817.3.579.2.593 1961 Unknown [id number] 2.16.840.1.813084.3.579.2.593 1961 Unknown [id number] 2.16.840.1.036652.3.579.2.593 1961 Unknown [id number] 2.16.840.1.962941.3.579.2.593 1961 Unknown [id number] 2.16.840.1.795363.3.579.2.593 1961 Unknown [id number] 2.16.840.1.126082.3.579.2.593 1961 Unknown [id number] 2.16.840.1.024592.3.579.2.593 1961 Unknown [id number] 2.16.840.1.680332.3.579.2.593 1961 Unknown [id number] 2.16.840.1.517074.3.579.2.593 1961 Unknown [id number] 2.16.840.1.659621.3.579.2.593 1961 Unknown [id number] 2.16.840.1.940132.3.579.2.593 1961 Unknown [id number] 2.16.840.1.619268.3.579.2.593 1961 Unknown [id number] 2.16.840.1.728249.3.579.2.593 1961 Unknown [id number] 2.16.840.1.103116.3.579.2.593 1961 Unknown [id number] 2.16.840.1.681015.3.579.2.593 1961 Unknown [id number] 2.16.840.1.177128.3.579.2.1286 1959 Medicare [id number] Medicare Medicare [id number] Unknown HCAP/HFA/FAP Active [id number] Unknown [id number] Social History Date Type Detail Facility Unknown if ever smoked [employer] Other Start: 04-19-2023 End: 08-31-2024 Sex Assigned At [employer] Other Start: 04-05-2023 End: 02-19-2024 Tobacco smoking status NHIS Ex-smoker [facility] Start: 07-03-1999 End: 07-03-2007 History of tobacco use Current smoker [facility] Start: 07-03-1999 End: 07-03-2007 History of tobacco use Cigarette Smoker [facility] Start: 04-05-2023 End: 04-19-2023 Cigarettes smoked current (pack per day) - Reported 0.5 [facility] Start: 04-05-2023 End: 08-31-2024 Tobacco use and exposure Smokeless tobacco non-user [facility] Start: 10-25-2023 End: 08-31-2024 Alcohol intake Ex-drinker (finding) [facility] Do you belong to any clubs or organizations such as advent groups, unions, fraternal or athletic groups, or school groups? No [facility] Are you now , , , , never or living with a partner? [facility] How often to you hav e a drink containing alcohol? Never [facility] How many standard dr inks containing alcohol do you have on a typical day? Patient does not drink [facility] Do you feel stress - tense, restless, nervous, or anxious, or unable to sleep at night because your mind is troubled all the time - these days [OSQ] Not at all [facility] Start: 08-22-2022 Alcohol Comment Occasional [facility] Start: 1960 Sex Assigned At Not on file [facility] [employer] [facility] Start: 1960 Sex Assigned At Male [facility] Start: 06-30-2015 End: 12-07-2024 Sex Male (finding) [facility] Medical Equipment Procedure Code Equipment Code Equipment Origin al Text Equipment Identifier Dates [id number] Start: 02-24-2023 Pen Needle, Diab etic (Bd [...] needle Start: 01-14-2024 Clinical Notes 12-25-2021 to 09-22-2024 Telephone Encounter - Kavita Paul CMA - 09/22/2024 4:04 PM EDTTelephone Encounter - Kavita Paul CMA - 09/22/2024 4:04 PM EDTRinku Trejo DO - 08/31/2024 9:00 AM EDT Note Date & Type Note Facility 09-22-2024 Miscellaneous Notes Formattin g of this note might be different from the original. Pt requesting refill on vitamin D and aspirin. Pharmacy is listed and correct. documented in this encounter [facility] 09-22-2024 Telephone encount er Note Pt requesting refill on vitamin D and aspirin. Pharmacy is listed and correct. [facility] 09-10-2024 Miscellaneous Notes Formattin g of this note might be different from the original. Pt needs new scripts sent to [facility] since [facility] is closed. Amlodipine and Aspirin. Pharmacy is listed and correct. documented in this encounter [facility] 09-10-2024 Telephone encount er Note Pt needs new scripts sent to [facility] since [facility] is closed. Amlodipine and Aspirin. Pharmacy is listed and correct. [facility] 08-31-2024 History of Presen t illness Narrative Subjective Patient ID: Garo Leggett is a 63 y.o. male. Garo presents for CV recheck. He is taking his medications. He is not having any side effects. He is seeing a diagnostic medical sonographer for his diabetes. Hypertension Hypothyroidism The following portions of the patient's history were reviewed and updated as appropriate: allergies, current medications, past family history, past medical history, past social history, past surgical history, problem list, and medication reconciliation was completed including current medication and post discharge medication. Review of Systems Objective Physical Exam Vitals reviewed. Constitutional: General: He is not in acute distress. Appearance: He is obese. HENT: Head: Normocephalic. Neck: Vascular: No carotid bruit. Cardiovascular: Rate and Rhythm: Normal rate and regular rhythm. Heart sounds: Normal heart sounds. No murmur heard. Pulmonary: Effort: Pulmonary effort is normal. No respiratory distress. Breath sounds: Normal breath sounds. No wheezing, rhonchi or rales. Abdominal: General: Bowel sounds are normal. Palpations: Abdomen is soft. Tenderness: There is no abdominal tenderness. Musculoskeletal: Cervical back: Neck supple. Lymphadenopathy: Cervical: No cervical adenopathy. Neurological: General: No focal deficit present. Mental Status: He is alert and oriented to person, place, and time. Psychiatric: Attention and Perception: Attention and perception normal. Mood and Affect: Mood and affect normal. Speech: Speech normal. Behavior: Behavior normal. Behavior is cooperative. Thought Content: Thought content normal. Cognition and Memory: Cognition normal. Judgment: Judgment normal. Assessment/Plan Garo was seen today for hypertension and hypothyroidism. Diagnoses and all orders for this visit: Essential hypertension - Comprehensive metabolic panel; Future Nonproliferative diabetic retinopathy (CMS-HCC) Mixed hyperlipidemia - Lipid panel; Future Vitamin D deficiency - Vitamin D 25 hydroxy; Future Class 1 obesity due to excess calories with serious comorbidity and body mass index (BMI) of 32.0 to 32.9 in adult Type 2 diabetes mellitus with hyperglycemia, with long-term current use of insulin ([facility]) Encounter for screening for malignant neoplasm of prostate - Prostatic specific antigen screen; Future Need for immunization against influenza - FLU VACCINE TS (6MOS UP)(PF) 45 MCG(15MCG X3)/0.5 ML IM SYRINGE Other orders - meloxicam (MOBIC) 15 mg tablet; Take 1 tablet (15 mg total) by mouth once daily at bedtime. Check CMP, lipids and vitamin D level. He requests flu vaccine and it was given without side effects. Continue meloxicam for chronic pain. He is using medication with benefit. Check PSA to screen for prostate cancer. He would pursue further evaluation and treatment. He is obese but is losing weight. He was congratulated and encouraged to continue. documented in this encounter [employer] 10-03-2023 Evaluation note Encounter Date Diagnosis Assessment Notes Sep, Abdominal pain (ICD-10 - R10.9) [employer] Other 09-19-2023 Evaluation note* Encounter Date Diagnosis [...] Farxiga, Novolog, Tresiba, metformin and Ozempic uses [facility] 08-13-2023. Jul, Vitamin D deficiency (ICD-10 - E55.9) [employer] Vitamin D material was published to portal Vitamin D level severely deficient at 8.8. 4000 iU daily rx for reimbursement as cost concern Vitamin D deficiency suspected. Vitamin D has been noted to have positive impact on mood and energy. We can recheck periodically and make recommendations for long-term supplementation with yksk-ryc-belvimo formulations or prescription grade repletion. Jul, Dietary [...] was published to portal [employer] today. 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 Apr, Dietary [...] was published to portal [employer] today. Apr, intermediate current use of insulin (ICD-10 - Z79.4) Apr, BMI 35.0-35.9,adult (ICD-10 - Z68.35) Weight down 6.2 lbs-- improves insulin sensitivity [employer] Other 05-02-2023 Evaluation note* Encounter Date Diagnosis [...] and make recommendations for long-term supplementation with ytnk-oir-vdfngcs formulations or prescription grade repletion. March, Dietary [...] was published to portal [employer] today. 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 2. [...] treatment options with their primary care provider.[id number] Evaluation note * Encounter Date Diagnosis Assessment Notes Treatment Notes Treatment Clinical Notes Feb, Type 2 diabetes mellitus with hyperglycemia (ICD-10 - E11.65) [employer] Other 03-09-2023 NoteCONSULTATION CONSULTATION DATE: 01/31/2023 HISTORY [...] followed up in the clinic post procedure.[facility] [id number] Note CONSULTATION CONSULTATION DATE: 01/03/2023 HISTORY OF [...] be followed up in the office thereafter.[facility] [id number] Evaluation note* Encounter Date Diagnosis Assessment Notes [...] and make recommendations for long-term supplementation with fsaz-fyn-auuwwjf formulations or prescription grade repletion. Nov, Dietary counseling and surveillance (ICD-10 - Z71.3) [facility] Healthy Weight material was published to portal RD in [place] previously Nov, Hyperlipidemia (ICD-10 - E78.5) [facility] About High Cholesterol material was published to portalLDL 67 on October 26, 2021. Nov, HTN (hypertension) (ICD-10 - I10) High Blood Pressure: Care Instructions material was published to portal [employer] today. 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 Range of [...] PLAN: The patient is to stop his ejwn-jev-rutmyji NSAIDs, and we will replace that with [...] agrees to move forward with the plan.[facility] [id number] Evaluation note* Encounter Date Diagnosis Assessment Notes Treatment Notes Treatment Clinical Notes Aug, Type 2 diabetes mellitus with hyperglycemia (ICD-10 - E11.65) GLP1RA: By- Fridays SGLT2i: Farxiga INSULIN Basal: Tresiba INSULIN [...] and make recommendations for long-term supplementation with ejtb-mrd-nwyarks formulations or prescription grade repletion. Aug, Dietary counseling and surveillance (ICD-10 - Z71.3) [facility] [employer] Healthy Weight material was published to portal RD in [place] previously Aug, Hyperlipidemia (ICD-10 - E78.5) [facility] [employer] High Cholesterol material was published to [place] 67 on October 26, 2021. Aug, HTN (hypertension) (ICD-10 - I10) High Blood Pressure: Care Instructions material was published to magaly Normotensive today. Aug, intermediate current use of insulin (ICD-10 - Z79.4) Aug, BMI 34.0-34.9,adult (ICD-10 - Z68.34) [employer] Other 07-19-2022 Evaluation note* Encounter Date Diagnosis [...] 6. Prescription; Requests Bydureon sent to [facility] May, Vitamin D deficiency (ICD-10 - E55.9) [facility] [employer] Vitamin D material was published to portal Vitamin D level severely deficient at 8.8. patient to take rx x 8 weeks then OTC 4000iu daily thereafter Vitamin D deficiency suspected. Vitamin D has been noted to have positive impact on mood and energy. We can recheck periodically and make recommendations for long-term supplementation with rzpm-ulp-opdpnlq formulations or prescription grade repletion. May, Dietary counseling and surveillance (ICD-10 - Z71.3) [facility] [employer] Healthy Weight material was published to portal RD in [place] previously May, Hyperlipidemia (ICD-10 - E78.5) [facility] on October 26, 2021. May, HTN (hypertension) (ICD-10 - I10) High Blood Pressure: Care Instructions material was published to portal Normotensive today. May, intermediate current use of insulin (ICD-10 - Z79.4) May, BMI 35.0-35.9,adult (ICD-10 - Z68.35) May, Other weight stable [employer] Other 04-12-2022 Evaluation note* Encounter Date Diagnosis [...] None needed at this time 03-06-22 uses [facility]/ [place] Feb, Vitamin D deficiency (ICD-10 - [...] and make recommendations for long-term supplementation with icet-caj-konxrwf formulations or prescription grade repletion. Feb, Dietary [...] was published to portal Normotensive today. Feb, intermediate current use of insulin (ICD-10 - Z79.4) Feb, BMI 34.0-34.9,adult (ICD-10 - Z68.34) weight stable [employer] Other 04-08-2022 Evaluation note* Encounter Date Diagnosis Assessment Notes Treatment Notes Treatment Clinical Notes Feb, Type 2 diabetes mellitus with hyperglycemia (ICD-10 - E11.65) [employer] Other 04-04-2022 Evaluation note* Encounter Date Diagnosis Assessment Notes Treatment Notes Treatment Clinical Notes Feb, Type 2 diabetes mellitus with hyperglycemia (ICD-10 - E11.65) [employer] Other 02-16-2022 Evaluation note* Encounter Date Diagnosis Assessment Notes Treatment Notes Treatment Clinical Notes Dec, Type 2 diabetes mellitus with hyperglycemia (ICD-10 - E11.65) ASSESSMENT: 1. Uncontrolled, a Type 2 diabetes with A1c of 9.3%. Significant improvement. [employer] mya download. 2. Blood glucose levels Significantly [...] issues. 6. Prescriptions: None needed at this time.2-16--2021 uses [facility]/ [place] Dec, Vitamin D deficiency (ICD-10 - E55.9) [employer] Vitamin D material was published to portal Dec, Dietary counseling and surveillance (ICD-10 - Z71.3) [employer] Healthy Weight material was published to portal Dec, Hyperlipidemia (ICD-10 - E78.5) [facility] High Ch[facility] material [facility] on October 26, 2021. Dec, HTN (hypertension) (ICD-10 - I10) High Blood Pressure: Care Instructions material was published to portal Normotensive today. Dec, intermediate current use of insulin (ICD-10 - Z79.4) Dec, BMI 34.0-34.9,adult (ICD-10 - Z68.34) [employer] Other 01-31-2022 Evaluation note* Encounter Date Diagnosis [...] Instructions material was published to portal Nov, intermediate current use of insulin (ICD-10 - Z79.4) Nov, BMI 33.0-33.9,adult (ICD-10 - Z68.33) [facility] Other Chief complaint+Reason for visit Narrative* Chief Complaint DMN f/u-METER Reason for Visit Dietary counseling a nd surveillance HTN (hypertension) Hyperlipidemia intermediate current use of insulin STANISLAV (obstructive sleep apnea) Retinopathy Type 2 diabetes mellitus with hyperglycemia Vitamin D deficiency [facility] Work Phone: Chief complaint+Reason for visit Narrative* Chief Complaint 3 month f/u-mya on phone Reason for Visit Dietary counseling a nd surveillance HTN (hypertension) Hyperlipidemia intermediate current use of insulin STANISLAV (obstructive sleep apnea) Retinopathy Type 2 diabetes mellitus with hyperglycemia Vitamin D deficiency [facility] Work Phone: Evaluation noteNo InformationNortBarnes[facility] Other Evaluation noteNo assessment information available [facility] Work Phone: Evaluation note* Diagnosis Onset Date Resolution Status Type 2 diabetes mellitus with hyperglycemia acute [facility] Work Phone: Evaluation note* Diagnosis Onset Date Resolution Status Type 2 diabetes mellitus with hyperglycemia acute Hyperlipidemia acute Type 2 diabetes mellitus with hyperglycemia acute Vitamin D deficiency acute [facility] Work Phone: Evaluation note* Diagnosis Onset Date Resolution Status Dietary counseling and surveillance acute HTN (hypertension) acute Hyperlipidemia acute 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 acute STANISLAV (obstructive sleep apnea) acute Retinopathy acute Type 2 diabetes mellitus with hyperglycemia acute Vitamin D deficiency acute [facility] Work Phone: Evaluation note* Diagnosis Essential hypertension- Primary Unspecified essential hypertension Nonproliferative diabetic retinopathy [facility] Type II or unspecified type diabetes mellitus with ophthalmic manifestations, not stated as uncontrolled Mixed hyperlipidemia Vitamin D deficiency Class 1 obesity due to excess calories with serious comorbidity and body mass index (BMI) of 32.0 to 32.9 in adult Type 2 diabetes mellitus with hyperglycemia, with long-term current use of insulin ([facility]) Encounter for screening for malignant neoplasm of prostate Need for immunization against influenza Need for prophylactic vaccination and inoculation against influenza [facility] Diagnosis Chronic right-sided low back pain with right-sided sciatica documented in this encounter [facility]* Diagnosis Onset Date Resolution Status Admit Date Dietary counseling and surveillance acute December 07 7:59am HTN (hypertension) acute Novuar 2024 7:59am Hyperlipidemia acute December 072024 7:59am intermediate current use of insulin acu te December 07, 2024 7:59am STANISLAV (obstructive sleep apnea) acute December 07, 2024 7:59am Retinopathy acute December 07, 2024 7:59am Type 2 diabetes mellitus wit h hyperglycemia acute December 07 7:59am Vitamin D deficiency acute Tc wallace 2024 7:59am [facility] Work Phone: History general Narrative - Reported* [...] Colon CA 2009 Hospitalization History See Above [employer] Other Hiszmql general Narrative - Reported* Type Description Date [...] Colon CA 2009 Hospitalization History See Above [employer] Other history general Narrative - Reported* Type [...] Hospitalization History Colon CA 2008 Hospitalization History [facility] ER for stomach flu February or March 2023 [facility] Other History general [facility] - [facility] Other InstructionsNot on filedocumented in this encounter [facility]ructionsNot on filedocumented in this encounter [facility] SystemInstructionsNot on filedocumented in this encounter [facility] SystemInstructionsNot on filedocumented in this encounter [facility] SystemInstructionsNot on filedocumented in this encounter [facility] SystemReason for visit NarrativeDS GI Referral-deferrred PCP recom retrial [facility] Other Summary Purpose Family History Relationship Condition [...] diabetes mellitus with hyperglycemia Vitamin D deficiency Chief Complaint Admit Date DMN f/u-on phone December 07, 2024 7 :59am Reason for Visit Admit Date Dietary counseling and surveillance Tc gonsalez 2024 7:59am HTN (hypertension) December 07, 2024 7 :59am Hyperlipidemia December 07, 2024 7 :59am 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 December 07, 2024 7:59am STANISLAV (obstructive sleep apnea) December 072024 7:59am Retinopathy December 07, 2024 7 :59am Type 2 diabetes mellitus with hyperglyce magnolia December 07, 2024 7:59am Vitamin D deficiency December 07, 2024 7:59am Additional Source Comments (unrecognized sect ion and content) No Status Records FoundNo Status Records FoundNo Status Records FoundNo Status Records Found INFORMATION SOURCE (unrecogn ized section and content) DATE CREATED AUTHOR 10/27/2021 [facility] DATE CREATED AUTHOR AUTHOR'S ORGANIZ ATION 04/04/2023 [facility] DATE CREATED AUTHOR AUTHOR'S ORGANIZ ATION 01/13/[address] [facility] DATE CREATED AUTHOR AUTHOR'S ORGANIZ ATION 09/01/2024 [facility] REASON FOR VISIT (unrecogniz ed section and content) Reason Comments Med Refill Reason Comments Hypertension Hypothyroidism Reason Onset Date Comments Med Refill 09/22/2024 Care Teams (unrecognized sec tion and content) [employer] Relationship Specialty Start Date End Date Rinku Trejo DO [address] [facility] [place] [address] PCP - General Family Medicine 07/03/17 Team [...] Trejo DO Primary Care Provider Active Start: May 25, 2024 End: May 25, 2024 Melissa Joyce APRN Attending Provider Active Start: May 25, 2024 End: May 25, 2024 [employer] Relationship Specialty Start Date End Date Rinku Trejo DO [address] [place] [address] PCP - General Family Medicine 07/03/17 Team Status: Inactive Member Role Status Dates Rinku Trejo DO Primary Care Provider Active Start: September 02, 2024 End: September 02, 2024 Melissa Joyce APRN Attending Provider Active Start: September 02, 2024 End: September 02, 2024 [employer] Relationship Specialty Start Date End Date Rinku Trejo DO [address], [place] [address] PCP - General Family Medicine 07/03/17 [employer] Relationship Specialty Start Date End Date Rinku Trejo DO [address], [place] [address] PCP - General Family Medicine 07/03/17 [employer] Manager Relationship Specialty Start Date End Date Rinku Trejo DO [address], [place] [address] PCP - General Family Medicine 07/03/17 [employer] Manager Relationship Specialty Start Date End Date Rinku Trejo DO [address] [place] [address] PCP - General Family Medicine 07/03/17 Team Status: Inactive Member Role Status Dates Rinku Trejo DO Primary Care Provider Active Start: December 07, 2024 End: December 07, 2024 Melissa Joyce APRN Attending Provider Active Start: December 07, 2024 End: December 07, 2024 Goals (unrecognized section and content) Goals [...] BE BASED ON THE PRIMARY CLINICAL RECORDS. [facility] [employer] [facility]. provides no warranty or guarantee of the accuracy or completeness of information in this document.
[2024-12-07 10:54] LABS: Creatinine Urine Random 117.53 mg/dL (20.00-300.00); Microalbum Creatinine Ratio Ur 15.3 mg/g (0.0-29.9); Microalbumin Urine Random 1.8 mg/dL (<=30.0)
[2024-12-07 11:53] LABS: Alanine Aminotransferase 33 U/L (16-63); Albumin Globulin Ratio 1.1; Albumin Level 4.1 g/dL (3.4-5.0); Alkaline Phosphatase 123 U/L (46-116); Aspartate Amino Transferase 18 U/L (15-37); BUN Creatinine Ratio 25.5; Bilirubin Total 0.6 mg/dL (0.2-1.0); Calcium 8.9 mg/dL (8.5-10.1); Carbon Dioxide 29.2 mmol/L (21.0-32.0); Chloride 105 mmol/L (98-107); Chol HDL Ratio 2.5; Cholesterol 79 mg/dL (<=200); Estimated GFR (African America >60 (>=60 mL/min/1.73m^2); Estimated GFR (Non-African Ame >60 (>=60 mL/min/1.73m^2); Globulin 3.8 g/dL; Glucose 131 mg/dL (74-106); HDL Cholesterol 31 mg/dL (40-60); Potassium 4.2 mmol/L (3.5-5.1); Sodium 141 mmol/L (136-145); Total Protein 7.9 g/dL (6.4-8.2); Triglycerides 73 mg/dL (<=150); VLDL CHOLESTEROL 14.6 mg/dL
[2024-12-08 02:06] LABS: Vitamin B12 1359 pg/mL (232-1245)
== END 2024-12-07 10:18 | disposition home or self-care (01) ==
LOC: LAB 10:18
PROVIDERS: PCP Family Medicine; Visit Provider Nurse Practitioner Family
DX: E78.5 Hyperlipidemia, unspecified (principal); E11.65 Type 2 diabetes mellitus with hyperglycemia; E55.9 Vitamin D deficiency, unspecified; Z79.4 Long term (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; Z68.34 Body mass index [BMI] 34.0-34.9, adult
CPT/HCPCS: 36415; 80053; 80061; 82043; 82306; 82570; 82607

== ENCOUNTER 2025-08-19 12:18 | Outpatient (OUT) | payer MEDICARE, SELFPAY ==
--- OUTSIDE RECORDS SUMMARY | 2025-08-19 12:25 | XMS_ITS | CCD ---
Author Organization [facility] Care Team Providers Care Collateral Specialist Name Role Phone Melissa Joyce Unavailable LAKSHMIPATHY [...] COBURN ., DR HAYDE Staley Consulting Unavailable FURROBERTONG, DR RINKU Peralta Primary Care Unavailable COBURN ., DR HAYDE Staley Attending Unavailable COBURN ., DR HAYDE Staley Admitting Unavailable FURLONG, DR RINKU Pearlta Primary Care Unavailable COBURN ., DR HAYDE Staley Admitting Unavailable COBURN ., DR HAYDE Staley Attending Unavailable CABRALES ., SADIA Consulting Unavailable LAKSHMIPATHY ., NARENDMAULIKATH Attending Su vailable LAKSHMIPATHY ., JACENDMAULIKATH Admitting Su vailable FURLONG, DR RINKU Peralta Primary Care Unavailable HALKER ., ZO Admitting Unavailable FURLONG, DR RINKU Peralta Primary Care Unavailable HALKER ., ZO Attending Unavailable LAKSHMIPATHY ., TIMURATH Attending Su vailable LAKSHMIPATHY ., TIMURATH Admitting Su vailable FURLONG, DR RINKU Peralta Primary [facility] Unavailable ELSA MAR Consulting Unavailable LAKSHMIPATHY ., DONG Consulting Su vailable PAY ., DR TALAVERA Consulting Unavailable FURLONG, DR RIKNU Peralta Primary Care Unavailable PAY ., DR TALAVERA Admitting Unavailable PAY ., DR TALAVERA Attending Unavailable DESIRAE SOSA Consulting Unavailable FURLONG, DR RINKU Peralta [facility] Unavailable EDUARDO, DR DAY Consulting Unavailable EDUARDO, DR DAY Attending Unavailable EDUARDO, DR DAY Admitting Unavailable Zieber Makenzie Consulting Unavailable COBURN ., DR HAYDE Staley Admitting Unavailable CABRALES ., SADIA Consulting Unavailable COBURN ., DR HAYDE Staley Attending Unavailable FURLONG, DR RINKU Peralta [facility] Unavailable CUBA ., MIHAELA Attending Unavailable CUBA ., MIHAELA Admitting Unavailable FURLONG, DR RINKU Peralta [facility] Unavailable CUBA ., IMHAELA Consulting Unavailable LAKSHMIPATHY ., DONG Attending Su vailable LAKSHMIPATHY ., DONG Admitting Su vailable FURLONG, DR RINKU Peralta [facility] Unavailable QUYEN LI Consulting Unavailable LAKSHMIPATHY ., NARENDJACQUELINE Consulting Su vailable KAVITA BANG Consulting Unavailable DO Rinku Trejo Primary Care Provider DO Rinku Trejo Attending Provider [phone] RINKU TREJO Attending Unavailable RINKU TREJO Referring Unavailable RINKU TREJO Primary Care Unavailable FurRinku servin DO Primary Care Provider [phone] Rinku Trejo DO Primary Care Provider Rinku Trejo DO Primary Care Provider Delio Cheema RN Attending Provider Unavailabl e Melissa Joyce APRN Attending Provider Rinku Trejo Primary Care Unavailable Melissa Joyce Attending Unavailable Melissa Joyce Admitting Unavailable Allergies Allergy Classification Reported Allergen(s) Allergy Type Date of Onset Reaction(s) Facility (4 sources) pioglitazone; 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: [pioglitazone] Drug Allergy 05-03-2025 [facility] Comment on above: Swelling of the feet and hands Medications Current Medications Medication Drug Class(es) Dates [...] Active amitriptyline hydrochloride 25 mg oral tablet (20 sources) Tricyclic Antidepressant take 1 tablet by mouth in the morning amitriptyline (ELAVIL) 25 mg tablet Take 1 tablet (25 mg total) by mouth in the morning. Active amLODIPine 5 mg oral tablet (20 sources) Dihydropyridine Calcium Channel Shadi Start: End: take 1 tablet by mouth in the morning amLODIPine (NORVASC) 5 mg tablet TAKE 1 TABLET BY MOUTH IN THE MORNING 90 tablet 07/04/2025 Active aspirin 81 mg delayed release oral tablet (20 sources) Platelet Aggregation Inhibitor, Nonsteroidal Anti-inflammatory Drug Start: End: take 1 tablet by mouth once daily in the morning aspirin 81 mg Take 1 tablet (81 mg total) by mouth every morning. 90 tablet 3 09/22/2024 Active atorvastatin 40 mg oral tablet (20 sources) HMG-CoA Reductase Inhibitor Start: End: take 1 tablet by mouth once daily in the morning atorvastatin (LIPITOR) 40 mg tablet TAKE 1 TABLET BY MOUTH EVERY MORNING 90 tablet 07/04/2025 Active baclofen 10 mg oral tablet (20 sources) gamma-Aminobutyric Acid-ergic Agonist Start: take 1 tablet by mouth once daily Start: 03-21-2023 End: 06-08-2025 take 1 tablet by mouth three times daily as needed for muscle spasms baclofen (LIORESAL) 10 mg tablet TAKE 1 TABLET BY MOUTH THREE TIMES DAILY NEEDED FOR MUSCLE SPASMS 60 tablet 1 06/08/2025 Active Bydureon Bcise 2 MG (9 sources) [...] MG injector SQ Once Weekly Active cholecalciferol 0.05 mg oral tablet (20 sources) Vitamin D Start: 09-22-2024 take 1 tablet by mouth in the morning cholecalciferol, vitamin D3, 2,000 units tablet Take 1 tablet (2,000 Units total) by mouth in the morning. 90 tablet 3 09/22/2024 Active Start: 01-14-2024 End: 10-07-2024 take 1 tablet by mouth once daily Cholecalciferol (Vitamin D3) 100 mcg (4,000 unit) tablet Discontinued 100 MCG PO Daily 90 90 February 19, 2024 9:10am October 07, 2024 10:15am Start: 03-26-2023 End: 09-22-2024 take 2 tablets [...] 90 days Active take 1 capsule by [facility] every week Cholecalciferol 1.25 MG (67440 UT) 1 capsule Orally weekly for 56 days Active Flash Glucose Sensor (Freest yle Greg 2 Sensor) kit (19 sources) Start: 09-02-2024 Flash Glucose Sensor (Freestyle Greg 2 Sensor) kit Active 0 .Route September 02, 2024 7:25am Change every 14 days Start: 09-02-2024 Flash Glucose Sensor (Freestyle Greg 2 Sensor) kit Active 0 .Route September 02, 2024 8:25am Change every 14 days Start: 01-14-2024 End: 09-02-2024 Flash Glucose Sensor (Freest yle Greg 2 Sensor) kit Discontinued 0 .Route January 14, 2024 12:00am September 02, 2024 7:26am Change every 14 days Start: 01-14-2024 End: 09-02-2024 Flash Glucose Sensor (Freest yle Greg 2 Sensor) kit Discontinued 0 .Route January 14, 2024 1:00am September 02, 2024 8:26am Change every 14 days Start: 01-14-2024 Flash Glucose Sensor (Freestyle Greg 2 Sensor) kit Active 0 .Route January 14, 2024 1:00am Change every 14 days Start: 01-14-2024 Flash Glucose Sensor (Freestyle Greg 2 Sensor) kit Active 0 .Route January 14, 2024 12:00am Change every 14 days flash glucose sensor kit (13 sources) Start: 01-14-2024 flash glucose sensor kit 01/14/2024 Active fluticasone propionate 0.05 mg/actuat metered dose nasal spray (2 sources) Corticosteroid Start: 09-26-2021 take 1 spray(s) nasal route once daily Fluticasone Propionate 50 MCG/ACT 1 spray in each nostril Nasally Once a day for 30 day(s) Sep, Active FreeStyle Greg 2 Sensor - (20 sources) Start: 01-11-2022 FreeStyle Libr e 2 Sensor - as directed Change every 14 days in vitro DX: E11.65 Dec, Active Start: 01-11-2022 FreeStyle Libr e 2 Sensor - as directed Change every 14 days in vitro for 84 days DX: E11.65 Dec, Active FreeStyle Greg 2 Sensor - as directed Change every 14 days in vitro for 84 days DX: E11.65 Active FreeStyle Greg 2 Sensor - as directed Change every 14 days in vitro DX: E11.65 Active gabapentin 300 mg oral capsule (20 sources) Anti-epileptic Agent Start: 07-19-2025 take 1 capsule by mouth in the morning gabapentin (NEURONTIN) 300 mg capsule Indications: Chronic right-sided low back pain with right-sided sciatica TAKE 1 CAPSULE BY MOUTH IN THE MORNING 30 capsule 07/19/2025 Active Start: 10-25-2023 End: 07-19-2025 take 1 capsule by mouth in the morning gabapentin (NEURONTIN) 300 mg capsule Indications: Chronic right-sided low back pain with right-sided sciatica TAKE 1 CAPSULE BY MOUTH IN THE MORNING 30 capsule 06/08/2025 07/19/2025 Discontinued Insulin Aspart U-100 (Novolo g Flexpen U-100 Insulin) 100 unit/mL (3 mL) insulin pen (11 sources) Start: 03-08-2025 Insulin Aspart U-100 (Novolog Flexpen U-100 Insulin) 100 unit/mL (3 mL) insulin pen Active 1 sliding scale dose SUBCUT .ACTIDHS March 08, 2025 9:43am ISS 1:50 and ICR 1:10. Expect up to 30 u per day Start: 03-08-2025 End: 03-08-2025 Insulin Aspart U-100 (Novolo g Flexpen U-100 Insulin) 100 unit/mL (3 mL) insulin pen Discontinued 1 sliding scale dose SUBCUT .ACTIDHS March 08, 2025 9:37am March 08, 2025 9:44am ISS 1:50 and ICR 1:10. Expect up to 30 u per day Start: 01-14-2024 End: 03-08-2025 Insulin Aspart U-100 (Novolo g Flexpen U-100 Insulin) 100 unit/mL (3 mL) insulin pen Discontinued SUBCUT January 14, 2024 1:00am March 08, 2025 9:42am FreeTextSig: ISS 1:25, Stop ICR with Ozempic [...] Isiah Bryan 3 ml insulin aspart, human 1 00 unt/ml pen injector (20 sources) Insulin Analog Start: 03-08-2025 End: 03-08-2025 Start: 01-14-2024 End: 03-08-2025 Insulin Aspart U-100 (Novolo g Flexpen U-100 Insulin) 100 unit/mL (3 mL) insulin pen Discontinued SUBCUT January 14, 2024 1:00am March 08, 2025 9:42am FreeTextSig: ISS 1:25, Stop ICR with Ozempic Subcutaneous 4 x daily; Note: Source Status: TITRATEExpect up to 50 u per day; Refills: 1; Provider: Isiah Bryan NovoLOG FlexPen 100 UNIT/ML ISS 1:20, no [...] NovoLOG FlexPen 100 UNIT/ML per ISS 1 unit insulin to 30 mg/dl and 1 unit of insulin to 5 grams of carb ICR (max daily dose 80 units/day) Subcutaneous before meals for 90 days Expect up to 80 u per day Active inject 5 g by subcut aneous injection once daily before mealtime NovoLOG FlexPen 100 UNIT/ML per ISS 1 unit insulin to 30 mg/dl and 1 unit [...] meals Active 3 ml insulin degludec 200 un t/ml pen injector (20 sources) Insulin Analog Start: 12-07-2024 End: 03-08-2025 Start: 09-02-2024 End: 12-07-2024 Insulin Degludec (Tresiba Flextouch U-200) 200 unit/mL (3 mL) insulin pen Discontinued 30 UNIT SUBCUT Daily September 02, 2024 8:49am December 07, 2024 10:11am Titrate to 50 u per day, has written instructions Start: 06-22-2024 End: 09-02-2024 Insulin Degludec (Tresiba Flextouch U-200) 200 unit/mL (3 mL) insulin pen Discontinued 32 UNIT SUBCUT Daily June 22, 2024 4:26pm September 02, 2024 8:54am Titrate to 50 u per day, has written instructions Start: 05-25-2024 End: 06-22-2024 Insulin Degludec (Tresiba Flextouch U-200) 200 unit/mL (3 mL) insulin pen Discontinued 32 UNIT SUBCUT Daily May 25, 2024 8:16am June 22, 2024 4:28pm Start: 01-14-2024 End: 05-25-2024 Insulin Degludec (Tresiba Flextouch U-200) 200 unit/mL (3 mL) insulin pen Discontinued 34 UNIT SUBCUT Daily February 19, 2024 8:10am February 19, 2024 9:13am Start: 08-26-2023 End: 02-19-2024 inject 40 [IU] by subcutaneous injection once [...] (3 mL) insulin pen (20 sources) Start: 03-08-2025 Insulin Deglud ec (Tresiba Flextouch U-200) 200 unit/mL (3 mL) insulin pen Active 28 UNIT SUBCUT Daily March 08, 2025 9:39am Titrate to 40 u per day, has written instructions Start: 12-07-2024 End: 03-08-2025 Insulin Degludec (Tresiba Fl extouch U-200) 200 unit/mL (3 mL) insulin pen Discontinued 28 UNIT SUBCUT Daily December 07, 2024 10:09am March 08, 2025 9:42am Titrate to 40 u per day, has written instructions, DISPENSE qs FOR 90 DAYS Start: 12-07-2024 Insulin Deglud ec (Tresiba Flextouch U-200) 200 unit/mL (3 mL) insulin pen Active 28 UNIT SUBCUT Daily December 07, 2024 10:09am Titrate to 40 u per day, has written instructions, DISPENSE qs FOR 90 DAYS Start: 12-07-2024 Insulin Deglud ec (Tresiba Flextouch U-200) 200 unit/mL (3 mL) insulin pen Active 28 UNIT SUBCUT Daily December 07, 2024 9:09am Titrate to 40 u per day, has written instructions, DISPENSE qs FOR 90 DAYS Start: 09-02-2024 End: 12-07-2024 Insulin Degludec (Tresiba Fl extouch U-200) 200 unit/mL (3 mL) insulin pen Discontinued 30 UNIT SUBCUT Daily September 02, 2024 8:49am December 07, 2024 10:11am Titrate to 50 u per day, has written instructions Start: 09-02-2024 End: 12-07-2024 Insulin Degludec (Tresiba Fl extouch U-200) 200 unit/mL (3 mL) insulin pen Discontinued 30 UNIT SUBCUT Daily September 02, 2024 7:49am December 07, 2024 9:11am Titrate to 50 u per day, has written instructions Start: 09-02-2024 Insulin Deglud ec (Tresiba Flextouch U-200) 200 unit/mL (3 mL) insulin pen Active 30 UNIT SUBCUT Daily September 02, 2024 7:49am Titrate to 50 u per day, has written instructions Start: 06-22-2024 End: 09-02-2024 Insulin Degludec (Tresiba Fl extouch U-200) 200 unit/mL (3 mL) insulin pen Discontinued 32 UNIT SUBCUT Daily June 22, 2024 4:26pm September 02, 2024 8:54am Titrate to 50 u per day, has [...] Bryan insulin lispro 100 unt/ml injectable solution (20 sources) Insulin Analog insulin lispro (HumaLOG) 100 unit/mL injection Inject under the skin 3 (three) times a day before meals. Active lisinopril 40 mg oral tablet (20 sources) Angiotensin Converting Enzyme Inhibitor take 1 [...] day Active meloxicam 15 mg oral tablet (20 sources) Nonsteroidal Anti-inflammatory Drug Start: 02-29-20 End: 06-08-20 take 1 tablet by mouth once daily as needed for pain meloxicam (MOBIC) 15 mg tablet Take 1 tablet (15 mg total) by mouth daily as needed for pain. 30 tablet 1 06/08/2025 Active naproxen 500 mg oral tablet (9 sources) Nonsteroidal Anti-inflammatory Drug take 1 tablet by mouth every twelve hours at mealtime as needed Naproxen 500 MG 1 tablet with food or milk as needed Orally every 12 hrs Active omeprazole 20 mg delayed release oral capsule (20 sources) Proton Pump Inhibitor Start: 10-25-20 End: 06-08-20 take 1 capsule by mouth before breakfast omeprazole (PriLOSEC) 20 mg capsule TAKE 1 CAPSULE BY MOUTH IN THE MORNING BEFORE BREAKFAST 30 capsule 1 06/08/2025 Active ozempic (2 mg/dose) 8 mg/3ml solution pen-injector (2 sources) inject 1 mg by subcutaneous injection every week Ozempic (2 MG/DOSE) 8 MG/3ML as directed Subcutaneous weekly for 90 days Send refill after labs Active OZEMPIC 2 mg/dose (8 mg/3 mL) pen injector (20 sources) Start: 03-29-20 inject 2 mg by subcutaneous injection every [...] weekly for 90 days May, Active Semaglutide (12 sources) Start: 03-08-2025 inject 2 mg by subcutaneous injection every week Start: 03-08-2025 inject 2 mg by subcu taneous injection every week Semaglutide (Ozempic) 2 mg/dose (8 mg/3 mL) pen injector Active 2 MG SUBCUT every week March 08, 2025 9:43am 2 mg Subcutaneous weekly Complies with drug therapy Start: 12-07-2024 End: 03-08-2025 inject 2 mg by subcutaneous injection every week Semaglutide (Ozempic) 2 mg/dose (8 mg/3 mL) pen injector Discontinued 2 MG SUBCUT every week December 07, 2024 10:11am March 08, 2025 9:44am 2 mg Subcutaneous weekly Start: 09-02-2024 End: 12-07-2024 inject 2 mg by subcutaneous injection every week Semaglutide (Ozempic) 2 mg/dose (8 mg/3 mL) pen injector Discontinued 2 MG SUBCUT every week 9 September 02, 2024 8:50am December 07, 2024 10:11am 2 mg Subcutaneous weekly Start: 06-22-2024 End: 09-02-2024 inject 2 mg by subcutaneous injection every week Semaglutide (Ozempic) 2 mg/dose (8 mg/3 mL) pen injector Discontinued 2 MG SUBCUT every week June 22, 2024 4:27pm September 02, 2024 8:54am 2 mg Subcutaneous weekly Start: 02-19-2024 End: [...] 1; Qty: 9 ml; Provider: Isiah Bryan Semaglutide (Ozempic) 2 mg/dose (8 mg/3 mL) pen injector (20 sources) Start: 03-08-2025 inject 2 mg by subcutaneous injection every week Semaglutide (Ozempic) 2 mg/dose (8 mg/3 mL) pen injector Active 2 MG SUBCUT every week March 08, 2025 9:43am 2 mg Subcutaneous weekly Start: 12-07-2024 End: 03-08-2025 inject 2 mg by subcutaneous injection every week Semaglutide (Ozempic) 2 mg/dose (8 mg/3 mL) pen injector Discontinued 2 MG SUBCUT every week December 07, 2024 10:11am March 08, 2025 9:44am 2 mg Subcutaneous weekly Start: 12-07-2024 inject 2 mg by subcu taneous injection every week Semaglutide (Ozempic) 2 mg/dose (8 mg/3 mL) pen injector Active 2 MG SUBCUT every week December 07, 2024 10:11am 2 mg Subcutaneous weekly Start: 12-07-2024 inject 2 mg by subcu taneous injection every week Semaglutide (Ozempic) 2 mg/dose (8 mg/3 mL) pen injector Active 2 MG SUBCUT every week December 07, 2024 9:11am 2 mg Subcutaneous weekly Start: 09-02-2024 End: 12-07-2024 inject 2 mg by subcutaneous injection every week Semaglutide (Ozempic) 2 mg/dose (8 mg/3 mL) pen injector Discontinued 2 MG SUBCUT every week September 02, 2024 8:50am December 07, 2024 10:11am 2 mg Subcutaneous weekly Start: 09-02-2024 End: 12-07-2024 inject 2 mg by subcutaneous injection every week Semaglutide (Ozempic) 2 mg/dose (8 mg/3 mL) pen injector Discontinued 2 MG SUBCUT every week September 02, 2024 7:50am December 07, 2024 9:11am 2 mg Subcutaneous weekly Start: 09-02-2024 inject 2 mg by subcu taneous injection every week Semaglutide (Ozempic) 2 mg/dose (8 mg/3 mL) pen injector Active 2 MG SUBCUT every week September 02, 2024 7:50am 2 mg Subcutaneous weekly Start: 06-22-2024 End: 09-02-2024 inject 2 mg by subcutaneous injection every week Semaglutide (Ozempic) 2 mg/dose (8 mg/3 mL) pen injector Discontinued 2 MG SUBCUT every week June 22, 2024 4:27pm September 02, 2024 8:54am 2 mg Subcutaneous weekly Start: 06-22-2024 End: [...] Active 2 MG SUBCUT every week 9.75 February 19, 2024 9:12am FreeTextSi mg Subcutaneous [...] Isiah Bryan topiramate 100 mg oral tablet (20 sources) take 1 tablet by mouth once daily topiramate (TOPAMAX) 100 mg tablet Take 1 tablet (100 mg total) by mouth nightly. Active vitamin b12 1 mg sublingual tablet (20 sources) Vitamin B12 Start: 02-19-2024 take 1 tablet under the tongue once daily Start: 01-14-2024 End: 02-19-2024 take 1 tablet under the tongue every other day Cyanocobalamin (Vitamin B-12) 1,000 mcg tablet, sublingual Discontinued MCG SUBLINGUAL January 14, 2024 1:00am [...] Drug Class(es) Dates Sig (Normalized) Sig (Original) dapagliflozin 10 mg oral tablet (20 sources) Sodium-Glucose Cotransporter 2 Inhibitor Start: 01-14-2024 End: 03-08-2025 take 1 tablet by mouth once daily Dapagliflozin Propanediol (Farxiga) 10 mg tablet Discontinued 10 MG PO Daily 90 December 07, 2024 10:10am March 08, 2025 9:42am exenatide (2 sources) GLP-1 Receptor Agonist inject 2 mg by subcutaneous injection every week Bydureon 2 MG 2mg Subcutaneous weekly for 28 Not-Taking 24 hr metFORMIN hydrochloride 500 mg extended release oral tablet (20 sources) Biguanide Start: 01-14-2024 End: 03-08-2025 take 1 tablet by mouth twice daily Metformin 500 mg tablet extended release 24 hr Discontinued 500 MG PO Twice daily February 18, 2024 5:26pm February 19, 2024 9:13am Start: 01-14-2024 End: 02-18-2024 take 1 mg by mouth twice daily Metformin Discontinued MG PO January 14, 2024 1:00am February 18, 2024 5:42pm FreeTextSig: cont Orally Twice daily; Note: Source Status: Continue; Refills: 1; Provider: Isiah Bryan take 4 tablets by mo prh every twenty-four hours in the evening metFORMIN [...] SQ once weekly for 90 days Not-Taking/PRN pioglitazone 15 mg oral tablet (3 sources) Peroxisome Proliferator Receptor alpha Agonist, Peroxisome Proliferator Receptor gamma Agonist, Thiazolidinedione Start: 2024 End: 2024 take 1 tablet by mouth once daily Pioglitazone 15 mg tablet Discontinued 15 MG PO Daily March 08, 2025 12:00am May 03, 2025 7:49am psyllium 520 mg oral capsule (15 sources) Start: 2019 End: 2023 take 1 capsule by mouth once daily psyllium (METAMUCIL) 0.52 gram capsule Take 1 capsule (0.52 g total) by mouth daily. 30 capsule 01/27/2020 08/31/2024 Discontinued (Therapy completed) tiZANidine 4 mg oral tablet (20 sources) Central alpha-2 Adrenergic Agonist Start: 2023 End: 2023 Tizanidine 4 mg tablet Discontinued 4 MG PO . NEEDED as needed February 19, 2024 12:00am September 02, 2024 8:16am tiZANidine HCl 4 MG 1 tablet Orally PRN Active Triamcinolone (20 sources) Corticosteroid Start: 04-06-2020 Start: 04-06-2020 KENALOG - 10 m g March, 40 mg Start: 2017 Start: 2017 Kenalog -40 mg Dec, 40 mg Problems Active Problems Problem Classification Problem Date Documented Date Episodic/Chronic Abdominal pain (12 sources) Left upper quadrant pain; 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: [Unspecified abdominal pain] Episodic Blindness and vision defects (2 sources) Presbyopia; 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: [Presbyopia] 05-26-2025 Episodic Cancer of colon (20 sources) Carcinoma in situ of colon; 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: [Carcinoma in situ of colon] Onset: 10-29-2012 08-23-2022 Chronic Cataract (2 sources) Bilateral pseudophakia; 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: [Presence of intraocular lens] 05-26-2025 Chronic Conditions associated with dizziness or vertigo (1 source) Dizziness and giddiness; 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: [DIZZINESS AND GIDDINESS] Onset: 04-02-2023 Episodic Diabetes mellitus with complications (20 sources) Hyperglycemia due to type 2 diabetes mellitus; 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: [Type 2 diabetes mellitus with hyperglycemia] Onset: 04-24-2017 Resolved: 06-12-2022 Chronic Diabetes mellitus without complication (20 sources) Type 2 diabetes mellitus without complications; [...] migraine; 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: [HEADACHE UNSPECIFIED] Onset: 04-06-2022 Hepatitis (20 sources) Nonalcoholic steatohepatitis; 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: [Nonalcoholic steatohepatitis (ANTUNEZ)] [...] sources) Long-term current use of insulin; 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] 02-18-2024 Episodic Other aftercare (18 sources) [facility] (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; 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: [Long-term (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] Onset: 12-25-2021 Resolved: 06-12-2022 Episodic Other aftercare (1 source) [facility] (current) use of aspirin; 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: [JAIL 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] Onset: 04-02-2023 Episodic Other aftercare (1 source) Other senior living (current) drug therapy; 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: [OTH JAIL CURRENT DRUG THERAPY] Onset: 04-02-2023 Episodic Other connective tissue disease (1 source) Other muscle spasm; 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: [OTHER MUSCLE SPASM] Onset: 03-25-2023 Episodic Other eye disorders (2 sources) Tear film insufficiency; 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: [Dry eye syndrome of bilateral lacrimal glands] 05-26-2025 Episodic Other lower respiratory disease (1 source) [...] Chronic Other nutritional; endocrine; and metabolic disorders (10 sources) Body mass index 30+ - obesity; 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: [Body mass index (BMI) 34.0-34.9, adult] 02-18-2024 Chronic Other nutritional; endocrine; and metabolic disorders (1 source) Morbid (severe) obesity due to excess calories; 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: [Morbid (severe) obesity due to excess calories] Onset: 08-31-2024 Chronic Other nutritional; endocrine; and metabolic disorders (20 sources) High density lipoprotein deficiency ; 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: [Lipoprotein deficiency] Onset: 04-24-2017 08-23-2022 Chronic Other nutritional; endocrine; and metabolic disorders (20 sources) Obesity caused by energy imbalance; 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: [Other obesity due to excess calories] 04-19-2023 Chronic Other screening for suspected conditions (not mental disorders or infectious disease) (2 sources) Encounter for screening for malignant neoplasm of prostate; 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: [Patient encounter status] Onset: 08-31-2024 08-31-2024 Episodic Pneumonia (except that caused by tuberculosis or sexually transmitted disease) (1 source) Pneumonia, unspecified organism; 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: [PNEUMONIA UNSPECIFIED ORGANISM] Onset: 04-02-2023 Episodic Residual codes; unclassified (11 sources) Obstructive sleep apnea (adult) (pediatric); 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: [Obstructive sleep apnea (adult)(pediatric)] Onset: 07-02-2022 Chronic Residual codes; unclassified (20 sources) Obstructive sleep apnea syndrome; 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: [Obstructive sleep apnea (adult) (pediatric)] Onset: 04-17-2011 02-18-2024 Chronic Residual codes; unclassified (1 source) Procedure and treatment not carried out for other reasons; 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: [PROC AND TX NOT CARRIED OUT OTH REASONS] Onset: 02-06-2023 Episodic Retinal detachments; defects; vascular occlusion; and retinopathy (20 sources) Retinal disorder; 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: [Unspecified background retinopathy] Onset: 08-31-2024 02-18-2024 Chronic Spondylosis; intervertebral disc disorders; other back problems (20 sources) Spondylosis without myelopathy or radiculopathy, cervical region; 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: [Other spondylosis with radiculopathy, cervical region] Onset: 05-10-2016 Chronic Spondylosis; intervertebral disc disorders; other back problems (20 sources) Cervicalgia; 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: [Cervical disc disorder with radiculopathy, unspecified cervical region] Onset: 08-23-2022 Episodic Thyroid disorders (1 source) Hypothyroidism Onset: 08-31-2024 [...] Classification Problem Date Documented Da te Episodic/Chronic Administrative/social admission (20 sources) Dietary counseling and surveillance; 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: [Patient encounter status] Onset: 12-25-2021 Resolved: 06-12-2022 Episodic Cancer of colon (20 sources) History of malignant neoplasm of colon; 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: [Personal history of other malignant neoplasm of large intestine] Onset: 01-27-2020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 INSTALLER, HSTROPN, CMP, LIPA #### [facility] [address] [address] [address] Dequan Márquez EGFR-AF CITIZ[place] >60 Normal >=60 [facility] Comment on above: Performed By: #### B SHOCK ABSORBER INSTALLER, HSTROPN, CMP, LIPA #### [facility] [address] [address] [address] Dequan Márquez EGFR-NON AF CITIZEN OF [place] >60 Normal >=60 [facility] Comment on above: Performed By: #### B SHOCK ABSORBER INSTALLER, HSTROPN, CMP, LIPA #### [facility] [address] [address] [address] Dequan Márquez Globulin (S) [Mass/Vol] 4.8 g/dL Normal [facility] Comment on above: Performed By: #### B SHOCK ABSORBER INSTALLER, HSTROPN, CMP, LIPA #### [facility] [address] [address] [address] Dequan Márquez Glucose [Mass/Vol] 209 mg/dL Critically high 74-106 [facility] Comment on above: Performed By: #### B SHOCK ABSORBER INSTALLER, HSTROPN, CMP, LIPA #### [facility] [address] [address] [address] Dequan Márquez Potassium [Moles/Vol] 3.6 mmol/L Normal 3.5-5.1 [facility] Comment on above: Performed By: #### B SHOCK ABSORBER INSTALLER, HSTROPN, CMP, LIPA #### [facility] [address] [address] [address] Dequan Márquez Protein [Mass/Vol] 8.4 g/dL Critically high 6.4-8.2 [facility] Comment on above: Performed By: #### B SHOCK ABSORBER INSTALLER, HSTROPN, CMP, LIPA #### [facility] [address] [place] [address] Dr. Dequan Márquez Sodium [Moles/Vol] 131 mmol/L Critically low 136-145 [facility] Comment on above: Performed By: #### B SHOCK ABSORBER INSTALLER, HSTROPN, CMP, LIPA #### [facility] [address] [place] [address] Dr. Dequan Márquez Urea nitrogen [Mass/Vol] 22.0 mg/dL Critically high 7.0-18.0 [facility] Comment on above: Performed By: #### B SHOCK ABSORBER INSTALLER, HSTROPN, CMP, LIPA #### [facility] [address] [address] [address] Dequan Márquez Urea nitrogen/Creatinine [Mass ratio] 19.3 mg/mg Normal [facility] Comment on above: Performed By: #### B SHOCK ABSORBER INSTALLER, HSTROPN, CMP, LIPA #### [facility] [address] [address] [address] Dequan Márquez PROTIMEon 03-29-2023 INR Coag (PPP) [Relative time] 1.10 {INR} Normal [facility] Comment on above: Performed By: #### C BC #### [facility] [address] [address] [address] Dequan Márquez INR GUIDELINES SEE BELOW Normal [facility] Comment on above: Result Comment: JESSICA RED INR: 2.0 - 3.0 CONDITIONS NOT LISTED BELOW 2.5 - 3.5 FOR PROSTHETIC HEART VALVE REPLACEMENT 2.5 - 3.5 RECURRENT THROMBOSIS Performed By: #### C BC #### [facility] [address] [place] [address] Dr. Dequan Márquez PT Coag (PPP) [Time] 11.6 s Normal 9.0-11.6 [facility] Comment on above: Performed By: #### C BC #### [facility] [address] [place] [address] Dr. Dequan Márquez SYMPTOMATIC COVID-19 ANTIGEN on 03-29-2023 EUA Statement SEE BELOW Normal [facility] Comment on above: Result Comment: This test [...] sooner. Performed By: #### C VDAGS #### [facility] [address] [place] [address] Dr. Dequan Márquez SARS-CoV-2 (COVID-19) RNA YONIS+probe Ql (Unsp spec) Negative Normal NEGATIVE [facility] Comment on above: Performed By: #### C VDAGS #### [facility] [address] [place] [address] Dr. Dequan Márquez TROPONIN, HIGH SENSITIVITYon 03-29-2023 HSTROP 5.2 pg/mL Normal 4.0-76.1 [facility] Comment on above: Result Comment: CUT- OFF POINTS HAVE BEEN ESTABLISHED BASED ON THE FOURTH UNIVERSAL DEFINITIONS OF MYOCARDIAL INFARCTION. THE UPPER REFERENCE LIMIT (URL) OF TROPONIN, DEFINED THE 99TH PERCENTILE OF cTnI DISTRIBUTION IN A REFERENCE POPULATION, HAS BEEN CONFIRMED THE DECISION THRESHOLD FOR RI DIAGNOSIS. Performed By: #### U MICRO, ERUR #### [facility] [address] [place] [address] Dr. Dequan Márquez URINE MICROSCOPIC ONLYon BACTERIA TRACE Abnormal NONE SEEN [facility] Comment on above: Performed By: #### U MICRO, ERUR #### [facility] [address] [address] [address] Dequan Márquez Bacteria identified Cx Nom (U) NOT INDICATED Normal [facility] Comment on above: Performed By: #### U MICRO, ERUR #### [facility] [address] [place] [address] Dr. Dequan Márquez CAST NONE SEEN Normal NONE SEEN [facility] Comment on above: Performed By: #### U MICRO, ERUR #### [facility] [address] [place] [address] Dr. Dequan Máqruez Crystals LM Nom (Urine sed) NONE SEEN Normal NONE SEEN [facility] Comment on above: Performed By: #### U MICRO, ERUR #### [facility] [address] [place] [address] Dr. Dequan Márquez Epithelial cells LM Ql (Urine sed) FEW Abnormal NONE SEEN /RARE [facility] Comment on above: Performed By: #### U MICRO, ERUR #### [facility] [address] [address] [address] Dequan Márquez MUCOUS NONE SEEN Normal NONE SEEN [facility] Comment on above: Performed By: #### U MICRO, ERUR #### [facility] [address] [place] [address] Dr. Dequan Márquez RBC 2-5 Abnormal 0-2 [facility] Comment on above: Performed By: #### U MICRO, ERUR #### [facility] [address] [address] [address] Dequan Márquez WBC 0-2 Abnormal NONE SEEN [facility] Comment on above: Performed By: #### U MICRO, ERUR #### [facility] [address] [place] [address] Dr. Dequan Márquez XR CHEST 1 Von [...] by: DESIRAE SOSA Date: 2023-03-29 14:10 Normal [facility] A1C HEMOGLOBINon 03-26-2023 HbA1c (Bld) [Mass fraction] 6.5 % [employer] Other Glucose - FINGER STICKon Glucose [Mass/Vol] 156 mg/dL [employer] Other HbA1c (Bld) [Mass fraction]o n 03-26-2023 A1C HEMOGLOBIN [employer] Other A1C HEMOGLOBINon 12-25-2022 HbA1c (Bld) [Mass fraction] 7.0 % [employer] Other Glucose - FINGER STICKon Glucose [Mass/Vol] 107 mg/dL [employer] Other HbA1c (Bld) [Mass fraction]o n 12-25-2022 A1C HEMOGLOBIN [employer] Other MRI CSPINE WO CONon 10-22-20 MRI [...] by: LEDY MARIE Date: 2022-10-22 21:47 Normal [facility] A1C HEMOGLOBINon 09-20-2022 HbA1c (Bld) [Mass fraction] 7.0 % [employer] Other Glucose - FINGER STICKon Glucose [Mass/Vol] 121 mg/dL [employer] Other HbA1c (Bld) [Mass fraction]o n 09-20-2022 A1C HEMOGLOBIN [employer] Other MICROALBUMIN/ CREATININE RAT IOon 08-14-2022 Albumin, Urine 4.3 ug/mL Normal Not Estab. [facility] Comment on above: Performed By: #### C BC #### [facility] [address] [place], [place] [address] Dr. Dequan Márquez Albumin/ Creatinine Ratio 11 mg/g creat Normal 0-29 [facility] Comment on above: Result Comment: Norm al: 0 - 29 Moderately increased: 30 - 300 Severely increased: >300 Performed By: #### C BC #### [facility] [address] [place], [place] [address] Dr. Dequan Márquez Creatinine, Urine 38.5 mg/dL Normal Not Estab. [facility] Comment on above: Performed By: #### C BC #### [facility] [address] [id number] [address] Dequan Márquez LIPID PROFILEon 08-13-2022 CHOL-HDL RATIO NORM SEE BELOW Normal [facility] Comment on above: Result Comment: 3.3 - 4.4 LOW RISK 4.4 - 7.1 AVERAGE RISK 7.1 - 11.0 MODERATE RISK >11.0 HIGH RISK Performed By: #### C BC #### [facility] [address] [address] [address] Dequan Márquez Cholesterol [Mass/Vol] 111 mg/dL Normal <=200 [facility] Comment on above: Performed By: #### C BC #### [facility] [address] [address] [address] Dequan Márquez Cholesterol in HDL [Mass/Vol] 28 mg/dL Critically low 40-60 [facility] Comment on above: Performed By: #### C BC #### [facility] [address] [address] [address] Dequan Márquez Cholesterol in LDL [Mass/Vol] 51.0 mg/dL Normal [facility] Comment on above: Performed By: #### C BC #### [facility] [address] [address] [address] Dequan Márquez Cholesterol.total/Ingris sterol in HDL [Mass ratio] 4.0 {ratio} Normal [facility] Comment on above: Performed By: #### C BC #### [facility] [address] [address] [address] Dequan Márquez HDL NORMAL > or = 60 mg/dl - LO W CARDIOVASCULAR RISK <40 mg/dl - HIGH CARDIOVASCULAR RISK Normal [facility] Comment on above: Performed By: #### C BC #### [facility] [address] [id number] [address] Dequan Márquez LDL CALC NORMAL SEE BELOW Normal [facility] Comment on above: Result Comment: <100 mg/dl OPTIMAL 100 - 129 mg/dl NEAR OR ABOVE OPTIMAL 130 - 159 mg/dl BORDERLINE HIGH 160 - 189 mg/dl HIGH >190 mg/dl VERY HIGH Performed By: #### C BC #### [facility] [address] [place] [address] Dr. Dequan Márquez Triglyceride [Mass/Vol] 160 mg/dL Critically high <=150 [facility] Comment on above: Performed By: #### C BC #### [facility] [address] [place] [address] Dr. Dequan Márquez VLDL CALC 32.0 mg/dL Normal [facility] Comment on above: Performed By: #### C BC #### [facility] [address] [place] [address] Dr. Dequan Márquez PROF 14(COMP METB)on 022 Albumin [Mass/Vol] 4.1 g/dL Normal 3.4-5.0 [facility] Comment on above: Performed By: #### C BC #### [facility] [address] [place] [address] Dr. Dequan Márquez Albumin/Globulin [Mass ratio] 1.0 {ratio} Normal [facility] Comment on above: Performed By: #### C BC #### [facility] [address] [place] [address] Dr. Dequan Márquez ALP [Catalytic activity/Vol] 114 U/L Normal 46-116 [facility] Comment on above: Performed By: #### C BC #### [facility] [address] [place] [address] Dr. Dequan Márquez ALT [Catalytic activity/Vol] 43 U/L Normal 16-63 [facility] Comment on above: Performed By: #### C BC #### [facility] [address] [place] [address] Dr. Dequan Márquez Anion gap [Moles/Vol] 11.0 mmol/L Normal [facility] Comment on above: Performed By: #### C BC #### [facility] [address] [place] [address] Dr. Dequan Márquez AST [Catalytic activity/Vol] 20 U/L Normal 15-37 [facility] Comment on above: Performed By: #### C BC #### [facility] [address] [place], [place] [id number] Dr. Dequan Márquez Bilirubin [Mass/Vol] 0.5 mg/dL Normal 0.2-1.0 [facility] Comment on above: Performed By: #### C BC #### [facility] [address] [place] [address] Dr. Dequan Márquez Calcium [Mass/Vol] 9.2 mg/dL Normal 8.5-10.1 [facility] Comment on above: Performed By: #### C BC #### [facility] [address] [place] [address] Dr. Dequan Márquez Chloride [Moles/Vol] 102 mmol/L Normal 98-107 [facility] Comment on above: Performed By: #### C BC #### [facility] [address] [place] [address] Dr. Dequan Márquez CO2 [Moles/Vol] 26.3 mmol/L Normal 21.0-32.0 [facility] Comment on above: Performed By: #### C BC #### [facility] [address] [place] [address] Dr. Dequan Márquez Creatinine [Mass/Vol] 0.90 mg/dL Normal 0.70-1.30 [facility] Comment on above: Performed By: #### C BC #### [facility] [address] [place] [address] Dr. Dequan Márquez EGFR-AF [place]IZ[place] >60 Normal >=60 [facility] [place] Comment on above: Performed By: #### C BC #### [facility] [address] [place] [address] Dr. Dequan Márquez EGFR-NON AF CITIZEN OF [place] >60 Normal >=60 [facility] Comment on above: Performed By: #### C BC #### [facility] [address] [place] [address] Dr. Dequan Márquez Globulin (S) [Mass/Vol] 4.3 g/dL Normal [facility] Comment on above: Performed By: #### C BC #### [facility] [address] [place] [address] Dr. Dequan Márquez Glucose [Mass/Vol] 149 mg/dL Critically high 74-106 [facility] Comment on above: Performed By: #### C BC #### [facility] [address] [address] [address] Dequan Márquez Potassium [Moles/Vol] 4.3 mmol/L Normal 3.5-5.1 [facility] Comment on above: Performed By: #### C BC #### [facility] [address] [address] [address] Dequan Márquez Protein [Mass/Vol] 8.4 g/dL Critically high 6.4-8.2 [facility] Comment on above: Performed By: #### C BC #### [facility] [address] [place] [address] Dr. Dequan Márquez Sodium [Moles/Vol] 135 mmol/L Critically low 136-145 [facility] Comment on above: Performed By: #### C BC #### [facility] [address] [place] [address] Dr. Dequan Márquez Urea nitrogen [Mass/Vol] 30.0 mg/dL Critically high 7.0-18.0 [facility] Comment on above: Performed By: #### C BC #### [facility] [address] [place] [address] Dr. Dequan Márquez Urea nitrogen/Creatinine [Mass ratio] 33.3 mg/mg Normal [facility] Comment on above: Performed By: #### C BC #### [facility] [address] [place] [address] Dr. Dequan Márquez MRI BRAIN WO CONon 2 MRI BRAIN WO CON EXAMINATION: MRI BRAIN WO CON, MRA HEAD WO CON, 06/11/2022 [...] months to document stability. Electronically authenticated by: MAKENZIE FRANCIS Date: 2022-06-13 06:18 Normal [facility] A1C HEMOGLOBINon 06-12-2022 HbA1c (Bld) [Mass fraction] 7.1 % [employer] Other Glucose - FINGER STICKon Glucose [Mass/Vol] 181 mg/dL [facility] Other HbA1c (Bld) [Mass fraction]o n 06-12-2022 A1C HEMOGLOBIN [facility] Other CRPon 05-30-2022 CRP 1.0 mg/dL Normal <=1.0 [facility] Comment on above: Performed By: #### C BC #### [facility] [address] [address] [address] Dequan Márquez SED RATE WESTERGRENon 2021 SED RATE 32 mm/hr Critically high <=20 [facility] Comment on above: Performed By: #### S EDR #### [facility] [address] [address] [address] Dequan Márquez CBC AUTO DIFFon 04-06-2022 BASO # 0.1 103/ul Normal 0.0-0.1 [facility] Comment on above: Performed By: #### C BC #### [facility] [address] [place] [address] Dr. Dequan Márquez Basophils/100 WBC (Bld) 0.9 % Normal 0.2-2.0 [facility] Comment on above: Performed By: #### C BC #### [facility] [address] [place] [address] Dr. Dequan Márquez EO # 0.3 103/ul Normal 0.0-0.7 [facility] Comment on above: Performed By: #### C BC #### [facility] [address] [place] [address] Dr. Dequan Márquez Eosinophils/100 WBC (Bld) 3.1 % Normal 0.9-7.0 [facility] Comment on above: Performed By: #### C BC #### [facility] [address] [place] [address] Dr. Dequan Márquez Erythrocyte distribution width (RBC) [Ratio] 13.6 % Normal 11.0-15.0 [facility] Comment on above: Performed By: #### C BC #### [facility] [address] [place] [address] Dr. Dequan Márquez Hematocrit (Bld) [Volume fraction] 44.8 % Normal 42.0-54.0 [facility] Comment on above: Performed By: #### C BC #### [facility] [address] [place] [address] Dr. Dequan Márquez Hemoglobin (Bld) [Mass/Vol] 14.9 g/dL Normal 14.0-18.0 [facility] Comment on above: Performed By: #### C BC #### [facility] [address] [place] [address] Dr. Dequan Márquez IG # 0.02 10e3/ul Normal 0.00-0.03 [facility] Comment on above: Performed By: #### C BC #### [facility] [address] [place] [address] Dr. Dequan Márquez IG % 0.2 % Normal 0.0-0.5 [facility] Comment on above: Performed By: #### C BC #### [facility] [address] [place] [address] Dr. Dequan Márquez LYMPH # 2.3 103/ul Normal 1.2-3.8 [facility] Comment on above: Performed By: #### C BC #### [facility] [facility] [address] [place] [address] Dr. Dequan Márquez Lymphocytes/100 WBC (Bld) 28.7 % Normal 20.5-60.0 [facility] Comment on above: Performed By: #### C BC #### [facility] [address] [place] [address] Dr. Dequan Márquez MANUAL DIFF REQ NO Normal [facility] Comment on above: Performed By: #### C BC #### [facility] [address] [place] [address] Dr. Dequan Márquez MCH (RBC) [Entitic mass] 29.3 pg Normal 25.9-34.0 [facility] Comment on above: Performed By: #### C BC #### [facility] [address] [place] [address] Dr. Dequan Márquez MCHC (RBC) [Mass/Vol] 33.3 g/dL Normal 29.9-35.2 [facility] Comment on above: Performed By: #### C BC #### [facility] [address] [place] [address] Dr. Dequan Márquez MCV (RBC) [Entitic vol] 88.2 fL Normal 80.0-94.0 [facility] Comment on above: Performed By: #### C BC #### [facility] [address] [place] [address] Dr. Dequan Márquez MONO # 0.7 103/ul Normal 0.3-0.8 [facility] Comment on above: Performed By: #### C BC #### [facility] [address] [place] [address] Dr. Dequan Márquez Monocytes/100 WBC (Bld) 8.8 % Normal 1.7-12.0 [facility] Comment on above: Performed By: #### C BC #### [facility] [address] [place] [address] Dr. Dequan Márquez NEUT # 4.7 103/ul Normal 1.4-6.5 [facility] Comment on above: Performed By: #### C BC #### [facility] [address] [place] [address] Dr. Dequan Márquez Neutrophils/100 WBC (Bld) 58.3 % Normal 43.0-75.0 [facility] Comment on above: Performed By: #### C BC #### [facility] [address] [place] [address] Dr. Dequan Márquez Platelet mean volume (Bld) [Entitic vol] 11.1 fL Normal 9.5-13.5 [facility] Comment on above: Performed By: #### C BC #### [facility] [address] [place] [address] Dr. Dequan Márquez PLT 311 103/ul Normal 150-450 [facility] Comment on above: Performed By: #### C BC #### [facility] [address] [place] [address] Dr. Dequan Márquez RBC 5.08 106/ul Normal 4.70-6.10 [facility] Comment on above: Performed By: #### C BC #### [facility] [address] [place] [address] Dr. Dequan Márquez WBC 8.1 103/ul Normal 4.0-11.0 [facility] Comment on above: Performed By: #### C BC #### [facility] [address] [place] [address] Dr. Dequan Márquez PROF 14(COMP METB)on 022 Albumin [Mass/Vol] 3.9 g/dL Normal 3.4-5.0 [facility] Comment on above: Performed By: #### C MP #### [facility] [address] [place] [address] Dr. Dequan Márquez Albumin/Globulin [Mass ratio] 1.0 {ratio} Normal [facility] Comment on above: Performed By: #### C MP #### [facility] [address] [place] [address] Dr. Dequan Márquez ALP [Catalytic activity/Vol] 128 U/L Critically high 46-116 [facility] Comment on above: Performed By: #### C MP #### [facility] [address] [place] [address] Dr. Dequan Márquez ALT [Catalytic activity/Vol] 54 U/L Normal 16-63 [facility] Comment on above: Performed By: #### C MP #### [facility] [address] [place] [address] Dr. Dequan Márquez Anion gap [Moles/Vol] 12.1 mmol/L Normal [facility] Comment on above: Performed By: #### C MP #### [facility] [address] [place] [address] Dr. Dequan Márquez AST [Catalytic activity/Vol] 26 U/L Normal 15-37 [facility] Comment on above: Performed By: #### C MP #### [facility] [address] [place] [address] Dr. Dequan Márquez Bilirubin [Mass/Vol] 0.4 mg/dL Normal 0.2-1.0 [facility] Comment on above: Performed By: #### C MP #### [facility] [address] [place] [address] Dr. Dequan Márquez Calcium [Mass/Vol] 8.9 mg/dL Normal 8.5-10.1 [facility] Comment on above: Performed By: #### C MP #### [facility] [address] [place] [address] Dr. Dequan Márquez Chloride [Moles/Vol] 105 mmol/L Normal 98-107 [facility] Comment on above: Performed By: #### C MP #### [facility] [address] [place] [address] Dr. Dequan Márquez CO2 [Moles/Vol] 27.1 mmol/L Normal 21.0-32.0 [facility] Comment on above: Performed By: #### C MP #### [facility] [address] [address] [address] Dequan Márquez Creatinine [Mass/Vol] 0.90 mg/dL Normal 0.70-1.30 [facility] Comment on above: Performed By: #### C MP #### [facility] [address] [address] [address] Dequan Márquez EGFR-AF CITIZEN OF [place] >60 Normal >=60 [facility] Comment on above: Performed By: #### C MP #### [facility] [address] [address] [address] Dequan Márquez EGFR-NON AF CITIZEN OF [place] >60 Normal >=60 [facility] Comment on above: Performed By: #### C MP #### [facility] [address] [address] [address] Dequan Márquez Globulin (S) [Mass/Vol] 3.9 g/dL Normal [facility] Comment on above: Performed By: #### C MP #### [facility] [address] [address] [address] Dequan Márquez Glucose [Mass/Vol] 115 mg/dL Critically high 74-106 [facility] Comment on above: Performed By: #### C MP #### [facility] [address] [address] [address] Dequan Márquez Potassium [Moles/Vol] 4.2 mmol/L Normal 3.5-5.1 [facility] Comment on above: Performed By: #### C MP #### [facility] [address] [address] [address] Dequan Márquez Protein [Mass/Vol] 7.8 g/dL Normal 6.4-8.2 [facility] Comment on above: Performed By: #### C MP #### [facility] [address] [address] [address] Dequan Márquez Sodium [Moles/Vol] 140 mmol/L Normal 136-145 [facility] Comment on above: Performed By: #### C MP #### [facility] [address] [place], [place] [address] Dr. Dequan Márquez Urea nitrogen [Mass/Vol] 21.0 mg/dL Critically high 7.0-18.0 [facility] Comment on above: Performed By: #### C MP #### [facility] [address] [place], [place] [address] Dr. Dequan Márquez Urea nitrogen/Creatinine [Mass ratio] 23.3 mg/mg Normal [facility] Comment on above: Performed By: #### C MP #### [facility] [address] [place], [place] [address] Dr. Dequan Márquez A1C HEMOGLOBINon 03-06-2022 HbA1c (Bld) [Mass fraction] 7.1 % [facility] Other Glucose - FINGER STICKon Glucose [Mass/Vol] 140 mg/dL [facility] Other HbA1c (Bld) [Mass fraction]o n 03-06-2022 A1C HEMOGLOBIN [facility] Other Glucose - FINGER STICKon Glucose [Mass/Vol] 120 mg/dL [facility] Other Glucose - FINGER STICKon Glucose [Mass/Vol] 131 mg/dL [facility] Other BASIC METABOLIC PANELon 12-0 BUN/CREATININE RATIO NOT APPLICABLE Normal 6- [facility] Comment on above: Performed By: #### 7 600, [id number] #### [facility] [address] [place] [address], [address] [place] [id number] Credit Coordinator: Mann Jama MD Calcium [Mass/Vol] 8.7 mg/dL Normal 8.6-10.3 [facility] Comment on above: Performed By: #### 7 600, [id number] #### [facility] [address] [place] [address], [address] [place] [id number] Credit Coordinator: Mann Jama MD Chloride [Moles/Vol] 105 mmol/L Normal 98-110 [facility] Comment on above: Performed By: #### 7 600, [id number] #### [facility] [place] [address] Credit Coordinator: Mann Jama MD CO2 [Moles/Vol] 25 mmol/L Normal 20-32 [facility] Comment on above: Performed By: #### 7 600, [id number] #### [facility] [place] [address] Credit Coordinator: Mann Jama MD Creatinine [Mass/Vol] 0.84 mg/dL Normal 0.70-1.[address] [facility] Comment on above: Result Comment: For patients >49 years of age, the reference limit for Creatinine is approximately 13% higher for people identified as -[place]. Performed By: #### 7 600, [id number] #### [facility] [address], [address] [place] [address] Credit Coordinator: Mann Jama MD eGFR NON-AFR. CITIZEN OF [place] 96 mL/min/1.73m2 Normal > OR = 60 [facility] Comment on above: Performed By: #### 7 600, [id number] #### [facility] [place] [address] Credit Coordinator: Mann Jama MD GFR/1.73 sq M.predicted among blacks MDRD (S/P/Bld) [Vol rate/Area] 111 mL/min/{1.73_m2} Normal > OR = 60 [facility] Comment on above: Performed By: #### 7 600, [id number] #### [facility] [address], [address] [place] [address] Credit Coordinator: Mann Jama MD Glucose [Mass/Vol] 139 mg/dL High 65-99 [facility] Comment on above: Result Comment: Fasting reference interval For someone without known diabetes, a glucose value >125 mg/dL indicates that they may have diabetes and this should be confirmed with a follow-up test. Performed By: #### 7 600, [id number] #### [facility] of [address], [address] [place] [address] Credit Coordinator: Mann Jama MD Potassium [Moles/Vol] 4.3 mmol/L Normal 3.5-5.[address] [facility] Comment on above: Performed By: #### 7 600, [id number] #### [facility] of [address], [address] [place] [address] Credit Coordinator: Mann Jama MD Sodium [Moles/Vol] 138 mmol/L Normal 135-146 [facility] Comment on above: Performed By: #### 7 600, 73552 #### [facility] of [address], [address] [place] [address] Credit Coordinator: Mann Jama MD Urea nitrogen [Mass/Vol] 22 mg/dL Normal 7-25 [facility] Comment on above: Performed By: #### 7 600, [id number] #### [facility] [address], [address] [place] [address] Credit Coordinator: Mann Jama MD LIPID PANEL, [facility] [place] 12-0 Cholesterol [Mass/Vol] 107 mg/dL Normal <200 [facility] Comment on above: Order Comment: FASTI NG:YES FASTING: YES Performed By: #### 7 600, [id number] #### [facility] of [address], [address] [place] [address] Credit Coordinator: Mann Jama MD Cholesterol in HDL [Mass/Vol] 22 mg/dL Low > OR = 40 [facility] Comment on above: Order Comment: FASTI NG:YES FASTING: YES Performed By: #### 7 600, [id number] #### [facility] of [place] [address] Credit Coordinator: Mann Jama MD Cholesterol in LDL [Mass/Vol] [...] equation in the estimation of LDL-C. Donnie SS et al. MARCIE. 2013;310(19): 6266-3401 (http://education.[employer]/faq/UZH651) Performed By: #### 7 600, 85968 #### [facility] [address], [address] [place] [address] Credit Coordinator: Mann Jama MD Cholesterol.total/Ingris sterol in HDL [Mass ratio] 4.9 {ratio} Normal <5.0 [facility] Comment on above: Order Comment: FASTI NG:YES FASTING: YES Performed By: #### 7 600, [id number] #### [facility] [address], [address] [place] [address] Credit Coordinator: Mann Jama MD NON HDL CHOLESTEROL 85 mg/dL (calc) Normal <130 [facility] Comment on above: Order Comment: FASTI NG:YES FASTING: YES Result Comment: For patients with diabetes plus 1 major ASCVD risk factor, treating to a non-HDL-C goal of <100 mg/dL (LDL-C of <70 mg/dL) is considered a therapeutic option. Performed By: #### 7 600, [id number] #### [facility] [address], [address] [place] [address] Credit Coordinator: Mann Jama MD Triglyceride [Mass/Vol] 93 mg/dL Normal <150 [facility] Comment on above: Order Comment: FASTI NG:YES FASTING: YES Performed By: #### 7 600, [id number] #### [facility] [address], [address] [place] [address] Credit Coordinator: Mann Jama MD Vital Signs Date Time Vital Sign Value Performing Clinician Facility 06-07-2025 08: Body height 177.8 cm Rinku Negromalathi DO Work Phone: [facility] 06-07-2025 08: Body mass index (BMI) [Ratio] 33 kg/m2 Rinku Furlong DO Work Phone: [facility] 06-07-2025 08:07-0400 Body weight 104.5 kg Rinku Furlong DO Work Phone: [facility] 06-07-2025 08:07-0400 Diastolic blood pressure 66 mm[Hg] Rinku Furlong DO Work Phone: [facility] 06-07-2025 08:07-0400 Heart rate 86 /min Rinku Furlong DO Work Phone: [facility] 06-07-2025 08:07-0400 Respiratory rate 18 /min Rinku Furlong DO Work Phone: [facility] 06-07-2025 08:07-0400 SaO2% (BldA) [Mass fraction] 96 % Rinku Furlong DO Work Phone: [facility] 06-07-2025 08:07-0400 Systolic blood pressure 123 mm[Hg] Rinku Furlong DO Work Phone: [facility] 03-08-2025 08:31-0400 Body height 177.8 cm [facility] 03-08-2025 08:31-0400 Body mass index (BMI) [Ratio] 33.7 kg/m2 [facility] 03-08-2025 08:31-0400 Body weight 106.8 kg [facility] 03-08-2025 08:31-0400 Diastolic blood pressure 73 mm[Hg] [facility] 03-08-2025 08:31-0400 Heart rate 75 /min [facility] 03-08-2025 08:31-0400 Respiratory rate 18 /min [facility] 03-08-2025 08:31-0400 SaO2% (BldA) [Mass fraction] 97 % [facility] 03-08-2025 08:31-0400 Systolic blood pressure 142 mm[Hg] [facility] 12-07-2024 08:08-0500 Body height 177.8 cm [facility] 12-07-2024 08:08-0500 Body mass index (BMI) [Ratio] 32.6 kg/m2 [facility] 12-07-2024 08:08-0500 Body weight 103.19 kg [facility] 12-07-2024 08:08-0500 Diastolic blood pressure 80 mm[Hg] [facility] 12-07-2024 08:08-0500 Heart rate 88 /min [facility] 12-07-2024 08:08-0500 Respiratory rate 18 /min [facility] 12-07-2024 08:08-0500 SaO2% (BldA) [Mass fraction] 98 % [facility] 12-07-2024 08:08-0500 Systolic blood pressure 119 mm[Hg] [facility] 09-02-2024 08:01-0400 Body height 177.8 cm [facility] 09-02-2024 08:01-0400 Body mass index (BMI) [Ratio] 33.2 kg/m2 [facility] 09-02-2024 08:01-0400 Body weight 105.03 kg [facility] 09-02-2024 08:01-0400 Diastolic blood pressure 70 mm[Hg] [facility] 09-02-2024 08:01-0400 Heart rate 76 /min [facility] 09-02-2024 08:01-0400 Respiratory rate 18 /min [facility] 09-02-2024 08:01-0400 SaO2% (BldA) [Mass fraction] 97 % [facility] 09-02-2024 08:01-0400 Systolic blood pressure 121 mm[Hg] [facility] 08-31-2024 09:05-0400 Body height 177.8 cm [facility] [employer] [employer] Work Phone: [employer] 08-31-2024 09:05-0400 Body mass index (BMI) [Ratio] 32.89 kg/m2 [employer] [facility] Work Phone: [employer] 08-31-2024 09:05-0400 Body temperature 97.3 [degF] Rinku Tomlong DO Work Phone: [facility] 08-31-2024 09:05-0400 Body weight 103.96 kg Rinku Furlong DO Work Phone: [facility] 08-31-2024 09:05-0400 Diastolic blood pressure 80 mm[Hg] Rinku Furlong DO Work Phone: [facility] 08-31-2024 09:05-0400 Heart rate 79 /min Rinku Negrolong DO Work Phone: [facility] 08-31-2024 09:05-0400 Respiratory rate 18 /min Rinku Negrolong DO Work Phone: [facility] 08-31-2024 09:05-0400 SaO2% (BldA) [Mass fraction] 96 % Rinku Negrolong DO Work Phone: [facility] 08-31-2024 09:05-0400 Systolic blood pressure 130 mm[Hg] Rinku Negrolong DO Work Phone: [facility] 05-25-2024 08:19-0400 Body height 177.8 cm [facility] 05-25-2024 08:19-0400 Body mass index (BMI) [Ratio] 32.8 kg/m2 [facility] 05-25-2024 08:19-0400 Body weight 103.58 kg [facility] 05-25-2024 08:19-0400 Diastolic blood pressure 84 mm[Hg] [facility] 05-25-2024 08:19-0400 Heart rate 76 /min [facility] 05-25-2024 08:19-0400 Respiratory rate 18 /min [facility] 05-25-2024 08:19-0400 SaO2% (BldA) [Mass fraction] 97 % [facility] 05-25-2024 08:19-0400 Systolic blood pressure 133 mm[Hg] [facility] 02-19-2024 08:17-0400 Body height 154.94 cm [facility] 02-19-2024 08:17-0400 Body mass index (BMI) [Ratio] 43.9 kg/m2 [facility] 02-19-2024 08:17-0400 Body weight 105.46 kg [facility] 02-19-2024 08:17-0400 Diastolic blood pressure 73 mm[Hg] [facility] 02-19-2024 08:17-0400 Heart rate 75 /min [facility] 02-19-2024 08:17-0400 Respiratory rate 18 /min [facility] 02-19-2024 08:17-0400 SaO2% (BldA) [Mass fraction] 97 % [facility] 02-19-2024 08:17-0400 Systolic blood pressure 121 mm[Hg] [facility] 11-19-2023 08:15-0500 Body height 177.8 cm DO Rinku Furlong Work Phone: [facility] 11-19-2023 08:15-0500 Body weight 107.63 kg DO Rinku Furlong Work Phone: [facility] 11-19-2023 08:15-0500 Diastolic blood pressure 76 mm[Hg] DO Rinku Furlong Work Phone: [facility] 11-19-2023 08:15-0500 Systolic blood pressure 122 mm[Hg] DO Rinku Furlong Work Phone: [facility] 08-13-2023 08:15-0400 Body height 177.8 cm Melissa Scally Other [facility] Other 08-13-2023 08:15-0400 Body mass index (BMI) [Ratio] 34.1 kg/m2 Melissa Scally Other [facility] Other 08-13-2023 08:15-0400 Body weight 107.82 kg Melissa Scally Other [facility] Other 08-13-2023 08:15-0400 Diastolic blood pressure 83 mm[Hg] Melissa Scally Other [facility] Other 08-13-2023 08:15-0400 Respiratory rate 18 /min Melissa Scally Other [facility] Other 08-13-2023 08:15-0400 SaO2% (BldA) [Mass fraction] 99 % Melissa Scally Other [facility] Other 08-13-2023 08:15-0400 Systolic blood pressure 122 mm[Hg] Melissa Scally Other [facility] Other 05-07-2023 08:15-0400 Body height 177.8 cm Melissa Scally Other [facility] Other 05-07-2023 08:15-0400 Body mass index (BMI) [Ratio] 34.36 kg/m2 Melissa Scally Other [facility] Other 05-07-2023 08:15-0400 Body weight 108.64 kg Melissa Scally Other [facility] Other 05-07-2023 08:15-0400 Diastolic blood pressure 78 mm[Hg] Melissa Scally Other [facility] Other 05-07-2023 08:15-0400 Respiratory rate 20 /min Melissa Scally Other [facility] Other 05-07-2023 08:15-0400 SaO2% (BldA) [Mass fraction] 98 % Melissa Scally Other [facility] Other 05-07-2023 08:15-0400 Systolic blood pressure 115 mm[Hg] Melissa Scally Other [facility] Other 03-26-2023 11:15-0400 Body height 177.8 cm Melissa Scally Other [facility] Other 03-26-2023 11:15-0400 Body mass index (BMI) [Ratio] 35.25 kg/m2 Melissa Scally Other [facility] Other 03-26-2023 11:15-0400 Body weight 111.45 kg Melissa Scally Other [facility] Other 03-26-2023 11:15-0400 Diastolic blood pressure 86 mm[Hg] Melissa Scally Other [facility] Other 03-26-2023 11:15-0400 Respiratory rate 18 /min Melissa Scally Other [facility] Other 03-26-2023 11:15-0400 SaO2% (BldA) [Mass fraction] 97 % Melissa Scally Other [facility] Other 03-26-2023 11:15-0400 Systolic blood pressure 125 mm[Hg] Melissa Scally Other [facility] Other 12-25-2022 11:00-0500 Body height 177.8 cm Melissa Scally Other [facility] Other 12-25-2022 11:00-0500 Body mass index (BMI) [Ratio] 35.15 kg/m2 Melissa Scally Other [facility] Other 12-25-2022 11:00-0500 Body weight 111.13 kg Melissa Scally Other [facility] Other 12-25-2022 11:00-0500 Diastolic blood pressure 86 mm[Hg] Melissa Scally Other [facility] Other 12-25-2022 11:00-0500 Respiratory rate 18 /min Melissa Scally Other [facility] Other 12-25-2022 11:00-0500 SaO2% (BldA) [Mass fraction] 97 % Melissa Scally Other [facility] Other 12-25-2022 11:00-0500 Systolic blood pressure 135 mm[Hg] Melissa Scally Other [facility] Other 09-20-2022 11:00-0400 Body height 177.8 cm Melissa Scally Other [facility] Other 09-20-2022 11:00-0400 Body mass index (BMI) [Ratio] 34.92 kg/m2 Melissa Scally Other [facility] Other 09-20-2022 11:00-0400 Body weight 110.41 kg Melissa Scally Other [facility] Other 09-20-2022 11:00-0400 Diastolic blood pressure 80 mm[Hg] Melissa Scally Other [facility] Other 09-20-2022 11:00-0400 Respiratory rate 18 /min Melissa Scally Other [facility] Other 09-20-2022 11:00-0400 SaO2% (BldA) [Mass fraction] 97 % Melissa Scally Other [facility] Other 09-20-2022 11:00-0400 Systolic blood pressure 115 mm[Hg] Melissa Scally Other [facility] Other 06-12-2022 10:00-0400 Body height 177.8 cm Melissa Scally Other [facility] Other 06-12-2022 10:00-0400 Body mass index (BMI) [Ratio] 35.48 kg/m2 Melissa Scally Other [facility] Other 06-12-2022 10:00-0400 Body weight 112.18 kg Melissa Scally Other [facility] Other 06-12-2022 10:00-0400 Diastolic blood pressure 67 mm[Hg] Melissa Scally Other [facility] Other 06-12-2022 10:00-0400 Respiratory rate 18 /min Melissa Scally Other [facility] Other 06-12-2022 10:00-0400 SaO2% (BldA) [Mass fraction] 96 % Melissa Scally Other [facility] Other 06-12-2022 10:00-0400 Systolic blood pressure 99 mm[Hg] Melissa Scally Other [facility] Other 03-06-2022 11:15-0400 Body height 177.8 cm Melissa Scally Other [facility] Other 03-06-2022 11:15-0400 Body mass index (BMI) [Ratio] 34.95 kg/m2 Melissa Scally Other [facility] Other 03-06-2022 11:15-0400 Body weight 110.5 kg Melissa Scally Other [facility] Other 03-06-2022 11:15-0400 Diastolic blood pressure 77 mm[Hg] Melissa Scally Other [facility] Other 03-06-2022 11:15-0400 Respiratory rate 20 /min Melissa Scally Other [facility] Other 03-06-2022 11:15-0400 SaO2% (BldA) [Mass fraction] 99 % Melissa Scally Other [facility] Other 03-06-2022 11:15-0400 Systolic blood pressure 120 mm[Hg] Melissa Scally Other [facility] Other 01-10-2022 11:45-0500 Body height 177.8 cm Melissa Scally Other [facility] Other 01-10-2022 11:45-0500 Body mass index (BMI) [Ratio] 34.33 kg/m2 Melissa Scally Other [facility] Other 01-10-2022 11:45-0500 Body weight 108.55 kg Melissa Scally Other [facility] Other 01-10-2022 11:45-0500 Diastolic blood pressure 78 mm[Hg] Melissa Scally Other [facility] Other 01-10-2022 11:45-0500 Respiratory rate 18 /min Melissa Scally Other [facility] Other 01-10-2022 11:45-0500 SaO2% (BldA) [Mass fraction] 97 % Melissa Scally Other [facility] Other 01-10-2022 11:45-0500 Systolic blood pressure 128 mm[Hg] Melissa Scally Other [facility] Other 12-25-2021 11:30-0500 Body height 177.8 cm Melissa Scally Other [facility] Other 12-25-2021 11:30-0500 Body mass index (BMI) [Ratio] 33.73 kg/m2 Melissa Scally Other [facility] Other 12-25-2021 11:30-0500 Body weight 106.64 kg Melissa Scally Other [facility] Other 12-25-2021 11:30-0500 Diastolic blood pressure 70 mm[Hg] Melissa Scally Other [facility] Other 12-25-2021 11:30-0500 Respiratory rate 18 /min Melissa Scally Other [facility] Other 12-25-2021 11:30-0500 SaO2% (BldA) [Mass fraction] 98 % Melissa Joyce Other [facility] Other 12-25-2021 11:30-0500 Systolic blood pressure 108 mm[Hg] Melissa Joyce Other [facility] Other Encounters Encounter Date Encounter Type Care Provider Facility Start: 07-19-2025 End: 07-19-2025 Refill Rinku G Furlong DO Work Phone: [facility] Comment on above: Chronic right-sided low back pain with right-sided sciatica Start: 07-04-2025 End: 07-04-2025 Refill Rinku G Furlong DO Work Phone: [facility] Start: 06-07-2025 End: 06-07-2025 Patient encounter procedure Melissa C Isiah EMAIL OPERATIONS MANAGER -[facility] Work Phone: Start: 06-07-2025 End: 06-07-2025 ambulatory Rinku Furlong DO Work Phone: [facility] Work Phone: Start: 06-07-2025 End: 06-08-2025 ambulatory Rinku Furlong DO Work Phone: [facility] Work Phone: Comment on above: Chronic right-sided low back pain with right-sided sciatica Start: 06-07-2025 End: 06-07-2025 Patient encounter procedure Melissa Bryan Thomasnidia EMAIL OPERATIONS MANAGER -[facility] Work Phone: Start: 05-03-2025 End: 05-04-2025 ambulatory Rinku G Furlong DO Work Phone: [facility] Work Phone: Comment on above: Chronic right-sided low back pain with right-sided sciatica Start: 05-03-2025 End: 05-03-2025 Patient encounter procedure [facility] Work Phone: Start: 03-29-2025 End: 03-29-2025 Refill Rinku G Furlong DO Work Phone: [facility] Start: 03-09-2025 End: 03-09-2025 Refill Christie Emili BILLING ASSISTANT [facility] Start: 03-08-2025 End: 03-08-2025 ambulatory [facility] Work Phone: Start: 03-08-2025 End: 03-08-2025 Patient encounter procedure [facility] Work Phone: Start: 02-01-2025 End: 02-01-2025 ambulatory [facility] Work Phone: Start: 02-01-2025 End: 02-01-2025 Patient encounter procedure [facility] Work Phone: Start: 01-22-2025 End: 01-24-2025 Refill Rinku Peralta Furlong DO Work Phone: [facility] Comment on above: Chronic right-sided low back pain with right-sided sciatica Start: 12-14-2024 End: 12-14-2024 ambulatory [facility] Work Phone: Start: 12-14-2024 End: 12-14-2024 Patient encounter procedure [facility] Work Phone: Start: 12-07-2024 End: 12-07-2024 ambulatory [facility] Work Phone: Start: 12-07-2024 End: 12-07-2024 Patient encounter procedure [facility] Work Phone: Start: 11-07-2024 End: 11-09-2024 Refill Rinku Trejo DO Work Phone: [facility] Start: 10-12-2024 End: 10-12-2024 Refill Rinku Trejo DO Work Phone: [facility] Comment on above: Chronic right-sided low back pain with right-sided sciatica Start: 09-22-2024 End: 09-22-2024 [facility] Start: 09-22-2024 End: 09-23-2024 Refill Rinku Trejo DO Work Phone: [facility] Start: 09-10-2024 End: 09-10-2024 Refill Kavita Yangsavijoseph [facility] Start: 09-02-2024 End: 09-02-2024 ambulatory [facility] Work Phone: Start: 09-02-2024 End: 09-02-2024 Patient encounter procedure [facility] Work Phone: Start: 08-31-2024 End: 08-31-2024 Office outpatient visit 25 minutes Rinku Trejo DO Work Phone: [facility] Comment on above: Essential hypertensi on (Primary Dx); Nonproliferative diabetic retinopathy ([facility]); Mixed hyperlipidemia; Vitamin D deficiency; Class 1 obesity due to excess calories with serious comorbidity and body mass index (BMI) of 32.0 to 32.9 in adult; Type 2 diabetes mellitus with hyperglycemia, with long-term current use of insulin ([facility]); Encounter for screening for malignant neoplasm of prostate; Need for immunization against influenza Start: 08-31-2024 End: 08-31-2024 [facility] Start: 08-12-2024 End: 08-13-2024 Refill Rinku Trejo DO Work Phone: [facility] Comment on above: Chronic right-sided low back pain with right-sided sciatica Start: 07-13-2024 End: 07-13-2024 Refill Rinku Dominiqueng DO Work Phone: [facility] Comment on above: Chronic right-sided low back pain with right-sided sciatica Start: 06-11-2024 End: 06-11-2024 Telephone encounter Rinku Trejo DO Work Phone: [facility] Start: 06-08-2024 End: 06-10-2024 Refill Rinku Dominiqueng DO Work Phone: [facility] Start: 05-25-2024 End: 05-25-2024 ambulatory [facility] Work Phone: Start: 05-25-2024 End: 05-25-2024 Patient encounter procedure [facility] Work Phone: Start: 05-23-2024 End: 05-23-2024 Refill Rinku Tomlong DO Work Phone: [facility] Start: 04-21-2024 End: 04-21-2024 Refill Rinku Dominiqueng DO Work Phone: [facility] Start: 04-13-2024 End: 04-15-2024 Refill Diane Ayala Leny EMAIL OPERATIONS MANAGER-ENDS BREAKAGE CLERK Work Phone: [facility] Comment on above: Chronic right-sided low back pain with right-sided sciatica Start: 03-27-2024 End: 03-27-2024 Telephone encounter Marta Quinteros CMA [facility] Comment on above: Appointment Due Start: 03-06-2024 End: 03-06-2024 Refill Rinku Tomlong DO Work Phone: [facility] Start: 02-19-2024 End: 02-19-2024 ambulatory [facility] Work Phone: Start: 02-19-2024 End: 02-19-2024 Patient encounter procedure [facility] Work Phone: Start: 01-21-2024 Orders Only Diane Ayala Leny EMAIL OPERATIONS MANAGER-ENDS BREAKAGE CLERK Work Phone: [facility] Start: 01-20-2024 Refill Diane Michele EMAIL OPERATIONS MANAGER-ENDS BREAKAGE CLERK Work Phone: [facility] Comment on above: Chronic right-sided low back pain with right-sided sciatica Start: 01-14-2024 End: 01-14-2024 ambulatory DO Rinku Furlong Work Phone: [facility] Work Phone: Start: 01-14-2024 End: 01-14-2024 Patient encounter procedure DO Rinku Furlong Work Phone: [facility] Work Phone: Start: 12-12-2023 Refill Diane Michele EMAIL OPERATIONS MANAGER-ENDS BREAKAGE CLERK Work Phone: [facility] Start: 12-11-2023 Refill Rinku G Furlo ng DO Work Phone: [facility] Start: 12-04-2023 Refill Rinku G Furlo ng DO Work Phone: [facility] Start: 11-19-2023 End: 11-19-2023 ambulatory DO Rinku Furlong Work Phone: [facility] Work Phone: Start: 11-19-2023 End: 11-19-2023 Discharged Recurring DO Rinku Furlong Work Phone: [facility] Work Phone: Start: 11-19-2023 End: 11-19-2023 Patient encounter procedure DO Rinku Trejo Work Phone: [facility] Work Phone: Start: 11-08-2023 End: 11-08-2023 ambulatory Melissa Scally Other [employer] Other Start: 11-08-2023 Telephone encounter Melissa Scally [facility] Start: 10-03-2023 End: 10-03-2023 ambulatory Melissa Scally Other [employer] Other Start: 10-03-2023 Telephone encounter Melissa Scally F Quality Assurance Assistant Start: 08-23-2023 End: 08-23-2023 ambulatory Melissa Scally Other [employer] Other Start: 08-23-2023 Telephone encounter Melissa Scally [facility] Start: 08-13-2023 (DM) Diabetes Melissa Scally [facility] Start: 08-13-2023 End: 08-13-2023 ambulatory Melissa Scally Other [employer] Other Start: 07-08-2023 End: 07-08-2023 ambulatory Melissa Scally Other [employer] Other Start: 07-08-2023 Telephone encounter Melissa Scally [facility] Start: 07-05-2023 End: 07-05-2023 ambulatory Melissa Scally Other [employer] Other Start: 07-05-2023 Telephone encounter Melissa Scally [facility] Start: 05-07-2023 (DM) Diabetes Melissa Scally [facility] Start: 05-07-2023 End: 05-07-2023 ambulatory Melissa Joyce Other [employer] Other Start: 05-07-2023 Telephone encounter [facility] Start: 03-29-2023 End: 03-29-[address] SADAF ARIZA . Facility:[facility] Start: 03-26-2023 (DM) Diabetes Melissacrescencio [facility] Start: 03-26-2023 End: 03-26-2023 ambulatory Melissa Joyce Other [employer] Other Start: 03-21-2023 End: 03-22-2023 ambulatory NARENDRANATH LAKSHMIPATHY . Facility:[facility] Start: 03-14-2023 End: 03-14-2023 ambulatory Melissa Joyce Other [employer] Other Start: 03-14-2023 Telephone encounter Melissa [facility] Start: 03-07-2023 ambulatory NARENDRANATH LAKSHMIPATHY . Facility:[facility] Start: 02-26-2023 End: 02-26-2023 ambulatory Melissa Joyce Other [employer] Other Start: 02-26-2023 Telephone encounter Melissa chandra [...] Facility:[facility] Start: 01-03-2023 End: 01-04-2023 ambulatory SADIA KERON . Facility:[facility] Start: 12-25-2022 (DM) Diabetes Melissa [facility] Start: 12-25-2022 End: 12-25-2022 ambulatory Melissa Thomasnidia Other [employer] Other Start: 12-18-2022 End: 12-18-[address] HAYDE COBURN . Facility:[facility] Start: 12-05-2022 End: 12-06-[address] RINKU TREJO Facility:[facility] Start: 10-22-2022 End: 10-23-[address] DOCTOR HOLT Facility:[facility] Start: 10-05-2022 End: 10-05-2022 ambulatory Melissa Joyce Other [employer] Other Start: 10-05-2022 Telephone encounter [facility] Start: 09-20-2022 (DM) Diabetes Melissa Isiah [facility] Start: 09-20-2022 End: 09-20-2022 ambulatory Melissa Thomasnidia Other [employer] Other Start: 08-13-2022 End: 08-14-2022 ambulatory DIANE MICHELE Facility:[facility] Start: 07-02-2022 End: 07-03-[address] RINKU TREJO Facility:[facility] Start: 06-12-2022 (DM) Diabetes Melissa [facility] Start: 06-12-2022 End: 06-12-2022 ambulatory Melissa Joyce Other [employer] Other Start: 06-11-2022 End: 06-12-[address] RINKU TREJO Facility:[facility] Start: 05-30-2022 End: 05-31-[address] RINKU TREJO Facility:[facility] Start: 04-06-2022 End: 04-06-2022 ambulatory MIHAELA BRINK . Facility:[facility] Start: 03-09-2022 End: 03-09-2022 ambulatory Melissa Scally Other [employer] Other Start: 03-09-2022 Telephone encounter Melissa Scally [facility] Start: 03-06-2022 (DM) Diabetes Melissa Scally [facility] Start: 03-06-2022 End: 03-06-2022 ambulatory Melissa Scally Other [employer] Other Start: 03-02-2022 End: 03-02-2022 ambulatory Melissa Scally Other [employer] Other Start: 03-02-2022 Telephone encounter Melissa Scally [facility] Start: 02-26-2022 End: 02-26-2022 ambulatory Melissa Scally Other [employer] Other Start: 02-26-2022 Telephone encounter Melissa Scally [facility] Start: 01-15-2022 End: 01-15-2022 ambulatory Melissa Scally Other [employer] Other Start: 01-15-2022 Telephone encounter Melissa Scally [facility] Start: 01-10-2022 (DM) Diabetes Melissa Scally [facility] Start: 01-10-2022 End: 01-10-2022 ambulatory Melissa Scally Other [employer] Other Start: 01-10-2022 Telephone encounter Melissa Scally [facility] Start: 01-02-2022 End: 01-02-2022 ambulatory Melissa Scally Other [employer] Other Start: 01-02-2022 Telephone encounter Melissa Scally [facility] Start: 12-25-2021 End: 12-25-2021 ambulatory Melissa Joyce Other [place] [employer] Other Start: 12-25-2021 [facility] visit new patient Melissa [facility] Procedures Date Procedure Procedure Detail Performing Clinician Start: 09-04-2024 Microalbumin [Mass/v olume] in Urine by Test strip Kavita Paul CMA Start: 08-31-2024 Adult depression scr eening assessment Rinku Furlong DO Work Phone: Start: 10-25-2023 Adult depression scr eening assessment Rinkumarilou Tomlong DO Work Phone: Start: 04-15-2023 Microalbumin [Mass/v olume] in Urine by Test strip Rinku Dominiqueng [employer] Work Phone: Start: 01-27-2020 Colonoscopy Rinku servin DO Work Phone: Plan of Treatment Date Care Activity Detail Author Start: 09-19-2030 DTaP,Tdap and Td Vaccines (3 - Td or Tdap) DTaP,Tdap and Td Vaccines (3 - Td or Tdap) [facility] Start: 01-26-2030 Screening for malign ant neoplasm of colon [facility] [employer] Start: 07-04-2026 Statin Use: Diabetic Statin Use: Meena betic [facility] [employer] Start: 09-04-2025 Urine screening for protein Urine Microalbumin [facility] [employer] [facility] Start: 08-31-2025 Adult BMI Screening Adult BMI Screen ing [facility] [employer] [facility] Start: 08-31-2025 Depression Screening Depression Scre ening [facility] [employer] [facility] Start: 08-31-2025 Tobacco Screening Tobacco Screening [facility] [employer] [facility] Start: 08-26-2025 End: 08-26-2025 Patient encounter procedure 08/26/2025 11:40 AM EDT [facility] [address] [place] [address] [facility] Start: 08-19-2025 End: 08-19-2025 Patient encounter procedure 08/19/2025 11:00 AM EDT Office Visit [facility] [address] [place] [address] Rinku Trejo, [address] [place] [address] [facility] Start: 07-26-2025 Influenza vaccination Influenza Vacc ine [facility] Start: 05-13-2025 End: 05-13-2025 Patient encounter procedure 05/13/2025 9:30 AM EDT Office Visit [facility] [address] [place] [address] Rinku Trejo, [address], [place] [address] [facility] Family Medicine Start: 10-25-2024 Adult BMI Screening Adult BMI Screen ing [facility] Start: 10-25-2024 Depression Screening Depression [facility] Start: 10-25-2024 Tobacco Screening Tobacco Screening [facility] Start: 08-31-2024 End: 08-31-2024 Patient encounter procedure 08/31/2024 9:00 AM EDT [facility] [address] [place] [address] Rinku Trejo DO [address], [place] [address] [facility] Start: 07-26-2024 Influenza vaccination Influenza Vacc ine [facility] Start: 06-11-2024 End: 06-11-2024 Patient encounter procedure 06/11/2024 9:00 AM EDT Office Visit [facility] [address] [place] [address] [facility] Start: 05-15-2024 Diabetic foot examination Diabetic Foot Exam [facility] Start: 05-13-2024 End: 05-13-2024 Patient encounter procedure 05/13/2024 9:00 AM EDT Office Visit [facility] [address] [place] [address] Rinku Trejo, DO [address], [facility] [place] [address] [facility] Start: 04-15-2024 Urine screening for protein Urine Microalbumin [facility] Start: 06-20-2023 ambulatory Ambulatory Facility: 1 Start: 2011 Administration of varicella zoster vaccine Zoster (Shingles) Vaccine (1 of 2) [facility] Start: 1979 Adult BMI Follow Up Plan Adult BMI F ollow Up Plan [facility] Start: 1961 Glaucoma screening Diabetic Op hthalmology Exam [facility] Comprehensive metabo lic 2000 panel - Serum or Plasma [facility] End: 08-31-2025 Comprehensive metabolic 2000 panel - Serum or Plasma Comprehensive metabolic panel Lab Routine Essential hypertension 1 Occurrences starting 08/31/2024 until 08/31/2025 [facility] Work Phone: Comment on above: 1 Occurrences starti ng 08/31/2024 until 08/31/2025 Comprehensive metabo lic 2000 panel - Serum or Plasma [facility] End: 08-31-2025 Lipid panel Lipid panel Lab Routine Mixed hyperlipidemia 1 Occurrences starting 08/31/2024 until 08/31/2025 [facility] Estate Assist [facility] Comment on above: 1 Occurrences starti ng 08/31/2024 until 08/31/2025 End: 08-31-2025 Prostatic specific antigen screen Prostatic specific antigen screen Lab Routine Encounter for screening for malignant neoplasm of prostate 1 Occurrences starting 08/31/2024 until 08/31/[address] [facility] Comment on above: 1 Occurrences starti ng 08/31/2024 until 08/31/2025 End: 08-31-2025 Vitamin D 25 hydroxy Vitamin D 25 hydroxy Lab Routine Vitamin D deficiency 1 Occurrences starting 08/31/2024 until 08/31/[address] [facility] Comment on above: 1 Occurrences starti ng 08/31/2024 until 08/31/2025 [facility] Immunizations Immunization Date Immunization Notes Care Provider Fa cililexi 08-31-2024 influenza, seasonal, injectable, preservative free Rinku Furlong DO Work Phone: [facility] 08-31-2024 Immunization, In Clinic,; 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: [Drug or medicament (substance)] Rinku Furlong DO Work Phone: [facility] 08-31-2024 influenza virus vaccine, unspecified formulation Christie Emili BILLING ASSISTANT [facility] 08-30-2023 influenza, injectabl e, quadrivalent, preservative free Rinku Furlong DO Work Phone: [facility] 08-30-2023 Pneumococcal Conjuga te 20-valent Rinku Furlong DO Work Phone: [facility] 08-30-2023 influenza virus vaccine, unspecified formulation Rinku Furlong DO Work Phone: [facility] 08-27-2022 influenza virus vaccine, unspecified formulation Rinku Furlong DO Work Phone: [facility] 08-27-2022 influenza, injectabl e, quadrivalent, preservative free Rinku Furlong DO Work Phone: [facility] 08-22-2021 influenza, injectabl e, quadrivalent, preservative free Rinku Furlong DO Work Phone: [facility] 09-19-2020 influenza, injectabl e, quadrivalent, preservative free Rinku Furlong DO Work Phone: [facility] 09-19-2020 tetanus toxoid, redu ramandeep diphtheria toxoid, and acellular pertussis vaccine, adsorbed Rinku Furlong DO Work Phone: [facility] 09-25-2019 influenza, injectabl e, quadrivalent, preservative free Rinku Furlong DO Work Phone: [facility] 09-13-2018 influenza, injectabl e, quadrivalent, preservative free Rinku Furlong DO Work Phone: [facility] 11-08-2017 Influenza, injectabl e, Madin Adrian Canine Kidney, preservative free, quadrivalent Rinku Furlong DO Work Phone: [facility] 04-13-2017 tetanus toxoid, redu ramandeep diphtheria toxoid, and acellular pertussis vaccine, adsorbed Rinku Furlong DO Work Phone: [facility] 12-03-2012 influenza, seasonal, injectable Rinku Furlong DO Work Phone: [facility] Payers Date Payer Category Payer Self-pay [id number] 2019 Medicare AETNA MEDICARE A ETNA MEDICARE PLAN (PPO) [id number] 2019-Present [phone] [address] [place] [address] [id number] 2019 Medicare HMO [employer] MEDICARE [id number] 1961 Unknown [id number] 1961 Unknown [id number] [id number]3 1961 Unknown [id number] 2.16.840.1.436779.3.579.2.593 1961 Unknown [id number] 2.16.840.1.224252.3.579.2.593 1961 Unknown [id number] 2.16.840.1.781779.3.579.2.593 1961 Unknown [id number] 2.16.840.1.495105.3.579.2.593 1961 Unknown [id number] 2.16.840.1.462165.3.579.2.593 1961 Unknown [id number] 2.16.840.1.518546.3.579.2.593 1961 Unknown [id number] 2.16.840.1.439574.3.579.2.593 1961 Unknown [id number] 2.16.840.1.079696.3.579.2.593 1961 Unknown [id number] 2.16.840.1.105966.3.579.2.593 1961 Unknown [id number] 2.16.840.1.439786.3.579.2.593 1961 Unknown [id number] 2.16.840.1.906159.3.579.2.593 1961 Unknown [id number] 2.16.840.1.760371.3.579.2.593 1961 Unknown [id number] 2.16.840.1.415676.3.579.2.593 1961 Unknown [id number] 2.16.840.1.265403.3.579.2.593 1961 Unknown [id number] 2.16.840.1.085801.3.579.2.593 1961 Unknown [id number] 2.16.840.1.669976.3.579.2.593 1961 Unknown [id number] 2.16.840.1.266281.3.579.2.1286 1959 Medicare [id number] [id number] Medicare Medicare [id number] Unknown HCAP/HFA/FAP Active [id number] Unknown [id number] Social History Date Type Detail Facility Unknown if ever smoked [facility] [employer] Other Start: 04-19-2023 End: 08-31-2024 Sex Assigned At [employer] Other Start: 2017 End: 08-31-2024 Tobacco smoking status NHIS Ex-smoker (finding) [facility] Start: 1960 Sex Assigned At Male [facility] Start: 06-30-2015 End: 12-07-2024 Sex Male (finding) [facility] Start: 07-03-1999 End: 07-03-2007 History of tobacco use [facility] Start: 07-03-1999 End: 07-03-2007 History of tobacco use Cigarette Smoker [facility] [employer] Start: 04-05-2023 End: 04-19-2023 Cigarettes smoked current (pack per day) - Reported 0.5 [facility] Start: 04-05-2023 End: 08-31-2024 Tobacco use and exposure Smokeless tobacco non-user [employer] Start: 10-25-2023 End: 08-31-2024 Alcohol intake Ex-drinker (finding) [facility] [employer] Do you belong to any clubs or organizations such as buddhist groups, unions, fraternal or athletic groups, or school groups? No [facility] System Are you now , , , , never or living with a partner? [facility] How often to you hav e a drink containing alcohol? Never [facility] How many standard dr inks containing alcohol do you have on a typical day? Patient does not drink [facility] [employer] System Do you feel stress - tense, restless, nervous, or anxious, or unable to sleep at night because your mind is troubled all the time - these days [OSQ] Not at all [employer] Start: 08-22-2022 Alcohol Comment Occasional [facility] Start: 1960 Sex Assigned At Not on file [employer] Medical Equipment Procedure Code Equipment Code Equipment Origin al Text Equipment Identifier Dates [id number] Start: 02-24-2023 Pen Needle, Diab etic (Bd [...] Sugar Diagnostic (Onetouch Ultra Test) strip Start: 03-12-2024 Pen Needle, Diab etic (Bd Ultra-Fine Tracie Pen Needle) 32 gauge x 5/32 needle Start: 01-14-2024 Blood Sugar Diagnostic (Onetouch Ultra Test) strip Start: 02-04-2024 Pen Needle, Diab etic (Bd Ultra-Fine Tracie Pen Needle) 32 gauge x 5/32 needle Start: 01-04-2025 Pen Needle, Diab etic (Bd Ultra-Fine Tracie Pen Needle) 32 gauge x 5/32 needle Start: 01-14-2024 End: 01-04-2025 Blood Sugar Diagnostic (Onetouch Ultra Test) strip Start: 02-04-2024 Pen Needle, Diab etic (Bd Ultra-Fine Tracie Pen Needle) 32 gauge x 5/32 needle Start: 01-04-2025 Pen Needle, Diab etic (Bd Ultra-Fine Tracie Pen Needle) 32 gauge x 5/32 needle Start: 01-14-2024 End: 01-04-2025 Blood Sugar Diagnostic (Onetouch Ultra Test) strip Start: 02-04-2024 Pen Needle, Diab etic (Bd Ultra-Fine Tracie Pen Needle) 32 gauge x 5/32 needle Start: 01-04-2025 Pen Needle, Diab etic (Bd Ultra-Fine Tracie Pen Needle) 32 gauge x 5/32 needle Start: 01-14-2024 End: 01-04-2025 Blood Sugar Diagnostic (Onetouch Ultra Test) strip Start: 02-04-2024 Pen Needle, Diab etic (Bd Ultra-Fine Tracie Pen Needle) 32 gauge x 5/32 needle Start: 01-04-2025 Pen Needle, Diab etic (Bd Ultra-Fine Tracie Pen Needle) 32 gauge x 5/32 needle Start: 01-14-2024 End: 01-04-2025 Blood Sugar Diagnostic (Onetouch Ultra Test) strip Start: 02-04-2024 Pen Needle, Diab etic (Bd Ultra-Fine Tracie Pen Needle) 32 gauge x 5/32 needle Start: 01-04-2025 Pen Needle, Diab etic (Bd Ultra-Fine Tracie Pen Needle) 32 gauge x 5/32 needle Start: 01-14-2024 End: 01-04-2025 Clinical Notes 12-25-2021 to 07-19-2025 Telephone Encounter - Rinku Trejo DO - 07/19/2025 9:08 AM EDTTelephone Encounter - Rinku Trejo DO - 07/19/2025 9:08 AM EDT Note Date & Type Note Facility 07-19-2025 Miscellaneous Notes Formattin g of this note might be different from the original. Rx sent in for gabapentin. He is overdue for an appointment. Please set up documented in this encounter [facility] 07-19-2025 Telephone encount er Note Rx sent in for gabapentin. He is overdue for an appointment. Please set up [facility] 07-04-2025 Miscellaneous Notes Formattin g of this note might be different from the original. Rx sent in. He is overdue for labs/appt. He never got labs that were ordered last year documented in this encounter [facility] 07-04-2025 Telephone encount er Note Rx sent in. He is overdue for labs/appt. He never got labs that were ordered last year [facility] 06-07-2025 Miscellaneous Notes Formattin g of this note might be different from the original. Prescription sent in. He is overdue for an appointment. Please set up documented in this encounter [facility] 06-07-2025 Telephone encount er Note Prescription sent in. He is overdue for an appointment. 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 Due for a CV recheck [facility] encounter Note* Telephone Encounter - Rinku Trejo DO - 03/09/2025 4:48 PM EDT Rx sent in. 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 Due for an appointment around March [address] [facility] Tele[facility] encounter Note* Telephone Encounter - Rinku Trejo DO - 01/22/2025 5:34 PM EST Her prescription sent in. Due for an appointment around March [address] [facility]01-20-2025 Evaluation note* Diagnosis Onset Date Resolution Status Admit Date Type 2 diabetes mellitus wit h hyperglycemia acute December 14 3:09pm Type 2 diabetes mellitus wit h hyperglycemia acute February 01, 2025 7:59am Dietary counseling and surveillance acute March 08, 2025 8:23am HTN (hypertension) acute March 08, 2025 8:23am Hyperlipidemia acute February 8:23am MCFP current use of insulin acu te March 08, 2025 8:23am STANISLAV (obstructive sleep apnea) acute March 08, 2025 8:23am Retinopathy acute March 08, 8:23am Type 2 diabetes mellitus wit h hyperglycemia acute March 08, 2025 8:23am Vitamin D deficiency acute Apri l 2024 8:23am [facility] Work Phone: 1(575) 856-782001-13-2025 Evaluation note* Diagnosis Onset Date Resolution Status Admit Date Dietary counseling and surveillance acute December 07 7:59am HTN (hypertension) acute 2024 7:59am Hyperlipidemia acute December 072024 7:59am MCFP current use of insulin acu te December 07, 2024 7:59am STANISLAV (obstructive sleep apnea) acute December 07, 2024 7:59am Retinopathy acute December 07, 2024 7:59am Type 2 diabetes mellitus wit h hyperglycemia acute December 07 7:59am Vitamin D deficiency acute Tc wallace 2024 7:59am [facility] Work Phone: 1(572) 484-792401-13-2025 Evaluation note* Diagnosis Onset Date Resolution Status Admit Date Dietary counseling and surveillance acute December 07 7:59am HTN (hypertension) acute 2024 7:59am Hyperlipidemia acute December 072024 7:59am 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 acu te December 07, 2024 7:59am STANISLAV (obstructive sleep apnea) acute December 07, 2024 7:59am Retinopathy acute December 07, 2024 7:59am Type 2 diabetes mellitus wit h hyperglycemia acute December 07 7:59am Vitamin D deficiency acute Tc 2024 7:59am Type 2 diabetes mellitus wit h hyperglycemia acute December 14 3:09pm Type 2 diabetes mellitus wit h hyperglycemia acute February 01, 2025 7:59am [facility] Work Phone: 1(286) 626-981910-29-2024 Miscellaneous Notes* Telephone Encounter - Kavita Paul CMA - 09/22/2024 4:04 PM EDT Pt requesting refill on vitamin D and aspirin. Pharmacy is listed and correct. [facility] Tele[facility] encounter Note* Telephone Encounter - Kavita Paul CMA - 09/22/2024 4:04 PM EDT Pt requesting refill on vitamin D and aspirin. Pharmacy is listed and correct. [facility] Estate Assist [id number] Miscellaneous Notes* Telephone Encounter - Kavita Paul CMA - 09/10/2024 10:06 AM EDT Pt needs new scripts sent to [facility] since [facility] is closed. Amlodipine and Aspirin. Pharmacy is listed and correct. [facility] Tele[facility] encounter Note* Telephone Encounter - Kavita Paul CMA - 09/10/2024 10:06 AM EDT Pt needs new scripts sent to [facility] since [facility] is closed. Amlodipine and Aspirin. Pharmacy is listed and correct. [facility] [id number] History of Present illness Narrative* Rinku Trejo, - 08/31/2024 9:00 AM EDT Subjective Patient ID: Garo Leggett is a 63 y.o. male. Garo presents for CV recheck. He is taking his medications. He is not having any side effects. He is seeing a process engineering technician for his diabetes. Hypertension Hypothyroidism The following portions of the patient's history were reviewed and updated as appropriate: allergies, current medications, past family history, past medical history, past social history, past surgicalhistory, problem list, and medication reconciliation was completed including current medication andpost discharge medication. Review of Systems Objective Physical [...] Comprehensive metabolic panel; Future Nonproliferative diabetic retinopathy ([facility]) Mixed hyperlipidemia - Lipid panel; Future Vitamin D deficiency - Vitamin D 25 hydroxy; Future Class 1 obesity due to excess calories with serious comorbidity and body mass index (BMI) of 32.0 to 32.9 in adult Type 2 diabetes mellitus with hyperglycemia, with long-term current use of insulin ([facility]) Encounter for screening for malignant neoplasm of prostate - Prostatic specific antigen screen; Future Need for immunization against influenza - FLU VACCINE TS 2023-(6MOS UP)(PF) 45 MCG(15MCG X3)/0.5 ML IM SYRINGE [...] and encouraged to continue. [facility] Miscellaneous Notes* Telephone Encounter - Rinku Trejo DO - 07/13/2024 12:18 PM EDT Rx sent in. He is overdue for a CV appointment [facility] Telephone encounter Note* Telephone Encounter - Rinku Trejo DO - 07/13/2024 12:18 PM EDT Rx sent in. He is overdue for a CV appointment [facility]07-18-2024 Miscellaneous Notes* Telephone Encounter - Mi Montgomery - 06/11/2024 8:58 AM EDT Due for cv/wellness. was going to check when Garo was available and will get back to us. [facility] Telephone encounter Note* Telephone Encounter - Mi Montgomery - 06/11/2024 8:58 AM EDT Due for cv/wellness. was going to check when Garo was available and will get back to us. [facility]07-15-2024 Miscellaneous Notes* Telephone Encounter - Rinku Trejo DO - 06/08/2024 9:47 AM EDT Rx sent in. He has due for a CV/wellness [facility] Telephone encounter Note* Telephone Encounter - Rinku Trejo DO - 06/08/2024 9:47 AM EDT Rx sent in. He has due for a CV/wellness [facility]05-20-2024 Miscellaneous Notes* Telephone Encounter - RASHAWN Piedra - 04/13/2024 8:18 PM EDT refills [facility] Telephone encounter Note* Telephone Encounter - RASHAWN Piedra - 04/13/2024 8:18 PM EDT refills [facility]05-03-2024 Miscellaneous Notes* Telephone Encounter - Marta Quinteros CMA - 03/27/2024 3:47 PM EDT Care Coordination Outreach performed to coordinate overdue appointments, testing, and/or follow-up care: Yes Audit/Outreach Date: March 27, 2024 Reason: Chronic Condition Appt Method: Telephone Outreach Attempt: First Outcome: Contacted Patient Next PCP Appointment: Scheduled Tests/Referrals Pended: N/A Resources/Education Provided: Importance of follow ups Additional Comments: patient is scheduled 05/13/[address] [facility] Telephone encounter Note* Telephone Encounter - Marta Quinteros CMA - 03/27/2024 3:47 PM EDT Care Coordination Outreach performed to coordinate overdue appointments, testing, and/or follow-up care: Yes Audit/Outreach Date: March 27, 2024 Reason: Chronic Condition Appt Method: Telephone Outreach Attempt: First Outcome: Contacted Patient Next PCP Appointment: Scheduled Tests/Referrals Pended: N/A Resources/Education Provided: Importance of follow ups Additional Comments: patient is scheduled 05/13/[address] [facility]04-12-2024 Miscellaneous Notes* Telephone Encounter - Rinku Trejo DO - 03/06/2024 9:48 AM EDT Rx sent in. He is due for a CV recheck [facility] Telephone encounter Note* Telephone Encounter - Rinku Trejo DO - 03/06/2024 9:48 AM EDT Rx sent in. He is due for a CV recheck [facility] Estate Assist [id number] History of Present illness Narrative* RASHAWN Piedra - 01/21/2024 8:40 AM EST The OARRS/MAPPS database was reviewed today and found to be appropriate. No indication of medication diversion, or non compliance. Renewal - gabapentin RASHAWN Piedra 01/21/24 0841 [facility] [id number] Evaluation note* Encounter Date Diagnosis Assessment Notes Treatment Notes Treatment Clinical Notes Sep, Abdominal pain (ICD-10 - R10.9) [facility] Other 09-19-2023 Evaluation note* Encounter Date Diagnosis [...] progressive beta cell , concepts of basal/bolus/correct yonas insulin requirements. Basal: The goal is fasting [...] and make recommendations for long-term supplementation with pjwi-ujl-lghffvn formulations or prescription grade repletion. Jul, Dietary [...] was published to portal Normotensive today. 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 Basal: The goal is fasting [...] and make recommendations for long-term supplementation with mqcw-gps-aggfnms formulations or prescription grade repletion. Apr, Dietary [...] was published to portal Normotensive today. 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 Basal: The goal is fasting [...] and make recommendations for long-term supplementation with ihsh-hwn-mjcbgyw formulations or prescription grade repletion. March, Dietary [...] was published to portal Normotensive today. 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 2. [...] treatment options with their primary care provider.[facility] [id number] Evaluation note * Encounter Date Diagnosis Assessment Notes Treatment Notes Treatment Clinical Notes Feb, Type 2 diabetes mellitus with hyperglycemia (ICD-10 - E11.65) [facility] Other 03-09-2023 NoteCONSULTATION CONSULTATION DATE: 01/31/2023 HISTORY [...] followed up in the clinic post procedure.[facility] [id number] Note CONSULTATION CONSULTATION DATE: 01/03/2023 HISTORY OF [...] be followed up in the office thereafter.[facility] [id number] Evaluation note* Encounter Date Diagnosis Assessment Notes [...] progressive beta cell , concepts of basal/bolus/correct yonas insulin requirements. Basal: The goal is fasting [...] and pen needles be sent to [facility] Tri[facility] Nov, Vitamin D deficiency (ICD-10 - E55.9) Learning About Vitamin D material was published to portal Vitamin D level severely deficient at 8.8. patient to take rx x 8 weeks then OTC 4000iu daily thereafter Vitamin D deficiency suspected. Vitamin D has been noted to have positive impact on mood and energy. We can recheck periodically and make recommendations for long-term supplementation with ybym-gvp-znzrgku formulations or prescription grade repletion. Nov, Dietary [...] was published to portal Normotensive today. 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 Range [...] PLAN: The patient is to stop his snai-lct-qradfqs NSAIDs, and we will replace that with [...] agrees to move forward with the plan.[facility] [id number] Evaluation note* Encounter Date Diagnosis Assessment Notes [...] progressive beta cell , concepts of basal/bolus/correct yonas insulin requirements. Basal: The goal is fasting [...] and make recommendations for long-term supplementation with drjt-huw-cmemltk formulations or prescription grade repletion. Aug, Dietary counseling and surveillance (ICD-10 - Z71.3) Learning About Healthy Weight material was published to magaly HUFF in [place] previously Aug, Hyperlipidemia (ICD-10 - E78.5) Learning About High Cholesterol material was published to portalLDL 67 on October 26, 2021. Aug, HTN (hypertension) (ICD-10 - I10) High Blood Pressure: Care Instructions material was published to portal Normotensive today. 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 Basal: The goal is fasting [...] and make recommendations for long-term supplementation with ryfp-jbe-hdsxyav formulations or prescription grade repletion. May, Dietary counseling and surveillance (ICD-10 - Z71.3) Learning About Healthy Weight material was published to portal DARIA in [place] previously May, Hyperlipidemia (ICD-10 - E78.5) Learning About High Cholesterol material was published to portalJAN 67 on October 26, 2021. May, HTN (hypertension) (ICD-10 - I10) High Blood Pressure: Care Instructions material was published to portal Normotensive today. 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 Basal: The goal is fasting [...] and make recommendations for long-term supplementation with obrt-qgu-bybckvd formulations or prescription grade repletion. Feb, Dietary [...] BMI 34.0-34.9,adult (ICD-10 - Z68.34) weight stable [facility] Other 04-08-2022 Evaluation note* Encounter Date Diagnosis Assessment Notes Treatment Notes Treatment Clinical Notes Feb, Type 2 diabetes mellitus with hyperglycemia (ICD-10 - E11.65) [facility] Other 04-04-2022 Evaluation note* Encounter Date Diagnosis Assessment Notes Treatment Notes Treatment Clinical Notes Feb, Type 2 diabetes mellitus with hyperglycemia (ICD-10 - E11.65) [facility] Other 02-16-2022 Evaluation note* Encounter Date Diagnosis Assessment Notes Treatment Notes Treatment Clinical Notes Dec, Type 2 diabetes mellitus with hyperglycemia (ICD-10 - E11.65) ASSESSMENT: 1. Uncontrolled, a Type 2 diabetes with A1c of 9.3%. Significant improvement. [employer] download. 2. Blood glucose levels Significantly improved. [...] issues. 6. Prescriptions: None needed at this time.01-10--2020 uses Hailey Kwan/ [place] Dec, Vitamin D [...] was published to portal Normotensive today. 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 We discussed checking blood glucose against fingerstick if symptoms do not match blood glucose reading. We discussed taking less than 500 mg of vitamin C per day. We discussed checking blood glucose a.m. fasting before meals and at bed regardless of presence of greg 2. I am hopeful for coverage To assist with titration of his insulin and to decrease treatment fatigue ASSESSMENT: 1. Uncontrolled, a Type 2 diabetes with A1c of 9.3% 2. Blood glucose levels : Above target for age and comorbidity. Goal below 7%. Patient appears to be compliant with his medications. He needs increased vigilance with his blood glucose levels. 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) Nov, BMI 33.0-33.9,adult (ICD-10 - Z68.33) [facility] [place] Other chief complaint+Reason for visit Narrative* Chief Complaint DMN f/u-METER Reason for Visit Dietary counseling a nd surveillance HTN (hypertension) Hyperlipidemia [facility]FP current use of insulin STANISLAV (obstructive sleep apnea) Retinopathy Type 2 diabetes mellitus with hyperglycemia Vitamin D deficiency [facility] Work Phone: Chidt complaint+Reason for visit Narrative* Chief Complaint 3 month f/u-greg on phone Reason for Visit Dietary counseling a nd surveillance HTN (hypertension) Hyperlipidemia 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 STANISLAV (obstructive sleep apnea) Retinopathy Type 2 diabetes mellitus with hyperglycemia Vitamin D deficiency [facility] Work Phone: Evaluation noteNo InformationNortMoses [facility] [place] Other Evaluation noteNo assessment information available [facility] Work Phone: Evaluation note* Diagnosis Onset Date Resolution Status Type 2 diabetes mellitus with hyperglycemia acute [facility] Work Phone: Evaluation note* Diagnosis Onset Date Resolution Status Type 2 diabetes mellitus with hyperglycemia acute Hyperlipidemia acute Type 2 diabetes mellitus with hyperglycemia acute Vitamin D deficiency acute [facility] Work Phone: Evaluation note* Diagnosis Onset Date Resolution Status Dietary counseling and surveillance acute HTN (hypertension) acute Hyperlipidemia acute MCFP current use of insulin acute STANISLAV (obstructive sleep apnea) acute Retinopathy acute Type 2 diabetes mellitus with hyperglycemia acute Vitamin D deficiency acute [facility] Work Phone: Evaluation note* Diagnosis Onset Date Resolution Status Admit Date Dietary counseling and surveillance acute December 07 7:59am HTN (hypertension) acute Novuar y 2024 7:59am Hyperlipidemia acute December 072024 7:59am 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 acu te December 07, 2024 7:59am STANISLAV (obstructive sleep apnea) acute December 07, 2024 7:59am Retinopathy acute December 07, 2024 7:59am Type 2 diabetes mellitus wit h hyperglycemia acute December 07 7:59am Vitamin D deficiency acute Tc wallace 2024 7:59am [facility] Work Phone: Evaluation note* Diagnosis Chronic right-sided low back pain with right-sided sciatica [facility] Diagnosis Chronic right-sided low back pain with right-sided sciatica [facility]* Diagnosis Chronic right-sided low back pain with right-sided sciatica [facility]* Diagnosis Essential hypertension- Primary Unspecified essential hypertension Nonproliferative diabetic retinopathy ([facility]) Type II or unspecified type diabetes mellitus with ophthalmic manifestations, not stated as uncontrolled Mixed hyperlipidemia Vitamin D deficiency Class 1 obesity due to excess calories with serious comorbidity and body mass index (BMI) of 32.0 to 32.9 in adult Type 2 diabetes mellitus with hyperglycemia, with long-term current use of insulin ([facility]) Encounter for screening for malignant neoplasm of prostate Need for immunization against influenza Need for prophylactic vaccination and inoculation against influenza [facility] Diagnosis Chronic right-sided low back pain with right-sided sciatica documented [facility] Diagnosis Chronic right-sided low back pain with right-sided sciatica [facility] this encounter [facility] Chronic right-sided low back pain with right-sided sciatica documented in this encounter [facility] Narrative - Reported* Type Description Date [...] with biopsy 2020 Surgical History Cardiac Cath 2008 Surgical History Removal of Colon 2013 Surgical History Cancer surgery Right Orchiectom y 1996 Surgical History EMG for diabetic neuropathy 200 3 Hospitalization History Colon CA 2008 Hospitalization History See Above [place] Other history general Narrative - Reported* Type [...] with biopsy 2020 Surgical History Cardiac Cath 2008 Surgical History Removal of Colon 2013 Surgical History Cancer surgery Right Orchiectom y 1996 Surgical History EMG for diabetic neuropathy 200 3 Surgical History Laser surgery both eyes for ret inopathy -06/2022-08/2022 Hospitalization History Colon CA 2008 Hospitalization History See Above [place] Other history general Narrative - Reported* Type [...] Cath 2008 Surgical History Removal of Colon 2013 Surgical History Cancer surgery Right Orchiectom y 1997 Surgical History EMG for diabetic neuropathy 200 3 Surgical History Laser surgery both e yes for retinopathy -06/2022-08/2022 Hospitalization History Colon CA 2008 Hospitalization History [facility] ER for stomach flu February or March 2023 [facility] [place] Other History general [place]ative - [place] Other InstructionsNot on filedocumented in this encounter [...] [facility] for [facility]No reason for referral information [facility]Our [facility] Work Phone: Reason for visit NarrativeDS GI Referral-deferrred PCP recom retrial [place] Other Summary Purpose Family History Relationship Condition Age at Onset Recorded Date/T jeffrey brother Malignant neoplasm of lung Unknown father Heart disease Unknown Unknown Hypertension Unknown family member Unknown Advance Directives Advance Directive Response Recorded Date/ Time Advance Directives No December 8:52am Advance Directive Response Recorded Date/ Time Advance Directives No December 9:52am Chief Complaint and Reason for Visit Chief Complaint Admit Date DMN f/u-on phone December 07, 2024 7 :59am Greg issues December 14, 2024 3 :09pm Reason for Visit Admit Date Dietary counseling and surveillance Tc gonsalez 2024 7:59am HTN (hypertension) December 07, 2024 7 :59am Hyperlipidemia December 07, 2024 7 :59am [facility] current use of insulin December 07, 2024 7:59am STANISLAV (obstructive sleep apnea) December 072024 7:59am Retinopathy December 07, 2024 7 :59am Type 2 diabetes mellitus with hyperglyce magnolia December 07, 2024 7:59am Vitamin D deficiency December 07, 2024 7:59am Chief Complaint Dm DM Chief Complaint Dm DM Download Reason for Visit Type 2 diabetes rohan itus with hyperglycemia Chief Complaint Download DMN f/u-NO METER Reason for Visit Type 2 diabetes rohan itus with hyperglycemia Hyperlipidemia Type 2 diabetes mellitus with hyperglycemia Vitamin D deficiency Chief Complaint Admit Date DMN f/u-on phone December 07, 2024 7 :59am Chief Complaint Admit Date DMN f/u-on phone December 07, 2024 7 :59am Greg issues December 14, 2024 3 :09pm 8 weeks DL Greg February 01, 2025 7:5 9am Reason for Visit Admit Date Dietary counseling and surveillance Tc gonsalez 2024 7:59am HTN (hypertension) December 07, 2024 7 :59am Hyperlipidemia December 07, 2024 7 :59am [facility] current use of insulin December 07, 2024 7:59am STANISLAV (obstructive sleep apnea) December 072024 7:59am Retinopathy December 07, 2024 7 :59am Type 2 diabetes mellitus with hyperglyce magnolia December 07, 2024 7:59am Vitamin D deficiency December 07, 2024 7:59am Type 2 diabetes mellitus with hyperglyce magnolia December 14, 2024 3:09pm Type 2 diabetes mellitus with hyperglyce magnolia February 01, 2025 7:59am Chief Complaint Admit Date Greg issues December 14, 2024 3 :09pm 8 weeks DL Greg February 01, 2025 7:5 9am DMN f/u-on phone March 08, 2025 8:2 3am Reason for Visit Admit Date Type 2 diabetes mellitus with hyperglyce magnolia December 14, 2024 3:09pm Type 2 diabetes mellitus with hyperglyce magnolia February 01, 2025 7:59am Dietary counseling and surveillance Apri l 2024 8:23am HTN (hypertension) March 08, 2025 8:2 3am Hyperlipidemia March 08, 2025 8:2 3am 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 February 232024 8:23am STANISLAV (obstructive sleep apnea) February 8:23am Retinopathy March 08, 2025 8:2 3am Type 2 diabetes mellitus with hyperglyce magnolia March 08, 2025 8:23am Vitamin D deficiency March 08, 2025 8: 23am Chief Complaint Admit Date DMN f/u-on phone March 08, 2025 8:2 3am 8 week DL May 03, 2025 7:25a m Reason for Visit Admit Date Dietary counseling and surveillance Apri l 2024 8:23am HTN (hypertension) March 08, 2025 8:2 3am Hyperlipidemia March 08, 2025 8:2 3am [facility] current use of insulin February 232024 8:23am STANISLAV (obstructive sleep apnea) February 8:23am Retinopathy March 08, 2025 8:2 3am Type 2 diabetes mellitus with hyperglyce magnolia March 08, 2025 8:23am Vitamin D deficiency March 08, 2025 8: 23am Type 2 diabetes mellitus with hyperglyce magnolia May 03, 2025 7:25am Chief Complaint Admit Date 8 week DL May 03, 2025 7:25a m 5 week after DL June 07, 2025 7:38 am Reason for Visit Admit Date Type 2 diabetes mellitus with hyperglyce magnolia May 03, 2025 7:25am Dietary counseling and surveillance June 07, 2025 7:38am HTN (hypertension) June 07, 2025 7:38 am Hyperlipidemia June 07, 2025 7:38 am [facility] current use of insulin June 072024 7:38am STANISLAV (obstructive sleep apnea) June 07, 2025 7:38am Retinopathy June 07, 2025 7:38 am Type 2 diabetes mellitus with hyperglyce magnolia June 07, 2025 7:38am Vitamin D deficiency June 07, 2025 7:3 8am Chief Complaint Admit Date 8 week DL May 03, 2025 7:25a m 5 week after DL June 07, 2025 7:38 am E55.9, E11.65, Z79.4, E78.5 June 07, 025 8:50am Additional Source Comments (unrecognized sect ion and content) No Status Records FoundNo Status Records FoundNo Status Records FoundNo Status Records Found INFORMATION SOURCE (unrecogn ized section and content) DATE CREATED AUTHOR 10/27/2021 [facility] DATE CREATED AUTHOR AUTHOR'S ORGANIZ ATION 04/04/2023 [facility] DATE CREATED AUTHOR AUTHOR'S ORGANIZ ATION 09/01/2024 [facility] DATE CREATED AUTHOR AUTHOR'S ORGANIZ ATION 06/20/2025 [facility] REASON FOR VISIT (unrecogniz ed section and content) Reason Comments Med Refill Reason Onset Date Comments Appointment Due 03/27/2024 Reason Onset Date Comments Med Refill 07/13/2024 Reason Comments Hypertension Hypothyroidism Reason Onset Date Comments Med Refill 09/22/2024 Reason Onset Date Comments Med Refill 03/09/2025 Care Teams (unrecognized sec tion and content) Team Status: Active Member Role Status Dates [...] 14, 2024 End: January 14, 2024 Melissa Jocye APRN Active Star t: January 14, 2024 [...] May 25, 2024 End: May 25, 2024 Team Status: Inactive Member Role Status Dates Rinku Trjeo DO Primary Care Provider Active Start: September 02, 2024 End: September 02, 2024 Melissa Joyce APRN Attending Provider Active Start: September 02, 2024 End: September 02, 2024 Team Status: Inactive Member Role Status Dates Rinku Trejo DO Primary Care Provider Active Start: December 07, 2024 End: December 07, 2024 Melissa Joyce APRN Attending Provider Active Start: December 07, 2024 End: December 07, 2024 Team Status: Inactive Member Role Status Dates Rinku NegroDO malathi Primary Care Provider Active Start: December 14, 2024 End: December 14, 2024 Delio Cheema RN Attending Provider Active St art: December 14, 2024 End: December 14, 2024 Melissa Joyce APRN Active Star t: December 14, 2024 End: December 14, 2024 Collateral Specialist Relationship Specialty Start Date End Date Rinku Trejo DO [address], [place] [address] PCP - General Family Medicine 07/03/17 Collateral Specialist Relationship Specialty Start Date End Date Rinku Trejo DO [address], [place] [address] PCP - General Family Medicine 07/03/17 Collateral Specialist Relationship Specialty Start Date End Date Rinku Trejo DO [address], [place] [address] PCP - General Family Medicine 07/03/17 Collateral Specialist Relationship Specialty Start Date End Date Rinku Trejo DO [address] [place] [address] PCP - General Family Medicine 07/03/17 Collateral Specialist Relationship Specialty Start Date End Date NegrorobertoRinku morgan DO [address] [place] [address] PCP - General Family Medicine 07/03/17 Collateral Specialist Relationship Specialty Start Date End Date NegrorobertoRinku morgan DO [address] [place] [address] PCP - General Family Medicine 07/03/17 Collateral Specialist Relationship Specialty Start Date End Date NegromalathiRinku DO [address] [place] [address] PCP - General Family Medicine 07/03/17 Collateral Specialist Relationship Specialty Start Date End Date NegrorobertoRinku morgan DO [address] [place] [address] PCP - General Family Medicine 07/03/17 Collateral Specialist Relationship Specialty Start Date End Date NegromalathiRinku DO [address] [place] [address] PCP - General Family Medicine 07/03/17 Collateral Specialist Relationship Specialty Start Date End Date MayaRinku DO [address] [place] [address] PCP - General Family Medicine 07/03/17 Collateral Specialist Relationship Specialty Start Date End Date Rinku Trejo DO [address], [place] [address] PCP - General Family Medicine 07/03/17 Team Status: Inactive Member Role Status Dates Rinku NegroDO malathi Primary Care Provider Active Start: February 01, 2025 End: February 01, 2025 Veronika Garnett RN Attending Provider Active Start: February 01, 2025 End: February 01, 2025 Melissa Joyce APRN Active Star t: February 01, 2025 End: February 01, 2025 Team Status: Inactive Member Role Status Dates Rinku NegroDO malathi Primary Care Provider Active Start: March 08, 2025 End: March 08, 2025 Melissa Joyce APRN Attending Provider Active Start: March 08, 2025 End: March 08, 2025 Team Status: Inactive Member Role Status Dates Rinku NegroDO malathi Primary Care Provider Active Start: May 03, 2025 End: May 03, 2025 Delio Cheema RN Attending Provider Active St art: May 03, 2025 End: May 03, 2025 Melissa Joyce APRN Active Star t: May 03, 2025 End: May 03, 2025 Team Status: Inactive Member Role Status Dates Rinku NegroDO malathi Primary Care Provider Active Start: May 03, 2025 End: May 03, 2025 Delio Cheema , YIN Attending Provider Active St art: May 03, 2025 End: May 03, 2025 Team Status: Inactive Member Role Status Dates Rinku NegroDO malathi Primary Care Provider Active Start: June 07, 2025 End: June 07, 2025 Melissa Joyce APRN Attending Provider Active Start: June 07, 2025 End: June 07, 2025 Collateral Specialist Relationship Specialty Start Date End Date Rinku Trejo DO [address], [place] [address] PCP - General Family Medicine 07/03/17 Goals (unrecognized section and content) Goals may [...] BE BASED ON THE PRIMARY CLINICAL RECORDS. [facility] User [employer]play [facility]. provides no warranty or guarantee of the accuracy or completeness of information in this document.
--- NOTE | 2025-08-19 12:32 | XR_ITS ---
[place] [id number] Patient Name: BHANU GARCIA MRN: [id number] date: 1960 Sex: M Assigned Patient Location: [facility] Current Patient Location: [facility] Accession/Order Number: [id number] Exam Date: 08/19/2025 13:00 Report Date: 08/19/2025 13:45 At the request of: MITCHELL SANTANA Procedure: XR knee LT 3V LEFT KNEE - 3 views CLINICAL HISTORY: Left Knee Pain, Swelling COMPARISON: None FINDINGS: Small joint effusion. Mild degenerative changes without acute bony process. XR/XR knee LT 3V IMPRESSION: MILD DEGENERATIVE CHANGES WITHOUT ACUTE BONY PROCESS. Impression dictated by: Damon Guillen Jr., D.OPaulette 08/19/2025 1:45 PM Dictation Location: [place] [address] Electronically authenticated by: [id number] Y Date: 08/19/2025 13:45
== END 2025-08-19 12:19 | disposition home or self-care (01) ==
LOC: RAD 12:21
PROVIDERS: PCP Family Medicine; Visit Provider Family Medicine
DX: S83.92XA Sprain of unspecified site of left knee, initial encounter (principal)
CPT/HCPCS: 73562